=== PATIENT | female | born 1960 | race Caucasian/White ===

== ENCOUNTER 2016-08-27 22:41 | Emergency (ER) | payer MEDICAID ==
[2016-08-27] MEDS ORDERED: Ondansetron 4 MG/2 ML SDV IVPUSH ONE (22:52)
[2016-08-27] MEDS: Sodium Chloride 0.9% 10 ML Syringe FLUSH PRN ×2 (23:01→23:21)
[2016-08-27] MEDS ORDERED: Iopamidol 612 MG/ML 100 ML Bottle IVPUSH ONE (23:03)
[2016-08-27] MEDS ORDERED: Morphine 10 MG/ML Syringe IVPUSH ONE (23:14)
--- NOTE | 2016-08-28 00:38 | EDM.PDOC ---
ED HPI GENERAL MEDICAL PROBLEM - General Chief Complaint: Abdominal Pain Stated Complaint: abd pain Time Seen by Provider: 08/27/16 23:11 Source of Information: Reports: Patient History Limitations: Reports: No Limitations - History of Present Illness INITIAL COMMENTS - FREE TEXT/NARRATIVE: On/off abdominal pain that started today. Patient brought in by private vehicle. Pain is christie-umbilical. She has history of ventral hernia and has undergone 3 surgical repairs. She says she knows that she "tore" the more recent repair and feels that the pain is related to the hernia. Has had some emesis. One looser stool but took MOM earlier. No fevers. No other new pain. Has chronic hip/leg pain issues. Morbidly obese. 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 Middle Abdominal Pain Score (Numeric/FACES): 10 - Related Data Allergies Allergy/AdvReac Type Severity Reaction Status Date / Time No Known Allergies Allergy Verified 10/12/13 09:33 Home Meds: Home Meds Acetaminophen [Tylenol Extra Strength] 1,000 mg PO Q12H PRN 10/12/13 [History] Cyclobenzaprine [Flexeril] 5 mg PO TID PRN 10/12/13 [History] Diclofenac Sodium [Voltaren] 75 mg PO BID 10/12/13 [History] Warfarin Dosing [Coumadin Ask] 1 each PO DAILY 10/12/13 [History] traMADol [Ultram] 50 mg PO TID PRN 10/12/13 [History] Magnesium Hydroxide [Milk of Magnesia] 30 ml PO DAILY PRN 08/27/16 [History] Past Medical History HEENT History: Reports: Impaired Vision Cardiovascular History: Reports: Other (See Below) Other Cardiovascular History: "blood filter" unknown location to pt perhaps in her lungs as 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 Respiratory History: Reports: PE Gastrointestinal History: Reports: Other (See Below) Other Gastrointestinal History: umbilical hernia with 3 repairs Endocrine/Metabolic History: Reports: Obesity/BMI 30+ Oncologic (Cancer) History: Reports: Uterine - Past Surgical History GI Surgical History: Reports: Cholecystectomy, Hernia, Abdominal Oncologic Surgical History: Reports: Other (See Below) Other Oncologic Surgeries/Procedures: removal of reproductive organs Social & Family History - Tobacco Use Smoking Status *Q: Never Smoker - Alcohol Use Days Per Week of Alcohol Use: 0 - Recreational Drug Use Recreational Drug Use: No - Living Situation & Occupation Living situation: Reports: with Spouse ED ROS GENERAL - Review of Systems Review Of Systems: See Below Constitutional: Reports: Decreased Appetite. Denies: Fever, Weakness, Fatigue, Night Sweats HEENT: Reports: No Symptoms Respiratory: Reports: No Symptoms Cardiovascular: Reports: No Symptoms GI/Abdominal: Reports: Abdominal Pain, Decreased Appetite, Nausea, Vomiting. Denies: Black Stool, Bloody Stool, Constipation, Difficulty Swallowing, Distension, Hematemesis, Hematochezia, Melena : Reports: No Symptoms Musculoskeletal: Reports: Other (chronic leg/hip pain ) Skin: Reports: No Symptoms Neurological: Reports: No Symptoms Psychiatric: Reports: No Symptoms ED EXAM, GI/ABD - Physical Exam Exam: See Below Exam Limited By: No Limitations General Appearance: Alert, Moderate Distress, Obese, Active Emesis Eyes: Bilateral: Normal Appearance, EOMI Ears: Normal External Exam Nose: Normal Inspection Throat/Mouth: Normal Lips, Normal Voice, No Airway Compromise Head: Atraumatic, Normocephalic Neck: Supple, Non-Tender. No: Lymphadenopathy (L), Lymphadenopathy (R) Respiratory/Chest: No Respiratory Distress, Lungs Clear, Normal Breath Sounds, No Accessory Muscle Use, Chest Non-Tender Cardiovascular: Normal Peripheral Pulses, Regular Rate, Rhythm, No Murmur GI/Abdominal: Hypoactive Bowel Sounds, Tenderness (christie-umbilical area), Other ( obvious intestines/peristolic movements noted near hearnia.). No: Rebound (Female) Exam: Deferred Rectal (Female) Exam: Deferred Back Exam: Normal Inspection Extremities: Normal Capillary Refill Neurological: Alert, Oriented, Normal Cognition, No Motor/Sensory Deficits Psychiatric: Anxious Skin Exam: Warm, Dry, Intact, Normal Color Course - Vital Signs Last Recorded V/S: Last Vital Signs Temp 36.3 C 08/27/16 23:58 Pulse 80 08/28/16 00:47 Resp 17 08/28/16 00:47 BP 114/69 08/28/16 00:47 Pulse Ox 95 08/28/16 00:47 - Orders/Labs/Meds Orders: Active Orders 24 hr Category Date Time Status Cardiac Monitoring [RC] . DIRECTED Care 08/27/16 22:59 Active Abdomen Pelvis w Cont [CT] Stat Exams 08/27/16 22:55 Taken Sodium Chloride 0.9% [Saline Flush] Med 08/27/16 22:59 Active 10 ml FLUSH ASDIRECTED PRN Saline Lock Insert [OM.PC] Routine Oth 08/27/16 22:59 Ordered Medication Orders Sodium Chloride (Saline Flush) 10 ml FLUSH ASDIRECTED PRN PRN Reason: Keep Vein Open Last Admin: 08/27/16 23:21 Dose: 10 ml Admin: 08/27/16 23:01 Dose: 10 ml Labs: Laboratory Tests 08/27/16 08/27/16 08/27/16 Range/Units 22:48 22:48 22:50 WBC 10.2 (4.0-10.2) K/uL RBC 4.07 (3.77-5.09) M/uL Hgb 12.5 (11.7-15.5) g/dL Hct 38.7 (34.0-46.0) % MCV 95.1 (84.0-98.0) fL MCH 30.7 (28.2-33.3) pg MCHC 32.3 (31.7-36.0) g/dL RDW 13.8 (11.2-14.1) % Plt Count 253 (150-350) K/uL Neut % (Auto) 84.8 H (45.0-80.0) % Lymph % (Auto) 11.6 (10.0-50.0) % [place] % (Auto) 3.0 (2.0-14.0) % Eos % (Auto) 0.4 (0.0-5.0) % Baso % (Auto) 0.2 (0.0-2.0) % Neut # (Auto) 8.62 H (1.40-7.00) K/uL Lymph # (Auto) 1.18 (0.50-3.50) K/uL [place] # (Auto) 0.30 (0.00-1.00) K/uL Eos # (Auto) 0.04 (0.00-0.50) K/uL Baso # (Auto) 0.02 (0.00-0.20) K/uL PT 21.4 H D (9.8-11.7) SEC INR 1.9 Sodium 139 (136-145) mmol/L Potassium 4.0 (3.5-5.1) mmol/L Chloride 102 (98-107) mmol/L Carbon Dioxide 28.5 (21.0-32.0) mmol/L BUN 17 (7-18) mg/dL Creatinine 1.04 (0.51-1.17) mg/dL Est Cr Clr Drug Dosing 54.35 mL/min Estimated GFR (MDRD) 55 mL/min Glucose 140 H (74-106) mg/dL Calcium 10.2 H (8.5-10.1) mg/dL Total Bilirubin 1.6 H (0.2-1.0) mg/dL AST 30 (15-37) U/L ALT 26 (12-78) U/L Alkaline Phosphatase 76 (46-116) IU/L Troponin I 0.000 (0.000-0.056) ng/mL Total Protein 8.2 (6.4-8.2) g/dL Albumin 4.4 (3.4-5.0) g/dL Amylase 49 (25-115) U/L Lipase 128 (73-393) U/L Specimen Type Urine Color Urine Appearance Urine pH (5.0-9.0) Ur Specific [place] (1.005-1.030) Urine Protein (NEGATIVE) mg/dL Urine Glucose (UA) (NEGATIVE) mg/dL Urine Ketones (NEGATIVE) mg/dL Urine Occult Blood (NEGATIVE) Urine Nitrite (NEGATIVE) Urine Bilirubin (NEGATIVE) Urine Urobilinogen (0.2-1.0) E.U./dL Ur Leukocyte Esterase (NEGATIVE) Urine RBC /HPF Urine WBC /HPF Ur Epithelial Cells /LPF Urine Bacteria (NONE TO FEW) /HPF 08/27/16 Range/Units 23:45 WBC (4.0-10.2) K/uL RBC (3.77-5.09) M/uL Hgb (11.7-15.5) g/dL Hct (34.0-46.0) % MCV (84.0-98.0) fL MCH (28.2-33.3) pg MCHC (31.7-36.0) g/dL RDW (11.2-14.1) % Plt Count (150-350) K/uL Neut % (Auto) (45.0-80.0) % Lymph % (Auto) (10.0-50.0) % [place] % (Auto) (2.0-14.0) % Eos % (Auto) (0.0-5.0) % Baso % (Auto) (0.0-2.0) % Neut # (Auto) (1.40-7.00) K/uL Lymph # (Auto) (0.50-3.50) K/uL [place] # (Auto) (0.00-1.00) K/uL Eos # (Auto) (0.00-0.50) K/uL Baso # (Auto) (0.00-0.20) K/uL PT (9.8-11.7) SEC INR Sodium (136-145) mmol/L Potassium (3.5-5.1) mmol/L Chloride (98-107) mmol/L Carbon Dioxide (21.0-32.0) mmol/L BUN (7-18) mg/dL Creatinine (0.51-1.17) mg/dL Est Cr Clr Drug Dosing mL/min Estimated GFR (MDRD) mL/min Glucose (74-106) mg/dL Calcium (8.5-10.1) mg/dL Total Bilirubin (0.2-1.0) mg/dL AST (15-37) U/L ALT (12-78) U/L Alkaline Phosphatase (46-116) IU/L Troponin I (0.000-0.056) ng/mL Total Protein (6.4-8.2) g/dL Albumin (3.4-5.0) g/dL Amylase (25-115) U/L Lipase (73-393) U/L Specimen Type Urincc Urine Color Yellow Urine Appearance Cloudy Urine pH 7.5 (5.0-9.0) Ur Specific [place] 1.020 (1.005-1.030) Urine Protein Negative (NEGATIVE) mg/dL Urine Glucose (UA) Negative (NEGATIVE) mg/dL Urine Ketones Negative (NEGATIVE) mg/dL Urine Occult Blood Trace-intact H (NEGATIVE) Urine Nitrite Negative (NEGATIVE) Urine Bilirubin Negative (NEGATIVE) Urine Urobilinogen 1.0 (0.2-1.0) E.U./dL Ur Leukocyte Esterase Negative (NEGATIVE) Urine RBC 0-5 /HPF Urine WBC 0-5 /HPF Ur Epithelial Cells Rare /LPF Urine Bacteria Rare (NONE TO FEW) /HPF Meds: Medications Generic Name Dose Route Start Last Admin Trade Name Freq PRN Reason Stop Dose Admin Sodium Chloride 10 ml 08/27/16 22:59 08/27/16 23:21 Saline Flush FLUSH 10 ml ASDIRECTED PRN Administration Keep Vein Open Discontinued Medications Generic Name Dose Route Start Last Admin Trade Name Freq PRN Reason Stop Dose Admin Diazepam 5 mg 08/27/16 23:19 Valium IVPUSH 08/27/16 23:20 ONETIME ONE Iopamidol 100 ml 08/27/16 23:03 08/27/16 23:53 Isovue-300 (61%) IVPUSH 08/27/16 23:04 100 ml ONETIME ONE Administration Morphine Sulfate 5 mg 08/27/16 23:14 08/27/16 23:17 Morphine IVPUSH 08/27/16 23:15 5 mg ONETIME ONE Administration Ondansetron HCl 4 mg 08/27/16 22:52 08/27/16 22:58 Zofran IVPUSH 08/27/16 22:53 4 mg ONETIME ONE Administration - Radiology Interpretation Free Text/Narrative:: CT read by radiology. Large ventral hernia, small bowel obstruction within hernia. - Re-Assessments/Exams Free Text/Narrative Re-Assessment/Exam: 08/28/16 00:40 Attempts to reduce hernia unsuccessful. Pain improved with MS. Saleem helped with nausea. Discussed patient with from [facility]. Plans made for patient to be transferred to [facility] for further evaluation and reduction attempts. Surgical consult available. Extremely complicated home situation made it necessary that patient traveled by private vehicle to [facility]. 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 In the event she is admitted, he will require admission to the respite care unit at [facility]. Departure - Departure Time of Disposition: 00:52 Disposition: DC/Tfer to Acute Hospital 02 Clinical Impression: Small bowel obstruction Ventral hernia Qualifiers: Obstruction and gangrene presence: with obstruction but without gangrene Qualified Code(s): K43.6 - Other and unspecified ventral hernia with obstruction , without gangrene - Discharge Information Referrals: Pinky Montoya PA-C [Primary Care Provider] - Forms: ED Department Discharge Additional Instructions: Drive directly to [facility]. DO NOT EAT or DRINK! This is in case you need to have surgery or sedation to reduce the hernia. Go directly to ER - My Orders Last 24 Hours: My Active Orders 08/27/16 22:55 Abdomen Pelvis w Cont [CT] Stat 08/27/16 22:59 Cardiac Monitoring [RC] . DIRECTED Sodium Chloride 0.9% [Saline Flush] 10 ml FLUSH ASDIRECTED PRN Saline Lock Insert [OM.PC] Routine - Assessment/Plan Last 24 Hours: My Active Orders 08/27/16 22:55 Abdomen Pelvis w Cont [CT] Stat 08/27/16 22:59 Cardiac Monitoring [RC] . DIRECTED Sodium Chloride 0.9% [Saline Flush] 10 ml FLUSH ASDIRECTED PRN Saline Lock Insert [OM.PC] Routine
[2016-08-28] MEDS ORDERED: Morphine 2 MG/ML Syringe IVPUSH ONE (00:53)
[2016-08-28] MEDS: Sodium Chloride 0.9% 10 ML Syringe FLUSH PRN (01:04)
[2016-08-28 01:13] VITALS: BP 121/67
== END 2016-08-28 01:32 ==
LOC: LL.ED 22:41
DX: K56.69 Other intestinal obstruction (principal); K43.6 Other and unspecified ventral hernia with obstruction, without gangrene; Z86.711 Personal history of pulmonary embolism; E66.9 Obesity, unspecified; Z68.42 Body mass index [BMI] 45.0-49.9, adult; Z85.42 Personal history of malignant neoplasm of other parts of uterus; Z90.49 Acquired absence of other specified parts of digestive tract; Z98.890 Other specified postprocedural states; Z79.01 Long term (current) use of anticoagulants; Z79.899 Other long term (current) drug therapy
CPT/HCPCS: 36415; 74177; 80053; 81001; 82150; 83690; 84484; 85025; 85610; 96374; 96375; 96376; 99285; J2270; J2405; J7050; Q9967; 99284

== ENCOUNTER 2016-10-28 07:47 | Emergency (ER) | payer MEDICAID ==
--- NOTE | 2016-10-28 07:52 | EDM.PDOC ---
ED HPI GENERAL MEDICAL PROBLEM - General Chief Complaint: General Stated Complaint: hip pain Time Seen by Provider: 10/28/16 07:47 Source of Information: Reports: Patient, Old Records ([facility] EMR. 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 Note evidence of progressive ventral abdominal hernia and borderline ileus at that time by CT scan as below. Patient states that she has been here on 4 separate occasions for similar type symptoms, however our records show only 1 previous evaluation of similar symptoms on . She has 12/10 right lower quadrant intermittent abdominal cramping and pain with intermittent nausea but no emesis with possible fever and chills yesterday evening, however she did not measure her temperature. She did take her "pain pill "and "muscle relaxant" at time of onset of her symptoms at about 2 AM at home. She apparently did have a normal bowel movement at about 3 AM this morning. The patient denies any chest pain/pressure, heart flutter, dizziness, orthostasis, orthopnea, diaphoresis, paresthesias, recent decreased exercise tolerance, or any other anginal-type symptoms. No recent history of other abdominal pain, heartburn, diarrhea, melena, gross hematochezia, or any food intolerance, including fatty foods, etc.. The patient also denies any recent fever, cough, wheezing, dyspnea, etc.. Note possible additional radiation of the above discomfort into the right hip, however no recent history of fall, injury, etc.? Onset: Today, Sudden Onset Date: 10/28/16 Onset Time: 02:00 Duration: Getting Worse, Intermittent Location: Reports: Abdomen, Lower Extremity, Right (Right hip as above), Radiates to (As above). Denies: Head, Face, Neck, Chest, Back, Pelvis, Upper Extremity, Left, Upper Extremity, Right, Lower Extremity, Left Quality: Reports: Same as Previous Episode, Sharp Severity: Severe Improves with: Reports: Rest Worsens with: Reports: Movement (And deep inspiration?) Context: Reports: Other (As above) Associated Symptoms: Reports: Fever/Chills, Nausea/Vomiting (Without). Denies: Confusion, Chest Pain, Cough, cough w sputum, Diaphoresis, Headaches, Loss of Appetite, Malaise, Shortness of Breath, Weakness Treatments ORTHOPAEDIC NURSE: Reports: Other Medication(s) (As above) Right Lower Abdomen Pain Score (Numeric/FACES): 12 - Related Data Allergies Allergy/AdvReac Type Severity Reaction Status Date / Time No Known Allergies Allergy Verified 10/28/16 08:42 Home Meds: Home Meds Acetaminophen [Tylenol Extra Strength] 1,000 mg PO Q12H PRN 10/12/13 [History] Cyclobenzaprine [Flexeril] 5 mg PO TID PRN 10/12/13 [History] Diclofenac Sodium [Voltaren] 75 mg PO BID 10/12/13 [History] Warfarin Dosing [Coumadin Ask] 1 each PO DAILY 10/12/13 [History] traMADol [Ultram] 50 mg PO TID PRN 10/12/13 [History] Magnesium Hydroxide [Milk of Magnesia] 30 ml PO DAILY PRN 08/27/16 [History] Past Medical History HEENT History: Reports: Impaired Vision Cardiovascular History: Reports: Blood Clots/VTE/DVT, Other (See Below) Other Cardiovascular History: 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, severe varicose veins Respiratory History: Reports: PE Gastrointestinal History: Reports: Bowel Obstruction, Cholelithiasis, Other ( See Below) Other Gastrointestinal History: Large ventral abdominal hernias with apparent previous umbilical hernia with 3 repairs, small bowel obstruction on 08/27/16 Musculoskeletal History: Reports: Back Pain, Chronic, Osteoarthritis, Other ( See Below) Other Musculoskeletal History: Chronic right hip pain Endocrine/Metabolic History: Reports: Obesity/BMI 30+ Oncologic (Cancer) History: Reports: Uterine, Other (See Below) Other Oncologic History: History of uterine cancer in 2010 with chemotherapy and radiation therapy and complete hysterectomy as below - Past Surgical History Cardiovascular Surgical History: Reports: Other (See Below) Other Cardiovascular Surgeries/Procedures: IVC filter placement secondary to DVT /PE GI Surgical History: Reports: Cholecystectomy, Hernia, Abdominal, Other (See Below) Other GI Surgeries/Procedures: Umbilical hernia repair 3 Female Surgical History: Reports: Hysterectomy, Salpingo-Oophorectomy, Other (See Below) Other Female Surgeries/Procedures: Complete hysterectomy and bilateral salpingo-oophorectomy secondary to uterine cancer in 2010 Oncologic Surgical History: Reports: Other (See Below) Other Oncologic Surgeries/Procedures: removal of reproductive organs - Past Imaging History Past Imaging History: Reports: CAT Scan (CT of the abdomen and pelvis on 08/27/16) Social & Family History - Tobacco Use Smoking Status *Q: Never Smoker - Alcohol Use Days Per Week of Alcohol Use: 0 - Recreational Drug Use Recreational Drug Use: No - Living Situation & Occupation Living situation: Reports: with Spouse ED ROS GENERAL - Review of Systems Review Of Systems: ROS reveals no pertinent complaints other than HPI. ED EXAM, GENERAL - Physical Exam Exam: See Below Exam Limited By: No Limitations General Appearance: Alert, WD/WN, Anxious (Moderate), Mild Distress (Mild secondary to discomfort) Eye Exam: Bilateral Eye: EOMI, Normal Inspection (No nystagmus), PERRL Ears: Normal External Exam, Normal Canal, Hearing Grossly Normal, Normal TMs Nose: Normal Inspection, Normal Mucosa, No Blood Throat/Mouth: Normal Inspection, Normal Lips, Normal Gums, Normal Oropharynx, Normal Voice, No Airway Compromise. No: Normal Teeth (Multiple missing teeth including multiple caries and broken teeth into the gumline with no acute abscess or drainage), Dysphagia, Perioral Cyanosis Head: Atraumatic, Normocephalic. No: Facial Swelling, Facial Tenderness, Sinus Tenderness Neck: Normal Inspection, Supple, Non-Tender, Full Range of Motion. No: Lymphadenopathy (L), Lymphadenopathy (R), Thyromegaly Respiratory/Chest: No Respiratory Distress, Lungs Clear, Normal Breath Sounds, No Accessory Muscle Use, Chest Non-Tender. No: Pleural Rub, Retractions Cardiovascular: Normal Peripheral Pulses, Regular Rate, Rhythm, No Edema, No Gallop, No JVD, No Murmur, No Rub. No: Gallop/S3, Gallop/S4, Friction Rub Peripheral Pulses: 2+: Radial (L), Radial (R), Dorsalis Pedis (L), Dorsalis Pedis (R) GI/Abdominal: No Distention, No Abnormal Bruit, No Mass, Pelvis Stable, Tender ( Mild right lower quadrant palpation pain), Hernia (Ventral wall abdominal hernia is difficult to assess secondary to morbid obesity but no direct evidence of incarceration). No: Guarding, Rigid, Rebound (Female) Exam: Deferred Rectal (Female) Exam: Deferred Extremities: Normal Range of Motion, Non-Tender, Normal Capillary Refill, Pedal Edema (Trace bilateral pedal/pretibial edema), Other (Severe bilateral varicose veins). No: Henny's Sign Neurological: Alert, Oriented, CN II-XII Intact, Normal Cognition, Normal Gait, Normal Reflexes (Negative Babinski's), No Motor/Sensory Deficits Psychiatric: Anxious (Moderate), Depressed Mood (Moderate with adequate eye contact) Skin Exam: Warm, Dry, Intact, Normal Color, No Rash. No: Diaphoretic, Ecchymosis, Wound/Incision Lymphatic: No Adenopathy Course - Vital Signs Last Recorded V/S: Last Vital Signs Temp 36.6 C 10/28/16 08:35 Pulse 89 10/28/16 08:35 Resp 20 10/28/16 08:35 BP 138/79 10/28/16 08:35 Pulse Ox 100 10/28/16 08:35 - Orders/Labs/Meds Orders: Active Orders 24 hr Category Date Time Status Peripheral IV Care [RC] . DIRECTED Care 10/28/16 07:55 Active Nothing Per Oral Diet [DIET] Diet 10/28/16 Breakfast Active Abdomen Series w Chest 1V [CR] Stat Exams 10/28/16 07:55 Ordered Hip Min 2V or 3V Rt [CR] Stat Exams 10/28/16 08:09 Ordered Hip wo Cont Rt [CT] Stat Exams 10/28/16 08:47 Ordered CK W CKMB [CHEM] Stat Lab 10/28/16 08:52 Ordered CULTURE BLOOD [BC] Stat Lab 10/28/16 07:55 Ordered CULTURE BLOOD [BC] Stat Lab 10/28/16 08:10 Received CULTURE URINE [RM] Stat Lab 10/28/16 07:55 Uncollected D-DIMER QUANTITATIVE [COAG] Stat Lab 10/28/16 08:53 Ordered H PYLORI STOOL ANTIGEN [MREF] Urgent Lab 10/28/16 07:55 Uncollected INR,PT,PROTHROMBIN TIME [COAG] Stat Lab 10/28/16 08:10 Received OCCULT BLOOD DIAGNOSTIC [OP] Stat Lab 10/28/16 07:55 Uncollected PRO B-TYPE NATRIUR PEPT,BNPPRO [CHEM] Stat Lab 10/28/16 08:53 Ordered PTT,PARTIAL THROMBOPLSTIN TIME [COAG] Stat Lab 10/28/16 08:10 Received TROPONIN I [CHEM] Routine Lab 10/28/16 08:53 Ordered UA W/MICROSCOPIC [URIN] Urgent Lab 10/28/16 07:55 Uncollected Sodium Chloride 0.9% [Saline Flush] Med 10/28/16 07:55 Active 10 ml FLUSH ASDIRECTED PRN Blood Culture x2 Reflex Set [OM.PC] Urgent Oth 10/28/16 07:55 Ordered Obtain Past Medical Record [OM.PC] Urgent Oth 10/28/16 07:55 Active Peripheral IV Insertion Adult [OM.PC] Stat Oth 10/28/16 07:55 Ordered Resuscitation Status Stat Resus Stat 10/28/16 07:55 Ordered Medication Orders Sodium Chloride (Saline Flush) 10 ml FLUSH ASDIRECTED PRN PRN Reason: Keep Vein Open Last Admin: 10/28/16 08:43 Dose: 10 ml Labs: Laboratory Tests 10/28/16 10/28/16 10/28/16 Range/Units 08:10 08:10 08:10 WBC 6.2 (4.0-10.2) K/uL RBC 3.50 L (3.77-5.09) M/uL Hgb 10.9 L D (11.7-15.5) g/dL Hct 33.7 L (34.0-46.0) % MCV 96.3 (84.0-98.0) fL MCH 31.1 (28.2-33.3) pg MCHC 32.3 (31.7-36.0) g/dL RDW 14.6 H (11.2-14.1) % Plt Count 196 (150-350) K/uL Neut % (Auto) 79.8 (45.0-80.0) % Lymph % (Auto) 15.9 (10.0-50.0) % [place] % (Auto) 3.3 (2.0-14.0) % Eos % (Auto) 0.8 (0.0-5.0) % Baso % (Auto) 0.2 (0.0-2.0) % Neut # (Auto) 4.91 (1.40-7.00) K/uL Lymph # (Auto) 0.98 (0.50-3.50) K/uL [place] # (Auto) 0.20 (0.00-1.00) K/uL Eos # (Auto) 0.05 (0.00-0.50) K/uL Baso # (Auto) 0.01 (0.00-0.20) K/uL Sodium 139 (136-145) mmol/L Potassium 4.1 (3.5-5.1) mmol/L Chloride 104 (98-107) mmol/L Carbon Dioxide 27.6 (21.0-32.0) mmol/L BUN 21 H (7-18) mg/dL Creatinine 1.06 (0.51-1.17) mg/dL Est Cr Clr Drug Dosing TNP Estimated GFR (MDRD) 54 mL/min Glucose 155 H (74-106) mg/dL Lactic Acid (0.4-2.0) mmol/L Uric Acid 6.4 (2.6-7.2) mg/dL Calcium 9.5 (8.5-10.1) mg/dL Magnesium 1.6 L (1.8-2.4) mg/dL Total Bilirubin 1.6 H (0.2-1.0) mg/dL AST 33 (15-37) U/L ALT 31 (12-78) U/L Alkaline Phosphatase 76 (46-116) IU/L Total Protein 7.2 (6.4-8.2) g/dL Albumin 3.7 (3.4-5.0) g/dL Amylase 41 (25-115) U/L Lipase 105 (73-393) U/L 10/28/16 Range/Units 08:10 WBC (4.0-10.2) K/uL RBC (3.77-5.09) M/uL Hgb (11.7-15.5) g/dL Hct (34.0-46.0) % MCV (84.0-98.0) fL MCH (28.2-33.3) pg MCHC (31.7-36.0) g/dL RDW (11.2-14.1) % Plt Count (150-350) K/uL Neut % (Auto) (45.0-80.0) % Lymph % (Auto) (10.0-50.0) % [place] % (Auto) (2.0-14.0) % Eos % (Auto) (0.0-5.0) % Baso % (Auto) (0.0-2.0) % Neut # (Auto) (1.40-7.00) K/uL Lymph # (Auto) (0.50-3.50) K/uL [place] # (Auto) (0.00-1.00) K/uL Eos # (Auto) (0.00-0.50) K/uL Baso # (Auto) (0.00-0.20) K/uL Sodium (136-145) mmol/L Potassium (3.5-5.1) mmol/L Chloride (98-107) mmol/L Carbon Dioxide (21.0-32.0) mmol/L BUN (7-18) mg/dL Creatinine (0.51-1.17) mg/dL Est Cr Clr Drug Dosing Estimated GFR (MDRD) mL/min Glucose (74-106) mg/dL Lactic Acid 0.6 (0.4-2.0) mmol/L Uric Acid (2.6-7.2) mg/dL Calcium (8.5-10.1) mg/dL Magnesium (1.8-2.4) mg/dL Total Bilirubin (0.2-1.0) mg/dL AST (15-37) U/L ALT (12-78) U/L Alkaline Phosphatase (46-116) IU/L Total Protein (6.4-8.2) g/dL Albumin (3.4-5.0) g/dL Amylase (25-115) U/L Lipase (73-393) U/L Meds: Medications Generic Name Dose Route Start Last Admin Trade Name Freq PRN Reason Stop Dose Admin Sodium Chloride 10 ml 10/28/16 07:55 10/28/16 08:43 Saline Flush FLUSH 10 ml ASDIRECTED PRN Administration Keep Vein Open Discontinued Medications Generic Name Dose Route Start Last Admin Trade Name Freq PRN Reason Stop Dose Admin Famotidine 40 mg 10/28/16 07:55 10/28/16 08:43 Pepcid IVPUSH 10/28/16 07:56 40 mg ONETIME ONE Administration Ceftriaxone Sodium 1 gm/ 100 mls @ 200 mls/hr 10/28/16 08:00 Sodium Chloride IV Q12H ALEJANDRO Metronidazole 500 mg/ Premix 100 mls @ 100 mls/hr 10/28/16 08:00 IV Q8H ALEJANDRO Pantoprazole Sodium 40 mg 10/28/16 07:55 10/28/16 08:43 Protonix Iv IVPUSH 10/28/16 07:56 40 mg ONETIME ONE Administration - Radiology Interpretation Free Text/Narrative:: X-rays of the hip, 2 views, shows somewhat inadequate films, however no direct indication of fracture Acute abdominal x-rays did show evidence of moderate COPD changes with moderate right middle lobe pulmonary infiltrates and borderline cardiomegaly with probable pulmonary hypertension and/or concomitant moderate CHF. No pneumothorax noted. No evidence of free air, fluid levels, ileus, obstruction, etc. Note status post IVC placement and surgical clips in right upper quadrant consistent with previous cholecystectomy Departure - Departure Time of Disposition: 08:50 Disposition: Still A Patient 29 Condition: Fair Clinical Impression: Abdominal pain, Hip pain, Ventral hernia, DVT (deep venous thrombosis), Caries , Obesity (BMI 35.0-39.9 without comorbidity), Mixed anxiety depressive disorder , Pneumonia, COPD (chronic obstructive pulmonary disease) - Discharge Information Referrals: PCP,None [Primary Care Provider] - Forms: ED Department Discharge - Problem List & Annotations (1) Abdominal pain SNOMED Code(s): 91659138 Code(s): R10.9 - UNSPECIFIED ABDOMINAL PAIN Status: Acute Priority: High Onset Date: 10/28/16 Annotation/Comment:: History of small bowel ileus on as above with hospital transfer in successful therapy with NG tube therapy by patient's history. Note that patient does have multiple ventral abdominal hernia with history of recurrent umbilical hernias as above. Consider repeat CT scan of the abdomen and pelvis depending on clinical course. [facility] physician, Dr. Lewis, will assume patient's care secondary to shift change with incomplete workup, previous medical history, etc. to this point Qualifiers: Abdominal location: right lower quadrant Qualified Code(s): R10.31 - Right lower quadrant pain (2) Hip pain SNOMED Code(s): 51058886 Code(s): M25.559 - PAIN IN UNSPECIFIED HIP Status: Acute Priority: Medium Annotation/Comment:: Nonspecific right hip pain with distant history of nonspecific cystic changes in this area. Note previous history of uterine cancer as above. CT scan without contrast of the hip has been ordered with results pending. Consider bone scan, etc. depending on her clinical course (3) Caries SNOMED Code(s): 93511757 Code(s): K02.9 - DENTAL CARIES, UNSPECIFIED Status: Chronic Priority: Medium Annotation/Comment:: Follow-up with dentist MARIANO strongly advised (4) DVT (deep venous thrombosis) SNOMED Code(s): 099865702 Code(s): I82.409 - ACUTE EMBOLISM AND THOMBOS UNSP DEEP VN UNSP LOWER EXTREMITY Status: Chronic Priority: Medium Annotation/Comment:: Currently on Coumadin with IVC filter in place by recent CT scan as above. INR pending however apparently therapeutic yesterday Qualifiers: DVT location: lower extremity Affected thrombotic vein of extremity: unspecified vein of extremity Chronicity: unspecified Laterality: unspecified laterality Qualified Code(s): I82.409 - Acute embolism and thrombosis of unspecified deep veins of unspecified lower extremity (5) Mixed anxiety depressive disorder SNOMED Code(s): 599632546 Code(s): F41.8 - OTHER SPECIFIED ANXIETY DISORDERS Status: Chronic Priority: Medium Annotation/Comment:: Poor control by current clinical exam. Close follow-up recommended by patient's regular providers (6) Obesity (BMI 35.0-39.9 without comorbidity) SNOMED Code(s): 138521672, 653957087 Code(s): E66.9 - OBESITY, UNSPECIFIED Status: Chronic Priority: Medium Annotation/Comment:: Weight loss in moderation is advisable (7) Ventral hernia SNOMED Code(s): 761513828 Code(s): K43.9 - VENTRAL HERNIA WITHOUT OBSTRUCTION OR GANGRENE Status: Chronic Priority: High Annotation/Comment:: As above Qualifiers: Obstruction and gangrene presence: with obstruction but without gangrene Qualified Code(s): K43.6 - Other and unspecified ventral hernia with obstruction , without gangrene (8) COPD (chronic obstructive pulmonary disease) SNOMED Code(s): 70379972 Code(s): J44.9 - CHRONIC OBSTRUCTIVE PULMONARY DISEASE, UNSPECIFIED Status : Chronic Priority: Medium Annotation/Comment:: COPD by chest x-ray with right middle lobe pneumonia noted by x-rays as above. Blood cultures 2 have been collected. Possible CHF component with cardiac enzymes ordered but results pending. No chest pain or anginal type symptoms, although pleuritic component to abdominal pain? Qualifiers: COPD type: COPD with acute lower respiratory infection Qualified Code(s): J44.0 - Chronic obstructive pulmonary disease with acute lower respiratory infection (9) Pneumonia SNOMED Code(s): 763264120 Code(s): J18.9 - PNEUMONIA, UNSPECIFIED ORGANISM Status: Acute Priority: High Onset Date: 10/28/16 Annotation/Comment:: As above Qualifiers: Pneumonia type: due to unspecified organism Laterality: right Lung location: middle lobe of lung Qualified Code(s): J18.1 - Lobar pneumonia, unspecified organism - Problem List Review Problem List Initiated/Reviewed/Updated: Yes - My Orders Last 24 Hours: My Active Orders 10/28/16 07:55 Peripheral IV Care [RC] . DIRECTED Abdomen Series w Chest 1V [CR] Stat CULTURE BLOOD [BC] Stat CULTURE URINE [RM] Stat H PYLORI STOOL ANTIGEN [MREF] Urgent OCCULT BLOOD DIAGNOSTIC [OP] Stat UA W/MICROSCOPIC [URIN] Urgent Sodium Chloride 0.9% [Saline Flush] 10 ml FLUSH ASDIRECTED PRN Blood Culture x2 Reflex Set [OM.PC] Urgent Obtain Past Medical Record [OM.PC] Urgent Peripheral IV Insertion Adult [OM.PC] Stat Resuscitation Status Stat 10/28/16 08:09 Hip Min 2V or 3V Rt [CR] Stat 10/28/16 08:10 CULTURE BLOOD [BC] Stat INR,PT,PROTHROMBIN TIME [COAG] Stat PTT,PARTIAL THROMBOPLSTIN TIME [COAG] Stat 10/28/16 08:47 Hip wo Cont Rt [CT] Stat 10/28/16 08:52 CK W CKMB [CHEM] Stat 10/28/16 08:53 D-DIMER QUANTITATIVE [COAG] Stat PRO B-TYPE NATRIUR PEPT,BNPPRO [CHEM] Stat TROPONIN I [CHEM] Routine 10/28/16 Breakfast Nothing Per Oral Diet [DIET] - Assessment/Plan Last 24 Hours: My Active Orders 10/28/16 07:55 Peripheral IV Care [RC] . DIRECTED Abdomen Series w Chest 1V [CR] Stat CULTURE BLOOD [BC] Stat CULTURE URINE [RM] Stat H PYLORI STOOL ANTIGEN [MREF] Urgent OCCULT BLOOD DIAGNOSTIC [OP] Stat UA W/MICROSCOPIC [URIN] Urgent Sodium Chloride 0.9% [Saline Flush] 10 ml FLUSH ASDIRECTED PRN Blood Culture x2 Reflex Set [OM.PC] Urgent Obtain Past Medical Record [OM.PC] Urgent Peripheral IV Insertion Adult [OM.PC] Stat Resuscitation Status Stat 10/28/16 08:09 Hip Min 2V or 3V Rt [CR] Stat 10/28/16 08:10 CULTURE BLOOD [BC] Stat INR,PT,PROTHROMBIN TIME [COAG] Stat PTT,PARTIAL THROMBOPLSTIN TIME [COAG] Stat 10/28/16 08:47 Hip wo Cont Rt [CT] Stat 10/28/16 08:52 CK W CKMB [CHEM] Stat 10/28/16 08:53 D-DIMER QUANTITATIVE [COAG] Stat PRO B-TYPE NATRIUR PEPT,BNPPRO [CHEM] Stat TROPONIN I [CHEM] Routine 10/28/16 Breakfast Nothing Per Oral Diet [DIET] Assessment:: As above Plan: Dr. Lewis was updated concerning current workup and care and assumed patient 's care at 08:50 AM
[2016-10-28] MEDS ORDERED: Pantoprazole 40 MG Vial IVPUSH ONE (07:55)
[2016-10-28] MEDS ORDERED: Famotidine 20 MG/2 ML SDV IVPUSH ONE (07:55)
[2016-10-28] MEDS ORDERED: metroNIDAZOLE/Normal Saline 500 MG in Premix Bag 1 BAG IV SCH (08:00)
[2016-10-28] MEDS ORDERED: cefTRIAXone 1 GM in Sodium Chloride 0.9% 100 ML IV SCH (08:00)
[2016-10-28 08:35] LABS: CHLORIDE,CL 104 mmol/L (98-107); SODIUM,NA 139 mmol/L (136-145)
[2016-10-28] MEDS: Sodium Chloride 0.9% 10 ML Syringe FLUSH PRN ×2 (08:43→09:42)
[2016-10-28] MEDS ORDERED: Ketorolac 30 MG/ML SDV IVPUSH ONE (09:22)
[2016-10-28 09:24] VITALS: BP 121/67
--- NOTE | 2016-10-28 11:02 | EDM.PDOC ---
ED HPI GENERAL MEDICAL PROBLEM - General Chief Complaint: General Stated Complaint: hip pain Time Seen by Provider: 10/28/16 07:47 Source of Information: Reports: Patient, Old Records ([facility] EMR. 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 Note evidence of progressive ventral abdominal hernia and borderline ileus at that time by CT scan as below. Patient states that she has been here on 4 separate occasions for similar type symptoms, however our records show only 1 previous evaluation of similar symptoms on . She has 12/10 right lower quadrant intermittent abdominal cramping and pain with intermittent nausea but no emesis with possible fever and chills yesterday evening, however she did not measure her temperature. She did take her "pain pill "and "muscle relaxant" at time of onset of her symptoms at about 2 AM at home. She apparently did have a normal bowel movement at about 3 AM this morning. The patient denies any chest pain/pressure, heart flutter, dizziness, orthostasis, orthopnea, diaphoresis, paresthesias, recent decreased exercise tolerance, or any other anginal-type symptoms. No recent history of other abdominal pain, heartburn, diarrhea, melena, gross hematochezia, or any food intolerance, including fatty foods, etc.. The patient also denies any recent fever, cough, wheezing, dyspnea, etc.. Note possible additional radiation of the above discomfort into the right hip, however no recent history of fall, injury, etc.? Onset: Today, Sudden Onset Date: 10/28/16 Onset Time: 02:00 Duration: Getting Worse, Intermittent Location: Reports: Abdomen, Lower Extremity, Right (Right hip as above), Radiates to (As above). Denies: Head, Face, Neck, Chest, Back, Pelvis, Upper Extremity, Left, Upper Extremity, Right, Lower Extremity, Left Quality: Reports: Same as Previous Episode, Sharp Severity: Severe Improves with: Reports: Rest Worsens with: Reports: Movement (And deep inspiration?) Context: Reports: Other (As above) Associated Symptoms: Reports: Fever/Chills, Nausea/Vomiting (Without). 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) (As above) Right Lower Abdomen Pain Score (Numeric/FACES): 12 - Related Data Allergies Allergy/AdvReac Type Severity Reaction Status Date / Time No Known Allergies Allergy Verified 10/28/16 08:42 Home Meds: Home Meds Acetaminophen [Tylenol Extra Strength] 1,000 mg PO Q12H PRN 10/12/13 [History] Cyclobenzaprine [Flexeril] 5 mg PO TID PRN 10/12/13 [History] Diclofenac Sodium [Voltaren] 75 mg PO BID 10/12/13 [History] Warfarin Dosing [Coumadin Ask] 1 each PO DAILY 10/12/13 [History] traMADol [Ultram] 50 mg PO TID PRN 10/12/13 [History] Magnesium Hydroxide [Milk of Magnesia] 30 ml PO DAILY PRN 08/27/16 [History] Past Medical History HEENT History: Reports: Impaired Vision Cardiovascular History: Reports: Blood Clots/VTE/DVT, Other (See Below) Other Cardiovascular History: 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, severe varicose veins Respiratory History: Reports: PE Gastrointestinal History: Reports: Bowel Obstruction, Cholelithiasis, Other ( See Below) Other Gastrointestinal History: Large ventral abdominal hernias with apparent previous umbilical hernia with 3 repairs, small bowel obstruction on 08/27/16 Musculoskeletal History: Reports: Back Pain, Chronic, Osteoarthritis, Other ( See Below) Other Musculoskeletal History: Chronic right hip pain Endocrine/Metabolic History: Reports: Obesity/BMI 30+ Oncologic (Cancer) History: Reports: Uterine, Other (See Below) Other Oncologic History: History of uterine cancer in 2010 with chemotherapy and radiation therapy and complete hysterectomy as below - Past Surgical History Cardiovascular Surgical History: Reports: Other (See Below) Other Cardiovascular Surgeries/Procedures: IVC filter placement secondary to DVT /PE GI Surgical History: Reports: Cholecystectomy, Hernia, Abdominal, Other (See Below) Other GI Surgeries/Procedures: Umbilical hernia repair 3 Female Surgical History: Reports: Hysterectomy, Salpingo-Oophorectomy, Other (See Below) Other Female Surgeries/Procedures: Complete hysterectomy and bilateral salpingo-oophorectomy secondary to uterine cancer in 2010 Oncologic Surgical History: Reports: Other (See Below) Other Oncologic Surgeries/Procedures: removal of reproductive organs - Past Imaging History Past Imaging History: Reports: CAT Scan (CT of the abdomen and pelvis on 08/27/16) Social & Family History - Tobacco Use Smoking Status *Q: Never Smoker - Alcohol Use Days Per Week of Alcohol Use: 0 - Recreational Drug Use Recreational Drug Use: No - Living Situation & Occupation Living situation: Reports: with Spouse ED ROS GENERAL - Review of Systems Review Of Systems: See Below Constitutional: Denies: Fever, Chills, Weakness, Fatigue, Night Sweats, Diaphoresis, Decreased Appetite, Weight Loss, Weight Gain HEENT: Reports: No Symptoms Respiratory: Reports: No Symptoms Cardiovascular: Reports: No Symptoms GI/Abdominal: Reports: Abdominal Pain (Points to area in RLQ that is next to inguinal line. Worsens with movement/trying to life right leg), Nausea. Denies : Anorexia, Black Stool, Bloody Stool, Constipation, Diarrhea, Decreased Appetite, Difficulty Swallowing, Distension, Hematemesis, Hematochezia, Mucous in Stool, Vomiting : Reports: No Symptoms Musculoskeletal: Reports: Other (right hip pain.) Skin: Reports: No Symptoms (no acute changes. ) Neurological: Reports: No Symptoms Psychiatric: Reports: No Symptoms Hematologic/Lymphatic: Reports: No Symptoms ED EXAM, GENERAL - Physical Exam Exam: See Below Free Text/Narrative:: Patient was brought to the emergency room via private automobile by her employee for evaluation of return of her chronic intermittent nonspecific right lower quadrant abdominal pain with previous evaluation in this facility on for similar type symptoms. Note evidence of progressive ventral abdominal hernia and borderline ileus at that time by CT scan as below. Patient states that she has been here on 4 separate occasions for similar type symptoms, however our records show only 1 previous evaluation of similar symptoms on . She has 12/10 right lower quadrant intermittent abdominal cramping and pain with intermittent nausea but no emesis with possible fever and chills yesterday evening, however she did not measure her temperature. She did take her "pain pill "and "muscle relaxant" at time of onset of her symptoms at about 2 AM at home. She apparently did have a normal bowel movement at about 3 AM this morning. The patient denies any chest pain/pressure, heart flutter, dizziness, orthostasis, orthopnea, diaphoresis, paresthesias, recent decreased exercise tolerance, or any other anginal-type symptoms. No recent history of other abdominal pain, heartburn, diarrhea, melena, gross hematochezia, or any food intolerance, including fatty foods, etc.. The patient also denies any recent fever, cough, wheezing, dyspnea, etc.. Note possible additional radiation of the above discomfort into the right hip, however no recent history of fall, injury, etc.? Exam Limited By: No Limitations General Appearance: Alert, WD/WN, Anxious (Moderate), Mild Distress (Mild secondary to discomfort) Ears: Normal External Exam, Normal Canal, Hearing Grossly Normal, Normal TMs Nose: Normal Inspection, Normal Mucosa, No Blood Throat/Mouth: Normal Inspection, Normal Lips, Normal Gums, Normal Oropharynx, Normal Voice, No Airway Compromise. No: Normal Teeth (Multiple missing teeth including multiple caries and broken teeth into the gumline with no acute abscess or drainage), Dysphagia, Perioral Cyanosis Head: Atraumatic, Normocephalic. No: Facial Swelling, Facial Tenderness, Sinus Tenderness Neck: Normal Inspection, Supple, Non-Tender, Full Range of Motion. No: Lymphadenopathy (L), Lymphadenopathy (R), Thyromegaly Respiratory/Chest: No Respiratory Distress, Lungs Clear, Normal Breath Sounds, No Accessory Muscle Use, Chest Non-Tender. No: Pleural Rub, Retractions Cardiovascular: Normal Peripheral Pulses, Regular Rate, Rhythm, No Edema, No Gallop, No JVD, No Murmur, No Rub. No: Gallop/S3, Gallop/S4, Friction Rub Peripheral Pulses: 2+: Radial (L), Radial (R), Dorsalis Pedis (L), Dorsalis Pedis (R) GI/Abdominal: No Distention, No Abnormal Bruit, No Mass, Pelvis Stable, Tender ( Mild right lower quadrant palpation pain), Hernia (Ventral wall abdominal hernia is difficult to assess secondary to morbid obesity but no direct evidence of incarceration), Other (tender along border of abdomen where it met right inguinal ligament.). No: Guarding, Rigid, Rebound Extremities: Normal Range of Motion, Non-Tender, Normal Capillary Refill, Pedal Edema (Trace bilateral pedal/pretibial edema), Other (Severe bilateral varicose veins). No: Henny's Sign Neurological: Alert, Oriented, CN II-XII Intact, Normal Cognition, Normal Gait, Normal Reflexes (Negative Babinski's), No Motor/Sensory Deficits Psychiatric: Anxious (Moderate), Depressed Mood (Moderate with adequate eye contact) Skin Exam: Warm, Dry, Intact, Normal Color, No Rash. No: Diaphoretic, Ecchymosis, Wound/Incision Lymphatic: No Adenopathy Course - Vital Signs Last Recorded V/S: Last Vital Signs Temp 36.6 C 10/28/16 08:35 Pulse 90 10/28/16 09:23 Resp 22 H 10/28/16 09:23 BP 121/67 10/28/16 09:23 Pulse Ox 97 10/28/16 09:23 - Orders/Labs/Meds Orders: Active Orders 24 hr Category Date Time Status Peripheral IV Care [RC] . DIRECTED Care 10/28/16 07:55 Active Nothing Per Oral Diet [DIET] Diet 10/28/16 Breakfast Active Abdomen Series w Chest 1V [CR] Stat Exams 10/28/16 07:55 Taken Hip Min 2V or 3V Rt [CR] Stat Exams 10/28/16 08:09 Taken Hip wo Cont Rt [CT] Stat Exams 10/28/16 08:47 Taken CULTURE BLOOD [BC] Stat Lab 10/28/16 08:10 Received CULTURE BLOOD [BC] Stat Lab 10/28/16 08:25 Received CULTURE URINE [RM] Stat Lab 10/28/16 09:19 Received H PYLORI STOOL ANTIGEN [MREF] Urgent Lab 10/28/16 07:55 Uncollected OCCULT BLOOD DIAGNOSTIC [OP] Stat Lab 10/28/16 07:55 Uncollected Sodium Chloride 0.9% [Saline Flush] Med 10/28/16 07:55 Active 10 ml FLUSH ASDIRECTED PRN Blood Culture x2 Reflex Set [OM.PC] Urgent Oth 10/28/16 07:55 Ordered Obtain Past Medical Record [OM.PC] Urgent Oth 10/28/16 07:55 Active Peripheral IV Insertion Adult [OM.PC] Stat Oth 10/28/16 07:55 Ordered Resuscitation Status Stat Resus Stat 10/28/16 07:55 Ordered Medication Orders Sodium Chloride (Saline Flush) 10 ml FLUSH ASDIRECTED PRN PRN Reason: Keep Vein Open Last Admin: 10/28/16 09:42 Dose: 10 ml Admin: 10/28/16 08:43 Dose: 10 ml Labs: Laboratory Tests 10/28/16 10/28/16 10/28/16 Range/Units 08:10 08:10 08:10 WBC 6.2 (4.0-10.2) K/uL RBC 3.50 L (3.77-5.09) M/uL Hgb 10.9 L D (11.7-15.5) g/dL Hct 33.7 L (34.0-46.0) % MCV 96.3 (84.0-98.0) fL MCH 31.1 (28.2-33.3) pg MCHC 32.3 (31.7-36.0) g/dL RDW 14.6 H (11.2-14.1) % Plt Count 196 (150-350) K/uL Neut % (Auto) 79.8 (45.0-80.0) % Lymph % (Auto) 15.9 (10.0-50.0) % Gilliam % (Auto) 3.3 (2.0-14.0) % Eos % (Auto) 0.8 (0.0-5.0) % Baso % (Auto) 0.2 (0.0-2.0) % Neut # (Auto) 4.91 (1.40-7.00) K/uL Lymph # (Auto) 0.98 (0.50-3.50) K/uL Gilliam # (Auto) 0.20 (0.00-1.00) K/uL Eos # (Auto) 0.05 (0.00-0.50) K/uL Baso # (Auto) 0.01 (0.00-0.20) K/uL PT 35.0 H D (9.8-11.7) SEC INR 3.1 APTT 46.7 H (23.5-30.0) SEC D-Dimer, Quantitative (0-400) ng/mL Sodium (136-145) mmol/L Potassium (3.5-5.1) mmol/L Chloride (98-107) mmol/L Carbon Dioxide (21.0-32.0) mmol/L BUN (7-18) mg/dL Creatinine (0.51-1.17) mg/dL Est Cr Clr Drug Dosing Estimated GFR (MDRD) mL/min Glucose (74-106) mg/dL Lactic Acid (0.4-2.0) mmol/L Uric Acid (2.6-7.2) mg/dL Calcium (8.5-10.1) mg/dL Magnesium (1.8-2.4) mg/dL Total Bilirubin (0.2-1.0) mg/dL AST (15-37) U/L ALT (12-78) U/L Alkaline Phosphatase (46-116) IU/L Creatine Kinase (26-308) U/L Creatine Kinase Index (0.0-2.5) % CK-MB (CK-2) (0.00-3.60) ng/mL Troponin I (0.000-0.056) ng/mL NT-Pro-B Natriuret Pep (0-125) pg/mL Total Protein (6.4-8.2) g/dL Albumin (3.4-5.0) g/dL Amylase 41 (25-115) U/L Lipase (73-393) U/L Specimen Type Urine Color Urine Appearance Urine pH (5.0-9.0) Ur Specific [place] (1.005-1.030) Urine Protein (NEGATIVE) mg/dL Urine Glucose (UA) (NEGATIVE) mg/dL Urine Ketones (NEGATIVE) mg/dL Urine Occult Blood (NEGATIVE) Urine Nitrite (NEGATIVE) Urine Bilirubin (NEGATIVE) Urine Urobilinogen (0.2-1.0) E.U./dL Ur Leukocyte Esterase (NEGATIVE) Urine RBC /HPF Urine WBC /HPF Ur Epithelial Cells /LPF Amorphous Sediment (0/HPF) /HPF Urine Bacteria (NONE TO FEW) /HPF 10/28/16 10/28/16 10/28/16 Range/Units 08:10 08:10 08:10 WBC (4.0-10.2) K/uL RBC (3.77-5.09) M/uL Hgb (11.7-15.5) g/dL Hct (34.0-46.0) % MCV (84.0-98.0) fL MCH (28.2-33.3) pg MCHC (31.7-36.0) g/dL RDW (11.2-14.1) % Plt Count (150-350) K/uL Neut % (Auto) (45.0-80.0) % Lymph % (Auto) (10.0-50.0) % Gilliam % (Auto) (2.0-14.0) % Eos % (Auto) (0.0-5.0) % Baso % (Auto) (0.0-2.0) % Neut # (Auto) (1.40-7.00) K/uL Lymph # (Auto) (0.50-3.50) K/uL Gilliam # (Auto) (0.00-1.00) K/uL Eos # (Auto) (0.00-0.50) K/uL Baso # (Auto) (0.00-0.20) K/uL PT (9.8-11.7) SEC INR APTT (23.5-30.0) SEC D-Dimer, Quantitative (0-400) ng/mL Sodium 139 (136-145) mmol/L Potassium 4.1 (3.5-5.1) mmol/L Chloride 104 (98-107) mmol/L Carbon Dioxide 27.6 (21.0-32.0) mmol/L BUN 21 H (7-18) mg/dL Creatinine 1.06 (0.51-1.17) mg/dL Est Cr Clr Drug Dosing TNP Estimated GFR (MDRD) 54 mL/min Glucose 155 H (74-106) mg/dL Lactic Acid 0.6 (0.4-2.0) mmol/L Uric Acid 6.4 (2.6-7.2) mg/dL Calcium 9.5 (8.5-10.1) mg/dL Magnesium 1.6 L (1.8-2.4) mg/dL Total Bilirubin 1.6 H (0.2-1.0) mg/dL AST 33 (15-37) U/L ALT 31 (12-78) U/L Alkaline Phosphatase 76 (46-116) IU/L Creatine Kinase 153 (26-308) U/L Creatine Kinase Index 1.0 (0.0-2.5) % CK-MB (CK-2) 1.50 (0.00-3.60) ng/mL Troponin I 0.000 (0.000-0.056) ng/mL NT-Pro-B Natriuret Pep 2125 H (0-125) pg/mL Total Protein 7.2 (6.4-8.2) g/dL Albumin 3.7 (3.4-5.0) g/dL Amylase (25-115) U/L Lipase 105 (73-393) U/L Specimen Type Urine Color Urine Appearance Urine pH (5.0-9.0) Ur Specific [place] (1.005-1.030) Urine Protein (NEGATIVE) mg/dL Urine Glucose (UA) (NEGATIVE) mg/dL Urine Ketones (NEGATIVE) mg/dL Urine Occult Blood (NEGATIVE) Urine Nitrite (NEGATIVE) Urine Bilirubin (NEGATIVE) Urine Urobilinogen (0.2-1.0) E.U./dL Ur Leukocyte Esterase (NEGATIVE) Urine RBC /HPF Urine WBC /HPF Ur Epithelial Cells /LPF Amorphous Sediment (0/HPF) /HPF Urine Bacteria (NONE TO FEW) /HPF 10/28/16 10/28/16 Range/Units 08:10 09:19 WBC (4.0-10.2) K/uL RBC (3.77-5.09) M/uL Hgb (11.7-15.5) g/dL Hct (34.0-46.0) % MCV (84.0-98.0) fL MCH (28.2-33.3) pg MCHC (31.7-36.0) g/dL RDW (11.2-14.1) % Plt Count (150-350) K/uL Neut % (Auto) (45.0-80.0) % Lymph % (Auto) (10.0-50.0) % Gilliam % (Auto) (2.0-14.0) % Eos % (Auto) (0.0-5.0) % Baso % (Auto) (0.0-2.0) % Neut # (Auto) (1.40-7.00) K/uL Lymph # (Auto) (0.50-3.50) K/uL Gilliam # (Auto) (0.00-1.00) K/uL Eos # (Auto) (0.00-0.50) K/uL Baso # (Auto) (0.00-0.20) K/uL PT (9.8-11.7) SEC INR APTT (23.5-30.0) SEC D-Dimer, Quantitative < 100 (0-400) ng/mL Sodium (136-145) mmol/L Potassium (3.5-5.1) mmol/L Chloride (98-107) mmol/L Carbon Dioxide (21.0-32.0) mmol/L BUN (7-18) mg/dL Creatinine (0.51-1.17) mg/dL Est Cr Clr Drug Dosing Estimated GFR (MDRD) mL/min Glucose (74-106) mg/dL Lactic Acid (0.4-2.0) mmol/L Uric Acid (2.6-7.2) mg/dL Calcium (8.5-10.1) mg/dL Magnesium (1.8-2.4) mg/dL Total Bilirubin (0.2-1.0) mg/dL AST (15-37) U/L ALT (12-78) U/L Alkaline Phosphatase (46-116) IU/L Creatine Kinase (26-308) U/L Creatine Kinase Index (0.0-2.5) % CK-MB (CK-2) (0.00-3.60) ng/mL Troponin I (0.000-0.056) ng/mL NT-Pro-B Natriuret Pep (0-125) pg/mL Total Protein (6.4-8.2) g/dL Albumin (3.4-5.0) g/dL Amylase (25-115) U/L Lipase (73-393) U/L Specimen Type Urincc Urine Color Yellow Urine Appearance Clear Urine pH 6.5 (5.0-9.0) Ur Specific [place] 1.020 (1.005-1.030) Urine Protein Negative (NEGATIVE) mg/dL Urine Glucose (UA) Negative (NEGATIVE) mg/dL Urine Ketones 15 H (NEGATIVE) mg/dL Urine Occult Blood Trace-intact H (NEGATIVE) Urine Nitrite Negative (NEGATIVE) Urine Bilirubin Negative (NEGATIVE) Urine Urobilinogen 0.2 (0.2-1.0) E.U./dL Ur Leukocyte Esterase Trace H (NEGATIVE) Urine RBC 5-10 H /HPF Urine WBC 5-10 H /HPF Ur Epithelial Cells Few /LPF Amorphous Sediment Moderate H (0/HPF) /HPF Urine Bacteria Few (NONE TO FEW) /HPF Meds: Medications Generic Name Dose Route Start Last Admin Trade Name Freq PRN Reason Stop Dose Admin Sodium Chloride 10 ml 10/28/16 07:55 10/28/16 09:42 Saline Flush FLUSH 10 ml ASDIRECTED PRN Administration Keep Vein Open Discontinued Medications Generic Name Dose Route Start Last Admin Trade Name Freq PRN Reason Stop Dose Admin Famotidine 40 mg 10/28/16 07:55 10/28/16 08:43 Pepcid IVPUSH 10/28/16 07:56 40 mg ONETIME ONE Administration Ceftriaxone Sodium 1 gm/ 100 mls @ 200 mls/hr 10/28/16 08:00 10/28/16 09:10 Sodium Chloride IV Not Given Q12H ALEJANDRO Metronidazole 500 mg/ Premix 100 mls @ 100 mls/hr 10/28/16 08:00 10/28/16 09: 10 IV Not Given Q8H ALEJANDRO Ketorolac Tromethamine 30 mg 10/28/16 09:22 10/28/16 09:41 Toradol IVPUSH 10/28/16 09:23 30 mg ONETIME ONE Administration Pantoprazole Sodium 40 mg 10/28/16 07:55 10/28/16 08:43 Protonix Iv IVPUSH 10/28/16 07:56 40 mg ONETIME ONE Administration - Radiology Interpretation Free Text/Narrative:: CT of right hip overall unremarkable per radiology. Mild degenerative change. Chest/abdominal films were limited by patient's obesity. No focal findings noted that would explain patient's localized pain. Questionable infiltrate right lung. Plain films pending formal radiology evaluation. - Re-Assessments/Exams Free Text/Narrative Re-Assessment/Exam: 10/28/16 11:28 Vital signs stable. Patient received Toradol. Pain resolved. Patient sleeping. Noted to have mild elevated INR at 3.1 Hgb 10.9 (was 12.5 August 27) Patient has mild cough, no chest pain or sputum production. No fevers. No SOB. Pending radiology review of chest film. No antibiotics at this time. Uncertain what is causing patient's long-standing intermittent right hip/RLQ discomfort. May be muscle/skeletal. Patient does have history of abdominal surgeries/ventral hernia/radiation. Cannot rule out GI cause. UA had 5-10 RBC and WBC, suspect dirty collection. Will request UC. Follow up appointment made for patient to go to clinic this afternoon. Discussed findings with patient. Recommended that she discuss possible referral to [facility] with her primary. Also recommend 3 days of daily guiac testing of stool. She is also to review her current Warfarin schedule today as INR 3.1 Departure - Departure Time of Disposition: 10:57 Disposition: Home, Self-Care 01 Condition: Fair Clinical Impression: Hip pain, Caries, Obesity (BMI 35.0-39.9 without comorbidity), Mixed anxiety depressive disorder, Elevated INR Abdominal pain Qualifiers: Abdominal location: right lower quadrant Qualified Code(s): R10.31 - Right lower quadrant pain Ventral hernia Qualifiers: Obstruction and gangrene presence: with obstruction but without gangrene Qualified Code(s): K43.6 - Other and unspecified ventral hernia with obstruction , without gangrene DVT (deep venous thrombosis) Qualifiers: DVT location: lower extremity Affected thrombotic vein of extremity: unspecified vein of extremity Chronicity: unspecified Laterality: unspecified laterality Qualified Code(s): I82.409 - Acute embolism and thrombosis of unspecified deep veins of unspecified lower extremity Pneumonia Qualifiers: Pneumonia type: due to unspecified organism Laterality: right Lung location: middle lobe of lung Qualified Code(s): J18.1 - Lobar pneumonia, unspecified organism COPD (chronic obstructive pulmonary disease) Qualifiers: COPD type: COPD with acute lower respiratory infection Qualified Code(s): J44.0 - Chronic obstructive pulmonary disease with acute lower respiratory infection - Discharge Information Instructions: Ketorolac injection, Pantoprazole injection, Famotidine injection Referrals: PCP,None [Primary Care Provider] - Forms: ED Department Discharge Additional Instructions: Recommend follow up with your primary provider. You may need referral to GI or other specialists for further workup to see what is causing the intermittent pain. As discussed, the pain could be related to your issues with the hernia or previous radiation treatment for cancer. You have an appointment scheduled 1pm today at [facility] in [place]. Your INR is just over 3 today. You may need adjustment of your Warfarin. Discuss with Maggie today.
== END 2016-10-28 11:26 | disposition home or self-care (01) ==
LOC: LL.ED 07:47
DX: M25.551 Pain in right hip (principal); K43.6 Other and unspecified ventral hernia with obstruction, without gangrene; F41.8 Other specified anxiety disorders; J18.1 Lobar pneumonia, unspecified organism; M19.90 Unspecified osteoarthritis, unspecified site; J44.0 Chronic obstructive pulmonary disease with (acute) lower respiratory infection; R79.89 Other specified abnormal findings of blood chemistry; E66.9 Obesity, unspecified; Z68.42 Body mass index [BMI] 45.0-49.9, adult; Z86.711 Personal history of pulmonary embolism; Z88.8 Allergy status to other drugs, medicaments and biological substances; Z90.710 Acquired absence of both cervix and uterus; Z90.49 Acquired absence of other specified parts of digestive tract
CPT/HCPCS: 36415; 73502; 73700; 74022; 80053; 81001; 82150; 82550; 82553; 83605; 83690; 83735; 83880; 84484; 84550; 85025; 85379; 85610; 85730; 87040; 87086; 96374; 96375; 99284; C9113; J1885; J7050; S0028

== ENCOUNTER 2016-11-02 15:23 | Emergency (ER) | payer MEDICAID ==
[2016-11-02] MEDS ORDERED: Ondansetron 4 MG/2 ML SDV IVPUSH ONE (15:28)
[2016-11-02] MEDS ORDERED: Famotidine 20 MG/2 ML SDV IVPUSH ONE (15:28)
--- NOTE | 2016-11-02 15:28 | EDM.PDOC ---
ED HPI GENERAL MEDICAL PROBLEM - General Chief Complaint: Abdominal Pain Stated Complaint: Abdominal Pain Time Seen by Provider: 11/02/16 15:23 Source of Information: Reports: Patient, Old Records ([facility] chart/EMR) History Limitations: Reports: Altered Mental Status - History of Present Illness INITIAL COMMENTS - FREE TEXT/NARRATIVE: Patient was brought to the emergency room via private automobile by her employee for evaluation of progressive 9/10 abdominal cramping and pain with symptoms starting at about 8 AM this morning with no improvement despite taking 1000 mg of Tylenol at that time. Her symptoms worsened significantly about one hour prior to arrival with patient stating that she now possibly has a repeat right lower quadrant hernia incarceration with patient having a long history of this as below. She was initially evaluated in this facility on 08/28/16 in this emergency room and transferred to [facility] in [place] with extended hospitalization with NG tube therapy by her history. She was also evaluated in this emergency room on 10/28/16 for similar type symptoms. Note that the patient apparently failed to follow-up with recommended follow-up appointment despite discharge instructions from on-call physician at that time. She did have a normal bowel movement about one hour prior to arrival. No recent history of other abdominal pain, heartburn, diarrhea, melena, gross hematochezia, or any food intolerance, including fatty foods, etc., although she did have some nausea shortly prior to arrival with no history of emesis. The patient did not take any other medications for her symptoms today, including Ultram, etc. The patient also denies any recent fever, cough, wheezing, dyspnea, etc.. The patient also denies any recent fever, cough, wheezing, dyspnea, etc.. She is an extremely poor historian secondary to her current anxiety and symptoms Onset: Gradual Onset Date: 11/02/16 Onset Time: 08:00 Duration: Intermittent Location: Reports: Abdomen, Lower Extremity, Right (Abdominal radiation to the right proximal leg similar to previous episodes including on 10/28/16), Radiates to (As above). Denies: Head, Face, Neck, Chest, Back, Upper Extremity, Left, Lower Extremity, Left Quality: Reports: Pressure, Same as Previous Episode, Sharp, Stabbing Severity: Severe Improves with: Reports: None Worsens with: Reports: None Context: Reports: Other (As above) Associated Symptoms: Reports: Nausea/Vomiting (Without emesis). 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: Reports: Acetaminophen Abdomen Pain Score (Numeric/FACES): 9 - Related Data Allergies Allergy/AdvReac Type Severity Reaction Status Date / Time No Known Allergies Allergy Verified 10/28/16 08:42 Home Meds: Home Meds Acetaminophen [Tylenol Extra Strength] 1,000 mg PO Q12H PRN 10/12/13 [History] Cyclobenzaprine [Flexeril] 5 mg PO TID PRN 10/12/13 [History] Diclofenac Sodium [Voltaren] 75 mg PO BID 10/12/13 [History] traMADol [Ultram] 50 mg PO TID PRN 10/12/13 [History] Magnesium Hydroxide [Milk of Magnesia] 30 ml PO DAILY PRN 08/27/16 [History] Ascorbic Acid [Vitamin C] 1,000 mg PO DAILY 11/02/16 [History] Multivitamin [Multivitamins] 1 cap PO DAILY 11/02/16 [History] Warfarin Sodium [Jantoven] 5 mg PO SUTUWETHFRSA 11/02/16 [History] Warfarin Sodium [Jantoven] 5.5 mg PO MO 11/02/16 [History] Past Medical History HEENT History: Reports: Allergic Rhinitis, Impaired Vision, Other (See Below) Other HEENT History: Patient wears glasses Cardiovascular History: Reports: Blood Clots/VTE/DVT, Heart Failure, Other (See Below) Other Cardiovascular History: IVC filter with history of DVTs of the legs bilaterally and possible pulmonary embolism with current chronic Coumadin therapy, severe varicose veins with thrombophlebitis of the right leg on Respiratory History: Reports: COPD, PE, Other (See Below) Other Respiratory History: COPD by chest x-ray Gastrointestinal History: Reports: Bowel Obstruction, Cholelithiasis, Other ( See Below) Other Gastrointestinal History: Large ventral abdominal hernias and umbilical hernia with history of recurrent incarcerations and secondary small bowel obstructions with previous surgeries as below, last known small bowel obstruction on 08/27/16 Genitourinary History: Reports: Renal Calculus Musculoskeletal History: Reports: Arthritis, Back Pain, Chronic, Gout, Osteoarthritis, Other (See Below) Other Musculoskeletal History: Chronic pain syndrome, Chronic right hip pain, hyperuricemia Psychiatric History: Reports: Anxiety, Depression Endocrine/Metabolic History: Reports: Diabetes, Type II, Obesity/BMI 30+, Other (See Below). Denies: Diabetes, Type I, Hypothyroidism, IDDM Other Endocrine/Metabolic History: Hypomagnesemia Oncologic (Cancer) History: Reports: Ovarian, Uterine, Other (See Below) Other Oncologic History: History of endometrial uterine cancer and ovarian cancer in 2010 with chemotherapy and radiation therapy and complete hysterectomy as below - Past Surgical History Cardiovascular Surgical History: Reports: Other (See Below) Other Cardiovascular Surgeries/Procedures: IVC filter placement secondary to DVT /PE GI Surgical History: Reports: Cholecystectomy, Hernia, Abdominal, Other (See Below) Other GI Surgeries/Procedures: Umbilical hernia repair 3 Female Surgical History: Reports: Hysterectomy, Salpingo-Oophorectomy, Other (See Below) Other Female Surgeries/Procedures: Complete hysterectomy and bilateral salpingo-oophorectomy secondary to uterine and ovarian cancer in 2010 Oncologic Surgical History: Reports: Other (See Below) Other Oncologic Surgeries/Procedures: Complete hysterectomy as above - Past Imaging History Past Imaging History: Reports: CAT Scan (CT of the abdomen and pelvis on 08/27/16 with previous evaluation on 03/19/12, CT of the right hip on 10/28/16), Ultrasound (Pelvic ultrasound on 02/06/06), Venous Doppler (Venous Doppler studies of the right leg on 02/08/10) Social & Family History - Tobacco Use Smoking Status *Q: Never Smoker - Alcohol Use Days Per Week of Alcohol Use: 0 - Recreational Drug Use Recreational Drug Use: No - Living Situation & Occupation Living situation: Reports: with Spouse ED ROS GENERAL - Review of Systems Review Of Systems: ROS reveals no pertinent complaints other than HPI. ED EXAM, GENERAL - Physical Exam Exam: See Below Exam Limited By: Other (Anxiety) General Appearance: Alert, WD/WN, No Apparent Distress, Anxious (Moderate to severe), Mild Distress (Secondary to abdominal pain) Eye Exam: Bilateral Eye: EOMI, Normal Inspection (No nystagmus, patient has glasses), PERRL Ears: Normal External Exam, Normal Canal, Hearing Grossly Normal, Normal TMs Nose: Normal Inspection, Normal Mucosa, No Blood Throat/Mouth: Normal Inspection, Normal Lips, Normal Gums, Normal Oropharynx, Normal Voice, No Airway Compromise. No: Normal Teeth (Multiple missing teeth with broken tooth into the gumline in the left lower premolar region with no discharge or evidence of an abscess), Dysphagia, Inflammation, Perioral Cyanosis Head: Atraumatic, Normocephalic. No: Facial Swelling, Facial Tenderness, Sinus Tenderness Neck: Normal Inspection, Supple, Non-Tender, Full Range of Motion. No: Carotid Bruit, Lymphadenopathy (L), Lymphadenopathy (R), Thyromegaly Respiratory/Chest: No Respiratory Distress, Lungs Clear, Normal Breath Sounds, No Accessory Muscle Use, Chest Non-Tender. No: Pleural Rub, Retractions Cardiovascular: Normal Peripheral Pulses, Regular Rate, Rhythm, No Gallop, No JVD, No Murmur, No Rub. No: No Edema (Dependent edema as below), Gallop/S3, Gallop/S4, Friction Rub Peripheral Pulses: 2+: Radial (L), Radial (R), Dorsalis Pedis (L), Dorsalis Pedis (R) GI/Abdominal: Normal Bowel Sounds, No Distention, No Abnormal Bruit, No Mass, Pelvis Stable, Tender (As below), Hernia (8 cm irregular right lower quadrant ventral abdominal hernia with possible partial mild incarceration and moderate palpation pain in this area, 4 cm in diameter nonincarcerated umbilical hernia) , Other (Obese). No: Guarding, Rebound (Female) Exam: Deferred Rectal (Female) Exam: Deferred Back Exam: Normal Inspection, Full Range of Motion, Other (Mild scoliosis). No : CVA Tenderness (L), CVA Tenderness (R), Muscle Spasm Extremities: Normal Range of Motion, Non-Tender, Normal Capillary Refill, Pedal Edema (Bilateral trace to +1 pedal/pretibial edema), Other (Moderate varicose veins of lower extremities bilaterally). No: Henny's Sign Neurological: Alert, Oriented, CN II-XII Intact, Normal Cognition, Normal Gait, Normal Reflexes (Negative Babinski's), No Motor/Sensory Deficits Psychiatric: Anxious (Moderate to severe), Depressed Mood (Moderate) Skin Exam: Warm, Dry, Intact, Normal Color, No Rash. No: Diaphoretic, Wound/ Incision Lymphatic: No Adenopathy Course - Vital Signs Last Recorded V/S: Last Vital Signs Temp 36.2 C 11/02/16 15:30 Pulse 79 11/02/16 17:39 Resp 16 11/02/16 17:39 BP 110/64 11/02/16 17:39 Pulse Ox 99 11/02/16 17:39 Vital Signs - 24 hr 11/02/16 11/02/16 11/02/16 15:30 16:00 16:30 Temperature [ 36.2 C Temporal] Pulse, 82 78 Peripheral [ Pulse Oximetry] Respiratory 16 16 16 Rate Blood Pressure 128/76 113/67 116/74 [Right Upper Arm] O2 Sat by Pulse 92 L 98 99 Oximetry 11/02/16 11/02/16 11/02/16 16:45 17:05 17:39 Temperature [ Temporal] Pulse, 78 79 79 Peripheral [ Pulse Oximetry] Respiratory 17 18 16 Rate Blood Pressure 118/65 115/65 110/64 [Right Upper Arm] O2 Sat by Pulse 99 99 99 Oximetry - Orders/Labs/Meds Orders: Active Orders 24 hr Category Date Time Status Cardiac Monitoring [RC] . DIRECTED Care 11/02/16 16:37 Active Oxygen Therapy, ED [RC] CONTINUOUS Care 11/02/16 16:25 Active Peripheral IV Care [RC] . DIRECTED Care 11/02/16 15:28 Active Nothing Per Oral Diet [DIET] Diet 11/02/16 Breakfast Active Abdomen Series w Chest 1V [CR] Stat Exams 11/02/16 15:28 Taken H PYLORI STOOL ANTIGEN [MREF] Routine Lab 11/02/16 17:18 Ordered Sodium Chloride 0.9% [Saline Flush] Med 11/02/16 15:28 Active 10 ml FLUSH ASDIRECTED PRN Obtain Past Medical Record [OM.PC] Urgent Oth 11/02/16 15:28 Active Peripheral IV Insertion Adult [OM.PC] Stat Oth 11/02/16 15:28 Ordered Resuscitation Status Stat Resus Stat 11/02/16 15:28 Ordered Medication Orders Sodium Chloride (Saline Flush) 10 ml FLUSH ASDIRECTED PRN PRN Reason: Keep Vein Open Last Admin: 11/02/16 17:27 Dose: 10 ml Admin: 11/02/16 16:35 Dose: 10 ml Admin: 11/02/16 15:44 Dose: 10 ml Admin: 11/02/16 15:40 Dose: 10 ml Labs: Laboratory Tests 11/02/16 11/02/16 11/02/16 Range/Units 15:30 15:30 15:30 WBC 12.7 H (4.0-10.2) K/uL RBC 4.27 (3.77-5.09) M/uL Hgb 13.2 D (11.7-15.5) g/dL Hct 39.7 (34.0-46.0) % MCV 93.0 D (84.0-98.0) fL MCH 30.9 (28.2-33.3) pg MCHC 33.2 (31.7-36.0) g/dL RDW 14.8 H (11.2-14.1) % Plt Count 289 D (150-350) K/uL Neut % (Auto) 84.1 H (45.0-80.0) % Lymph % (Auto) 11.2 (10.0-50.0) % [place] % (Auto) 3.8 (2.0-14.0) % Eos % (Auto) 0.6 (0.0-5.0) % Baso % (Auto) 0.3 (0.0-2.0) % Neut # (Auto) 10.71 H (1.40-7.00) K/uL Lymph # (Auto) 1.43 (0.50-3.50) K/uL [place] # (Auto) 0.48 (0.00-1.00) K/uL Eos # (Auto) 0.08 (0.00-0.50) K/uL Baso # (Auto) 0.04 (0.00-0.20) K/uL PT 26.0 H (9.8-11.7) SEC INR 2.3 APTT 34.3 H (23.5-30.0) SEC Sodium (136-145) mmol/L Potassium (3.5-5.1) mmol/L Chloride (98-107) mmol/L Carbon Dioxide (21.0-32.0) mmol/L BUN (7-18) mg/dL Creatinine (0.51-1.17) mg/dL Est Cr Clr Drug Dosing Estimated GFR (MDRD) mL/min Glucose (74-106) mg/dL Lactic Acid (0.4-2.0) mmol/L Uric Acid (2.6-7.2) mg/dL Calcium (8.5-10.1) mg/dL Magnesium (1.8-2.4) mg/dL Total Bilirubin (0.2-1.0) mg/dL Direct Bilirubin (0.0-0.2) mg/dL Indirect Bilirubin mg/dL AST (15-37) U/L ALT (12-78) U/L Alkaline Phosphatase (46-116) IU/L Total Protein (6.4-8.2) g/dL Albumin (3.4-5.0) g/dL Amylase 38 (25-115) U/L Lipase (73-393) U/L 11/02/16 11/02/16 11/02/16 Range/Units 15:30 15:30 16:30 WBC (4.0-10.2) K/uL RBC (3.77-5.09) M/uL Hgb (11.7-15.5) g/dL Hct (34.0-46.0) % MCV (84.0-98.0) fL MCH (28.2-33.3) pg MCHC (31.7-36.0) g/dL RDW (11.2-14.1) % Plt Count (150-350) K/uL Neut % (Auto) (45.0-80.0) % Lymph % (Auto) (10.0-50.0) % [place] % (Auto) (2.0-14.0) % Eos % (Auto) (0.0-5.0) % Baso % (Auto) (0.0-2.0) % Neut # (Auto) (1.40-7.00) K/uL Lymph # (Auto) (0.50-3.50) K/uL [place] # (Auto) (0.00-1.00) K/uL Eos # (Auto) (0.00-0.50) K/uL Baso # (Auto) (0.00-0.20) K/uL PT (9.8-11.7) SEC INR APTT (23.5-30.0) SEC Sodium 135 L (136-145) mmol/L Potassium 3.8 (3.5-5.1) mmol/L Chloride 98 (98-107) mmol/L Carbon Dioxide 24.4 (21.0-32.0) mmol/L BUN 16 (7-18) mg/dL Creatinine 1.15 (0.51-1.17) mg/dL Est Cr Clr Drug Dosing TNP Estimated GFR (MDRD) 49 mL/min Glucose 134 H (74-106) mg/dL Lactic Acid 1.6 (0.4-2.0) mmol/L Uric Acid 7.8 H (2.6-7.2) mg/dL Calcium 11.0 H D (8.5-10.1) mg/dL Magnesium 1.8 (1.8-2.4) mg/dL Total Bilirubin 2.0 H 2.0 H (0.2-1.0) mg/dL Direct Bilirubin 0.4 H (0.0-0.2) mg/dL Indirect Bilirubin 1.6 mg/dL AST 26 (15-37) U/L ALT 28 (12-78) U/L Alkaline Phosphatase 77 (46-116) IU/L Total Protein 8.3 H (6.4-8.2) g/dL Albumin 4.5 (3.4-5.0) g/dL Amylase (25-115) U/L Lipase 100 (73-393) U/L Microbiology 11/02/16 17:30 Stool Occult Blood (CAITLIN) - Final Stool / Feces NEGATIVE OCCULT BLOOD Stool specimen also collected for H. pylori antigen. Meds: Medications Generic Name Dose Route Start Last Admin Trade Name Avelinoq PRN Reason Stop Dose Admin Sodium Chloride 10 ml 11/02/16 15:28 11/02/16 17:27 Saline Flush FLUSH 10 ml ASDIRECTED PRN Administration Keep Vein Open Discontinued Medications Generic Name Dose Route Start Last Admin Trade Name Freandrew PRN Reason Stop Dose Admin Diazepam 2.5 mg 11/02/16 15:29 11/02/16 15:36 Valium IVPUSH 11/02/16 15:30 2.5 mg ONETIME ONE Administration Famotidine 40 mg 11/02/16 15:28 11/02/16 15:41 Pepcid IVPUSH 11/02/16 15:29 40 mg ONETIME ONE Administration Ceftriaxone Sodium 1 gm/ 100 mls @ 200 mls/hr 11/02/16 16:26 11/02/16 16:33 Sodium Chloride IV 11/02/16 16:55 200 mls/hr ONETIME ONE Administration Metronidazole 500 mg/ Premix 100 mls @ 100 mls/hr 11/02/16 16:59 11/02/16 17: 25 IV 11/02/16 17:58 100 mls/hr ONETIME ONE Administration Ondansetron HCl 4 mg 11/02/16 15:28 11/02/16 15:38 Zofran IVPUSH 11/02/16 15:29 4 mg ONETIME ONE Administration - Radiology Interpretation Free Text/Narrative:: front desk monitor shows normal sinus rhythm with heart rate in the 70s with no ectopy or arrhythmia Acute abdominal x-rays are somewhat suboptimal secondary to her obesity, however no direct evidence significant gaseous distention, fluid levels, free air, ileus, or obstruction. Note moderate to severe cardiomegaly with additional moderate COPD with probable mild centralized CHF and/or pulmonary hypertension. No significant pulmonary infiltrates, pneumothorax, etc. Note surgical clips in the pelvis from previous hysterectomy and in the right upper quadrant from her cholecystectomy. IVC filter also noted Departure - Departure Time of Disposition: 17:50 Disposition: DC/Tfer to Acute Hospital 02 Condition: Fair Clinical Impression: Caries, Mixed anxiety depressive disorder, Hypercalcemia, Gilbert's syndrome Abdominal pain Qualifiers: Abdominal location: right lower quadrant Qualified Code(s): R10.31 - Right lower quadrant pain COPD (chronic obstructive pulmonary disease) Qualifiers: COPD type: COPD with acute lower respiratory infection Qualified Code(s): J44.0 - Chronic obstructive pulmonary disease with acute lower respiratory infection CHF (congestive heart failure) Qualifiers: Congestive heart failure type: unspecified congestive heart failure type Congestive heart failure chronicity: chronic Qualified Code(s): I50.9 - Heart failure, unspecified Abdominal hernia Qualifiers: Hernia type: ventral Obstruction and gangrene presence: without obstruction or gangrene Qualified Code(s): K43.9 - Ventral hernia without obstruction or gangrene Osteoarthritis Qualifiers: Osteoarthritis location: multiple joints Osteoarthritis type: primary Qualified Code(s): M15.0 - Primary generalized (osteo)arthritis - Discharge Information Referrals: Pinky Montoya PA-C [Primary Care Provider] - Forms: ED Department Discharge, Interfacility Transfer EMTALA - Problem List & Annotations (1) Abdominal pain SNOMED Code(s): 52371049 Code(s): R10.9 - UNSPECIFIED ABDOMINAL PAIN Status: Acute Priority: High Current Visit: Yes Onset Date: 10/28/16 Annotation/Comment:: Persistent nonspecific abdominal cramping despite successful reduction of right lower quadrant ventral abdominal hernia as above. History of small bowel ileus on with hospitalization at [facility] requiring several days of inpatient care and successful NG tube therapy by patient's history. No apparent surgical consultation at that time by her history. By her history she has had several episodes of borderline ileus and hernia incarcerations during the last couple of years. Secondary to episodes of recurrent ileus from her hernias surgical consultation is advisable, although she is a somewhat high-risk candidate secondary to obesity, CHF, etc.. No evidence of ileus or obstruction by today's x-rays with NG tube therapy not initiated prior to transfer. Secondary to leukocytosis IV Rocephin therapy was initiated with caution with low-normal therapeutic INR at this time. Additional IV Flagyl therapy in route by paramedics. Telephone consultation at 16:[address] Turner, hospitalist at [facility], who does accept the patient for further treatment and evaluation. No further treatment recommendations given. Consider repeat CT scan of the abdomen and pelvis depending on clinical course. Note incomplete history today secondary to patient's IV diazepam therapy and her overall anxiety level on presentation to the emergency room area. The patient did have a large normal bowel movement mainly prior to transfer to [place] Qualifiers: Abdominal location: right lower quadrant Qualified Code(s): R10.31 - Right lower quadrant pain (2) Ventral hernia SNOMED Code(s): 954332215 Code(s): K43.9 - VENTRAL HERNIA WITHOUT OBSTRUCTION OR GANGRENE Status: Chronic Priority: High Current Visit: No Annotation/Comment:: As above. Large right lower quadrant ventral abdominal hernia with additional umbilical hernia with recommended surgical consultation as above Qualifiers: Obstruction and gangrene presence: with obstruction but without gangrene Qualified Code(s): K43.6 - Other and unspecified ventral hernia with obstruction , without gangrene (3) CHF (congestive heart failure) SNOMED Code(s): 46272008 Code(s): I50.9 - HEART FAILURE, UNSPECIFIED Status: Chronic Priority: Medium Current Visit: Yes Annotation/Comment:: History of chronic BNP elevation with no recent chest pain or anginal complaints. Today's x-ray actually shows improved mostly mild centralized CHF as above. Consideration of cardiology consultation prior to any planned surgery with moderate to severe cardiomegaly by today's x-rays as above Qualifiers: Congestive heart failure type: unspecified congestive heart failure type Congestive heart failure chronicity: chronic Qualified Code(s): I50.9 - Heart failure, unspecified (4) COPD (chronic obstructive pulmonary disease) SNOMED Code(s): 30173575 Code(s): J44.9 - CHRONIC OBSTRUCTIVE PULMONARY DISEASE, UNSPECIFIED Status : Chronic Priority: Medium Current Visit: Yes Annotation/Comment:: COPD by chest x-ray with CHF component but no significant pulmonary infiltrates Qualifiers: COPD type: COPD with acute lower respiratory infection Qualified Code(s): J44.0 - Chronic obstructive pulmonary disease with acute lower respiratory infection (5) Caries SNOMED Code(s): 25725200 Code(s): K02.9 - DENTAL CARIES, UNSPECIFIED Status: Chronic Priority: Medium Current Visit: Yes Annotation/Comment:: Follow-up with dentist MARIANO strongly advised (6) Mixed anxiety depressive disorder SNOMED Code(s): 765006492 Code(s): F41.8 - OTHER SPECIFIED ANXIETY DISORDERS Status: Chronic Priority: Medium Current Visit: Yes Annotation/Comment:: Extremely poor control by current clinical exam. Close follow-up recommended by patient's regular providers. Note that she does have increased stressors secondary to taking care of her at home, who is on a respirator. Note chronic Ultram use/addiction (7) DVT (deep venous thrombosis) SNOMED Code(s): 310716469 Code(s): I82.409 - ACUTE EMBOLISM AND THOMBOS UNSP DEEP VN UNSP LOWER EXTREMITY Status: Chronic Priority: Medium Current Visit: No Annotation/ Comment:: Currently on Coumadin with IVC filter in place by recent CT scan as above. INR is low normal and therapeutic today with no clinical evidence of DVT or PE. Note that patient had no problems with desaturation prior to IV diazepam with desaturation to the mid 80th percentile on room air after this medical therapy. O2 therapy applied as a prophylactic measure Qualifiers: DVT location: lower extremity Affected thrombotic vein of extremity: unspecified vein of extremity Chronicity: unspecified Laterality: unspecified laterality Qualified Code(s): I82.409 - Acute embolism and thrombosis of unspecified deep veins of unspecified lower extremity (8) Obesity (BMI 35.0-39.9 without comorbidity) SNOMED Code(s): 808248046, 952357232 Code(s): E66.9 - OBESITY, UNSPECIFIED Status: Chronic Priority: Medium Current Visit: No Annotation/Comment:: Weight loss in moderation is advisable (9) Osteoarthritis SNOMED Code(s): 630656020 Code(s): M19.90 - UNSPECIFIED OSTEOARTHRITIS, UNSPECIFIED SITE Status: Chronic Priority: Medium Current Visit: Yes Annotation/Comment:: Stable by history with hyperuricemia today but no known gout attacks. Note chronic Ultram use secondary to chronic pain syndrome Qualifiers: Osteoarthritis location: multiple joints Osteoarthritis type: primary Qualified Code(s): M15.0 - Primary generalized (osteo)arthritis (10) Hypercalcemia SNOMED Code(s): 94962761 Code(s): E83.52 - HYPERCALCEMIA Status: Acute Priority: Medium Current Visit: Yes Onset Date: 11/02/16 Annotation/Comment:: Consider PTH evaluation , bone scan, etc. depending on her clinical course with previous history of uterine and ovarian cancer as above (11) Gilbert's syndrome SNOMED Code(s): 35860640 Code(s): E80.4 - GILBERT SYNDROME Status: Acute Priority: Medium Current Visit: Yes Onset Date: 11/02/16 Annotation/Comment:: Mild hyperbilirubinemia with probable Gilbert's syndrome based on direct/indirect bili evaluation. No other LFTs elevation with normal lipase and amylase - Problem List Review Problem List Initiated/Reviewed/Updated: Yes - My Orders Last 24 Hours: My Active Orders 11/02/16 15:28 Peripheral IV Care [RC] . DIRECTED Abdomen Series w Chest 1V [CR] Stat Sodium Chloride 0.9% [Saline Flush] 10 ml FLUSH ASDIRECTED PRN Obtain Past Medical Record [OM.PC] Urgent Peripheral IV Insertion Adult [OM.PC] Stat Resuscitation Status Stat 11/02/16 16:25 Oxygen Therapy, ED [RC] CONTINUOUS 11/02/16 16:37 Cardiac Monitoring [RC] . DIRECTED 11/02/16 17:18 H PYLORI STOOL ANTIGEN [MREF] Routine 11/02/16 Breakfast Nothing Per Oral Diet [DIET] - Assessment/Plan Last 24 Hours: My Active Orders 11/02/16 15:28 Peripheral IV Care [RC] . DIRECTED Abdomen Series w Chest 1V [CR] Stat Sodium Chloride 0.9% [Saline Flush] 10 ml FLUSH ASDIRECTED PRN Obtain Past Medical Record [OM.PC] Urgent Peripheral IV Insertion Adult [OM.PC] Stat Resuscitation Status Stat 11/02/16 16:25 Oxygen Therapy, ED [RC] CONTINUOUS 11/02/16 16:37 Cardiac Monitoring [RC] . DIRECTED 11/02/16 17:18 H PYLORI STOOL ANTIGEN [MREF] Routine 11/02/16 Breakfast Nothing Per Oral Diet [DIET] Assessment:: As above Plan: As above. Extensive precautions were given to the patient, who is in agreement with the treatment plan. Ambulance transfer with diabetologist accompaniment ED ABDOMINAL/GI PROCEDURES - Additional/Other Procedure(s) Procedure(s) (Free Text): Manual reduction of partially incarcerated large right lower quadrant ventral abdominal hernia with good results and no complications with only 1 attempt needed. Subsequent IV diazepam was given secondary to persistent abdominal cramping as a muscle relaxant
[2016-11-02] MEDS: Sodium Chloride 0.9% 10 ML Syringe FLUSH PRN ×4 (15:40→17:27)
[2016-11-02 16:16] LABS: CHLORIDE,CL 98 mmol/L (98-107); SODIUM,NA 135 mmol/L (136-145)
[2016-11-02] MEDS ORDERED: cefTRIAXone 1 GM in Sodium Chloride 0.9% 100 ML IV ONE (16:26)
[2016-11-02] MEDS ORDERED: metroNIDAZOLE/Normal Saline 500 MG in Premix Bag 1 BAG IV ONE (16:59)
[2016-11-02 17:39] VITALS: BP 110/64
== END 2016-11-02 17:50 ==
LOC: LL.ED 15:23
DX: R10.31 Right lower quadrant pain (principal); K02.9 Dental caries, unspecified; E83.52 Hypercalcemia; E80.4 Gilbert syndrome; I50.9 Heart failure, unspecified; J44.9 Chronic obstructive pulmonary disease, unspecified; F41.8 Other specified anxiety disorders; M19.90 Unspecified osteoarthritis, unspecified site; F32.9 Major depressive disorder, single episode, unspecified; E11.9 Type 2 diabetes mellitus without complications; E66.9 Obesity, unspecified; Z68.42 Body mass index [BMI] 45.0-49.9, adult; Z79.01 Long term (current) use of anticoagulants; Z79.899 Other long term (current) drug therapy; Z86.718 Personal history of other venous thrombosis and embolism; Z86.711 Personal history of pulmonary embolism; Z85.43 Personal history of malignant neoplasm of ovary; Z85.42 Personal history of malignant neoplasm of other parts of uterus; Z90.710 Acquired absence of both cervix and uterus; Z90.721 Acquired absence of ovaries, unilateral; Z90.49 Acquired absence of other specified parts of digestive tract; Z98.890 Other specified postprocedural states
CPT/HCPCS: 36415; 74022; 80053; 82150; 82247; 82248; 82272; 83605; 83690; 83735; 84550; 85025; 85610; 85730; 96365; 96367; 96375; 99285; J0696; J2405; J3360; J7050; 99284; S0028

== ENCOUNTER 2017-07-13 16:09 | Emergency (ER) | payer MEDICAID ==
[2017-07-13] MEDS ORDERED: Sodium Chloride 0.9% 10 ML Syringe FLUSH PRN (16:21)
[2017-07-13] MEDS ORDERED: diphenhydrAMINE 50 MG/ML SDV IVPUSH ONE (16:22)
[2017-07-13] MEDS ORDERED: Metoclopramide 10 MG/2 ML SDV IVPUSH ONE (16:24)
--- NOTE | 2017-07-13 16:31 | EDM.PDOC ---
ED HPI GENERAL MEDICAL PROBLEM - General Chief Complaint: General Stated Complaint: dizzy headache Time Seen by Provider: 07/13/17 16:10 Source of Information: Reports: Patient, Old Records ([facility] chart/EMR) History Limitations: Reports: No Limitations - History of Present Illness INITIAL COMMENTS - FREE TEXT/NARRATIVE: Patient drove herself to the emergency room via private automobile for evaluation of a 12/10 throbbing bilateral temporal headache extending to the frontal regions bilaterally. Her headaches are similar to her previous episodes. The patient did stop taking her Ultram and oxycodone about 2-3 days ago, although she has been compliant with her Voltaren. She has not tried any other medications for her symptoms to this point. The patient also denies any recent fever, cough, wheezing, dyspnea, etc.. No recent history of abdominal pain, heartburn, nausea, diarrhea, melena, gross hematochezia, or any food intolerance, including fatty foods, etc.. The patient denies any chest pain/ pressure, heart flutter, dizziness, orthostasis, orthopnea, diaphoresis, paresthesias, recent decreased exercise tolerance, or any other anginal-type symptoms. Onset: Gradual, Unknown/Unsure Onset Date: 07/08/17 Duration: Constant, Getting Worse Location: Reports: Head. Denies: Face, Neck, Chest, Abdomen, Back, Upper Extremity, Left, Upper Extremity, Right, Generalized, Radiates to Quality: Reports: Same as Previous Episode, Sharp, Throbbing Severity: Severe Improves with: Reports: None Worsens with: Reports: None Context: Reports: Other (As above) Associated Symptoms: Reports: Headaches. Denies: Confusion, Chest Pain, Cough, Diaphoresis, Fever/Chills, Loss of Appetite, Malaise, Nausea/Vomiting, Seizure, Shortness of Breath, Syncope, Weakness Treatments APRN: Reports: Other Medication(s) (As above) Headache Pain Score (Numeric/FACES): 10 - Related Data Allergies Allergy/AdvReac Type Severity Reaction Status Date / Time No Known Allergies Allergy Verified 10/28/16 08:42 Home Meds: Home Meds Cyclobenzaprine [Flexeril] 5 mg PO TID PRN 10/12/13 [History] Diclofenac Sodium [Voltaren] 75 mg PO BID 10/12/13 [History] Magnesium Hydroxide [Milk of Magnesia] 30 ml PO DAILY PRN 08/27/16 [History] Multivitamin [Multivitamins] 1 cap PO DAILY 11/02/16 [History] Warfarin Sodium [Jantoven] 5 mg PO DAILY 11/02/16 [History] Acetaminophen [Acetaminophen 8 Hour] 650 mg PO Q8HR 07/13/17 [History] Calcium Carbonate/Vitamin D3 [Calcium 600-Vit D3 500 Softgel] 1,200 mg PO DAILY 07/13/17 [History] Magnesium Oxide 400 mg PO DAILY #30 tab 07/13/17 [Rx] Past Medical History HEENT History: Reports: Allergic Rhinitis, Impaired Vision, Other (See Below). Denies: Cataract, Glaucoma, Hard of Hearing, Macular Degeneration, Retinal Detachment Other HEENT History: Patient wears glasses. 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 Denies: Afib, Aneurysm, Arrhythmia, CAD, Heart Murmur, High Cholesterol, Hypertension, DE, Pacemaker, PTCA, PVD, SOB on Exertion, Stents Other Cardiovascular History: IVC filter with history of DVTs of the legs bilaterally and possible pulmonary embolism with current chronic Coumadin therapy, severe varicose veins with thrombophlebitis of the right leg on . Chronic CHF with chronic BNP elevation. Syncopal episode at time of PE in 2010. Patient does not know her cholesterol status. Respiratory History: Reports: COPD, Intubation, Previous, PE, Other (See Below) . Denies: Asthma, Intubation, Difficult, Pneumothorax, Pulmonary Fibrosis, Sleep Apnea, TB Other Respiratory History: COPD by chest x-ray with no current therapy. PE in 2010 Gastrointestinal History: Reports: Bowel Obstruction, Cholelithiasis, Chronic Constipation, Other (See Below). Denies: Colon Polyp, Diverticulosis, Fecal Incontinence, Gastritis, GERD, GI Bleed, Hepatitis, Hiatal Hernia, Irritable Bowel Syndrome, Jaundice, Pancreatitis, PUD Other Gastrointestinal History: Large ventral abdominal hernias and umbilical hernia with history of recurrent incarcerations and secondary small bowel obstructions with previous surgeries as below, last known small bowel obstruction on 08/27/16 and 11/02/16 Genitourinary History: Reports: Renal Calculus. 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 Denies: Endometriosis, : 0 LMP (Approximate): Other (See Below) Other OB/BYN History: Surgical menopause as below Musculoskeletal History: Reports: Arthritis, Back Pain, Chronic, Gout, Neck Pain , Chronic, Osteoarthritis, Other (See Below). Denies: Amputation, Fracture, RA , SLE Other Musculoskeletal History: Chronic pain syndrome with chronic narcotic use, Chronic right hip pain, hyperuricemia. Bilateral carpal tunnel syndrome. Neurological History: Reports: Headaches, Chronic, Seizure, Other (See Below). Denies: Cerebral Aneurysms, Concussion, CVA, Head Trauma, Migraines, MS, Neuropathy, Peripheral, Parkinson's, TIA Other Neuro History: Nonspecific seizure at age 6 with only one seizure at that time and no reoccurrence despite the patient stopping her medications on her own at about age 39. Left facial Carmen's palsy in the . Psychiatric History: Reports: Addiction, Anxiety, Depression, Other (See Below) . Denies: Abuse, Victim of, ADD, ADHD, Psych Hospitalization(s), PTSD, Suicide Attempt, Suicidal Ideation Other Psychiatric History: Chronic pain syndrome with chronic narcotic use including oxycodone and Ultram Endocrine/Metabolic History: Reports: Diabetes, Type II, Obesity/BMI 30+, Other (See Below). Denies: Hypothyroidism, IDDM Other Endocrine/Metabolic History: Hypomagnesemia Hematologic History: Reports: Anemia, Blood Transfusion(s), Other (See Below) Other Hematologic History: Blood transfusion with hysterectomy Immunologic History: Reports: None. Denies: AIDS, HIV, SLE Oncologic (Cancer) History: Reports: Ovarian, Uterine, Other (See Below) Other Oncologic History: History of endometrial uterine cancer and ovarian cancer in 2011 with chemotherapy and radiation therapy and complete hysterectomy as below Dermatologic History: Reports: Venous Stasis Dermatitis. Denies: Eczema, Psoriasis - Infectious Disease History Infectious Disease History: Denies: C-Difficile, Chicken Pox, Measles, Meningitis, Mononucleosis, MRSA, Mumps, Pertussis (Whooping Cough), Rheumatic Fever, Rubella, Scarlet Fever, Shingles, VRE - Past Surgical History Head Surgeries/Procedures: Reports: None HEENT Surgical History: Reports: Oral Surgery, Other (See Below). Denies: Adenoidectomy, Cataract Surgery, Eye Surgery, Laser Surgery, LASIK, Myringotomy w Tube(s), Naso-Sinus Surgery, Tonsillectomy Other HEENT Surgeries/Procedures: Teeth extractions. Left lower partial mandibular resection secondary to benign tumor at age 11. Cardiovascular Surgical History: Reports: Other (See Below). Denies: Varicose, Vascular Surgery Other Cardiovascular Surgeries/Procedures: IVC filter placement secondary to DVT /PE Respiratory Surgical History: Reports: None. Denies: Thoracentesis GI Surgical History: Reports: Cholecystectomy, Colonoscopy, Hernia, Abdominal, Other (See Below). Denies: Appendectomy, EGD, Hernia, Inguinal Other GI Surgeries/Procedures: Umbilical hernia repair 3 with colonoscopy at time of initial hernia repairdate unknown. Apparent ventral abdominal hernia repair with mesh placement in December 2016. Female Surgical History: Reports: Hysterectomy, Salpingo-Oophorectomy, Other (See Below). Denies: Tubal Ligation Other Female Surgeries/Procedures: Complete hysterectomy and bilateral salpingo-oophorectomy secondary to uterine and ovarian cancer in 2010 Endocrine Surgical History: Reports: None. Denies: Thyroid Biopsy Neurological Surgical History: Denies: C-Spine, Discectomy, Laminectomy, Lumbar Spine, Sacral Spine, Spinal Fusion, Thoracic Spine, Vertebroplasty Musculoskeletal Surgical History: Denies: Amputation, Arthroscopic Procedure, Carpal Tunnel, Ganglion Cyst, Hip Replacement, ORIF, Shoulder Surgery Oncologic Surgical History: Reports: Other (See Below) Other Oncologic Surgeries/Procedures: Complete hysterectomy as above Dermatological Surgical History: Reports: None - Past Imaging History Past Imaging History: Reports: CAT Scan (Last CT of the abdomen and pelvis without contrast on 03/16/17 with previous evaluations in December 2016, 08/27/16 and 03/19/12, CT of the right hip on 10/28/16), Ultrasound (Pelvic ultrasound on ), Venous Doppler (Venous Doppler studies of the right leg on 02/08/10) Social & Family History - Tobacco Use Smoking Status *Q: Never Smoker Tobacco Use Within Last Twelve Months: No Used Tobacco, but Quit: No Smoking Cessation Information Provided To Patient: No Second Hand Smoke Exposure: No Second Hand Smoke Education Provided: No - Caffeine Use Caffeine Use: Reports: Coffee (One cup per day), Tea (One cup per day). Denies : Energy Drinks, Soda - Alcohol Use Alcohol Use History: No Days Per Week of Alcohol Use: 0 - Recreational Drug Use Recreational Drug Use: No Drug Use in Last 12 Months: No Recreational Drug Type: Reports: Other (see below). Denies: Amphetamines (Speed ), Cocaine, Codiene, Heroin, Inhalants (Glues, Solvents, Aerosols), LSD (Acid), Marijuana/Hashish, Morphine, Oxycodone Other Recreational Drug Type: Note chronic narcotic, etc. 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 - Physical Exam Exam: See Below Exam Limited By: No Limitations General Appearance: Alert, No Apparent Distress, Anxious (Moderate to severe) Eye Exam: Bilateral Eye: EOMI, Normal Fundi, Normal Inspection (Patient wearing glasses. No nystagmus), PERRL Ears: Normal External Exam, Normal Canal, Hearing Grossly Normal, Normal TMs Nose: Normal Inspection, Normal Mucosa, No Blood. No: Clear Rhinorrhea Throat/Mouth: Normal Lips. No: Normal Teeth (Multiple missing teeth and caries uppers and lowers including broken teeth into the gumline with no abscess or drainage) Head Exam: Atraumatic, Normocephalic. No: Facial Swelling, Facial Tenderness, Sinus Tenderness Neck: Normal Inspection, Supple, Non-Tender, Full Range of Motion. No: Carotid Bruit, Lymphadenopathy (L), Lymphadenopathy (R), Thyromegaly Respiratory/Chest: No Respiratory Distress, Lungs Clear, Normal Breath Sounds, No Accessory Muscle Use, Chest Non-Tender. No: Pleural Rub, Retractions Cardiovascular: Normal Peripheral Pulses, Regular Rate, Rhythm, No Gallop, No JVD, No Murmur, No Rub. No: No Edema (Dependent edema as below), Gallop/S3, Gallop/S4, Friction Rub GI/Abdominal: Normal Bowel Sounds, Soft, Non-Tender, No Organomegaly, No Distention, No Abnormal Bruit, No Mass, Other (obese). No: Guarding (Female) Exam: Deferred Rectal (Female) Exam: Deferred Neuro Exam (Abbreviated): Alert, Oriented, CN II-XII Intact, Normal Cognition, Normal Gait, No Motor/Sensory Deficits Back Exam: Normal Inspection, Full Range of Motion. No: CVA Tenderness (L), CVA Tenderness (R), Muscle Spasm Extremities: Normal Range of Motion, Non-Tender, Normal Capillary Refill, Pedal Edema (+1 bilateral pedal/pretibial edema), Other (Moderate bilateral varicose veins). No: Henny's Sign Psychiatric: Anxious (Moderate to severe), Depressed Mood (Moderate with adequate eye contact) Skin Exam: Warm, Dry, Intact, Other (Moderate venous stasis dermatitis of the lower extremities bilaterally). No: Diaphoretic, Ecchymosis, Lymphangitis, Petechiae, Wound/Incision Course - Vital Signs Last Recorded V/S: Last Vital Signs Temp 36.6 C 07/13/17 16:11 Pulse 104 H 07/13/17 17:45 Resp 20 07/13/17 17:45 BP 113/83 07/13/17 17:45 Pulse Ox 99 07/13/17 17:45 Vital Signs - 24 hr 07/13/17 07/13/17 07/13/17 16:11 17:06 17:45 Temperature [ 36.6 C Tympanic] Pulse, 84 84 104 H Peripheral [ Pulse Oximetry] Respiratory 18 20 20 Rate Blood Pressure 124/73 124/64 [Left Upper Arm ] Blood Pressure 113/83 [Right Upper Arm] O2 Sat by Pulse 100 98 99 Oximetry - Orders/Labs/Meds Orders: Active Orders 24 hr Category Date Time Status Peripheral IV Care [RC] . DIRECTED Care 07/13/17 16:22 Active Sodium Chloride 0.9% [Saline Flush] Med 07/13/17 16:21 Active 10 ml FLUSH ASDIRECTED PRN Obtain Past Medical Record [OM.PC] Routine Oth 07/13/17 16:21 Active Peripheral IV Insertion Adult [OM.PC] Routine Oth 07/13/17 16:22 Ordered Medication Orders Sodium Chloride (Saline Flush) 10 ml FLUSH ASDIRECTED PRN PRN Reason: Keep Vein Open Last Admin: 07/13/17 17:29 Dose: 10 ml Labs: Laboratory Tests 07/13/17 07/13/17 07/13/17 Range/Units 16:34 16:34 16:34 WBC 6.0 (4.0-10.2) K/uL RBC 3.47 L (3.77-5.09) M/uL Hgb 10.7 L (11.7-15.5) g/dL Hct 33.1 L (34.0-46.0) % MCV 95.4 (84.0-98.0) fL MCH 30.8 (28.2-33.3) pg MCHC 32.3 (31.7-36.0) g/dL RDW 15.8 H (11.2-14.1) % Plt Count 175 (150-350) K/uL Neut % (Auto) 65.3 (45.0-80.0) % Lymph % (Auto) 26.2 (10.0-50.0) % [place] % (Auto) 6.5 (2.0-14.0) % Eos % (Auto) 1.5 (0.0-5.0) % Baso % (Auto) 0.5 (0.0-2.0) % Neut # (Auto) 3.93 (1.40-7.00) K/uL Lymph # (Auto) 1.58 (0.50-3.50) K/uL [place] # (Auto) 0.39 (0.00-1.00) K/uL Eos # (Auto) 0.09 (0.00-0.50) K/uL Baso # (Auto) 0.03 (0.00-0.20) K/uL ESR (0-30) mm/hr PT 37.7 H (9.8-11.7) SEC INR 3.4 Magnesium 1.5 L (1.8-2.4) mg/dL /17/18 Range/Units 16:34 WBC (4.0-10.2) K/uL RBC (3.77-5.09) M/uL Hgb (11.7-15.5) g/dL Hct (34.0-46.0) % MCV (84.0-98.0) fL MCH (28.2-33.3) pg MCHC (31.7-36.0) g/dL RDW (11.2-14.1) % Plt Count (150-350) K/uL Neut % (Auto) (45.0-80.0) % Lymph % (Auto) (10.0-50.0) % [place] % (Auto) (2.0-14.0) % Eos % (Auto) (0.0-5.0) % Baso % (Auto) (0.0-2.0) % Neut # (Auto) (1.40-7.00) K/uL Lymph # (Auto) (0.50-3.50) K/uL [place] # (Auto) (0.00-1.00) K/uL Eos # (Auto) (0.00-0.50) K/uL Baso # (Auto) (0.00-0.20) K/uL ESR 20 (0-30) mm/hr PT (9.8-11.7) SEC INR Magnesium (1.8-2.4) mg/dL Meds: Medications Generic Name Dose Route Start Last Admin Trade Name Freq PRN Reason Stop Dose Admin Sodium Chloride 10 ml 07/13/17 16:21 07/13/17 17:29 Saline Flush FLUSH 10 ml ASDIRECTED PRN Administration Keep Vein Open Discontinued Medications Generic Name Dose Route Start Last Admin Trade Name Freq PRN Reason Stop Dose Admin Diphenhydramine HCl 50 mg 07/13/17 16:22 07/13/17 17:26 Benadryl IVPUSH 07/13/17 16:23 50 mg ONETIME ONE Administration Lorazepam 1 mg 07/13/17 17:57 07/13/17 18:10 Ativan PO 07/13/17 17:58 1 mg ONETIME ONE Administration Magnesium Oxide 400 mg 07/13/17 17:58 07/13/17 18:10 Magnesium Oxide PO 07/13/17 17:59 400 mg ONETIME ONE Administration Metoclopramide HCl 20 mg 07/13/17 16:24 07/13/17 17:27 Reglan IVPUSH 07/13/17 16:25 20 mg ONETIME ONE Administration - Radiology Interpretation Free Text/Narrative:: None Departure - Departure Time of Disposition: 19:35 Disposition: Home, Self-Care 01 Clinical Impression: Caries, Mixed anxiety depressive disorder, Hypomagnesemia Headache Qualifiers: Headache type: unspecified Headache chronicity pattern: acute headache Intractability: not intractable Qualified Code(s): R51 - Headache COPD (chronic obstructive pulmonary disease) Qualifiers: COPD type: COPD with acute lower respiratory infection Qualified Code(s): J44.0 - Chronic obstructive pulmonary disease with acute lower respiratory infection DVT (deep venous thrombosis) Qualifiers: DVT location: lower extremity Affected thrombotic vein of extremity: unspecified vein of extremity Chronicity: unspecified Laterality: unspecified laterality Qualified Code(s): I82.409 - Acute embolism and thrombosis of unspecified deep veins of unspecified lower extremity Osteoarthritis Qualifiers: Osteoarthritis location: multiple joints Osteoarthritis type: primary Qualified Code(s): M15.0 - Primary generalized (osteo)arthritis CHF (congestive heart failure) Qualifiers: Heart failure type: unspecified Heart failure chronicity: chronic Qualified Code(s): I50.9 - Heart failure, unspecified Anemia Qualifiers: Anemia type: unspecified type Qualified Code(s): D64.9 - Anemia, unspecified - Discharge Information Prescriptions: Magnesium Oxide 400 mg PO DAILY #30 tab Referrals: Pinky Montoya PA-C [Primary Care Provider] - Forms: ED Department Discharge Additional Instructions: 1. Follow up with your regular provider in 7 days for reevaluation and recommended repeat CBC, INR, and magnesium level with further workup for your anemia depending on your clinical course 2. Ice packs to head and neck, dark and quiet room, etc. as directed until headache resolves. 3. Discuss newly precribed magnesium oxide with your regular provider at the above follow-up visit. 4. Immediately after this visit verify that your cellular telephone's voicemail has been activated and is empty. Also verify that your home telephone 's answering machine is operating properly and has space to receive messages. Note that is sometimes necessary for us to be able to contact you at a later date to discuss your medical care. 5. Sedation precautions with no driving, etc. for 18 hours because of emergency room medications. 6. Follow-up with your dentist MARIANO as discussed. - Problem List & Annotations (1) Headache SNOMED Code(s): 45307965 Code(s): R51 - HEADACHE Status: Acute Priority: High Current Visit: Yes Onset Date: ~07/08/17 Annotation/Comment:: Aggressive treatment in the emergency room as above. Strong anxiety component. Magnesium oxide therapy initiated in the emergency room, which would be beneficial both for her chronic constipation and headache. Otherwise symptomatic relief as per discharge instructions. Close follow-up by her regular provider Qualifiers: Headache type: unspecified Headache chronicity pattern: acute headache Intractability: not intractable Qualified Code(s): R51 - Headache (2) Anemia SNOMED Code(s): 201927795 Code(s): D64.9 - ANEMIA, UNSPECIFIED Status: Acute Priority: Medium Current Visit: Yes Annotation/Comment:: Anemia today. Note current Voltaren therapy. Continue to observe closely by her regular provider with further workup depending on her clinical course. Note current Coumadin therapy with no significant abdominal complaints or evidence of GI bleed today. Qualifiers: Anemia type: unspecified type Qualified Code(s): D64.9 - Anemia, unspecified (3) Hypomagnesemia SNOMED Code(s): 969622808 Code(s): E83.42 - HYPOMAGNESEMIA Status: Chronic Priority: Medium Current Visit: Yes Annotation/Comment:: Known previous history of hypomagnesemia with additional history of medication noncompliance. Magnesium oxide initiated today as above (4) CHF (congestive heart failure) SNOMED Code(s): 54690506 Code(s): I50.9 - HEART FAILURE, UNSPECIFIED Status: Chronic Priority: Medium Current Visit: Yes Annotation/Comment:: History of chronic BNP elevation with no recent chest pain or anginal complaints. Note previous moderate to severe cardiomegaly by previous x-rays in this facility. Qualifiers: Heart failure type: unspecified Heart failure chronicity: chronic Qualified Code(s): I50.9 - Heart failure, unspecified (5) COPD (chronic obstructive pulmonary disease) SNOMED Code(s): 47094371 Code(s): J44.9 - CHRONIC OBSTRUCTIVE PULMONARY DISEASE, UNSPECIFIED Status : Chronic Priority: Medium Current Visit: Yes Annotation/Comment:: COPD by chest x-ray with no current therapy. No recent history of fever or bronchitic type symptoms. Qualifiers: COPD type: COPD with acute lower respiratory infection Qualified Code(s): J44.0 - Chronic obstructive pulmonary disease with acute lower respiratory infection (6) DVT (deep venous thrombosis) SNOMED Code(s): 358564250 Code(s): I82.409 - ACUTE EMBOLISM AND THOMBOS UNSP DEEP VN UNSP LOWER EXTREMITY Status: Chronic Priority: Medium Current Visit: Yes Annotation /Comment:: Currently on Coumadin with high normal therapeutic INR today. Note IVC filter with no clinical evidence of DVT or PE. Qualifiers: DVT location: lower extremity Affected thrombotic vein of extremity: unspecified vein of extremity Chronicity: unspecified Laterality: unspecified laterality Qualified Code(s): I82.409 - Acute embolism and thrombosis of unspecified deep veins of unspecified lower extremity (7) Osteoarthritis SNOMED Code(s): 840239634 Code(s): M19.90 - UNSPECIFIED OSTEOARTHRITIS, UNSPECIFIED SITE Status: Chronic Priority: Medium Current Visit: Yes Annotation/Comment:: Stable by history with hyperuricemia today but no known gout attacks. Note chronic Ultram and oxycodone use secondary to chronic pain syndrome, although she denies using these medications for the last couple of days Qualifiers: Osteoarthritis location: multiple joints Osteoarthritis type: primary Qualified Code(s): M15.0 - Primary generalized (osteo)arthritis (8) Caries SNOMED Code(s): 67541265 Code(s): K02.9 - DENTAL CARIES, UNSPECIFIED Status: Chronic Priority: Medium Current Visit: Yes Annotation/Comment:: Follow-up with dentist MARIANO once again strongly advised (9) Mixed anxiety depressive disorder SNOMED Code(s): 982018072 Code(s): F41.8 - OTHER SPECIFIED ANXIETY DISORDERS Status: Chronic Priority: Medium Current Visit: Yes Annotation/Comment:: Extremely poor control by current clinical exam. Close follow-up recommended by patient's regular providers. Note that she does have increased stressors secondary to taking care of her at home, who is on a respirator. Note chronic narcotic and Ultram use/addiction as above (10) Obesity (BMI 35.0-39.9 without comorbidity) SNOMED Code(s): 715290063, 591853849 Code(s): E66.9 - OBESITY, UNSPECIFIED Status: Chronic Priority: Medium Current Visit: Yes Annotation/Comment:: Weight loss in moderation is advisable. Secondary to her history of CHF lipid panel advisable. - Problem List Review Problem List Initiated/Reviewed/Updated: Yes - My Orders Last 24 Hours: My Active Orders 07/13/17 16:21 Sodium Chloride 0.9% [Saline Flush] 10 ml FLUSH ASDIRECTED PRN Obtain Past Medical Record [OM.PC] Routine 07/13/17 16:22 Peripheral IV Care [RC] . DIRECTED Peripheral IV Insertion Adult [OM.PC] Routine - Assessment/Plan Last 24 Hours: My Active Orders 07/13/17 16:21 Sodium Chloride 0.9% [Saline Flush] 10 ml FLUSH ASDIRECTED PRN Obtain Past Medical Record [OM.PC] Routine 07/13/17 16:22 Peripheral IV Care [RC] . DIRECTED Peripheral IV Insertion Adult [OM.PC] Routine Assessment:: As above Plan: As above. Extensive precautions were given to the patient, who is in agreement with the treatment plan. See Patient Instructions for further treatment and plan. Patient was picked up by a friend.
[2017-07-13 17:46] VITALS: BP 113/83
[2017-07-13] MEDS ORDERED: LORazepam 1 MG Tab PO ONE (17:57)
[2017-07-13] MEDS ORDERED: Magnesium Oxide 400 MG Tab PO ONE (17:58)
== END 2017-07-13 19:35 | disposition home or self-care (01) ==
LOC: LL.ED 16:09
DX: J44.0 Chronic obstructive pulmonary disease with (acute) lower respiratory infection (principal); I50.9 Heart failure, unspecified; I82.409 Acute embolism and thrombosis of unspecified deep veins of unspecified lower extremity; E66.9 Obesity, unspecified; F41.8 Other specified anxiety disorders; E83.42 Hypomagnesemia; D64.9 Anemia, unspecified; K02.9 Dental caries, unspecified; R51 Headache; E11.9 Type 2 diabetes mellitus without complications; M15.0 Primary generalized (osteo)arthritis; Z79.899 Other long term (current) drug therapy
CPT/HCPCS: 36415; 83735; 85025; 85610; 85652; 96372; 99284; A9270-GY; J1200; J2765; J7050

== ENCOUNTER 2018-07-12 16:47 | Emergency (ER) | payer MEDICAID ==
[2018-07-12] MEDS ORDERED: Sodium Chloride 0.9% 10 ML Syringe FLUSH PRN (17:06)
[2018-07-12] MEDS ORDERED: Metoprolol Tartrate 5 MG/5 ML SDV IVPUSH ONE (17:06)
--- NOTE | 2018-07-12 17:06 | EDM.PDOC ---
ED HPI GENERAL MEDICAL PROBLEM - General Chief Complaint: General Stated Complaint: LEFT LEG SWELLING Time Seen by Provider: 07/12/18 16:55 Source of Information: Reports: Patient, Old Records ([facility] chart/EMR) History Limitations: Reports: No Limitations - History of Present Illness INITIAL COMMENTS - FREE TEXT/NARRATIVE: Patient drove herself to the emergency room via private automobile for evaluation of 02/05 left-sided lower leg pain with symptoms starting about 2 days ago. She normally has chronic dependent edema and right calf pain with previous negative workup as below. She does admit to not taking any of her medications this morning secondary to being angry with her . Her arthritis has been under somewhat poor control recently, including chronic left hip pain with negative recent x-rays in this emergency room. She is also having some difficulty lifting her left leg secondary to this discomfort. She is closely being [facility] and her regular provider. The patient denies any chest pain/pressure, heart flutter, dizziness, orthostasis, orthopnea , diaphoresis, paresthesias, recent decreased exercise tolerance, or any other anginal-type symptoms. No recent history of abdominal pain, heartburn, nausea, diarrhea, melena, gross hematochezia, or any food intolerance, including fatty foods, etc.. She denies any gross hematuria or UTI symptoms. The patient also denies any recent fever, cough, wheezing, dyspnea, etc.. Onset: Today, Sudden Onset Date: 07/10/18 Onset Time: 16:00 Duration: Constant, Getting Worse Location: Reports: Lower Extremity, Left, Generalized (Generalized arthralgias as above). Denies: Head, Face, Neck, Chest, Abdomen, Back, Upper Extremity, Left, Upper Extremity, Right, Lower Extremity, Right, Radiates to Quality: Reports: Ache, Same as Previous Episode, Stabbing Severity: Severe Improves with: Reports: Rest Worsens with: Reports: Movement Context: Reports: Other (As above). 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: Reports: Other (see below) (As above) Left Hip Pain Score (Numeric/FACES): 4 (02/05 to provider) - Related Data Allergies Allergy/AdvReac Type Severity Reaction Status Date / Time NSAIDS (Non-Steroidal Allergy Renal Verified 07/12/18 18:30 Anti-Inflamma Failure Home Meds: Home Meds Warfarin Sodium [Jantoven] 5 mg PO DAILY 11/02/16 [History] Magnesium Oxide 400 mg PO DAILY #30 tab 07/13/17 [Rx] Acetaminophen 1,000 mg PO TID 02/09/18 [History] Cholecalciferol (Vitamin D3) [Vitamin D3] 2 tab PO DAILY 02/09/18 [History] Cyclobenzaprine [Flexeril] 1 tab PO TID PRN 02/09/18 [History] DULoxetine [Cymbalta] 30 mg PO DAILY 02/09/18 [History] Furosemide 40 mg PO BID 02/09/18 [History] Gabapentin [Neurontin] 100 mg PO TID 02/09/18 [History] Iron 45 mg PO DAILY 02/09/18 [History] Metoprolol Succinate [Toprol XL] 25 mg PO DAILY 02/09/18 [History] Multivits-Min/Iron/FA/Lutein [Centrum Silver Women Tablet] 1 tab PO DAILY [History] atorvaSTATin [Lipitor] 20 mg PO DAILY 02/09/18 [History] Past Medical History HEENT History: Reports: Allergic Rhinitis, Impaired Vision, Other (See Below). Denies: Cataract, Glaucoma, Hard of Hearing, Macular Degeneration, Otitis Media , Retinal Detachment Other HEENT History: Patient wears glasses. 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 Poor dentition. Cardiovascular History: Reports: Blood Clots/VTE/DVT, Heart Failure, Syncope, Other (See Below). Denies: Afib, Aneurysm, Arrhythmia, CAD, Cardiomyopathy, Heart Murmur, Hypertension, [place], Pacemaker, PTCA, PVD, Stents Other Cardiovascular History: IVC filter with history of DVTs of the legs bilaterally and possible pulmonary embolism with current chronic Coumadin therapy, severe varicose veins with thrombophlebitis of the right leg on . Chronic CHF with chronic BNP elevation. Syncopal episode at time of PE in 2010. Patient does not know her cholesterol status. Respiratory History: Reports: Bronchitis, Recurrent, COPD, Intubation, Previous , PE, Other (See Below). Denies: Asthma, Intubation, Difficult, Pneumonia, Recurrent, Pneumothorax, Sleep Apnea, TB Other Respiratory History: COPD by chest x-ray with no current therapy. PE in 2010 Gastrointestinal History: Reports: Bowel Obstruction, Cholelithiasis, Chronic Constipation, Other (See Below). Denies: Celiac Disease, Chronic Diarrhea, Colon Polyp, Diverticulosis, Fecal Incontinence, Gastritis, GERD, GI Bleed, Hepatitis, Hiatal Hernia, Inflammatory Bowel Disease, Irritable Bowel Syndrome, Jaundice, Pancreatitis, PUD Other Gastrointestinal History: Large ventral abdominal hernias and umbilical hernia with history of recurrent incarcerations and secondary small bowel obstructions with previous surgeries as below, last known small bowel obstruction on 08/27/16 and 11/02/16 Genitourinary History: Reports: Renal Calculus, Other (See Below). Denies: Acute Renal Failure, Chronic Renal Insuffiency, STD, Urinary Incontinence, UTI, Recurrent Other Genitourinary History: She is not aware of previous urolithiasis. SERVICE MECHANIC History: Reports: Dysfunctional Uterine Bleeding, Fibroids. Denies: , Spontaneous : 0 LMP (Approximate): Other (See Below) Other SERVICE MECHANIC History: Surgical menopause as below Musculoskeletal History: Reports: Arthritis, Back Pain, Chronic, Gout, Neck Pain , Chronic, Osteoarthritis, Other (See Below). Denies: Fracture, RA, SLE Other Musculoskeletal History: Chronic pain syndrome with chronic narcotic use, Chronic right hip pain, hyperuricemia. Bilateral carpal tunnel syndrome. Neurological History: Reports: CVA, Headaches, Chronic, Seizure, Other (See Below). Denies: Alzheimers Disease, Cerebral Aneurysms, Concussion, Head Trauma , MS, Neuropathy, Diabetic, Neuropathy, Peripheral, Parkinson's, TIA, Vertigo Other Neuro History: Right-sided cerebellar subacute infarct on 07/17/[address] scan as below with additional evidence of distant Left stent anterioinferior frontal infarction. Nonspecific seizure at age 6 with only one seizure at that time and no reoccurrence despite the patient stopping her medications on her own at about age 39. Left facial Carmen's palsy in the . Psychiatric History: Reports: Addiction, Anxiety, Depression, Other (See Below) . Denies: Abuse, Victim of, ADD, ADHD, Psych Hospitalization(s), PTSD, Suicide Attempt, Suicidal Ideation Other Psychiatric History: Chronic pain syndrome with chronic narcotic use and current treatment in the pain clinic. Endocrine/Metabolic History: Reports: Diabetes, Type II, Obesity/BMI 30+, Other (See Below). Denies: Diabetes Mellitus, Type 3c, Hypothyroidism, IDDM Other Endocrine/Metabolic History: Hypomagnesemia Hematologic History: Reports: Anemia, Blood Transfusion(s), Other (See Below). Denies: Iron Deficiency Other Hematologic History: Blood transfusion with hysterectomy Immunologic History: Reports: None. Denies: AIDS, HIV, SLE Oncologic (Cancer) History: Reports: Ovarian, Uterine, Other (See Below). Denies: Basal Cell Carcinoma, Cervix, Colon, Hodgkin's Lymphoma, Leukemia, Lymphoma, Malignant Melanoma, Non-Hodgkin's Lymphoma, Squamous Cell Carcinoma Other Oncologic History: History of endometrial uterine cancer and ovarian cancer in 2010 with chemotherapy and radiation therapy and complete hysterectomy as below Dermatologic History: Reports: Venous Stasis Dermatitis. Denies: Eczema, Psoriasis - Infectious Disease History Infectious Disease History: Reports: None. Denies: C-Difficile, Chicken Pox, Measles, Meningitis, Mononucleosis, MRSA, Mumps, Pertussis (Whooping Cough), Rheumatic Fever, Rubella, Scarlet Fever, Shingles, TB, VRE - Past Surgical History Head Surgeries/Procedures: Reports: None HEENT Surgical History: Reports: Oral Surgery, Other (See Below). Denies: Adenoidectomy, Cataract Surgery, Eye Surgery, Laser Surgery, LASIK, Myringotomy w Tube(s), Naso-Sinus Surgery, Tonsillectomy Other HEENT Surgeries/Procedures: Teeth extractions. Left lower partial mandibular resection secondary to benign tumor at age 11. Cardiovascular Surgical History: Reports: Other (See Below). Denies: Varicose Other Cardiovascular Surgeries/Procedures: IVC filter placement secondary to DVT /PE Respiratory Surgical History: Reports: None. Denies: Thoracentesis GI Surgical History: Reports: Cholecystectomy, Colonoscopy, Hernia, Abdominal, Other (See Below). Denies: Appendectomy, EGD, Hernia, Inguinal, Polypectomy Other GI Surgeries/Procedures: Umbilical hernia repair 3 with colonoscopy at time of initial hernia repairdate unknown. Apparent ventral abdominal hernia repair with mesh placement in December 2016. Female Surgical History: Reports: Hysterectomy, Salpingo-Oophorectomy, Other (See Below). Denies: Cystoscopy, Tubal Ligation Other Female Surgeries/Procedures: Complete hysterectomy and bilateral salpingo-oophorectomy secondary to uterine and ovarian cancer in 2010 Endocrine Surgical History: Reports: None Neurological Surgical History: Reports: None. Denies: C-Spine, Discectomy, Laminectomy, Lumbar Spine, Sacral Spine, Spinal Fusion, Thoracic Spine, Vertebroplasty Musculoskeletal Surgical History: Reports: Other (See Below). Denies: Arthroscopic Procedure, Carpal Tunnel, Ganglion Cyst, Joint Replacement, ORIF, Shoulder Surgery Other Musculoskeletal Surgeries/Procedures:: Left foot surgery including bone graft at age 19 for possible pes planus Oncologic Surgical History: Reports: Other (See Below) Other Oncologic Surgeries/Procedures: Complete hysterectomy as above Dermatological Surgical History: Reports: None - Past Imaging History Past Imaging History: Reports: CAT Scan (CT of the lumbar spine on 06/22/18. CT of the head on 07/17/17 with findings as above. Last CT of the abdomen and pelvis on 07/17/17 with previous evaluations on 03/16/17, in December 2016, on 08/27 and 03/19/12, CT of the right hip on 10/28/16), Ultrasound (Pelvic ultrasound on 02/06/06), Venous Doppler (Venous Doppler studies of the right leg on and 02/08/10.) Social & Family History - Tobacco Use Smoking Status *Q: Never Smoker Tobacco Use Within Last Twelve Months: No Used Tobacco, but Quit: No Smoking Cessation Information Provided To Patient: No Second Hand Smoke Exposure: No Second Hand Smoke Education Provided: No - Caffeine Use Caffeine Use: Reports: Soda (1 soda per week). Denies: Coffee, Energy Drinks, Tea - Alcohol Use Alcohol Use History: No Days Per Week of Alcohol Use: 0 Number of Drinks Per Day: 0 Number of Drinks Per Day Comment: No previous DWIs, problems with alcohol abuse , etc. 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 ED EXAM, GENERAL - Physical Exam Exam: See Below Exam Limited By: No Limitations General Appearance: Alert, WD/WN, No Apparent Distress, Anxious (Moderate) Head: Atraumatic, Normocephalic Neck: Normal Inspection, Supple, Non-Tender, Full Range of Motion. No: Lymphadenopathy (L), Lymphadenopathy (R), Thyromegaly Respiratory/Chest: No Respiratory Distress, No Accessory Muscle Use, Chest Non- Tender, Rales (Minimal bilateral basilar). No: Rhonchi, Wheezing, Pleural Rub, Retractions Cardiovascular: Normal Peripheral Pulses, Regular Rate, Rhythm, No Gallop, No JVD, No Murmur, No Rub. No: No Edema (Dependent edema as below), Gallop/S3, Gallop/S4, Friction Rub Peripheral Pulses: 2+: Radial (L), Radial (R), Dorsalis Pedis (L), Dorsalis Pedis (R) GI/Abdominal: Normal Bowel Sounds, Soft, Non-Tender, No Organomegaly, No Distention, No Abnormal Bruit, No Mass, Pelvis Stable, Other (Obese). No: Guarding (Female) Exam: Deferred Rectal (Female) Exam: Deferred Back Exam: Normal Inspection, Full Range of Motion. No: CVA Tenderness (L), CVA Tenderness (R), Muscle Spasm Extremities: Normal Capillary Refill, Pedal Edema (Trace +1 bilateral pedal/ pretibial edema), Leg Pain (Mild to moderate left leg pain including hip with secondary decreased range of motion), Limited Range of Motion (As above), Other (Moderate venous stasis dermatitis of the lower extremities bilaterally with multiple calluses on her toes but no acute infection. Moderate varicose veins of the lower extremities bilaterally.). No: Joint Swelling, Henny's Sign Neurological: Alert, Oriented, CN II-XII Intact, Normal Cognition, Normal Gait, Normal Reflexes (Negative Babinski's), No Motor/Sensory Deficits Psychiatric: Anxious (Moderate), Depressed Mood (Moderate) Skin Exam: Warm, Dry, Normal Color, No Rash, Other (As above). No: Diaphoretic , Wound/Incision Lymphatic: No Adenopathy Course - Vital Signs Last Recorded V/S: Last Vital Signs Temp 36.7 C 07/12/18 16:49 Pulse 78 07/12/18 18:00 Resp 16 07/12/18 18:00 BP 108/61 07/12/18 18:00 Pulse Ox 100 07/12/18 18:00 Vital Signs - 24 hr 07/12/18 07/12/18 16:49 18:00 Temperature [ 36.7 C Oral] Pulse, 80 78 Peripheral [ Pulse Oximetry] Respiratory 18 16 Rate Blood Pressure 101/64 108/61 [Right Arm] O2 Sat by Pulse 100 100 Oximetry - Orders/Labs/Meds Orders: Active Orders 24 hr Category Date Time Status Cardiac Monitoring [RC] . DIRECTED Care 07/12/18 17:06 Active Oxygen Therapy, ED [RC] PRN Care 07/12/18 17:06 Active Peripheral IV Care [RC] . DIRECTED Care 07/12/18 17:06 Active Pulse Oximetry [RC] CONTINUOUS Care 07/12/18 17:06 Active Up With Assistance [RC] PFP Care 07/12/18 17:06 Active Vital Signs [RC] PFP Care 07/12/18 17:06 Active Nothing per Oral Now Diet [DIET] Diet 07/12/18 Breakfast Active Chest 1V Frontal [CR] Stat Exams 07/12/18 17:06 Taken Sodium Chloride 0.9% [Saline Flush] Med 07/12/18 17:06 Active 10 ml FLUSH ASDIRECTED PRN Obtain Past Medical Record [OM.PC] Urgent Oth 07/12/18 17:06 Active Peripheral IV Insertion Adult [OM.PC] Stat Oth 07/12/18 17:06 Ordered Resuscitation Status Stat Resus Stat 07/12/18 17:06 Ordered Medication Orders Sodium Chloride (Saline Flush) 10 ml FLUSH ASDIRECTED PRN PRN Reason: Keep Vein Open Last Admin: 07/12/18 18:13 Dose: 10 ml Labs: Laboratory Tests 07/12/18 07/12/18 07/12/18 Range/Units 17:15 17:20 17:20 WBC 6.5 (4.0-10.2) K/uL RBC 3.42 L (3.77-5.09) M/uL Hgb 11.1 L (11.7-15.5) g/dL Hct 34.7 (34.0-46.0) % MCV 101.5 H D (84.0-98.0) fL MCH 32.5 (28.2-33.3) pg MCHC 32.0 (31.7-36.0) g/dL RDW 14.5 H (11.2-14.1) % Plt Count 225 (150-350) K/uL Neut % (Auto) 58.5 (45.0-80.0) % Lymph % (Auto) 31.9 (10.0-50.0) % Broome % (Auto) 6.3 (2.0-14.0) % Eos % (Auto) 2.8 (0.0-5.0) % Baso % (Auto) 0.5 (0.0-2.0) % Neut # (Auto) 3.79 (1.40-7.00) K/uL Lymph # (Auto) 2.07 (0.50-3.50) K/uL Bro[place] # (Auto) 0.41 (0.00-1.00) K/uL Eos # (Auto) 0.18 (0.00-0.50) K/uL Baso # (Auto) 0.03 (0.00-0.20) K/uL PT 24.7 H (9.5-12.0) SEC INR 2.3 APTT 38.8 H (21.0-31.3) SEC D-Dimer, Quantitative < 100 (0-400) ng/mL Sodium (136-145) mmol/L Potassium (3.5-5.1) mmol/L Chloride (98-107) mmol/L Carbon Dioxide (21.0-32.0) mmol/L BUN (7-18) mg/dL Creatinine (0.51-1.17) mg/dL Est Cr Clr Drug Dosing Estimated GFR (MDRD) mL/min Glucose (74-106) mg/dL Lactic Acid (0.4-2.0) mmol/L Uric Acid (2.6-7.2) mg/dL Calcium (8.5-10.1) mg/dL Magnesium (1.8-2.4) mg/dL Total Bilirubin (0.2-1.0) mg/dL AST (15-37) U/L ALT (12-78) U/L Alkaline Phosphatase (46-116) IU/L Creatine Kinase (26-308) U/L Creatine Kinase Index (0.0-2.5) % CK-MB (CK-2) (0.00-3.60) ng/mL Troponin I (0.000-0.056) ng/mL NT-Pro-B Natriuret Pep (0-125) pg/mL Total Protein (6.4-8.2) g/dL Albumin (3.4-5.0) g/dL TSH, Ultra Sensitive (0.358-3.740) mIU/mL 07/12/18 07/12/18 Range/Units 17:20 17:20 WBC (4.0-10.2) K/uL RBC (3.77-5.09) M/uL Hgb (11.7-15.5) g/dL Hct (34.0-46.0) % MCV (84.0-98.0) fL MCH (28.2-33.3) pg MCHC (31.7-36.0) g/dL RDW (11.2-14.1) % Plt Count (150-350) K/uL Neut % (Auto) (45.0-80.0) % Lymph % (Auto) (10.0-50.0) % [place] % (Auto) (2.0-14.0) % Eos % (Auto) (0.0-5.0) % Baso % (Auto) (0.0-2.0) % Neut # (Auto) (1.40-7.00) K/uL Lymph # (Auto) (0.50-3.50) K/uL [place] # (Auto) (0.00-1.00) K/uL Eos # (Auto) (0.00-0.50) K/uL Baso # (Auto) (0.00-0.20) K/uL PT (9.5-12.0) SEC INR APTT (21.0-31.3) SEC D-Dimer, Quantitative (0-400) ng/mL Sodium 140 (136-145) mmol/L Potassium 3.9 (3.5-5.1) mmol/L Chloride 103 (98-107) mmol/L Carbon Dioxide 30.1 (21.0-32.0) mmol/L BUN 18 (7-18) mg/dL Creatinine 0.95 (0.51-1.17) mg/dL Est Cr Clr Drug Dosing TNP Estimated GFR (MDRD) > 60 mL/min Glucose 91 (74-106) mg/dL Lactic Acid 0.7 (0.4-2.0) mmol/L Uric Acid 6.8 (2.6-7.2) mg/dL Calcium 9.3 (8.5-10.1) mg/dL Magnesium 1.8 (1.8-2.4) mg/dL Total Bilirubin 1.3 H (0.2-1.0) mg/dL AST 28 (15-37) U/L ALT 26 (12-78) U/L Alkaline Phosphatase 93 (46-116) IU/L Creatine Kinase 96 (26-308) U/L Creatine Kinase Index 1.6 (0.0-2.5) % CK-MB (CK-2) 1.50 (0.00-3.60) ng/mL Troponin I 0.003 (0.000-0.056) ng/mL NT-Pro-B Natriuret Pep 897 H (0-125) pg/mL Total Protein 7.0 (6.4-8.2) g/dL Albumin 3.4 (3.4-5.0) g/dL TSH, Ultra Sensitive 0.984 (0.358-3.740) mIU/mL Meds: Medications Generic Name Dose Route Start Last Admin Trade Name Freq PRN Reason Stop Dose Admin Sodium Chloride 10 ml 07/12/18 17:06 07/12/18 18:13 Saline Flush FLUSH 10 ml ASDIRECTED PRN Administration Keep Vein Open Discontinued Medications Generic Name Dose Route Start Last Admin Trade Name Freq PRN Reason Stop Dose Admin Furosemide 60 mg 07/12/18 18:06 07/12/18 18:13 Lasix IVPUSH 07/12/18 18:07 60 mg NOW ONE Administration Potassium Chloride 40 meq 07/12/18 18:07 07/12/18 18:12 Klor-Con M20 PO 07/12/18 18:08 40 meq ONETIME ONE Administration - Radiology Interpretation Free Text/Narrative:: conveyor monitor shows normal sinus rhythm in the 70-80s with no ectopy or arrhythmia. Chest x-ray, portable, shows mildly elevated right hemidiaphragm with a somewhat poor inspiratory film. Moderate COPD changes with likely secondary pulmonary hypertension and/or mild centralized CHF with additional mild cardiomegaly. No pulmonary infiltrates, pneumothorax, etc. Departure - Departure Time of Disposition: 18:50 Disposition: Home, Self-Care 01 Condition: Good Clinical Impression: Obesity (BMI 35.0-39.9 without comorbidity), Mixed anxiety depressive disorder , Gilbert's syndrome DVT (deep venous thrombosis) Qualifiers: DVT location: lower extremity Affected thrombotic vein of extremity: unspecified vein of extremity Chronicity: unspecified Laterality: unspecified laterality Qualified Code(s): I82.409 - Acute embolism and thrombosis of unspecified deep veins of unspecified lower extremity COPD (chronic obstructive pulmonary disease) Qualifiers: COPD type: COPD with acute lower respiratory infection Qualified Code(s): J44.0 - Chronic obstructive pulmonary disease with acute lower respiratory infection CHF (congestive heart failure) Qualifiers: Heart failure type: unspecified Heart failure chronicity: chronic Qualified Code(s): I50.9 - Heart failure, unspecified Osteoarthritis Qualifiers: Osteoarthritis location: multiple joints Osteoarthritis type: primary Qualified Code(s): M15.0 - Primary generalized (osteo)arthritis Anemia Qualifiers: Anemia type: unspecified type Qualified Code(s): D64.9 - Anemia, unspecified - Discharge Information *PRESCRIPTION DRUG MONITORING PROGRAM REVIEWED*: Not Applicable *COPY OF PRESCRIPTION DRUG MONITORING REPORT IN PATIENT BHAVNA: Not Applicable Instructions: Heart Failure, [id number] Referrals: Pinky Montoya PA-C [Primary Care Provider] - Forms: ED Department Discharge Additional Instructions: 1. Follow up with your regular provider in 10-14 days as needed, if symptoms persist. Bring these discharge instructions with you to that visit.. 2. Never skip any medications as discussed 3. BenGay or equivalent, heating pad, and/or ice packs as directed. 4. Immediately after this visit verify that your cellular telephone's voicemail has been activated and is empty. Also verify that your home telephone 's answering machine is operating properly and has space to receive messages. Note that it is sometimes necessary for us to be able to contact you at a later date to discuss your medical care. 5. Please remember that we are ALWAYS here for you and want to answer any questions you may have. Feel free to call the hospital any time and we call you back MARIANO. - Problem List & Annotations (1) CHF (congestive heart failure) SNOMED Code(s): 70694183 Code(s): I50.9 - HEART FAILURE, UNSPECIFIED Status: Chronic Priority: Medium Annotation/Comment:: Mild CHF by today's chest x-ray with elevated BNP and known history of chronic BNP elevation with no recent chest pain or anginal complaints. She has been noncompliant with her Lasix therapy as above. Note previous moderate to severe cardiomegaly by previous x-rays in this facility. Qualifiers: Heart failure type: unspecified Heart failure chronicity: chronic Qualified Code(s): I50.9 - Heart failure, unspecified (2) DVT (deep venous thrombosis) SNOMED Code(s): 778627732 Code(s): I82.409 - ACUTE EMBOLISM AND THOMBOS UNSP DEEP VN UNSP LOWER EXTREMITY Status: Chronic Priority: Medium Annotation/Comment:: Normal d- dimer today with negative Homans sign and no true clinical evidence of DVT or PE. INR is therapeutic today. Note IVC filter. Qualifiers: DVT location: lower extremity Affected thrombotic vein of extremity: unspecified vein of extremity Chronicity: unspecified Laterality: unspecified laterality Qualified Code(s): I82.409 - Acute embolism and thrombosis of unspecified deep veins of unspecified lower extremity (3) Osteoarthritis SNOMED Code(s): 173545271 Code(s): M19.90 - UNSPECIFIED OSTEOARTHRITIS, UNSPECIFIED SITE Status: Chronic Priority: Medium Annotation/Comment:: Stable by history with known hyperuricemia but no known gout attacks. Note chronic narcotic use and current pain clinic management. She does use a cane. No history of fall, injury, etc. with recent refractory left hip and leg pain. Qualifiers: Osteoarthritis location: multiple joints Osteoarthritis type: primary Qualified Code(s): M15.0 - Primary generalized (osteo)arthritis (4) Gilbert's syndrome SNOMED Code(s): 61673986 Code(s): E80.4 - GILBERT SYNDROME Status: Acute Priority: Medium Onset Date: 11/02/16 Annotation/Comment:: Mild hyperbilirubinemia with known history of probable Gilbert's syndrome based on previous direct/indirect bili evaluation. (5) COPD (chronic obstructive pulmonary disease) SNOMED Code(s): 92569652 Code(s): J44.9 - CHRONIC OBSTRUCTIVE PULMONARY DISEASE, UNSPECIFIED Status : Chronic Priority: Medium Annotation/Comment:: COPD by chest x-ray with no current therapy. No recent history of fever or bronchitic type symptoms. Qualifiers: COPD type: COPD with acute lower respiratory infection Qualified Code(s): J44.0 - Chronic obstructive pulmonary disease with acute lower respiratory infection (6) Caries SNOMED Code(s): 42416798 Code(s): K02.9 - DENTAL CARIES, UNSPECIFIED Status: Chronic Priority: Medium Annotation/Comment:: Patient plans to leave the country in the near future for complete teeth extraction. She apparently recently completed a one- week course of antibiotic therapy with therapeutic INR today as above. (7) Mixed anxiety depressive disorder SNOMED Code(s): 054440908 Code(s): F41.8 - OTHER SPECIFIED ANXIETY DISORDERS Status: Chronic Priority: Medium Annotation/Comment:: Poor control by current clinical exam. Close follow-up recommended by patient's regular providers. Note that she does have increased stressors secondary to taking care of her at home, who is on a respirator. Note chronic narcotic and Ultram use/addiction as above (8) Obesity (BMI 35.0-39.9 without comorbidity) SNOMED Code(s): 128184635, 099614365 Code(s): E66.9 - OBESITY, UNSPECIFIED Status: Chronic Priority: Medium Annotation/Comment:: Weight loss in moderation is advisable. Secondary to her history of CHF lipid panel, etc. are advisable. - Problem List Review Problem List Initiated/Reviewed/Updated: Yes - My Orders Last 24 Hours: My Active Orders 07/12/18 17:06 Cardiac Monitoring [RC] . DIRECTED Oxygen Therapy, ED [RC] PRN Peripheral IV Care [RC] . DIRECTED Pulse Oximetry [RC] CONTINUOUS Up With Assistance [RC] PFP Vital Signs [RC] PFP Chest 1V Frontal [CR] Stat Sodium Chloride 0.9% [Saline Flush] 10 ml FLUSH ASDIRECTED PRN Obtain Past Medical Record [OM.PC] Urgent Peripheral IV Insertion Adult [OM.PC] Stat Resuscitation Status Stat 07/12/18 Breakfast Nothing per Oral Now Diet [DIET] - Assessment/Plan Last 24 Hours: My Active Orders 07/12/18 17:06 Cardiac Monitoring [RC] . DIRECTED Oxygen Therapy, ED [RC] PRN Peripheral IV Care [RC] . DIRECTED Pulse Oximetry [RC] CONTINUOUS Up With Assistance [RC] PFP Vital Signs [RC] PFP Chest 1V Frontal [CR] Stat Sodium Chloride 0.9% [Saline Flush] 10 ml FLUSH ASDIRECTED PRN Obtain Past Medical Record [OM.PC] Urgent Peripheral IV Insertion Adult [OM.PC] Stat Resuscitation Status Stat 07/12/18 Breakfast Nothing per Oral Now Diet [DIET] Assessment:: As above Plan: As above. Extensive precautions were given to the patient, who is in agreement with the treatment plan. See Patient Instructions for further treatment and plan.
[2018-07-12 17:47] LABS: CHLORIDE,CL 103 mmol/L (98-107); SODIUM,NA 140 mmol/L (136-145)
[2018-07-12] MEDS ORDERED: Furosemide 40 MG/4 ML VIAL IVPUSH ONE (18:06)
[2018-07-12] MEDS ORDERED: Potassium Chloride 20 MEQ Tab.ER PO ONE (18:07)
[2018-07-12 18:29] VITALS: BP 108/61
== END 2018-07-12 18:50 | disposition home or self-care (01) ==
LOC: LL.ED 16:47
DX: I82.402 Acute embolism and thrombosis of unspecified deep veins of left lower extremity (principal); D50.9 Iron deficiency anemia, unspecified; I11.0 Hypertensive heart disease with heart failure; I50.9 Heart failure, unspecified; F41.8 Other specified anxiety disorders; J44.0 Chronic obstructive pulmonary disease with (acute) lower respiratory infection; E80.4 Gilbert syndrome; E66.9 Obesity, unspecified; Z68.35 Body mass index [BMI] 35.0-35.9, adult; E11.9 Type 2 diabetes mellitus without complications; M15.0 Primary generalized (osteo)arthritis; F41.9 Anxiety disorder, unspecified; F32.9 Major depressive disorder, single episode, unspecified; Z79.899 Other long term (current) drug therapy; Z88.8 Allergy status to other drugs, medicaments and biological substances
CPT/HCPCS: 36415; 71045; 80053; 82550; 82553; 83605; 83735; 83880; 84443; 84484; 84550; 85025; 85379; 85610; 85730; 96374; 99283-25; A9270-GY; J1940

== ENCOUNTER 2019-03-10 19:06 | Emergency (ER) | payer MEDICAID ==
[2019-03-10 19:08] VITALS: BP 147/66; PULSE 86
--- NOTE | 2019-03-10 19:55 | EDM.PDOC ---
ED HPI GENERAL MEDICAL PROBLEM - General Chief Complaint: Lower Extremity Injury/Pain Stated Complaint: Left foot Time Seen by Provider: 03/10/19 19:15 Source of Information: Reports: Patient, EMS History Limitations: Reports: No Limitations - History of Present Illness INITIAL COMMENTS - FREE TEXT/NARRATIVE: Pt injured left foot complaining of pain to distal and mid-foot malina near great toe Increased pain with movement or palpation. Onset: Sudden Duration: Hour(s):, Intermittent Location: Reports: Lower Extremity, Left, Other (Left foot) Quality: Reports: Throbbing Severity: Moderate Improves with: Reports: Immobilization Worsens with: Reports: Movement Context: Reports: Trauma Left Foot Pain Score (Numeric/FACES): 5 - Related Data Allergies Allergy/AdvReac Type Severity Reaction Status Date / Time NSAIDS (Non-Steroidal Allergy Renal Verified 03/10/19 19:09 Anti-Inflamma Failure Home Meds: Home Meds Warfarin Sodium [Jantoven] 5 mg PO DAILY 11/02/16 [History] Magnesium Oxide 400 mg PO DAILY #30 tab 07/13/17 [Rx] Acetaminophen 1,000 mg PO TID 02/09/18 [History] Cholecalciferol (Vitamin D3) [Vitamin D3] 2 tab PO DAILY 02/09/18 [History] Cyclobenzaprine [Flexeril] 1 tab PO TID PRN 02/09/18 [History] DULoxetine [Cymbalta] 30 mg PO DAILY 02/09/18 [History] Furosemide 40 mg PO BID 02/09/18 [History] Gabapentin [Neurontin] 100 mg PO TID 02/09/18 [History] Iron 45 mg PO DAILY 02/09/18 [History] Metoprolol Succinate [Toprol XL] 25 mg PO DAILY 02/09/18 [History] Multivit-Min/Iron/Folic/Lutein [Centrum Silver Women Tablet] 1 tab PO DAILY [History] atorvaSTATin [Lipitor] 20 mg PO DAILY 02/09/18 [History] Past Medical History HEENT History: Reports: Allergic Rhinitis, Impaired Vision, Other (See Below) Other HEENT History: Patient wears glasses. 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 Poor dentition. 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 Chronic CHF with chronic BNP elevation. Syncopal episode at time of PE in 2010. Patient does not know her cholesterol status. Respiratory History: Reports: Bronchitis, Recurrent, COPD, Intubation, Previous , PE, Other (See Below) Other Respiratory History: COPD by chest x-ray with no current therapy. PE in 2010 Gastrointestinal History: Reports: Bowel Obstruction, Cholelithiasis, Chronic Constipation, Other (See Below) Other Gastrointestinal History: Large ventral abdominal hernias and umbilical hernia with history of recurrent incarcerations and secondary small bowel obstructions with previous surgeries as below, last known small bowel obstruction on 08/27/16 and 11/02/16 Genitourinary History: Reports: Renal Calculus, Other (See Below) Other Genitourinary History: She is not aware of previous urolithiasis. [employer] BUILDINGS SUPERVISOR History: Reports: Dysfunctional Uterine Bleeding, Fibroids Other [employer] BUILDINGS SUPERVISOR History: Surgical menopause as below Musculoskeletal History: Reports: Arthritis, Back Pain, Chronic, Gout, Neck Pain , Chronic, Osteoarthritis, Other (See Below) Other Musculoskeletal History: Chronic pain syndrome with chronic narcotic use, Chronic right hip pain, hyperuricemia. Bilateral carpal tunnel syndrome. Neurological History: Reports: CVA, Headaches, Chronic, Seizure, Other (See Below) Other Neuro History: Right-sided cerebellar subacute infarct on 07/17/[address] scan as below with additional evidence of distant Left stent anterioinferior frontal infarction. Nonspecific seizure at age 6 with only one seizure at that time and no reoccurrence despite the patient stopping her medications on her own at about age 39. Left facial Carmen's palsy in the . Psychiatric History: Reports: Addiction, Anxiety, Depression, Other (See Below) Other Psychiatric History: Chronic pain syndrome with chronic narcotic use and current treatment in the pain clinic. Endocrine/Metabolic History: Reports: Diabetes, Type II, Obesity/BMI 30+, Other (See Below) Other Endocrine/Metabolic History: Hypomagnesemia Hematologic History: Reports: Anemia, Blood Transfusion(s), Other (See Below) Other Hematologic History: Blood transfusion with hysterectomy Immunologic History: Reports: None Oncologic (Cancer) History: Reports: Ovarian, Uterine, Other (See Below) Other Oncologic History: History of endometrial uterine cancer and ovarian cancer in 2010 with chemotherapy and radiation therapy and complete hysterectomy as below Dermatologic History: Reports: Venous Stasis Dermatitis - Infectious Disease History Infectious Disease History: Reports: None - Past Surgical History Head Surgeries/Procedures: Reports: None HEENT Surgical History: Reports: Oral Surgery, Other (See Below) Other HEENT Surgeries/Procedures: Teeth extractions. Left lower partial mandibular resection secondary to benign tumor at age 11. Cardiovascular Surgical History: Reports: Other (See Below) Other Cardiovascular Surgeries/Procedures: IVC filter placement secondary to DVT /PE Respiratory Surgical History: Reports: None GI Surgical History: Reports: Cholecystectomy, Colonoscopy, Hernia, Abdominal, Other (See Below) Other GI Surgeries/Procedures: Umbilical hernia repair 3 with colonoscopy at time of initial hernia repairdate unknown. Apparent ventral abdominal hernia repair with mesh placement in December 2016. Female Surgical History: Reports: Hysterectomy, Salpingo-Oophorectomy, Other (See Below) Other Female Surgeries/Procedures: Complete hysterectomy and bilateral salpingo-oophorectomy secondary to uterine and ovarian cancer in 2010 Endocrine Surgical History: Reports: None Neurological Surgical History: Reports: None Musculoskeletal Surgical History: Reports: Other (See Below) Other Musculoskeletal Surgeries/Procedures:: Left foot surgery including bone graft at age 19 for possible pes planus Oncologic Surgical History: Reports: Other (See Below) Other Oncologic Surgeries/Procedures: Complete hysterectomy as above Dermatological Surgical History: Reports: None - Past Imaging History Past Imaging History: Reports: CAT Scan (CT of the lumbar spine on 06/22/18. CT of the head on 07/17/17 with findings as above. Last CT of the abdomen and pelvis on 07/17/17 with previous evaluations on 03/16/17, in December 2016, on 08/27 and 03/19/12, CT of the right hip on 10/28/16), Ultrasound (Pelvic ultrasound on 02/06/06), Venous Doppler (Venous Doppler studies of the right leg on and 02/08/10.) Social & Family History - Tobacco Use Smoking Status *Q: Never Smoker Second Hand Smoke Exposure: No - Caffeine Use Caffeine Use: Reports: Coffee, Soda - Recreational Drug Use Recreational Drug Use: No - Living Situation & Occupation Living situation: Reports: with Spouse (Who is disabled with extensive care required by the patient including secondary significant stressors.), with Family ( in the motel) 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[place]) Review of Systems - Review of Systems Review Of Systems: See Below Musculoskeletal: Reports: Other (Pain and swelling in left foot) ED EXAM, GENERAL - Physical Exam Exam: See Below Extremities: Other (Left comb tender over distal mid-foot Minimal swelling No ecchymosis) Course - Vital Signs Last Recorded V/S: Last Vital Signs Temp 36.2 C 03/10/19 19:07 Pulse 86 03/10/19 19:07 Resp 14 03/10/19 19:07 BP 147/66 H 03/10/19 19:07 Pulse Ox 100 03/10/19 19:07 - Orders/Labs/Meds Orders: Active Orders 24 hr Category Date Time Status Foot Comp Min 3V Lt [CR] Stat Exams 03/10/19 19:13 Taken - Re-Assessments/Exams Free Text/Narrative Re-Assessment/Exam: 03/10/19 19:53 See xray Pt placed in splint for comfort Departure - Departure Time of Disposition: 20:00 Disposition: Home, Self-Care 01 Clinical Impression: Foot pain, left - Discharge Information Instructions: Foot Pain Referrals: Pinky Montoya PA-C [Primary Care Provider] - Additional Instructions: Ice as needed Splint as needed Follow up in clinic Sepsis Event Note - Evaluation Sepsis Screening Result: No Definite Risk - Focused Exam Vital Signs: Vital Signs Temp Pulse Resp BP Pulse Ox 03/10/19 19:07 36.2 C 86 14 147/66 H 100 Date Exam was Performed: 03/10/19 Time Exam was Performed: 19:50 - My Orders Last 24 Hours: My Active Orders 03/10/19 19:13 Foot Comp Min 3V Lt [CR] Stat - Assessment/Plan Last 24 Hours: My Active Orders 03/10/19 19:13 Foot Comp Min 3V Lt [CR] Stat
== END 2019-03-10 20:45 | disposition home or self-care (01) ==
LOC: LL.ED 19:06
DX: M79.672 Pain in left foot (principal); E11.9 Type 2 diabetes mellitus without complications; Z88.6 Allergy status to analgesic agent; Z79.01 Long term (current) use of anticoagulants; Z79.899 Other long term (current) drug therapy
CPT/HCPCS: 73562-LT; 73630-LT; 99283-25

== ENCOUNTER 2020-05-24 12:31 | Inpatient (IN) | payer MEDICAID ==
[2020-05-24 13:01] LABS: CHLORIDE,CL 95 mmol/L (98-107); SODIUM,NA 134 mmol/L (136-145)
--- NOTE | 2020-05-24 13:05 | EDM.PDOC ---
ED HPI GENERAL MEDICAL PROBLEM - General Chief Complaint: Respiratory Problem Stated Complaint: fever, shortness of breath Time Seen by Provider: 05/24/20 12:35 Source of Information: Reports: Patient History Limitations: Reports: No Limitations - History of Present Illness INITIAL COMMENTS - FREE TEXT/NARRATIVE: She is brought to the ED by ambulance for evaluation of weakness. She reports she has basically been sleeping for the past 3 days. Increased tiredness for 1- 2 weeks. Has noted fevers for 2-3 days. Reports highest number was 107.0 Diarrhea for 2-3 days Loose brown watery stools approximately every 2 hours. No nausea or vomiting. Positive nonproductive cough which occurs mainly when she first puts on her C-pap. No dysuria or urgency, but she has been having trouble with incontinence for 2-3 months. No known exposure. History of CHF, COPD. 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 - Related Data Allergies Allergy/AdvReac Type Severity Reaction Status Date / Time NSAIDS (Non-Steroidal Allergy Renal Verified 05/24/20 13:10 Anti-Inflamma Failure Home Meds: Home Meds Warfarin Sodium [Jantoven] 5 mg PO DAILY 11/02/16 [History] Magnesium Oxide 400 mg PO DAILY #30 tab 07/13/17 [Rx] Acetaminophen 1,000 mg PO TID 02/09/18 [History] Cholecalciferol (Vitamin D3) [Vitamin D3] 2 tab PO DAILY 02/09/18 [History] Cyclobenzaprine [Flexeril] 1 tab PO TID PRN 02/09/18 [History] DULoxetine [Cymbalta] 30 mg PO DAILY 02/09/18 [History] Furosemide 40 mg PO BID 02/09/18 [History] Iron 45 mg PO DAILY 02/09/18 [History] Metoprolol Succinate [Toprol XL] 25 mg PO DAILY 02/09/18 [History] Multivit-Min/Iron/Folic/Lutein [Centrum Silver Women Tablet] 1 tab PO DAILY 02/09/18 [History] atorvaSTATin [Lipitor] 20 mg PO DAILY 02/09/18 [History] Biotin 10,000 mcg PO DAILY 05/24/20 [History] Montelukast [Singulair] 10 mg PO BEDTIME 05/24/20 [History] Potassium Chloride 20 meq PO DAILY 05/24/20 [History] Warfarin [Coumadin] 2.5 mg PO [id number]/24/20 [History] metFORMIN HCl [Metformin HCl ER] 500 mg PO DAILY 05/24/20 [History] Past Medical History HEENT History: Reports: Allergic Rhinitis, Impaired Vision, Other (See Below) Other HEENT History: Patient wears glasses. 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 Poor dentition. Cardiovascular History: Reports: Blood Clots/VTE/DVT, Heart Failure, Syncope, Other (See Below) Other Cardiovascular History: IVC filter with history of DVTs of the legs bilaterally and possible pulmonary embolism with current chronic Coumadin therapy, severe varicose veins with thrombophlebitis of the right leg on 02/08/10. Chronic CHF with chronic BNP elevation. Syncopal episode at time of PE in 2010. Patient does not know her cholesterol status. Respiratory History: Reports: Bronchitis, Recurrent, COPD, Intubation, Previous, PE, Other (See Below) Other Respiratory History: COPD by chest x-ray with no current therapy. PE in 2010 Gastrointestinal History: Reports: Bowel Obstruction, Cholelithiasis, Chronic Constipation, Other (See Below) Other Gastrointestinal History: Large ventral abdominal hernias and umbilical hernia with history of recurrent incarcerations and secondary small bowel obstructions with previous surgeries as below, last known small bowel obstruction on 08/27/16 and 11/02/16 Genitourinary History: Reports: Renal Calculus, Other (See Below) Other Genitourinary History: She is not aware of previous urolithiasis. SALES PLANNER History: Reports: Dysfunctional Uterine Bleeding, Fibroids Other SALES PLANNER History: Surgical menopause as below Musculoskeletal History: Reports: Arthritis, Back Pain, Chronic, Gout, Neck Pain, Chronic, Osteoarthritis, Other (See Below) Other Musculoskeletal History: Chronic pain syndrome with chronic narcotic use, Chronic right hip pain, hyperuricemia. Bilateral carpal tunnel syndrome. Neurological History: Reports: CVA, Headaches, Chronic, Seizure, Other (See Below) Other Neuro History: Right-sided cerebellar subacute infarct on 07/17/[address] scan as below with additional evidence of distant Left stent anterioinferior frontal infarction. Nonspecific seizure at age 6 with only one seizure at that time and no reoccurrence despite the patient stopping her medications on her own at about age 39. Left facial Carmen's palsy in the . Psychiatric History: Reports: Addiction, Anxiety, Depression, Other (See Below) Other Psychiatric History: Chronic pain syndrome with chronic narcotic use and current treatment in the pain clinic. Endocrine/Metabolic History: Reports: Diabetes, Type II, Obesity/BMI 30+, Other (See Below) Other Endocrine/Metabolic History: Hypomagnesemia Hematologic History: Reports: Anemia, Blood Transfusion(s), Other (See Below) Other Hematologic History: Blood transfusion with hysterectomy Immunologic History: Reports: None Oncologic (Cancer) History: Reports: Ovarian, Uterine, Other (See Below) Other Oncologic History: History of endometrial uterine cancer and ovarian cancer in 2010 with chemotherapy and radiation therapy and complete hysterectomy as below Dermatologic History: Reports: Venous Stasis Dermatitis - Infectious Disease History Infectious Disease History: Reports: None - Past Surgical History Head Surgeries/Procedures: Reports: None HEENT Surgical History: Reports: Oral Surgery, Other (See Below) Other HEENT Surgeries/Procedures: Teeth extractions. Left lower partial mandibular resection secondary to benign tumor at age 11. Cardiovascular Surgical History: Reports: Other (See Below) Other Cardiovascular Surgeries/Procedures: IVC filter placement secondary to DVT/PE Respiratory Surgical History: Reports: None GI Surgical History: Reports: Cholecystectomy, Colonoscopy, Hernia, Abdominal, Other (See Below) Other GI Surgeries/Procedures: Umbilical hernia repair 3 with colonoscopy at time of initial hernia repairdate unknown. Apparent ventral abdominal hernia repair with mesh placement in December 2016. Female Surgical History: Reports: Hysterectomy, Salpingo-Oophorectomy, Other (See Below) Other Female Surgeries/Procedures: Complete hysterectomy and bilateral salpingo-oophorectomy secondary to uterine and ovarian cancer in 2010 Endocrine Surgical History: Reports: None Neurological Surgical History: Reports: None Musculoskeletal Surgical History: Reports: Other (See Below) Other Musculoskeletal Surgeries/Procedures:: Left foot surgery including bone gr aft at age 19 for possible pes planus Oncologic Surgical History: Reports: Other (See Below) Other Oncologic Surgeries/Procedures: Complete hysterectomy as above Dermatological Surgical History: Reports: None - Past Imaging History Past Imaging History: Reports: CAT Scan (CT of the lumbar spine on 06/22/18. CT of the head on 07/17/17 with findings as above. 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 Denies: Sputum Cardiovascular: Reports: Edema. Denies: Chest Pain, Palpitations GI/Abdominal: Reports: Diarrhea. Denies: Abdominal Pain, Nausea, Vomiting : Denies: Discharge, Dysuria, Flank Pain, Frequency, Hematuria, Urgency Skin: Denies: Rash Neurological: Denies: Confusion, Dizziness, Headache Psychiatric: Reports: Depression. Denies: Anxiety ED EXAM, GENERAL - Physical Exam Exam: See Below General Appearance: Alert, WD/WN, Mild Distress Ears: Normal External Exam, Normal Canal, Hearing Grossly Normal, Normal TMs Nose: Normal Inspection, Normal Mucosa, No Blood Throat/Mouth: Normal Inspection, Normal Oropharynx, No Airway Compromise Head: Atraumatic, Normocephalic Neck: Supple, Non-Tender Respiratory/Chest: No Respiratory Distress, Lungs Clear, Normal Breath Sounds Cardiovascular: Regular Rate, Rhythm, No Murmur GI/Abdominal: Normal Bowel Sounds, Soft, Non-Tender, No Organomegaly, No Distention, No Mass Extremities: Pedal Edema (Mild bilaterally) Neurological: Alert, Oriented, CN II-XII Intact Psychiatric: Normal Affect, Normal Mood Course - Vital Signs Text/Narrative:: Patient was stable in the ED. Elevated white count, fever and positive urine. Complicated UTI vs. urosepsis. Will admit for IV antibiotics and monitoring. Last Recorded V/S: Last Vital Signs Temp 38.3 C H 05/24/20 12:35 Pulse 101 H 05/24/20 12:35 Resp 20 05/24/20 12:35 BP 142/67 H 05/24/20 12:35 Pulse Ox 100 05/24/20 12:35 - Orders/Labs/Meds Orders: Active Orders 24 hr Category Date Time Status Chest 1V Frontal [CR] Stat Exams 05/24/20 12:34 Ordered CULTURE BLOOD [BC] Routine Lab 05/24/20 12:41 Received CULTURE BLOOD [BC] Routine Lab 05/24/20 12:46 Received CULTURE URINE [RM] Stat Lab 05/24/20 12:59 Received INR,PT,PROTHROMBIN TIME [COAG] Stat Lab 05/24/20 13:12 Received LACTIC ACID [CHEM] Stat Lab 05/24/20 13:05 Ordered Sodium Chloride 0.9% [Saline Flush] Med 05/24/20 12:35 Active 10 ml FLUSH ASDIRECTED PRN cefTRIAXone [Rocephin] 1 gm Med 05/24/20 13:06 Active Sodium Chloride 0.9% [Normal Saline] 100 ml IV ONETIME Isolation [COMM] Routine Oth 05/24/20 12:35 Active Medication Orders Ceftriaxone Sodium 1 gm/ (Sodium Chloride) 100 mls @ 200 mls/hr IV ONETIME ONE Stop: 05/24/20 13:35 Sodium Chloride (Sodium Chloride 0.9% 10 Ml Syringe) 10 ml FLUSH ASDIRECTED PRN PRN Reason: Keep Vein Open Labs: Laboratory Tests 05/24/20 05/24/20 05/24/20 Range/Units 12:35 12:41 12:41 WBC 15.4 H (4.0-10.2) K/uL RBC 3.89 (3.77-5.09) M/uL Hgb 12.0 (11.7-15.5) g/dL Hct 37.2 (34.0-46.0) % MCV 95.6 D (84.0-98.0) fL MCH 30.8 (28.2-33.3) pg MCHC 32.3 (31.7-36.0) g/dL RDW 14.9 H (11.2-14.1) % Plt Count 178 (150-350) K/uL Neut % (Auto) 82.0 H (45.0-80.0) % Lymph % (Auto) 10.0 (10.0-50.0) % [place] % (Auto) 7.8 (2.0-14.0) % Eos % (Auto) 0.0 (0.0-5.0) % Baso % (Auto) 0.2 (0.0-2.0) % Neut # (Auto) 12.65 H (1.40-7.00) K/uL Lymph # (Auto) 1.54 (0.50-3.50) K/uL [place] # (Auto) 1.21 H (0.00-1.00) K/uL Eos # (Auto) 0.00 (0.00-0.50) K/uL Baso # (Auto) 0.03 (0.00-0.20) K/uL Sodium 134 L (136-145) mmol/L Potassium 3.6 (3.5-5.1) mmol/L Chloride 95 L (98-107) mmol/L Carbon Dioxide 24.3 (21.0-32.0) mmol/L BUN 18 (7-18) mg/dL Creatinine 1.40 H (0.51-1.17) mg/dL Est Cr Clr Drug Dosing TNP Estimated GFR (MDRD) 38 mL/min Glucose 160 H (70-99) mg/dL Calcium 9.5 (8.5-10.1) mg/dL Total Bilirubin 3.2 H (0.2-1.0) mg/dL AST 37 (15-37) U/L ALT 29 (12-78) U/L Alkaline Phosphatase 72 (46-116) IU/L Total Protein 7.4 (6.4-8.2) g/dL Albumin 3.2 L (3.4-5.0) g/dL Specimen Type Urine Color Urine Appearance Urine pH (5.0-9.0) Ur Specific [place] (1.005-1.030) Urine Protein (NEGATIVE) mg/dL Urine Glucose (UA) (NEGATIVE) mg/dL Urine Ketones (NEGATIVE) mg/dL Urine Occult Blood (NEGATIVE) Urine Nitrite (NEGATIVE) Urine Bilirubin (NEGATIVE) Urine Urobilinogen (0.2-1.0) E.U./dL Ur Leukocyte Esterase (NEGATIVE) Urine RBC /HPF Urine WBC /HPF Ur Epithelial Cells /LPF Urine Bacteria (NONE TO FEW) /HPF Urine Mucus (NEGATIVE) /LPF Urinalysis Comment SARS-CoV-2 RNA (DOMENICA) Negative (NEGATIVE) 05/24/20 Range/Units 12:59 WBC (4.0-10.2) K/uL RBC (3.77-5.09) M/uL Hgb (11.7-15.5) g/dL Hct (34.0-46.0) % MCV (84.0-98.0) fL MCH (28.2-33.3) pg MCHC (31.7-36.0) g/dL RDW (11.2-14.1) % Plt Count (150-350) K/uL Neut % (Auto) (45.0-80.0) % Lymph % (Auto) (10.0-50.0) % [place] % (Auto) (2.0-14.0) % Eos % (Auto) (0.0-5.0) % Baso % (Auto) (0.0-2.0) % Neut # (Auto) (1.40-7.00) K/uL Lymph # (Auto) (0.50-3.50) K/uL [place] # (Auto) (0.00-1.00) K/uL Eos # (Auto) (0.00-0.50) K/uL Baso # (Auto) (0.00-0.20) K/uL Sodium (136-145) mmol/L Potassium (3.5-5.1) mmol/L Chloride (98-107) mmol/L Carbon Dioxide (21.0-32.0) mmol/L BUN (7-18) mg/dL Creatinine (0.51-1.17) mg/dL Est Cr Clr Drug Dosing Estimated GFR (MDRD) mL/min Glucose (70-99) mg/dL Calcium (8.5-10.1) mg/dL Total Bilirubin (0.2-1.0) mg/dL AST (15-37) U/L ALT (12-78) U/L Alkaline Phosphatase (46-116) IU/L Total Protein (6.4-8.2) g/dL Albumin (3.4-5.0) g/dL Specimen Type Urinvoid Urine Color [place] Urine Appearance Cloudy Urine pH 5.5 (5.0-9.0) Ur Specific [place] >= 1.030 (1.005-1.030) Urine Protein >=300 H (NEGATIVE) mg/dL Urine Glucose (UA) Negative (NEGATIVE) mg/dL Urine Ketones Negative (NEGATIVE) mg/dL Urine Occult Blood Moderate H (NEGATIVE) Urine Nitrite Positive H (NEGATIVE) Urine Bilirubin Small H (NEGATIVE) Urine Urobilinogen 0.2 (0.2-1.0) E.U./dL Ur Leukocyte Esterase Small H (NEGATIVE) Urine RBC 10-20 H /HPF Urine WBC >100 H /HPF Ur Epithelial Cells Moderate H /LPF Urine Bacteria Many H (NONE TO FEW) /HPF Urine Mucus Few H (NEGATIVE) /LPF Urinalysis Comment SARS-CoV-2 RNA (DOMENICA) (NEGATIVE) Meds: Medications Generic Name Dose Route Start Last Admin Trade Name Freq PRN Reason Stop Dose Admin Ceftriaxone Sodium 1 gm/ 100 mls @ 200 mls/hr 05/24/20 13:06 Sodium Chloride IV 05/24/20 13:35 ONETIME ONE Sodium Chloride 10 ml 05/24/20 12:35 Sodium Chloride 0.9% 10 Ml Syringe FLUSH ASDIRECTED PRN Keep Vein Open - Radiology Interpretation Free Text/Narrative:: CXR shows normal cardiac silhouette, no free air, no infiltrate. Departure - Departure Time of Disposition: 13:30 Disposition: Admitted As Inpatient 65 Condition: Fair Clinical Impression: Weakness, Hyponatremia, Complicated UTI (urinary tract infection) - Discharge Information *PRESCRIPTION DRUG MONITORING PROGRAM REVIEWED*: Not Applicable *COPY OF PRESCRIPTION DRUG MONITORING REPORT IN PATIENT BHAVNA: Not Applicable Referrals: Pinky Montoya PA-C [Primary Care Provider] - Forms: ED Department Discharge Additional Instructions: Admit for antibiotics and monitoring. Sepsis Event Note (ED) - Focused Exam Vital Signs: Vital Signs Temp Pulse Resp BP Pulse Ox 05/24/20 12:35 38.3 C H 101 H 20 142/67 H 100 - My Orders Last 24 Hours: My Active Orders 05/24/20 12:34 Chest 1V Frontal [CR] Stat 05/24/20 12:35 Sodium Chloride 0.9% [Saline Flush] 10 ml FLUSH ASDIRECTED PRN Isolation [COMM] Routine 05/24/20 12:41 CULTURE BLOOD [BC] Routine 05/24/20 12:46 CULTURE BLOOD [BC] Routine 05/24/20 12:59 CULTURE URINE [RM] Stat 05/24/20 13:05 LACTIC ACID [CHEM] Stat 05/24/20 13:06 cefTRIAXone [Rocephin] 1 gm Sodium Chloride 0.9% [Normal Saline] 100 ml IV ONETIME 05/24/20 13:12 INR,PT,PROTHROMBIN TIME [COAG] Stat - Assessment/Plan Last 24 Hours: My Active Orders 05/24/20 12:34 Chest 1V Frontal [CR] Stat 05/24/20 12:35 Sodium Chloride 0.9% [Saline Flush] 10 ml FLUSH ASDIRECTED PRN Isolation [COMM] Routine 05/24/20 12:41 CULTURE BLOOD [BC] Routine 05/24/20 12:46 CULTURE BLOOD [BC] Routine 05/24/20 12:59 CULTURE URINE [RM] Stat 05/24/20 13:05 LACTIC ACID [CHEM] Stat 05/24/20 13:06 cefTRIAXone [Rocephin] 1 gm Sodium Chloride 0.9% [Normal Saline] 100 ml IV ONETIME 05/24/20 13:12 INR,PT,PROTHROMBIN TIME [COAG] Stat
[2020-05-24] MEDS ORDERED: cefTRIAXone 1 GM in Sodium Chloride 0.9% 100 ML IV ONE (13:06)
[2020-05-24] MEDS ORDERED: Cyclobenzaprine 10 MG Tab PO PRN (13:41)
[2020-05-24] MEDS: Sodium Chloride 0.9% 1,000 ML IV SCH (15:48)
[2020-05-24] MEDS: Ondansetron 4 MG Tab.DIS PO PRN (15:53)
[2020-05-24] MEDS: Acetaminophen 325 MG Tab PO PRN ×2 (16:24→22:43)
[2020-05-24] MEDS: Ciprofloxacin in D5W 400 MG in Premix Bag 1 BAG IV SCH ×2 (17:56)
[2020-05-24] MEDS: Montelukast 10 MG Tab PO SCH (19:18)
[2020-05-24] MEDS: atorvaSTATin 10 MG Tab PO SCH (19:18)
[2020-05-24] MEDS: DULoxetine 30 MG Cap PO SCH (19:18)
[2020-05-24] MEDS: Warfarin 2.5 MG Tab PO SCH (19:19)
[2020-05-24] MEDS ORDERED: Ciprofloxacin in D5W 400 MG in Premix Bag 1 BAG IV SCH ×2 (20:00)
[2020-05-25] MEDS: Sodium Chloride 0.9% 1,000 ML IV SCH ×2 (02:56→15:23)
[2020-05-25] MEDS: Acetaminophen 325 MG Tab PO PRN ×2 (03:57→10:05)
[2020-05-25] MEDS: Ciprofloxacin in D5W 400 MG in Premix Bag 1 BAG IV SCH ×2 (05:23)
[2020-05-25] MEDS ORDERED: BIOTIN 10000 MCG PO SCH (08:00)
[2020-05-25] MEDS ORDERED: cefTRIAXone 1 GM in Sodium Chloride 0.9% 100 ML IV SCH (08:00)
[2020-05-25] MEDS ORDERED: Lactated Ringers 1,000 ML IV ONE (08:39)
[2020-05-25] MEDS ORDERED: cefTRIAXone 2 GM in Sodium Chloride 0.9% 100 ML IV ONE (08:44)
[2020-05-25] MEDS ORDERED: Enoxaparin 100 MG/1 ML Syringe SUBCUT ONE (08:48)
--- NOTE | 2020-05-25 09:01 | PCM.PN ---
- General Info Date of Service: 05/25/20 Admission Dx/Problem (Free Text): 1. Complicated UTI 2. Generalized weakness Functional Status: Reports: Pain Controlled, Tolerating Diet (Although need to change to pured, heart healthy, diabetic diet with patient not having any teeth and not tolerating dentures), Urinating (Incontinent), New Symptoms (Nonspecific neck pain), Incentive Spirometry. Denies: Ambulating (Assist x2) Pain Score: 2 (Neck pain) - Review of Systems General: Reports: Fever (Maximum temperature of 39.1 with temperature of 37.8 C this morning), Weakness (Severe), Fatigue, Chills. Denies: Malaise, Night Swe ats, Appetite (Adequate) HEENT: Reports: Glasses. Denies: Dysphasia, Ear Pain, Eye Pain, Headaches, Post Nasal Drip, Sinus Congestion, Sore Throat, Rhinitis, Visual Changes Pulmonary: Reports: No Symptoms. Denies: Shortness of Breath, Pleuritic Chest Pain, Cough, Sputum, Hemoptysis, Wheezing Cardiovascular: Reports: No Symptoms. Denies: Chest Pain, Palpitations, Dyspnea on Exertion, Orthopnea, PND, Edema, Lightheadedness Gastrointestinal: Reports: Other (1 loose bowel movement shortly after admission yesterday). Denies: Abdominal Pain, Constipation, Decreased Appetite, Diarrhea (Resolved since admission), Difficulty Swallowing, Hematochezia, Melena, Nausea, Vomiting Genitourinary: Reports: Incontinence. Denies: Dysuria, Frequency, Burning, Pain, Urgency, Hematuria, Retention, Flank Pain Musculoskeletal: Reports: Neck Pain (With negative meningeal signs). Denies: Shoulder Pain, Arm Pain, Hand Pain, Back Pain, Leg Pain, Foot Pain, Joint Pain, Joint Swelling Skin: Reports: No Symptoms. Denies: Diaphoresis, Bruising, Rash Neurological: Reports: Difficulty Walking (Secondary to weakness and morbid obesity), Weakness (Severe generalized). Denies: Headache, Numbness, Paresthesia, Tingling Psychiatric: Reports: No Symptoms. Denies: Confusion, Depression, Anxiety, Agitation, Cravings, Hallucinations - Patient Data Vitals - Most Recent: Last Vital Signs Temp 37.8 C 05/25/20 04:00 Pulse 98 05/25/20 04:00 Resp 20 05/25/20 04:00 BP 100/47 L 05/25/20 04:00 Pulse Ox 94 L 05/25/20 04:00 Vital Signs - 24 hr 05/24/20 05/24/20 05/24/20 12:35 12:45 13:00 Temperature [ 38.3 C H Oral] Temperature [ 37.7 C Temporal] Pulse, 101 H 97 98 Peripheral [ Right Pulse Oximetry] Respiratory 20 20 20 Rate Blood Pressure 142/67 H 127/90 118/70 [Right Lower Arm] O2 Sat by Pulse 100 97 100 Oximetry 05/24/20 05/24/20 05/24/20 13:15 13:45 16:00 Temperature [ 38.8 C H Oral] Temperature [ 37.8 C Temporal] Pulse, 96 93 104 H Peripheral [ Right Pulse Oximetry] Respiratory 21 H 20 18 Rate Blood Pressure 109/58 L 120/75 147/73 H [Right Lower Arm] O2 Sat by Pulse 99 99 97 Oximetry 05/24/20 05/24/20 05/24/20 17:25 18:22 19:35 Temperature [ 39.5 C H 39.1 C H Oral] Temperature [ 36.8 C Temporal] Pulse, 89 Peripheral [ Right Pulse Oximetry] Respiratory 16 Rate Blood Pressure 121/52 L [Right Lower Arm] O2 Sat by Pulse 94 L Oximetry 05/24/20 05/25/20 05/25/20 22:10 00:00 04:00 Temperature [ 36.8 C 37.8 C 37.8 C Oral] Temperature [ Temporal] Pulse, 100 98 Peripheral [ Right Pulse Oximetry] Respiratory 18 20 Rate Blood Pressure 120/67 100/47 L [Right Lower Arm] O2 Sat by Pulse 89 L 94 L Oximetry Weight - Most Recent: 151.8 kg I&O - Last 24 Hours: Intake & Output 05/24/20 05/25/20 05/25/20 22:59 06:59 14:59 Intake Total 400 1225 Balance 400 1225 Imaging Impressions - Last 24 Hours: hall monitor shows occasional mild sinus tachycardia with average heart rate in the 90s to 100s with no ectopy or arrhythmia Lab Results Last 24 Hours: Laboratory Results - last 24 hr 05/24/20 05/24/20 05/24/20 Range/Units 12:35 12:41 12:41 WBC 15.4 H (4.0-10.2) K/uL RBC 3.89 (3.77-5.09) M/uL Hgb 12.0 (11.7-15.5) g/dL Hct 37.2 (34.0-46.0) % MCV 95.6 D (84.0-98.0) fL MCH 30.8 (28.2-33.3) pg MCHC 32.3 (31.7-36.0) g/dL RDW 14.9 H (11.2-14.1) % Plt Count 178 (150-350) K/uL Neut % (Auto) 82.0 H (45.0-80.0) % Lymph % (Auto) 10.0 (10.0-50.0) % Dawson % (Auto) 7.8 (2.0-14.0) % Eos % (Auto) 0.0 (0.0-5.0) % Baso % (Auto) 0.2 (0.0-2.0) % Neut # (Auto) 12.65 H (1.40-7.00) K/uL Lymph # (Auto) 1.54 (0.50-3.50) K/uL Dawson # (Auto) 1.21 H (0.00-1.00) K/uL Eos # (Auto) 0.00 (0.00-0.50) K/uL Baso # (Auto) 0.03 (0.00-0.20) K/uL PT (9.5-12.0) SEC INR Sodium 134 L (136-145) mmol/L Potassium 3.6 (3.5-5.1) mmol/L Chloride 95 L (98-107) mmol/L Carbon Dioxide 24.3 (21.0-32.0) mmol/L BUN 18 (7-18) mg/dL Creatinine 1.40 H (0.51-1.17) mg/dL Est Cr Clr Drug Dosing TNP Estimated GFR (MDRD) 38 mL/min Glucose 160 H (70-99) mg/dL Lactic Acid (0.4-2.0) mmol/L Calcium 9.5 (8.5-10.1) mg/dL Total Bilirubin 3.2 H (0.2-1.0) mg/dL AST 37 (15-37) U/L ALT 29 (12-78) U/L Alkaline Phosphatase 72 (46-116) IU/L Total Protein 7.4 (6.4-8.2) g/dL Albumin 3.2 L (3.4-5.0) g/dL Specimen Type Urine Color Urine Appearance Urine pH (5.0-9.0) Ur Specific Crescent (1.005-1.030) Urine Protein (NEGATIVE) mg/dL Urine Glucose (UA) (NEGATIVE) mg/dL Urine Ketones (NEGATIVE) mg/dL Urine Occult Blood (NEGATIVE) Urine Nitrite (NEGATIVE) Urine Bilirubin (NEGATIVE) Urine Urobilinogen (0.2-1.0) E.U./dL Ur Leukocyte Esterase (NEGATIVE) Urine RBC /HPF Urine WBC /HPF Ur Epithelial Cells /LPF Urine Bacteria (NONE TO FEW) /HPF Urine Mucus (NEGATIVE) /LPF Urinalysis Comment SARS-CoV-2 RNA (DOMENICA) Negative (NEGATIVE) 05/24/20 05/24/20 05/24/20 Range/Units 12:59 13:12 13:12 WBC (4.0-10.2) K/uL RBC (3.77-5.09) M/uL Hgb (11.7-15.5) g/dL Hct (34.0-46.0) % MCV (84.0-98.0) fL MCH (28.2-33.3) pg MCHC (31.7-36.0) g/dL RDW (11.2-14.1) % Plt Count (150-350) K/uL Neut % (Auto) (45.0-80.0) % Lymph % (Auto) (10.0-50.0) % Dawson % (Auto) (2.0-14.0) % Eos % (Auto) (0.0-5.0) % Baso % (Auto) (0.0-2.0) % Neut # (Auto) (1.40-7.00) K/uL Lymph # (Auto) (0.50-3.50) K/uL Dawson # (Auto) (0.00-1.00) K/uL Eos # (Auto) (0.00-0.50) K/uL Baso # (Auto) (0.00-0.20) K/uL PT 13.2 H D (9.5-12.0) SEC INR 1.3 Sodium (136-145) mmol/L Potassium (3.5-5.1) mmol/L Chloride (98-107) mmol/L Carbon Dioxide (21.0-32.0) mmol/L BUN (7-18) mg/dL Creatinine (0.51-1.17) mg/dL Est Cr Clr Drug Dosing Estimated GFR (MDRD) mL/min Glucose (70-99) mg/dL Lactic Acid 1.5 (0.4-2.0) mmol/L Calcium (8.5-10.1) mg/dL Total Bilirubin (0.2-1.0) mg/dL AST (15-37) U/L ALT (12-78) U/L Alkaline Phosphatase (46-116) IU/L Total Protein (6.4-8.2) g/dL Albumin (3.4-5.0) g/dL Specimen Type Urinvoid Urine Color Shelli Urine Appearance Cloudy Urine pH 5.5 (5.0-9.0) Ur Specific Crescent >= 1.030 (1.005-1.030) Urine Protein >=300 H (NEGATIVE) mg/dL Urine Glucose (UA) Negative (NEGATIVE) mg/dL Urine Ketones Negative (NEGATIVE) mg/dL Urine Occult Blood Moderate H (NEGATIVE) Urine Nitrite Positive H (NEGATIVE) Urine Bilirubin Small H (NEGATIVE) Urine Urobilinogen 0.2 (0.2-1.0) E.U./dL Ur Leukocyte Esterase Small H (NEGATIVE) Urine RBC 10-20 H /HPF Urine WBC >100 H /HPF Ur Epithelial Cells Moderate H /LPF Urine Bacteria Many H (NONE TO FEW) /HPF Urine Mucus Few H (NEGATIVE) /LPF Urinalysis Comment SARS-CoV-2 RNA (DOMENICA) (NEGATIVE) 05/24/20 05/25/20 05/25/20 Range/Units 17:51 07:32 07:32 WBC 11.5 H (4.0-10.2) K/uL RBC 3.41 L (3.77-5.09) M/uL Hgb 10.5 L D (11.7-15.5) g/dL Hct 33.2 L (34.0-46.0) % MCV 97.4 (84.0-98.0) fL MCH 30.8 (28.2-33.3) pg MCHC 31.6 L (31.7-36.0) g/dL RDW 14.9 H (11.2-14.1) % Plt Count 154 (150-350) K/uL Neut % (Auto) 78.7 (45.0-80.0) % Lymph % (Auto) 12.8 (10.0-50.0) % Dawson % (Auto) 8.2 (2.0-14.0) % Eos % (Auto) 0.1 (0.0-5.0) % Baso % (Auto) 0.2 (0.0-2.0) % Neut # (Auto) 9.04 H (1.40-7.00) K/uL Lymph # (Auto) 1.47 (0.50-3.50) K/uL Dawson # (Auto) 0.94 (0.00-1.00) K/uL Eos # (Auto) 0.01 (0.00-0.50) K/uL Baso # (Auto) 0.02 (0.00-0.20) K/uL PT (9.5-12.0) SEC INR Sodium 136 (136-145) mmol/L Potassium 3.6 (3.5-5.1) mmol/L Chloride 100 (98-107) mmol/L Carbon Dioxide 26.9 (21.0-32.0) mmol/L BUN 16 (7-18) mg/dL Creatinine 1.33 H (0.51-1.17) mg/dL Est Cr Clr Drug Dosing 40.48 Estimated GFR (MDRD) 41 mL/min Glucose 137 H (70-99) mg/dL Lactic Acid 0.7 (0.4-2.0) mmol/L Calcium 9.3 (8.5-10.1) mg/dL Total Bilirubin 2.3 H (0.2-1.0) mg/dL AST 30 (15-37) U/L ALT 27 (12-78) U/L Alkaline Phosphatase 63 (46-116) IU/L Total Protein 6.5 (6.4-8.2) g/dL Albumin 2.5 L (3.4-5.0) g/dL Specimen Type Urine Color Urine Appearance Urine pH (5.0-9.0) Ur Specific Crescent (1.005-1.030) Urine Protein (NEGATIVE) mg/dL Urine Glucose (UA) (NEGATIVE) mg/dL Urine Ketones (NEGATIVE) mg/dL Urine Occult Blood (NEGATIVE) Urine Nitrite (NEGATIVE) Urine Bilirubin (NEGATIVE) Urine Urobilinogen (0.2-1.0) E.U./dL Ur Leukocyte Esterase (NEGATIVE) Urine RBC /HPF Urine WBC /HPF Ur Epithelial Cells /LPF Urine Bacteria (NONE TO FEW) /HPF Urine Mucus (NEGATIVE) /LPF Urinalysis Comment SARS-CoV-2 RNA (DOMENICA) (NEGATIVE) 05/25/20 Range/Units 07:32 WBC (4.0-10.2) K/uL RBC (3.77-5.09) M/uL Hgb (11.7-15.5) g/dL Hct (34.0-46.0) % MCV (84.0-98.0) fL MCH (28.2-33.3) pg MCHC (31.7-36.0) g/dL RDW (11.2-14.1) % Plt Count (150-350) K/uL Neut % (Auto) (45.0-80.0) % Lymph % (Auto) (10.0-50.0) % Dawson % (Auto) (2.0-14.0) % Eos % (Auto) (0.0-5.0) % Baso % (Auto) (0.0-2.0) % Neut # (Auto) (1.40-7.00) K/uL Lymph # (Auto) (0.50-3.50) K/uL Dawson # (Auto) (0.00-1.00) K/uL Eos # (Auto) (0.00-0.50) K/uL Baso # (Auto) (0.00-0.20) K/uL PT 12.6 H (9.5-12.0) SEC INR 1.3 Sodium (136-145) mmol/L Potassium (3.5-5.1) mmol/L Chloride (98-107) mmol/L Carbon Dioxide (21.0-32.0) mmol/L BUN (7-18) mg/dL Creatinine (0.51-1.17) mg/dL Est Cr Clr Drug Dosing Estimated GFR (MDRD) mL/min Glucose (70-99) mg/dL Lactic Acid (0.4-2.0) mmol/L Calcium (8.5-10.1) mg/dL Total Bilirubin (0.2-1.0) mg/dL AST (15-37) U/L ALT (12-78) U/L Alkaline Phosphatase (46-116) IU/L Total Protein (6.4-8.2) g/dL Albumin (3.4-5.0) g/dL Specimen Type Urine Color Urine Appearance Urine pH (5.0-9.0) Ur Specific Crescent (1.005-1.030) Urine Protein (NEGATIVE) mg/dL Urine Glucose (UA) (NEGATIVE) mg/dL Urine Ketones (NEGATIVE) mg/dL Urine Occult Blood (NEGATIVE) Urine Nitrite (NEGATIVE) Urine Bilirubin (NEGATIVE) Urine Urobilinogen (0.2-1.0) E.U./dL Ur Leukocyte Esterase (NEGATIVE) Urine RBC /HPF Urine WBC /HPF Ur Epithelial Cells /LPF Urine Bacteria (NONE TO FEW) /HPF Urine Mucus (NEGATIVE) /LPF Urinalysis Comment SARS-CoV-2 RNA (DOMENICA) (NEGATIVE) [facility] Results Last 24 Hours: Preliminary verbal report positive blood cultures x2 Microbiology 05/24/20 12:46 Blood Aerobic Blood Culture - Preliminary Gram Positive Cocci 05/24/20 12:46 Blood Anaerobic Blood Culture - Preliminary Gram Positive Cocci 05/24/20 12:41 Blood Aerobic Blood Culture - Preliminary Gram Positive Cocci 05/24/20 12:41 Blood Anaerobic Blood Culture - Preliminary Gram Positive Cocci 05/24/20 12:59 Urine, Catheterized Urine Culture - Preliminary Gram Negative Rods Med Orders - Current: Current Medications Acetaminophen (Acetaminophen 325 Mg Tab) 650 mg PO Q4H PRN PRN Reason: Pain (Mild 1-3)/fever Last Admin: 05/25/20 03:57 Dose: 650 mg Documented by: Atorvastatin Calcium (Atorvastatin 10 Mg Tab) 20 mg PO BEDTIME ALEJANDRO Last Admin: 05/24/20 19:18 Dose: 20 mg Documented by: Cholecalciferol (Cholecalciferol (Vitamin D3) 25 Mcg Tab) 50 mcg PO DAILY [facility] Cyclobenzaprine HCl (Cyclobenzaprine 10 Mg Tab) 5 mg PO TID PRN PRN Reason: Spasms Last Admin: 05/24/20 22:42 Dose: 5 mg Documented by: Duloxetine HCl (Duloxetine 30 Mg Cap) 30 mg PO BEDTIME [facility] Last Admin: 05/24/20 19:18 Dose: 30 mg Documented by: Enoxaparin Sodium (Enoxaparin 100 Mg/1 Ml Syringe) 100 mg SUBCUT ONETIME ONE Stop: 05/25/20 08:49 Ferrous Sulfate (Ferrous Sulfate 325 Mg Tab) 325 mg PO DAILY [facility] Furosemide (Furosemide 40 Mg Tab) 40 mg PO DAILY [facility] Sodium Chloride (Normal Saline) 1,000 mls @ 100 mls/hr IV ASDIRECTED [facility] Last Admin: 05/25/20 02:56 Dose: 100 mls/hr Documented by: Lactated Ringer's (Ringers, Lactated) 1,000 mls @ 999 mls/hr IV .BOLUS ONE Stop: 05/25/20 09:39 Ceftriaxone Sodium 1 gm/ (Sodium Chloride) 100 mls @ 200 mls/hr IV Q12H ALEJANDRO Ceftriaxone Sodium 2 gm/ (Sodium Chloride) 100 mls @ 200 mls/hr IV ONETIME ONE Stop: 05/25/20 09:13 Ciprofloxacin/Dextrose 200 mg/ (Premix) 100 mls @ 100 mls/hr IV Q12HR [facility] Magnesium Oxide (Magnesium Oxide 400 Mg Tab) 400 mg PO DAILY [facility] Metformin HCl (Metformin 500 Mg Tab) 500 mg PO DAILY [facility] Metoprolol Succinate (Metoprolol Succinate 25 Mg Tab.Er) 25 mg PO DAILY [facility] Montelukast Sodium (Montelukast 10 Mg Tab) 10 mg PO BEDTIME [facility] Last Admin: 05/24/20 19:18 Dose: 10 mg Documented by: Multivitamins/Minerals (Beta-Carotene (Vitamin A) W/Vitamin C & E Plus Minerals Tab) 1 tab PO DAILY [facility] Ondansetron HCl (Ondansetron 4 Mg Tab.Dis) 4 mg PO Q4H PRN PRN Reason: Nausea/Vomiting Last Admin: 05/24/20 15:53 Dose: 4 mg Documented by: Potassium Chloride (Potassium Chloride 20 Meq Tab.Er) 20 meq PO DAILY [facility] Sodium Chloride (Sodium Chloride 0.9% 10 Ml Syringe) 10 ml FLUSH ASDIRECTED PRN PRN Reason: Keep Vein Open Warfarin Sodium (Warfarin 2.5 Mg Tab) 2.5 mg PO [id number]@1999 [facility] Last Admin: 05/24/20 19:19 Dose: 2.5 mg Documented by: Warfarin Sodium (Warfarin 5 Mg Tab) 5 mg PO MO@1999 [facility] Discontinued Medications Ceftriaxone Sodium 1 gm/ (Sodium Chloride) 100 mls @ 200 mls/hr IV ONETIME ONE Stop: 05/24/20 13:35 Last Admin: 05/24/20 13:25 Dose: 200 mls/hr Documented by: Ceftriaxone Sodium 1 gm/ (Sodium Chloride) 100 mls @ 200 mls/hr IV Q24H ALEJANDRO Ciprofloxacin/Dextrose 400 mg/ (Premix) 200 mls @ 200 mls/hr IV Q12HR ALEJANDRO Ciprofloxacin/Dextrose 400 mg/ (Premix) 200 mls @ 200 mls/hr IV BID@06,18 [facility] Last Admin: 05/25/20 05:23 Dose: 200 mls/hr Documented by: Non-Formulary Medication (Biotin [Biotin]) 10,000 mcg PO DAILY ALEJANDRO - Exam Quality Assessment: Supplemental Oxygen, Urine Catheter (To be placed later this morning), DVT Prophylaxis (Coumadin with subtherapeutic INR and 1 dose of bridging subcutaneous Lovenox and brief load of Coumadin today). No: Central Line/PICC, Skin Breakdown, Restraints General: Alert, Oriented, Cooperative, No Acute Distress HEENT: Pupils Equal, Pupils Reactive, EOMI, Mucous Membr. Moist/[place], Other (The patient is wearing glasses with no vertigo or nystagmus). No: Scleral Icterus (In spite of hyperbilirubinemia, which is improved) Neck: Supple, Trachea Midline, No JVD, No Thyromegaly, +2 Carotid Pulse wo Bruit, Other (Negative meningeal signs). No: Lymphadenopathy Lungs: Clear to Auscultation, Normal Respiratory Effort. No: Rub Cardiovascular: Regular Rhythm, No Murmurs, Tachycardia (Borderline). No: Gallops, Rubs GI/Abdominal Exam: Normal Bowel Sounds, Soft, Non-Tender, No Organomegaly, No Distention, No Abnormal Bruit, No Mass, Pelvis Stable, Other (Morbidly obese). No: Guarding (Female) Exam: Deferred Back Exam: Normal Inspection, Full Range of Motion. No: CVA Tenderness (L), CVA Tenderness (R), Muscle Spasm Extremities: Normal Inspection, Normal Range of Motion, Non-Tender, No Pedal Edema, Normal Capillary Refill. No: Henny's Sign Peripheral Pulses: 2+: Radial (L), Radial (R), Dorsalis Pedis (L), Dorsalis Pedis (R) Skin: Warm, Dry, Intact. No: Rash, Ecchymosis Neurological: No New Focal Deficit, Other (Negative Babinski's and meningeal signs. Severe generalized weakness) Psy/Mental Status: Alert, Anxious (Mild to moderate), Depressed (Mild to moderate with adequate eye contact). No: Agitated, Hallucinations, Withdrawal Symptoms - Patient Data Lab Results Last 24 hrs: Laboratory Results - last 24 hr 05/24/20 05/24/20 05/24/20 Range/Units 12:35 12:41 12:41 WBC 15.4 H (4.0-10.2) K/uL RBC 3.89 (3.77-5.09) M/uL Hgb 12.0 (11.7-15.5) g/dL Hct 37.2 (34.0-46.0) % MCV 95.6 D (84.0-98.0) fL MCH 30.8 (28.2-33.3) pg MCHC 32.3 (31.7-36.0) g/dL RDW 14.9 H (11.2-14.1) % Plt Count 178 (150-350) K/uL Neut % (Auto) 82.0 H (45.0-80.0) % Lymph % (Auto) 10.0 (10.0-50.0) % Dawson % (Auto) 7.8 (2.0-14.0) % Eos % (Auto) 0.0 (0.0-5.0) % Baso % (Auto) 0.2 (0.0-2.0) % Neut # (Auto) 12.65 H (1.40-7.00) K/uL Lymph # (Auto) 1.54 (0.50-3.50) K/uL Dawson # (Auto) 1.21 H (0.00-1.00) K/uL Eos # (Auto) 0.00 (0.00-0.50) K/uL Baso # (Auto) 0.03 (0.00-0.20) K/uL PT (9.5-12.0) SEC INR Sodium 134 L (136-145) mmol/L Potassium 3.6 (3.5-5.1) mmol/L Chloride 95 L (98-107) mmol/L Carbon Dioxide 24.3 (21.0-32.0) mmol/L BUN 18 (7-18) mg/dL Creatinine 1.40 H (0.51-1.17) mg/dL Est Cr Clr Drug Dosing TNP Estimated GFR (MDRD) 38 mL/min Glucose 160 H (70-99) mg/dL Lactic Acid (0.4-2.0) mmol/L Calcium 9.5 (8.5-10.1) mg/dL Total Bilirubin 3.2 H (0.2-1.0) mg/dL AST 37 (15-37) U/L ALT 29 (12-78) U/L Alkaline Phosphatase 72 (46-116) IU/L Total Protein 7.4 (6.4-8.2) g/dL Albumin 3.2 L (3.4-5.0) g/dL Specimen Type Urine Color Urine Appearance Urine pH (5.0-9.0) Ur Specific Crescent (1.005-1.030) Urine Protein (NEGATIVE) mg/dL Urine Glucose (UA) (NEGATIVE) mg/dL Urine Ketones (NEGATIVE) mg/dL Urine Occult Blood (NEGATIVE) Urine Nitrite (NEGATIVE) Urine Bilirubin (NEGATIVE) Urine Urobilinogen (0.2-1.0) E.U./dL Ur Leukocyte Esterase (NEGATIVE) Urine RBC /HPF Urine WBC /HPF Ur Epithelial Cells /LPF Urine Bacteria (NONE TO FEW) /HPF Urine Mucus (NEGATIVE) /LPF Urinalysis Comment SARS-CoV-2 RNA (DOMENICA) Negative (NEGATIVE) 05/24/20 05/24/20 05/24/20 Range/Units 12:59 13:12 13:12 WBC (4.0-10.2) K/uL RBC (3.77-5.09) M/uL Hgb (11.7-15.5) g/dL Hct (34.0-46.0) % MCV (84.0-98.0) fL MCH (28.2-33.3) pg MCHC (31.7-36.0) g/dL RDW (11.2-14.1) % Plt Count (150-350) K/uL Neut % (Auto) (45.0-80.0) % Lymph % (Auto) (10.0-50.0) % Dawson % (Auto) (2.0-14.0) % Eos % (Auto) (0.0-5.0) % Baso % (Auto) (0.0-2.0) % Neut # (Auto) (1.40-7.00) K/uL Lymph # (Auto) (0.50-3.50) K/uL Dawson # (Auto) (0.00-1.00) K/uL Eos # (Auto) (0.00-0.50) K/uL Baso # (Auto) (0.00-0.20) K/uL PT 13.2 H D (9.5-12.0) SEC INR 1.3 Sodium (136-145) mmol/L Potassium (3.5-5.1) mmol/L Chloride (98-107) mmol/L Carbon Dioxide (21.0-32.0) mmol/L BUN (7-18) mg/dL Creatinine (0.51-1.17) mg/dL Est Cr Clr Drug Dosing Estimated GFR (MDRD) mL/min Glucose (70-99) mg/dL Lactic Acid 1.5 (0.4-2.0) mmol/L Calcium (8.5-10.1) mg/dL Total Bilirubin (0.2-1.0) mg/dL AST (15-37) U/L ALT (12-78) U/L Alkaline Phosphatase (46-116) IU/L Total Protein (6.4-8.2) g/dL Albumin (3.4-5.0) g/dL Specimen Type Urinvoid Urine Color Shelli Urine Appearance Cloudy Urine pH 5.5 (5.0-9.0) Ur Specific Crescent >= 1.030 (1.005-1.030) Urine Protein >=300 H (NEGATIVE) mg/dL Urine Glucose (UA) Negative (NEGATIVE) mg/dL Urine Ketones Negative (NEGATIVE) mg/dL Urine Occult Blood Moderate H (NEGATIVE) Urine Nitrite Positive H (NEGATIVE) Urine Bilirubin Small H (NEGATIVE) Urine Urobilinogen 0.2 (0.2-1.0) E.U./dL Ur Leukocyte Esterase Small H (NEGATIVE) Urine RBC 10-20 H /HPF Urine WBC >100 H /HPF Ur Epithelial Cells Moderate H /LPF Urine Bacteria Many H (NONE TO FEW) /HPF Urine Mucus Few H (NEGATIVE) /LPF Urinalysis Comment SARS-CoV-2 RNA (DOMENICA) (NEGATIVE) 05/24/20 05/25/20 05/25/20 Range/Units 17:51 07:32 07:32 WBC 11.5 H (4.0-10.2) K/uL RBC 3.41 L (3.77-5.09) M/uL Hgb 10.5 L D (11.7-15.5) g/dL Hct 33.2 L (34.0-46.0) % MCV 97.4 (84.0-98.0) fL MCH 30.8 (28.2-33.3) pg MCHC 31.6 L (31.7-36.0) g/dL RDW 14.9 H (11.2-14.1) % Plt Count 154 (150-350) K/uL Neut % (Auto) 78.7 (45.0-80.0) % Lymph % (Auto) 12.8 (10.0-50.0) % Dawson % (Auto) 8.2 (2.0-14.0) % Eos % (Auto) 0.1 (0.0-5.0) % Baso % (Auto) 0.2 (0.0-2.0) % Neut # (Auto) 9.04 H (1.40-7.00) K/uL Lymph # (Auto) 1.47 (0.50-3.50) K/uL Dawson # (Auto) 0.94 (0.00-1.00) K/uL Eos # (Auto) 0.01 (0.00-0.50) K/uL Baso # (Auto) 0.02 (0.00-0.20) K/uL PT (9.5-12.0) SEC INR Sodium 136 (136-145) mmol/L Potassium 3.6 (3.5-5.1) mmol/L Chloride 100 (98-107) mmol/L Carbon Dioxide 26.9 (21.0-32.0) mmol/L BUN 16 (7-18) mg/dL Creatinine 1.33 H (0.51-1.17) mg/dL Est Cr Clr Drug Dosing 40.48 Estimated GFR (MDRD) 41 mL/min Glucose 137 H (70-99) mg/dL Lactic Acid 0.7 (0.4-2.0) mmol/L Calcium 9.3 (8.5-10.1) mg/dL Total Bilirubin 2.3 H (0.2-1.0) mg/dL AST 30 (15-37) U/L ALT 27 (12-78) U/L Alkaline Phosphatase 63 (46-116) IU/L Total Protein 6.5 (6.4-8.2) g/dL Albumin 2.5 L (3.4-5.0) g/dL Specimen Type Urine Color Urine Appearance Urine pH (5.0-9.0) Ur Specific Crescent (1.005-1.030) Urine Protein (NEGATIVE) mg/dL Urine Glucose (UA) (NEGATIVE) mg/dL Urine Ketones (NEGATIVE) mg/dL Urine Occult Blood (NEGATIVE) Urine Nitrite (NEGATIVE) Urine Bilirubin (NEGATIVE) Urine Urobilinogen (0.2-1.0) E.U./dL Ur Leukocyte Esterase (NEGATIVE) Urine RBC /HPF Urine WBC /HPF Ur Epithelial Cells /LPF Urine Bacteria (NONE TO FEW) /HPF Urine Mucus (NEGATIVE) /LPF Urinalysis Comment SARS-CoV-2 RNA (DOMENICA) (NEGATIVE) 05/25/20 Range/Units 07:32 WBC (4.0-10.2) K/uL RBC (3.77-5.09) M/uL Hgb (11.7-15.5) g/dL Hct (34.0-46.0) % MCV (84.0-98.0) fL MCH (28.2-33.3) pg MCHC (31.7-36.0) g/dL RDW (11.2-14.1) % Plt Count (150-350) K/uL Neut % (Auto) (45.0-80.0) % Lymph % (Auto) (10.0-50.0) % Dawson % (Auto) (2.0-14.0) % Eos % (Auto) (0.0-5.0) % Baso % (Auto) (0.0-2.0) % Neut # (Auto) (1.40-7.00) K/uL Lymph # (Auto) (0.50-3.50) K/uL Dawson # (Auto) (0.00-1.00) K/uL Eos # (Auto) (0.00-0.50) K/uL Baso # (Auto) (0.00-0.20) K/uL PT 12.6 H (9.5-12.0) SEC INR 1.3 Sodium (136-145) mmol/L Potassium (3.5-5.1) mmol/L Chloride (98-107) mmol/L Carbon Dioxide (21.0-32.0) mmol/L BUN (7-18) mg/dL Creatinine (0.51-1.17) mg/dL Est Cr Clr Drug Dosing Estimated GFR (MDRD) mL/min Glucose (70-99) mg/dL Lactic Acid (0.4-2.0) mmol/L Calcium (8.5-10.1) mg/dL Total Bilirubin (0.2-1.0) mg/dL AST (15-37) U/L ALT (12-78) U/L Alkaline Phosphatase (46-116) IU/L Total Protein (6.4-8.2) g/dL Albumin (3.4-5.0) g/dL Specimen Type Urine Color Urine Appearance Urine pH (5.0-9.0) Ur Specific Crescent (1.005-1.030) Urine Protein (NEGATIVE) mg/dL Urine Glucose (UA) (NEGATIVE) mg/dL Urine Ketones (NEGATIVE) mg/dL Urine Occult Blood (NEGATIVE) Urine Nitrite (NEGATIVE) Urine Bilirubin (NEGATIVE) Urine Urobilinogen (0.2-1.0) E.U./dL Ur Leukocyte Esterase (NEGATIVE) Urine RBC /HPF Urine WBC /HPF Ur Epithelial Cells /LPF Urine Bacteria (NONE TO FEW) /HPF Urine Mucus (NEGATIVE) /LPF Urinalysis Comment SARS-CoV-2 RNA (DOMENICA) (NEGATIVE) Result Diagrams: 05/25/20 07:32 05/25/20 07:32 Sepsis Event Note - Evaluation Sepsis Screening Result: Severe Sepsis Risk - Focused Exam Vital Signs: Vital Signs Temp Pulse Resp BP Pulse Ox 05/25/20 04:00 37.8 C 98 20 100/47 L 94 L 05/25/20 00:00 37.8 C 100 18 120/67 89 L 05/24/20 22:10 36.8 C - Problem List & Annotations (1) UTI (urinary tract infection) SNOMED Code(s): 01334781 Code(s): N39.0 - URINARY TRACT INFECTION, SITE NOT SPECIFIED Status: Acute Priority: High Current Visit: Yes Onset Date: ~05/24/20 Qualifiers: Urinary tract infection type: acute cystitis Hematuria presence: without h ematuria Qualified Code(s): N30.00 - Acute cystitis without hematuria Annotation/Comment:: Positive blood cultures x2 with urosepsis initially riley spected, however note gram-positive cocci rather than gram-negative rods were noted in the blood cultures. Chest x-ray, portable, on 05/24/2020 shows somewhat poor inspiratory film, although possible mild bilateral basilar pneumonia. Patient's Cipro initially at 400 mg IV every 12 hours, although this will be changed to 200 mg IV every 12 hours later this afternoon secondary to her renal insufficiency. The patient will be given a 2 g IV dose of Rocephin early this morning with subsequent increase of her Rocephin to 1 g IV every 12 hours starting this evening. Vancomycin IV will also be initiated later this morning with pharmacy consultation for proper dosing and routine blood work. Thomas catheter will be placed for accurate I's and O's secondary to her sepsis, previous CHF, and urinary incontinence. Low threshold for hospital transfer. Lactic acid levels x2 are normal to this point with lactic acid level to be repeated in the a.m. (2) Sepsis SNOMED Code(s): 62599969 Code(s): A41.9 - SEPSIS, UNSPECIFIED ORGANISM Status: Acute Priority: High Current Visit: Yes Onset Date: ~05/24/20 Qualifiers: Sepsis type: sepsis due to unspecified organism Sepsis acute organ dysfunction status: without acute organ dysfunction Qualified Code(s): A41.9 - Sepsis, unspecified organism Annotation/Comment:: As above (3) Anemia SNOMED Code(s): 775732438 Code(s): D64.9 - ANEMIA, UNSPECIFIED Status: Acute Priority: Medium Current Visit: Yes Qualifiers: Anemia type: iron deficiency Annotation/Comment:: Returned anemia today likely secondary to rehydration effect with initial hemoglobin of 12.0 on admission and 10.5 on 05/25. Known history of iron deficiency with iron studies to be conducted in the a.m. No evidence of acute GI bleed. IV Pepcid and IV Protonix will be given as GI prophylaxis secondary to her current sepsis and Coumadin/Lovenox therapy as below. (4) Gilbert's syndrome SNOMED Code(s): 95761195 Code(s): E80.4 - GILBERT SYNDROME Status: Chronic Priority: Medium Current Visit: Yes Onset Date: 11/02/16 Annotation/Comment:: Hyperbilirubinemia improved since admission with known history of probable Gilbert's syndrome with direct/indirect bili evaluation to be repeated in the a.m.. No direct indication of hemolysis despite anemia as above. (5) Hyponatremia SNOMED Code(s): 53452921 Code(s): E87.1 - HYPO-OSMOLALITY AND HYPONATREMIA Status: Acute Priority: Medium Current Visit: Yes Annotation/Comment:: IV fluids have been given with patient to be given a 1 L IV bolus of lactated Ringer's secondary to her sepsis and mildly decreased blood pressures this morning. Otherwise continue IV normal saline at 100 mls per hour. (6) Weakness SNOMED Code(s): 04818600 Code(s): R53.1 - WEAKNESS Status: Acute Priority: High Current Visit: Yes Annotation/Comment:: Severe generalized weakness secondary to her current infection with additional morbid obesity. PT and OT have been ordered. (7) CHF (congestive heart failure) SNOMED Code(s): 27645232 Code(s): I50.9 - HEART FAILURE, UNSPECIFIED Status: Chronic Priority: Medium Current Visit: Yes Qualifiers: Heart failure type: unspecified Heart failure chronicity: chronic Qualified Code(s): I50.9 - Heart failure, unspecified Annotation/Comment:: No chest pain or anginal type symptoms. History of pre vious mild CHF with no clinical evidence of significant CHF at this time. Continue IV fluids with caution as above. Chest x-ray and cardiac enzymes are to be conducted in the a.m. Note previous moderate to severe cardiomegaly by previous x-rays in this facility. Consider echocardiogram on an outpatient basis. (8) COPD (chronic obstructive pulmonary disease) SNOMED Code(s): 58708213 Code(s): J44.9 - CHRONIC OBSTRUCTIVE PULMONARY DISEASE, UNSPECIFIED Status: Chronic Priority: Medium Current Visit: Yes Qualifiers: COPD type: emphysema Annotation/Comment:: COPD by chest x-ray with no current therapy. No recent history of bronchitic type symptoms. Initiate incentive spirometry. (9) DVT (deep venous thrombosis) SNOMED Code(s): 391009477 Code(s): I82.409 - ACUTE EMBOLISM AND THOMBOS UNSP DEEP VN UNSP LOWER EX TREMITY Status: Chronic Priority: Medium Current Visit: Yes Qualifiers: DVT location: lower extremity Affected thrombotic vein of extremity: unspecified vein of extremity Chronicity: unspecified Laterality: unspecified laterality Qualified Code(s): I82.409 - Acute embolism and t hrombosis of unspecified deep veins of unspecified lower extremity Annotation/Comment:: Patient has been noncompliant with her Coumadin for the last 3-4 days secondary to current illness with previous history of medication noncompliance in the past. No clinical evidence of DVT or PE. High-dose Lovenox will be used as a bridge today with additional loading dose of her Coumadin with repeat INR and PTT on 05/26. (10) Hypomagnesemia SNOMED Code(s): 396580631 Code(s): E83.42 - HYPOMAGNESEMIA Status: Chronic Priority: Medium Current Visit: Yes Annotation/Comment:: Note history of medication n oncompliance as above. Magnesium level to be conducted on 05/26. (11) Osteoarthritis SNOMED Code(s): 058038307 Code(s): M19.90 - UNSPECIFIED OSTEOARTHRITIS, UNSPECIFIED SITE Status: Chronic Priority: Medium Current Visit: Yes Qualifiers: Osteoarthritis location: multiple joints Osteoarthritis type: primary Qualified Code(s): M89.49 - Other hypertrophic osteoarthropathy, multiple sites Annotation/Comment:: Stable by history with nonspecific neck pain without meningeal signs on 05/25. Known hyperuricemia but no known gout attacks in the past. Note previous history of chronic narcotic use and pain clinic management. She does use a cane at home, however is immobile at this time secondary to her obesity and current illness. PT and OT have been ordered. (12) Mixed anxiety depressive disorder SNOMED Code(s): 903073953 Code(s): F41.8 - OTHER SPECIFIED ANXIETY DISORDERS Status: Chronic Priority: Medium Current Visit: Yes Annotation/Comment:: Mild to moderately poor control by current clinical exam. Per history from the paramedics extremely poor living conditions, including feces on the beavers, etc. Note that she does have increased stressors secondary to taking care of her at home, who is on a respirator. Note previous chronic narcotic and Ultram use/addiction as above. Care management consultation has been ordered. dietary services director consultation based on their evaluation. (13) Hypoalbuminemia SNOMED Code(s): 220430183 Code(s): E88.09 - OTH DISORDERS OF PLASMA-PROTEIN METABOLISM, NEC Status: Acute Priority: Medium Current Visit: Yes Onset Date: 05/24/20 Annotation/Comment:: Observe for now. Note current obesity. (14) Renal insufficiency SNOMED Code(s): 458945284, 652547864 Code(s): N28.9 - DISORDER OF KIDNEY AND URETER, UNSPECIFIED Status: Chronic Priority: Medium Current Visit: Yes Annotation/Comment:: Known diabetic nephropathy. Renal function is improving slowly during hospitalization. IV fluids as above with caution. (15) Diabetes mellitus SNOMED Code(s): 11194720 Code(s): E11.9 - TYPE 2 DIABETES MELLITUS WITHOUT COMPLICATIONS Status: Acute Current Visit: Yes Qualifiers: Diabetes mellitus type: type 2 Diabetes mellitus complication status: with kidney complications Diabetes mellitus complication detail: with chronic k idney disease Chronic kidney disease stage: stage 3 (moderate) Chronic kidney disease stage 3 subtype: stage 3a (GFR 45-59) Annotation/Comment:: Glycosylated hemoglobin on 05/26. Humalog subcu sliding scale secondary to current sepsis. - Problem List Review Problem List Initiated/Reviewed/Updated: Yes - My Orders Last 24 Hours: My Active Orders 05/25/20 Breakfast Pureed Diet [DIET] 05/25/20 08:39 Lactated Ringers [Ringers, Lactated] 1,000 ml IV .BOLUS 05/25/20 08:44 cefTRIAXone [Rocephin] 2 gm Sodium Chloride 0.9% [Normal Saline] 100 ml IV ONETIME 05/25/20 08:48 Enoxaparin [Lovenox] 100 mg SUBCUT ONETIME ONE 05/25/20 08:51 Urinary Catheter Assessment [RC] ASDIRECTED 05/25/20 08:54 OCCULT BLOOD DIAGNOSTIC [OP] Routine 05/25/20 09:00 Thomas Catheter Insertion [Insert Urinary Catheter] [OM.PC] Q24H 05/25/20 18:00 Ciprofloxacin in D5W [Cipro in D5W 200 MG/100 ML] 200 mg Premix Bag 1 bag IV Q12HR 05/25/20 21:00 cefTRIAXone [Rocephin] 1 gm Sodium Chloride 0.9% [Normal Saline] 100 ml IV Q12H 05/26/20 05:11 Chest 1V Frontal [CR] Routine BILIRUBIN DIRECT/INDIRECT [CHEM] Routine CBC WITH AUTO DIFF [HEME] Routine COMPREHENSIVE METABOLIC PN,CMP [CHEM] Routine FERRITIN [CHEM] Routine INR,PT,PROTHROMBIN TIME [COAG] Routine IRON/TIBC [CHEM] Routine LACTATE SEPSIS W/ REFLEX [CHEM] Routine MAGNESIUM [CHEM] Routine PRO B-TYPE NATRIUR PEPT,BNPPRO [CHEM] Routine PTT,PARTIAL THROMBOPLSTIN TIME [COAG] Routine TROPONIN I [CHEM] Routine VITAMIN B12 [CHEM] Routine - Assessment Assessment:: As above - Plan Plan:: As above. Extensive precautions were given to the patient, who is in agreement with the treatment plan. The patient will require about 3-4 days of inpatient/acute care secondary to multiple health problems as above. Extended hospitalization will likely be required secondary to her newly diagnosed probable urosepsis.
[2020-05-25] MEDS ORDERED: 50% Dextrose in Water 50 ML Syringe IV PRN (09:21)
[2020-05-25] MEDS ORDERED: Glucagon,Human Recombinant 1 MG Vial IM PRN (09:21)
[2020-05-25] MEDS ORDERED: Warfarin 2.5 MG Tab PO ONE (09:22)
[2020-05-25] MEDS: Sodium Chloride 0.9% 10 ML Syringe FLUSH PRN ×4 (09:57→20:03)
[2020-05-25] MEDS: Pantoprazole 40 MG Vial IVPUSH SCH ×2 (09:57→21:55)
[2020-05-25] MEDS: Furosemide 40 MG Tab PO SCH (10:03)
[2020-05-25] MEDS: metFORMIN 500 MG Tab PO SCH (10:03)
[2020-05-25] MEDS: Magnesium Oxide 400 MG Tab PO SCH (10:04)
[2020-05-25] MEDS: Cholecalciferol (Vitamin D3) 25 MCG Tab PO SCH (10:04)
[2020-05-25] MEDS: Potassium Chloride 20 MEQ Tab.ER PO SCH (10:04)
[2020-05-25] MEDS: Metoprolol Succinate 25 MG Tab.ER PO SCH (10:04)
[2020-05-25] MEDS: Beta-Carotene (Vitamin A) w/Vitamin C & E plus Minerals Tab PO SCH (10:04)
[2020-05-25] MEDS: Ferrous Sulfate 325 MG Tab PO SCH (10:05)
[2020-05-25] MEDS: Famotidine 20 MG/2 ML SDV IVPUSH SCH ×2 (10:52→21:55)
[2020-05-25] MEDS: Ondansetron 4 MG Tab.DIS PO PRN (11:01)
[2020-05-25] MEDS ORDERED: Vancomycin 2 GM in Sodium Chloride 0.9% 500 ML IV ONE (12:00)
[2020-05-25] MEDS: Insulin Lispro 100 Units/ML 3 ML Vial SUBCUT SCH ×3 (12:27→20:03)
[2020-05-25] MEDS ORDERED: Ketorolac 30 MG/ML SDV IVPUSH ONE (13:00)
[2020-05-25] MEDS: Ciprofloxacin in D5W 200 MG in Premix Bag 1 BAG IV SCH ×2 (17:59)
[2020-05-25] MEDS ORDERED: Warfarin 5 MG Tab PO SCH (20:00)
[2020-05-25] MEDS: DULoxetine 30 MG Cap PO SCH (20:01)
[2020-05-25] MEDS: atorvaSTATin 10 MG Tab PO SCH (20:01)
[2020-05-25] MEDS: Montelukast 10 MG Tab PO SCH (20:01)
[2020-05-25] MEDS: cefTRIAXone 1 GM in Sodium Chloride 0.9% 100 ML IV SCH (21:56)
[2020-05-26] MEDS ORDERED: Temazepam 15 MG Cap PO PRN (00:13)
[2020-05-26] MEDS: Sodium Chloride 0.9% 1,000 ML IV SCH (03:13)
[2020-05-26] MEDS: Ciprofloxacin in D5W 200 MG in Premix Bag 1 BAG IV SCH ×4 (05:47→18:12)
[2020-05-26] MEDS: Acetaminophen 325 MG Tab PO PRN ×2 (07:17→19:57)
[2020-05-26] MEDS: metFORMIN 500 MG Tab PO SCH (08:19)
[2020-05-26] MEDS: Insulin Lispro 100 Units/ML 3 ML Vial SUBCUT SCH ×4 (08:19→20:06)
[2020-05-26] MEDS: Magnesium Oxide 400 MG Tab PO SCH ×2 (08:20→18:12)
[2020-05-26] MEDS: Cholecalciferol (Vitamin D3) 25 MCG Tab PO SCH (08:20)
[2020-05-26] MEDS: Potassium Chloride 20 MEQ Tab.ER PO SCH ×3 (08:20→18:12)
[2020-05-26] MEDS: Beta-Carotene (Vitamin A) w/Vitamin C & E plus Minerals Tab PO SCH (08:20)
[2020-05-26] MEDS: Ferrous Sulfate 325 MG Tab PO SCH ×2 (08:21→18:12)
[2020-05-26] MEDS: Metoprolol Succinate 25 MG Tab.ER PO SCH (08:21)
[2020-05-26] MEDS: Furosemide 40 MG Tab PO SCH (08:21)
[2020-05-26] MEDS: cefTRIAXone 1 GM in Sodium Chloride 0.9% 100 ML IV SCH ×2 (09:49→21:31)
[2020-05-26] MEDS: Pantoprazole 40 MG Vial IVPUSH SCH ×2 (09:50→21:31)
[2020-05-26] MEDS: Famotidine 20 MG/2 ML SDV IVPUSH SCH ×2 (09:50→21:31)
[2020-05-26 10:20] LABS: HEMOGLOBIN A1C 6.2 % (4.3-5.7)
[2020-05-26 10:42] LABS: PTT,PARTIAL THROMBOPLSTIN TIME 36.7 SEC (24.5-32.8)
[2020-05-26] MEDS ORDERED: Magnesium Sulfate/Water 4 GM/100 ML BAG IV ONE (10:50)
--- NOTE | 2020-05-26 11:13 | PCM.PN ---
- General Info Date of Service: 05/26/20 Admission Dx/Problem (Free Text): 1. Complicated UTI 2. Generalized weakness Functional Status: Reports: Pain Controlled, Tolerating Diet, Ambulating (With assist improving slowly), Urinating, New Symptoms (Generalized arthralgias from her fever), Incentive Spirometry Pain Score: 3 - Review of Systems General: Reports: Fever (38.6 this morning), Weakness (Moderate to severe, which is improving slowly), Chills, Night Sweats. Denies: Fatigue, Malaise, Appetite (Good) HEENT: Reports: No Symptoms Pulmonary: Reports: No Symptoms. Denies: Shortness of Breath, Pleuritic Chest Pain, Cough, Sputum, Hemoptysis, Wheezing Cardiovascular: Reports: No Symptoms. Denies: Chest Pain, Palpitations, Dyspnea on Exertion, Orthopnea, Edema, Lightheadedness Gastrointestinal: Reports: No Symptoms, Other (Normal bowel movement yesterday evening by patient history). Denies: Abdominal Pain, Constipation, Decreased Appetite, Diarrhea, Difficulty Swallowing, Flatus, Hematochezia, Melena, Nausea, Vomiting Genitourinary: Reports: Incontinence, Other (Thomas catheter). Denies: Dysuria, Frequency, Burning, Pain, Urgency, Hematuria, Retention, Flank Pain Musculoskeletal: Reports: Joint Pain (As above). Denies: Neck Pain, Shoulder Pain, Back Pain, Leg Pain Skin: Reports: Rash (Stable venous stasis dermatitis). Denies: Diaphoresis, Bruising Neurological: Reports: Difficulty Walking (Secondary to generalized weakness), Weakness (As above). Denies: Headache, Syncope Psychiatric: Reports: No Symptoms. Denies: Confusion, Depression, Anxiety, Agitation, Hallucinations - Patient Data Vitals - Most Recent: Last Vital Signs Temp 38.6 C H 05/26/20 08:00 Pulse 87 05/26/20 08:21 Resp 17 05/26/20 08:00 BP 118/62 05/26/20 08:21 Pulse Ox 93 L 05/26/20 08:00 Vital Signs - 24 hr 05/25/20 05/25/20 05/25/20 12:00 16:00 20:00 Temperature [ Axillary] Temperature [ 38.4 C H 37.3 C Oral] Temperature [ 36.9 C Temporal] Pulse, Peripheral Pulse, 102 H 82 93 Peripheral [ Right Pulse Oximetry] Respiratory 24 H 20 18 Rate Blood Pressure Blood Pressure 133/75 96/50 L 103/67 [Right Lower Arm] O2 Sat by Pulse 97 96 99 Oximetry 05/26/20 05/26/20 05/26/20 00:00 04:00 07:00 Temperature [ 37.4 C 36.7 C Axillary] Temperature [ 38.6 C H Oral] Temperature [ Temporal] Pulse, Peripheral Pulse, 88 101 H Peripheral [ Right Pulse Oximetry] Respiratory 16 18 Rate Blood Pressure Blood Pressure 90/45 L 106/61 [Right Lower Arm] O2 Sat by Pulse 95 94 L Oximetry 05/26/20 05/26/20 08:00 08:21 Temperature [ Axillary] Temperature [ 38.6 C H Oral] Temperature [ Temporal] Pulse, 87 Peripheral Pulse, 87 Peripheral [ Right Pulse Oximetry] Respiratory 17 Rate Blood Pressure 118/62 Blood Pressure 118/62 [Right Lower Arm] O2 Sat by Pulse 93 L Oximetry Weight - Most Recent: 151.8 kg I&O - Last 24 Hours: Intake & Output 05/25/20 05/26/20 05/26/20 22:59 06:59 14:59 Intake Total 1210 2016 640 Output Total 200 600 Balance 1010 1416 640 Imaging Impressions - Last 24 Hours: assembler billiard table initially showed normal sinus rhythm with heart rate in the 80s to 90s with new onset breakthrough atrial fibrillation in the 80s earlier this morning. Chest x-ray, portable, shows overall poor inspiratory film. Moderate COPD with questionable left lower lobe atelectasis versus beginning pleural effusion. Moderate to severe cardiomegaly with moderate CHF including prominence of the right perihilar region. No pneumothorax. Lab Results Last 24 Hours: Laboratory Results - last 24 hr 05/25/20 05/25/20 05/26/20 Range/Units 17:10 20:01 07:03 WBC (4.0-10.2) K/uL RBC (3.77-5.09) M/uL Hgb (11.7-15.5) g/dL Hct (34.0-46.0) % MCV (84.0-98.0) fL MCH (28.2-33.3) pg MCHC (31.7-36.0) g/dL RDW (11.2-14.1) % Plt Count (150-350) K/uL Neut % (Auto) (45.0-80.0) % Lymph % (Auto) (10.0-50.0) % Henry % (Auto) (2.0-14.0) % Eos % (Auto) (0.0-5.0) % Baso % (Auto) (0.0-2.0) % Neut # (Auto) (1.40-7.00) K/uL Lymph # (Auto) (0.50-3.50) K/uL Henry # (Auto) (0.00-1.00) K/uL Eos # (Auto) (0.00-0.50) K/uL Baso # (Auto) (0.00-0.20) K/uL PT (9.5-12.0) SEC INR APTT (24.5-32.8) SEC Sodium (136-145) mmol/L Potassium (3.5-5.1) mmol/L Chloride (98-107) mmol/L Carbon Dioxide (21.0-32.0) mmol/L BUN (7-18) mg/dL Creatinine (0.51-1.17) mg/dL Est Cr Clr Drug Dosing mL/min Estimated GFR (MDRD) mL/min Glucose (70-99) mg/dL POC Glucose 157 H 130 H 109 (65-110) mg/dl Hemoglobin A1c (4.3-5.7) % Lactic Acid (0.4-2.0) mmol/L Uric Acid (2.6-7.2) mg/dL Calcium (8.5-10.1) mg/dL Magnesium (1.8-2.4) mg/dL Iron (50-175) ug/dL TIBC (250-450) ug/dL % Saturation Ferritin (8-388) ng/mL Total Bilirubin (0.2-1.0) mg/dL Direct Bilirubin (0.0-0.2) mg/dL Indirect Bilirubin AST (15-37) U/L ALT (12-78) U/L Alkaline Phosphatase (46-116) IU/L Troponin I (0.000-0.056) ng/mL NT-Pro-B Natriuret Pep (0-125) pg/mL Total Protein (6.4-8.2) g/dL Albumin (3.4-5.0) g/dL Vitamin B12 (193-986) pg/mL Vancomycin Trough (10-20) ug/mL 05/26/20 05/26/20 05/26/20 Range/Units 09:45 09:45 09:45 WBC 7.9 (4.0-10.2) K/uL RBC 3.25 L (3.77-5.09) M/uL Hgb 10.0 L (11.7-15.5) g/dL Hct 31.2 L (34.0-46.0) % MCV 96.0 (84.0-98.0) fL MCH 30.8 (28.2-33.3) pg MCHC 32.1 (31.7-36.0) g/dL RDW 14.9 H (11.2-14.1) % Plt Count 147 L (150-350) K/uL Neut % (Auto) 64.9 (45.0-80.0) % Lymph % (Auto) 21.2 (10.0-50.0) % Henry % (Auto) 12.4 (2.0-14.0) % Eos % (Auto) 0.9 (0.0-5.0) % Baso % (Auto) 0.6 (0.0-2.0) % Neut # (Auto) 5.13 (1.40-7.00) K/uL Lymph # (Auto) 1.68 (0.50-3.50) K/uL Henry # (Auto) 0.98 (0.00-1.00) K/uL Eos # (Auto) 0.07 (0.00-0.50) K/uL Baso # (Auto) 0.05 (0.00-0.20) K/uL PT 14.5 H (9.5-12.0) SEC INR 1.5 APTT 36.7 H (24.5-32.8) SEC Sodium 133 L (136-145) mmol/L Potassium 3.6 (3.5-5.1) mmol/L Chloride 99 (98-107) mmol/L Carbon Dioxide 22.5 (21.0-32.0) mmol/L BUN 20 H (7-18) mg/dL Creatinine 1.46 H (0.51-1.17) mg/dL Est Cr Clr Drug Dosing 36.87 mL/min Estimated GFR (MDRD) 37 mL/min Glucose 148 H (70-99) mg/dL POC Glucose (65-110) mg/dl Hemoglobin A1c (4.3-5.7) % Lactic Acid (0.4-2.0) mmol/L Uric Acid 7.0 (2.6-7.2) mg/dL Calcium 9.2 (8.5-10.1) mg/dL Magnesium 1.5 L (1.8-2.4) mg/dL Iron (50-175) ug/dL TIBC (250-450) ug/dL % Saturation Ferritin (8-388) ng/mL Total Bilirubin 1.1 H (0.2-1.0) mg/dL Direct Bilirubin 0.4 H (0.0-0.2) mg/dL Indirect Bilirubin 0.7 AST 61 H (15-37) U/L ALT 43 (12-78) U/L Alkaline Phosphatase 75 (46-116) IU/L Troponin I 0.033 (0.000-0.056) ng/mL NT-Pro-B Natriuret Pep 5471 H (0-125) pg/mL Total Protein 6.3 L (6.4-8.2) g/dL Albumin 2.3 L (3.4-5.0) g/dL Vitamin B12 1754 H (193-986) pg/mL Vancomycin Trough 10.9 (10-20) ug/mL 05/26/20 05/26/20 05/26/20 Range/Units 09:45 09:45 09:45 WBC (4.0-10.2) K/uL RBC (3.77-5.09) M/uL Hgb (11.7-15.5) g/dL Hct (34.0-46.0) % MCV (84.0-98.0) fL MCH (28.2-33.3) pg MCHC (31.7-36.0) g/dL RDW (11.2-14.1) % Plt Count (150-350) K/uL Neut % (Auto) (45.0-80.0) % Lymph % (Auto) (10.0-50.0) % Henry % (Auto) (2.0-14.0) % Eos % (Auto) (0.0-5.0) % Baso % (Auto) (0.0-2.0) % Neut # (Auto) (1.40-7.00) K/uL Lymph # (Auto) (0.50-3.50) K/uL Henry # (Auto) (0.00-1.00) K/uL Eos # (Auto) (0.00-0.50) K/uL Baso # (Auto) (0.00-0.20) K/uL PT (9.5-12.0) SEC INR APTT (24.5-32.8) SEC Sodium (136-145) mmol/L Potassium (3.5-5.1) mmol/L Chloride (98-107) mmol/L Carbon Dioxide (21.0-32.0) mmol/L BUN (7-18) mg/dL Creatinine (0.51-1.17) mg/dL Est Cr Clr Drug Dosing mL/min Estimated GFR (MDRD) mL/min Glucose (70-99) mg/dL POC Glucose (65-110) mg/dl Hemoglobin A1c 6.2 H (4.3-5.7) % Lactic Acid 1.1 (0.4-2.0) mmol/L Uric Acid (2.6-7.2) mg/dL Calcium (8.5-10.1) mg/dL Magnesium (1.8-2.4) mg/dL Iron 12 L (50-175) ug/dL TIBC 185 L (250-450) ug/dL % Saturation [id number] Ferritin 279 (8-388) ng/mL Total Bilirubin (0.2-1.0) mg/dL Direct Bilirubin (0.0-0.2) mg/dL Indirect Bilirubin AST (15-37) U/L ALT (12-78) U/L Alkaline Phosphatase (46-116) IU/L Troponin I (0.000-0.056) ng/mL NT-Pro-B Natriuret Pep (0-125) pg/mL Total Protein (6.4-8.2) g/dL Albumin (3.4-5.0) g/dL Vitamin B12 (193-986) pg/mL Vancomycin Trough (10-20) ug/mL [facility] Results Last 24 Hours: Microbiology 05/24/20 12:59 Urine Culture - Final Urine, Catheterized Escherichia Coli 05/26/20 04:00 Stool Occult Blood (INOCENTE) - Final Stool / Feces NEGATIVE OCCULT BLOOD REFERENCE RANGE: NEGATIVE 05/24/20 17:51 Aerobic Blood Culture - Preliminary Blood - Venous NO GROWTH AFTER 1 DAY Anaerobic Blood Culture - Preliminary NO GROWTH AFTER 1 DAY 05/24/20 12:46 Aerobic Blood Culture - Preliminary Blood Gram Positive Cocci Anaerobic Blood Culture - Preliminary Gram Positive Cocci 05/24/20 12:41 Aerobic Blood Culture - Preliminary Blood Gram Positive Cocci Anaerobic Blood Culture - Preliminary Gram Positive Cocci Verbal report from the laboratory now indicates probable gram-negative cocci rather than gram-positive cocci as above. Culture and sensitivity should be completed tomorrow. Med Orders - Current: Current Medications Acetaminophen (Acetaminophen 325 Mg Tab) 650 mg PO Q4H PRN PRN Reason: Pain (Mild 1-3)/fever Last Admin: 05/26/20 07:17 Dose: 650 mg Documented by: Atorvastatin Calcium (Atorvastatin 10 Mg Tab) 20 mg PO BEDTIME [facility] Last Admin: 05/25/20 20:01 Dose: 20 mg Documented by: Cholecalciferol (Cholecalciferol (Vitamin D3) 25 Mcg Tab) 50 mcg PO DAILY [facility] Last Admin: 05/26/20 08:20 Dose: 50 mcg Documented by: Cyclobenzaprine HCl (Cyclobenzaprine 10 Mg Tab) 5 mg PO TID PRN PRN Reason: Spasms Last Admin: 05/24/20 22:42 Dose: 5 mg Documented by: Dextrose/Water (50% Dextrose In Water 50 Ml Syringe) 50 ml IV ASDIRECTED PRN PRN Reason: Hypoglycemia Duloxetine HCl (Duloxetine 30 Mg Cap) 30 mg PO BEDTIME [facility] Last Admin: 05/25/20 20:01 Dose: 30 mg Documented by: Enoxaparin Sodium (Enoxaparin 100 Mg/1 Ml Syringe) 100 mg SUBCUT ONETIME ONE Stop: 05/26/20 11:10 Famotidine (Famotidine 20 Mg/2 Ml Sdv) 20 mg IVPUSH Q12H [facility] Last Admin: 05/26/20 09:50 Dose: 20 mg Documented by: Ferrous Sulfate (Ferrous Sulfate 325 Mg Tab) 325 mg PO BIDMEALS [facility] Furosemide (Furosemide 40 Mg Tab) 40 mg PO DAILY [facility] Last Admin: 05/26/20 08:21 Dose: 40 mg Documented by: Furosemide (Furosemide 40 Mg/4 Ml Vial) 40 mg IVPUSH Q8H [facility] Glucagon (Glucagon,Human Recombinant 1 Mg Vial) 1 mg IM ASDIRECTED PRN PRN Reason: Hypoglycemia Ceftriaxone Sodium 1 gm/ (Sodium Chloride) 100 mls @ 200 mls/hr IV Q12H [facility] Last Admin: 05/26/20 09:49 Dose: 200 mls/hr Documented by: Ciprofloxacin/Dextrose 200 mg/ (Premix) 100 mls @ 100 mls/hr IV Q12H [facility] Last Admin: 05/26/20 05:47 Dose: 100 mls/hr Documented by: Magnesium Sulfate (Magnesium Sulfate In Water 4 Gm/100 Ml) 4 gm in 100 mls @ 25 mls/hr IV ONETIME ONE Stop: 05/26/20 14:49 Vancomycin HCl 2 gm/ Sodium (Chloride) 500 mls @ 200 mls/hr IV Q24H [facility] Insulin Human Lispro (Insulin Lispro 100 Units/Ml 3 Ml Vial) 0 unit SUBCUT QIDACANDBED [facility]; Protocol Last Admin: 05/26/20 08:19 Dose: Not Given Documented by: Magnesium Oxide (Magnesium Oxide 400 Mg Tab) 400 mg PO BID [facility] Metformin HCl (Metformin 500 Mg Tab) 500 mg PO DAILY [facility] Last Admin: 05/26/20 08:19 Dose: 500 mg Documented by: Metoprolol Succinate (Metoprolol Succinate 25 Mg Tab.Er) 25 mg PO DAILY [facility] Last Admin: 05/26/20 08:21 Dose: 25 mg Documented by: Montelukast Sodium (Montelukast 10 Mg Tab) 10 mg PO BEDTIME [facility] Last Admin: 05/25/20 20:01 Dose: 10 mg Documented by: Multivitamins/Minerals (Beta-Carotene (Vitamin A) W/Vitamin C & E Plus Minerals Tab) 1 tab PO DAILY [facility] Last Admin: 05/26/20 08:20 Dose: 1 tab Documented by: Ondansetron HCl (Ondansetron 4 Mg Tab.Dis) 4 mg PO Q4H PRN PRN Reason: Nausea/Vomiting Last Admin: 05/25/20 11:01 Dose: 4 mg Documented by: Pantoprazole Sodium (Pantoprazole 40 Mg Vial) 40 mg IVPUSH Q12H [facility] Last Admin: 05/26/20 09:50 Dose: 40 mg Documented by: Potassium Chloride (Potassium Chloride 20 Meq Tab.Er) 20 meq PO DAILY [facility] Last Admin: 05/26/20 08:20 Dose: 20 meq Documented by: Potassium Chloride (Potassium Chloride 20 Meq Tab.Er) 20 meq PO TID [facility] Sodium Chloride (Sodium Chloride 0.9% 10 Ml Syringe) 10 ml FLUSH ASDIRECTED PRN PRN Reason: Keep Vein Open Last Admin: 05/25/20 20:03 Dose: 10 ml Documented by: Temazepam (Temazepam 15 Mg Cap) 15 mg PO BEDTIME PRN PRN Reason: Insomnia Last Admin: 05/26/20 00:20 Dose: 15 mg Documented by: Warfarin Sodium (Warfarin 2.5 Mg Tab) 2.5 mg PO SUTUWETHFRSA@1999 [facility] Last Admin: 05/24/20 19:19 Dose: 2.5 mg Documented by: Warfarin Sodium (Warfarin 5 Mg Tab) 5 mg PO MO@1999 [facility] Last Admin: 05/25/20 20:02 Dose: 5 mg Documented by: Warfarin Sodium (Warfarin 2.5 Mg Tab) 2.5 mg PO ONETIME ONE Stop: 05/26/20 11:10 Discontinued Medications Enoxaparin Sodium (Enoxaparin 100 Mg/1 Ml Syringe) 100 mg SUBCUT ONETIME ONE Stop: 05/25/20 08:49 Last Admin: 05/25/20 10:01 Dose: 100 mg Documented by: Ferrous Sulfate (Ferrous Sulfate 325 Mg Tab) 325 mg PO DAILY [facility] Last Admin: 05/26/20 08:21 Dose: 325 mg Documented by: Ceftriaxone Sodium 1 gm/ (Sodium Chloride) 100 mls @ 200 mls/hr IV ONETIME ONE Stop: 05/24/20 13:35 Last Admin: 05/24/20 13:25 Dose: 200 mls/hr Documented by: Sodium Chloride (Normal Saline) 1,000 mls @ 100 mls/hr IV ASDIRECTED [facility] Last Admin: 05/26/20 03:13 Dose: 100 mls/hr Documented by: Ceftriaxone Sodium 1 gm/ (Sodium Chloride) 100 mls @ 200 mls/hr IV Q24H [facility] Last Admin: 05/25/20 10:01 Dose: Not Given Documented by: Ciprofloxacin/Dextrose 400 mg/ (Premix) 200 mls @ 200 mls/hr IV Q12HR [facility] Ciprofloxacin/Dextrose 400 mg/ (Premix) 200 mls @ 200 mls/hr IV BID@06,18 [facility] Last Admin: 05/25/20 05:23 Dose: 200 mls/hr Documented by: Lactated Ringer's (Ringers, Lactated) 1,000 mls @ 999 mls/hr IV .BOLUS ONE Stop: 05/25/20 09:39 Last Admin: 05/25/20 09:54 Dose: 999 mls/hr Documented by: Ceftriaxone Sodium 2 gm/ (Sodium Chloride) 100 mls @ 200 mls/hr IV ONETIME ONE Stop: 05/25/20 09:13 Last Admin: 05/25/20 09:55 Dose: 200 mls/hr Documented by: Vancomycin HCl 2 gm/ Sodium (Chloride) 500 mls @ 200 mls/hr IV ONETIME ONE Stop: 05/25/20 14:29 Last Admin: 05/25/20 12:31 Dose: 200 mls/hr Documented by: Vancomycin HCl 2 gm/ Dextrose/ (Water) 500 mls @ 200 mls/hr IV Q24H [facility] Ketorolac Tromethamine (Ketorolac 30 Mg/Ml Sdv) 30 mg IVPUSH ONETIME ONE Stop: 05/25/20 13:01 Last Admin: 05/25/20 14:16 Dose: 30 mg Documented by: Magnesium Oxide (Magnesium Oxide 400 Mg Tab) 400 mg PO DAILY [facility] Last Admin: 05/26/20 08:20 Dose: 400 mg Documented by: Non-Formulary Medication (Biotin [Biotin]) 10,000 mcg PO DAILY [facility] Warfarin Sodium (Warfarin 2.5 Mg Tab) 2.5 mg PO ONETIME ONE Stop: 05/25/20 09:23 Last Admin: 05/25/20 10:03 Dose: 2.5 mg Documented by: - Exam Quality Assessment: Urine Catheter, DVT Prophylaxis (Lovenox and Coumadin). No: Supplemental Oxygen, Skin Breakdown, Restraints General: Alert, Oriented, Cooperative, No Acute Distress HEENT: Pupils Equal, Pupils Reactive, EOMI, Mucous Membr. Moist/[place]. No: Scleral Icterus Neck: Supple, Trachea Midline, No JVD, No Thyromegaly, +2 Carotid Pulse wo Bruit. No: Carotid Bruit Lungs: Normal Respiratory Effort, Rales (Mild bilateral basilar). No: Crackles, Rhonchi, Rub, Stridor, Wheezing Cardiovascular: Regular Rate, No Murmurs, Irregular Rhythm, Rubs. No: Murmurs, Gallops GI/Abdominal Exam: Normal Bowel Sounds, Soft, Non-Tender, No Organomegaly, No Distention, No Abnormal Bruit, No Mass, Other (Morbidly obese). No: Guarding (Female) Exam: Deferred Back Exam: Full Range of Motion, Other (Mild kyphoscoliosis). No: CVA Tenderness (L), CVA Tenderness (R), Decreased Range of Motion, Muscle Spasm, Paraspinal Tenderness, Vertebral Tenderness Extremities: Normal Inspection, Normal Range of Motion, Non-Tender, No Pedal Edema, Normal Capillary Refill, Other (Moderate venous stasis dermatitis of the lower extremities right greater than left). No: Henny's Sign Peripheral Pulses: 2+: Radial (L), Radial (R), Dorsalis Pedis (L), Dorsalis Pedis (R) Skin: Warm, Dry, Intact, Rash (Venous stasis dermatitis as above). No: Ecchymosis Neurological: No New Focal Deficit, Other (Moderate to severe generalized weakness although improved from yesterday) Psy/Mental Status: Alert, Anxious (Mildimproved), Depressed (Borderline). No: Agitated, Hallucinations, Withdrawal Symptoms - Patient Data Lab Results Last 24 hrs: Laboratory Results - last 24 hr 05/25/20 05/25/20 05/26/20 Range/Units 17:10 20:01 07:03 WBC (4.0-10.2) K/uL RBC (3.77-5.09) M/uL Hgb (11.7-15.5) g/dL Hct (34.0-46.0) % MCV (84.0-98.0) fL MCH (28.2-33.3) pg MCHC (31.7-36.0) g/dL RDW (11.2-14.1) % Plt Count (150-350) K/uL Neut % (Auto) (45.0-80.0) % Lymph % (Auto) (10.0-50.0) % Henry % (Auto) (2.0-14.0) % Eos % (Auto) (0.0-5.0) % Baso % (Auto) (0.0-2.0) % Neut # (Auto) (1.40-7.00) K/uL Lymph # (Auto) (0.50-3.50) K/uL Henry # (Auto) (0.00-1.00) K/uL Eos # (Auto) (0.00-0.50) K/uL Baso # (Auto) (0.00-0.20) K/uL PT (9.5-12.0) SEC INR APTT (24.5-32.8) SEC Sodium (136-145) mmol/L Potassium (3.5-5.1) mmol/L Chloride (98-107) mmol/L Carbon Dioxide (21.0-32.0) mmol/L BUN (7-18) mg/dL Creatinine (0.51-1.17) mg/dL Est Cr Clr Drug Dosing mL/min Estimated GFR (MDRD) mL/min Glucose (70-99) mg/dL POC Glucose 157 H 130 H 109 (65-110) mg/dl Hemoglobin A1c (4.3-5.7) % Lactic Acid (0.4-2.0) mmol/L Uric Acid (2.6-7.2) mg/dL Calcium (8.5-10.1) mg/dL Magnesium (1.8-2.4) mg/dL Iron (50-175) ug/dL TIBC (250-450) ug/dL % Saturation Ferritin (8-388) ng/mL Total Bilirubin (0.2-1.0) mg/dL Direct Bilirubin (0.0-0.2) mg/dL Indirect Bilirubin AST (15-37) U/L ALT (12-78) U/L Alkaline Phosphatase (46-116) IU/L Troponin I (0.000-0.056) ng/mL NT-Pro-B Natriuret Pep (0-125) pg/mL Total Protein (6.4-8.2) g/dL Albumin (3.4-5.0) g/dL Vitamin B12 (193-986) pg/mL Vancomycin Trough (10-20) ug/mL 05/26/20 05/26/20 05/26/20 Range/Units 09:45 09:45 09:45 WBC 7.9 (4.0-10.2) K/uL RBC 3.25 L (3.77-5.09) M/uL Hgb 10.0 L (11.7-15.5) g/dL Hct 31.2 L (34.0-46.0) % MCV 96.0 (84.0-98.0) fL MCH 30.8 (28.2-33.3) pg MCHC 32.1 (31.7-36.0) g/dL RDW 14.9 H (11.2-14.1) % Plt Count 147 L (150-350) K/uL Neut % (Auto) 64.9 (45.0-80.0) % Lymph % (Auto) 21.2 (10.0-50.0) % Henry % (Auto) 12.4 (2.0-14.0) % Eos % (Auto) 0.9 (0.0-5.0) % Baso % (Auto) 0.6 (0.0-2.0) % Neut # (Auto) 5.13 (1.40-7.00) K/uL Lymph # (Auto) 1.68 (0.50-3.50) K/uL Henry # (Auto) 0.98 (0.00-1.00) K/uL Eos # (Auto) 0.07 (0.00-0.50) K/uL Baso # (Auto) 0.05 (0.00-0.20) K/uL PT 14.5 H (9.5-12.0) SEC INR 1.5 APTT 36.7 H (24.5-32.8) SEC Sodium 133 L (136-145) mmol/L Potassium 3.6 (3.5-5.1) mmol/L Chloride 99 (98-107) mmol/L Carbon Dioxide 22.5 (21.0-32.0) mmol/L BUN 20 H (7-18) mg/dL Creatinine 1.46 H (0.51-1.17) mg/dL Est Cr Clr Drug Dosing 36.87 mL/min Estimated GFR (MDRD) 37 mL/min Glucose 148 H (70-99) mg/dL POC Glucose (65-110) mg/dl Hemoglobin A1c (4.3-5.7) % Lactic Acid (0.4-2.0) mmol/L Uric Acid 7.0 (2.6-7.2) mg/dL Calcium 9.2 (8.5-10.1) mg/dL Magnesium 1.5 L (1.8-2.4) mg/dL Iron (50-175) ug/dL TIBC (250-450) ug/dL % Saturation Ferritin (8-388) ng/mL Total Bilirubin 1.1 H (0.2-1.0) mg/dL Direct Bilirubin 0.4 H (0.0-0.2) mg/dL Indirect Bilirubin 0.7 AST 61 H (15-37) U/L ALT 43 (12-78) U/L Alkaline Phosphatase 75 (46-116) IU/L Troponin I 0.033 (0.000-0.056) ng/mL NT-Pro-B Natriuret Pep 5471 H (0-125) pg/mL Total Protein 6.3 L (6.4-8.2) g/dL Albumin 2.3 L (3.4-5.0) g/dL Vitamin B12 1754 H (193-986) pg/mL Vancomycin Trough 10.9 (10-20) ug/mL 05/26/20 05/26/20 05/26/20 Range/Units 09:45 09:45 09:45 WBC (4.0-10.2) K/uL RBC (3.77-5.09) M/uL Hgb (11.7-15.5) g/dL Hct (34.0-46.0) % MCV (84.0-98.0) fL MCH (28.2-33.3) pg MCHC (31.7-36.0) g/dL RDW (11.2-14.1) % Plt Count (150-350) K/uL Neut % (Auto) (45.0-80.0) % Lymph % (Auto) (10.0-50.0) % Henry % (Auto) (2.0-14.0) % Eos % (Auto) (0.0-5.0) % Baso % (Auto) (0.0-2.0) % Neut # (Auto) (1.40-7.00) K/uL Lymph # (Auto) (0.50-3.50) K/uL Henry # (Auto) (0.00-1.00) K/uL Eos # (Auto) (0.00-0.50) K/uL Baso # (Auto) (0.00-0.20) K/uL PT (9.5-12.0) SEC INR APTT (24.5-32.8) SEC Sodium (136-145) mmol/L Potassium (3.5-5.1) mmol/L Chloride (98-107) mmol/L Carbon Dioxide (21.0-32.0) mmol/L BUN (7-18) mg/dL Creatinine (0.51-1.17) mg/dL Est Cr Clr Drug Dosing mL/min Estimated GFR (MDRD) mL/min Glucose (70-99) mg/dL POC Glucose (65-110) mg/dl Hemoglobin A1c 6.2 H (4.3-5.7) % Lactic Acid 1.1 (0.4-2.0) mmol/L Uric Acid (2.6-7.2) mg/dL Calcium (8.5-10.1) mg/dL Magnesium (1.8-2.4) mg/dL Iron 12 L (50-175) ug/dL TIBC 185 L (250-450) ug/dL % Saturation [id number] Ferritin 279 (8-388) ng/mL Total Bilirubin (0.2-1.0) mg/dL Direct Bilirubin (0.0-0.2) mg/dL Indirect Bilirubin AST (15-37) U/L ALT (12-78) U/L Alkaline Phosphatase (46-116) IU/L Troponin I (0.000-0.056) ng/mL NT-Pro-B Natriuret Pep (0-125) pg/mL Total Protein (6.4-8.2) g/dL Albumin (3.4-5.0) g/dL Vitamin B12 (193-986) pg/mL Vancomycin Trough (10-20) ug/mL Result Diagrams: 05/26/20 09:45 05/26/20 09:45 [facility] Results Last 24 hrs: Microbiology 05/24/20 12:59 Urine Culture - Final Urine, Catheterized Escherichia Coli 05/26/20 04:00 Stool Occult Blood (INOCENTE) - Final Stool / Feces NEGATIVE OCCULT BLOOD REFERENCE RANGE: NEGATIVE 05/24/20 17:51 Aerobic Blood Culture - Preliminary Blood - Venous NO GROWTH AFTER 1 DAY Anaerobic Blood Culture - Preliminary NO GROWTH AFTER 1 DAY 05/24/20 12:46 Aerobic Blood Culture - Preliminary Blood Gram Positive Cocci Anaerobic Blood Culture - Preliminary Gram Positive Cocci 05/24/20 12:41 Aerobic Blood Culture - Preliminary Blood Gram Positive Cocci Anaerobic Blood Culture - Preliminary Gram Positive Cocci Sepsis Event Note - Evaluation Sepsis Screening Result: Sepsis Risk - Focused Exam Vital Signs: Vital Signs Temp Temp Pulse Pulse Resp BP BP 05/26/20 08:21 87 118/62 05/26/20 08:00 38.6 C H 87 17 118/62 05/26/20 07:00 38.6 C H 05/26/20 04:00 36.7 C 101 H 18 106/61 05/26/20 00:00 37.4 C 88 16 90/45 L Pulse Ox 05/26/20 08:21 05/26/20 08:00 93 L 05/26/20 07:00 05/26/20 04:00 94 L 05/26/20 00:00 95 - Problem List & Annotations (1) UTI (urinary tract infection) SNOMED Code(s): 66349985 Code(s): N39.0 - URINARY TRACT INFECTION, SITE NOT SPECIFIED Status: Acute Priority: High Current Visit: Yes Onset Date: ~05/24/20 Qualifiers: Urinary tract infection type: acute cystitis Hematuria presence: without hematuria Qualified Code(s): N30.00 - Acute cystitis without hematuria Annotation/Comment:: Positive blood cultures x2 with urosepsis initially suspected, however note gram-positive cocci rather than gram-negative rods were noted in the blood cultures yesterday. Verbal report from our laboratory today indicates that her blood cultures probably actually contain gram-negative rods with today's urine culture and sensitivity showing adequate control with both Rocephin and Cipro. Chest x-ray today shows questionable left lower lobe atelectasis versus infiltrates. Chest x-ray, portable, on 05/24/2020 shows somewhat poor inspiratory film, although possible mild bilateral basilar pneumonia. Persistent fever, however normal WBCs on 05/26. Patient's Cipro in itially at 400 mg IV every 12 hours, although this was changed to 200 mg IV every 12 hours on 05/25 secondary to her renal insufficiency. The patient was given a 2 g IV dose of Rocephin early in the morning on 05/25 with subsequent increase of her Rocephin to 1 g IV every 12 hours. Starting this evening. Vancomycin IV was also initiated on 05/25 with pharmacy consultation for proper dosing and routine blood work. Trough vancomycin level on 05/26 showed adequate therapy with repeat level ordered for 05/28. Secondary to persistent refractory fever continue triple antibiotic therapy as above with blood culture and sensitivity results available tomorrow. Thomas catheter was placed on 05/25 for accurate I's and O's secondary to her sepsis, previous CHF, and urinary incontinence. Low threshold for hospital transfer. Lactic acid levels x 3 are normal to this point. (2) Sepsis SNOMED Code(s): 99737092 Code(s): A41.9 - SEPSIS, UNSPECIFIED ORGANISM Status: Acute Priority: High Current Visit: Yes Onset Date: ~05/24/20 Qualifiers: Sepsis type: sepsis due to unspecified organism Sepsis acute organ dysfunction status: without acute organ dysfunction Qualified Code(s): A41.9 - Sepsis, unspecified organism Annotation/Comment:: As above and once again suspect urosepsis. (3) Anemia SNOMED Code(s): 982361465 Code(s): D64.9 - ANEMIA, UNSPECIFIED Status: Acute Priority: Medium Current Visit: Yes Qualifiers: Anemia type: iron deficiency Annotation/Comment:: Progressive anemia with hemoglobin of 10.0 on 05/26 in comparison to 10.5 on 05/27 with returned anemia on 05/26 likely secondary to rehydration effect with initial hemoglobin of 12.0 on admission. Iron studies on 05/26 indicate persistent iron deficiency with her iron sulfate to be increased to twice daily basis. Note concomitant magnesium oxide therapy. No evidence of acute GI bleed. IV Pepcid and IV Protonix was initiated on 05/25 as GI prophylaxis secondary to her current sepsis and Coumadin/Lovenox therapy. Vitamin B12 level adequate on 05/26/1930. (4) Gilbert's syndrome SNOMED Code(s): 68208318 Code(s): E80.4 - GILBERT SYNDROME Status: Chronic Priority: Medium Current Visit: Yes Onset Date: 11/02/16 Annotation/Comment:: Hyperbilirubinemia significantly improved since admission with known history of probable Gilbert's syndrome with direct/indirect bili evaluation repeated on 05/26/2020. No direct indication of hemolysis despite anemia as above. (5) Hyponatremia SNOMED Code(s): 26147180 Code(s): E87.1 - HYPO-OSMOLALITY AND HYPONATREMIA Status: Acute Priority: Medium Current Visit: Yes Annotation/Comment:: Somewhat progressive hyponatremia likely secondary to CHF and some fluid overload during this hospitalization. IV Lasix initiated on 05/26. IV fluids have been given with patient given a 1 L IV bolus of lactated Ringer's secondary to her sepsis and mildly decreased blood pressures on 05/25. Otherwise continued IV normal saline at 100 mls per hour with this discontinued on 05/26. (6) Weakness SNOMED Code(s): 04771443 Code(s): R53.1 - WEAKNESS Status: Acute Priority: High Current Visit: Yes Annotation/Comment:: Severe generalized weakness secondary to her current infection with additional morbid obesity. PT and OT have been ordered. (7) CHF (congestive heart failure) SNOMED Code(s): 83658607 Code(s): I50.9 - HEART FAILURE, UNSPECIFIED Status: Chronic Priority: Medium Current Visit: Yes Qualifiers: Heart failure type: unspecified Heart failure chronicity: chronic Qualified Code(s): I50.9 - Heart failure, unspecified Annotation/Comment:: No chest pain or anginal type symptoms. Increasing CHF secondary to fluid overload as above. History of previous mild CHF with only mild change in her troponin I, which is still normal. EKG to be conducted in the a.m. Note previous moderate to severe cardiomegaly by previous x-rays in this facility. Consider echocardiogram on an outpatient basis. (8) COPD (chronic obstructive pulmonary disease) SNOMED Code(s): 30797735 Code(s): J44.9 - CHRONIC OBSTRUCTIVE PULMONARY DISEASE, UNSPECIFIED Status: Chronic Priority: Medium Current Visit: Yes Qualifiers: COPD type: emphysema Emphysema type: panlobular Qualified Code(s): J43.1 - Panlobular emphysema Annotation/Comment:: COPD by chest x-ray with no current therapy. No recent history of bronchitic type symptoms. Initiated incentive spirometry on 05/25. No direct indication of pneumonia with chest x-ray results as above, however note triple antibiotic therapy at this time. (9) DVT (deep venous thrombosis) SNOMED Code(s): 650348009 Code(s): I82.409 - ACUTE EMBOLISM AND THOMBOS UNSP DEEP VN UNSP LOWER EXTREMITY Status: Chronic Priority: Medium Current Visit: Yes Qualifiers: DVT location: lower extremity Affected thrombotic vein of extremity: unspecified vein of extremity Chronicity: unspecified Laterality: unspecified laterality Qualified Code(s): I82.409 - Acute embolism and thrombosis of unspecified deep veins of unspecified lower extremity Annotation/Comment:: INR still subtherapeutic on 05/26. Additional dose of subcutaneous Lovenox with additional dose of oral Coumadin as a load on 05/26. Patient has been noncompliant with her Coumadin for the last 3-4 days secondary to current illness with previous history of medication noncompliance in the past. No clinical evidence of DVT or PE. High-dose Lovenox was initiated as a bridge starting on 05/25 with additional loading dose of her Coumadin on that day. (10) Hypomagnesemia SNOMED Code(s): 460305404 Code(s): E83.42 - HYPOMAGNESEMIA Status: Chronic Priority: Medium Current Visit: Yes Annotation/Comment:: Note history of medication noncomplia nce as above. Magnesium level significantly decreased on 05/26, which may be a partial etiology for her new atrial fibrillation. IV magnesium sulfate given on 05/26 with additional increase of her magnesium sulfate to 400 mg p.o. twice daily on that day. (11) Osteoarthritis SNOMED Code(s): 686621975 Code(s): M19.90 - UNSPECIFIED OSTEOARTHRITIS, UNSPECIFIED SITE Status: Chronic Priority: Medium Current Visit: Yes Qualifiers: Osteoarthritis location: multiple joints Osteoarthritis type: primary Qualified Code(s): M89.49 - Other hypertrophic osteoarthropathy, multiple sites Annotation/Comment:: Mild persistent nonspecific generalized arthralgias secondary to her fever. Her arthritis is otherwise stable by history with nonspecific neck pain without meningeal signs on 05/25. Known hyperuricemia but no known gout attacks in the past. Note previous history of chronic narcotic use and pain clinic management. She does use a cane at home, however is immobile at this time secondary to her obesity and current illness. PT and OT have been ordered. (12) Mixed anxiety depressive disorder SNOMED Code(s): 417557225 Code(s): F41.8 - OTHER SPECIFIED ANXIETY DISORDERS Status: Chronic Priority: Medium Current Visit: Yes Annotation/Comment:: Mild to moderately poor control based on clinical exam during this hospitalization. Per history from the paramedics extremely poor living conditions, including feces on the beavers, etc. Note that she does have increased stressors secondary to taking care of her at home, who is on a respirator. Note previous chronic narcotic and Ultram use/addiction as above. Care management consultation has been ordered. environmental services technician consultation based on their evaluation. (13) Hypoalbuminemia SNOMED Code(s): 202316339 Code(s): E88.09 - OTH DISORDERS OF PLASMA-PROTEIN METABOLISM, NEC Status: Acute Priority: Medium Current Visit: Yes Onset Date: 05/24/20 Annotation/Comment:: Observe for now. Note current obesity. (14) Renal insufficiency SNOMED Code(s): 019491157, 122450415 Code(s): N28.9 - DISORDER OF KIDNEY AND URETER, UNSPECIFIED Status: Chronic Priority: Medium Current Visit: Yes Annotation/Comment:: Known diabetic nephropathy. Renal function relatively stable during hospitalization. IV Lasix initiated on 05/26 with caution. (15) Diabetes mellitus SNOMED Code(s): 04662978 Code(s): E11.9 - TYPE 2 DIABETES MELLITUS WITHOUT COMPLICATIONS Status: Acute Current Visit: Yes Qualifiers: Diabetes mellitus type: type 2 Diabetes mellitus supervisor intermediates insulin use: without supervisor intermediates use Diabetes mellitus complication status: with kidney complications Diabetes mellitus complication detail: with chronic kidney disease Chronic kidney disease stage: stage 3 (moderate) Chronic kidney disease stage 3 subtype: stage 3a (GFR 45-59) Qualified Code(s): E11.22 - Type 2 diabetes mellitus with diabetic chronic kidney disease; N18.31 - Chronic kidney disease, stage 3a Annotation/Comment:: Glycosylated hemoglobin on 05/26. Humalog subcu sliding scale secondary to current sepsis. (16) Atrial fibrillation SNOMED Code(s): 55492681 Code(s): I48.91 - UNSPECIFIED ATRIAL FIBRILLATION Status: Acute Priority: High Current Visit: Yes Qualifiers: Atrial fibrillation type: paroxysmal Qualified Code(s): I48.0 - Paroxysmal atrial fibrillation Annotation/Comment:: As above. Note current Lovenox and Coumadin therapy. - Problem List Review Problem List Initiated/Reviewed/Updated: Yes - My Orders Last 24 Hours: My Active Orders 05/25/20 11:30 Blood Glucose Check, Bedside [RC] QIDACANDBED Insulin Lispro [HumaLOG] See Protocol SUBCUT QIDACANDBED 05/25/20 18:00 Ciprofloxacin in D5W [Cipro in D5W 200 MG/100 ML] 200 mg Premix Bag 1 bag IV Q12H 05/25/20 22:00 cefTRIAXone [Rocephin] 1 gm Sodium Chloride 0.9% [Normal Saline] 100 ml IV Q12H 05/26/20 05:11 Chest 1V Frontal [CR] Routine 05/26/20 10:46 Admission Status [Patient Status] [ADT] Routine 05/26/20 10:50 Magnesium Sulfate/Water [Magnesium Sulfate in Water 4 GM/100 ML] 100 ml IV ONETIME 05/26/20 11:00 Furosemide [Lasix] 40 mg IVPUSH Q8H 05/26/20 11:09 Enoxaparin [Lovenox] 100 mg SUBCUT ONETIME ONE Warfarin [Coumadin] 2.5 mg PO ONETIME ONE 05/26/20 12:00 Potassium Chloride [Klor-Con M20] 20 meq PO TID Vancomycin 2 gm Sodium Chloride 0.9% [Normal Saline] 500 ml IV Q24H 05/26/20 17:30 Ferrous Sulfate 325 mg PO BIDMEALS 05/26/20 18:00 Magnesium Oxide 400 mg PO BID 05/27/20 05:11 EKG Documentation Completion [RC] ASDIRECTED BASIC METABOLIC PANEL,BMP [CHEM] Routine CBC WITH AUTO DIFF [HEME] Routine INR,PT,PROTHROMBIN TIME [COAG] Routine MAGNESIUM [CHEM] Routine PRO B-TYPE NATRIUR PEPT,BNPPRO [CHEM] Routine TROPONIN I [CHEM] Routine EKG 12 Lead [EK] Routine 05/28/20 10:30 VANCOMYCIN TROUGH [CHEM] Routine - Assessment Assessment:: As above - Plan Plan:: As above. Extensive precautions were given to the patient, who is in agreement with the treatment plan. The patient will require about 3-4 days of inpatient/acute care secondary to multiple health problems as above. Extended hospitalization will likely be required secondary to her newly diagnosed probable urosepsis.
[2020-05-26] MEDS: Furosemide 40 MG/4 ML VIAL IVPUSH SCH ×2 (11:50→20:00)
[2020-05-26] MEDS: Sodium Chloride 0.9% 10 ML Syringe FLUSH PRN ×5 (11:52→21:32)
[2020-05-26] MEDS ORDERED: Enoxaparin 100 MG/1 ML Syringe SUBCUT ONE (12:00)
[2020-05-26] MEDS ORDERED: Vancomycin 2 GM in Sodium Chloride 0.9% 500 ML IV SCH (12:00)
[2020-05-26] MEDS ORDERED: DEXTROSE 5% IV SCH ×2 (12:00)
[2020-05-26] MEDS ORDERED: Warfarin 2.5 MG Tab PO ONE (12:00)
[2020-05-26] MEDS ORDERED: WATER IV SCH ×2 (12:00)
[2020-05-26] MEDS ORDERED: VANCOMYCIN IV SCH ×2 (12:00)
[2020-05-26] MEDS: Montelukast 10 MG Tab PO SCH (19:59)
[2020-05-26] MEDS: DULoxetine 30 MG Cap PO SCH (19:59)
[2020-05-26] MEDS: atorvaSTATin 10 MG Tab PO SCH (19:59)
[2020-05-26] MEDS: Warfarin 2.5 MG Tab PO SCH (20:04)
[2020-05-27] MEDS: Acetaminophen 325 MG Tab PO PRN (03:15)
[2020-05-27] MEDS: Furosemide 40 MG/4 ML VIAL IVPUSH SCH ×3 (03:17→19:38)
[2020-05-27] MEDS: Sodium Chloride 0.9% 10 ML Syringe FLUSH PRN ×4 (03:17→14:53)
[2020-05-27] MEDS: Ciprofloxacin in D5W 200 MG in Premix Bag 1 BAG IV SCH ×2 (05:25)
[2020-05-27] MEDS: Beta-Carotene (Vitamin A) w/Vitamin C & E plus Minerals Tab PO SCH (07:46)
[2020-05-27] MEDS: Magnesium Oxide 400 MG Tab PO SCH ×2 (07:46→17:31)
[2020-05-27] MEDS: Cholecalciferol (Vitamin D3) 25 MCG Tab PO SCH (07:47)
[2020-05-27] MEDS: metFORMIN 500 MG Tab PO SCH (07:47)
[2020-05-27] MEDS: Ferrous Sulfate 325 MG Tab PO SCH ×2 (07:48→17:31)
[2020-05-27] MEDS: Potassium Chloride 20 MEQ Tab.ER PO SCH ×3 (07:48→17:31)
[2020-05-27] MEDS: Metoprolol Succinate 25 MG Tab.ER PO SCH (07:48)
[2020-05-27] MEDS: Insulin Lispro 100 Units/ML 3 ML Vial SUBCUT SCH ×4 (07:55→21:17)
--- NOTE | 2020-05-27 09:18 | PCM.PN ---
- General Info Date of Service: 05/27/20 Admission Dx/Problem (Free Text): 1. Complicated UTI 2. Generalized weakness Functional Status: Reports: Pain Controlled, Tolerating Diet, Ambulating (Re quires assist x2 secondary to obesity and generalized weakness), Urinating, Incentive Spirometry. Denies: New Symptoms Pain Score: 0 - Review of Systems General: Reports: Fever (Maximum temperature of 39.6 degrees at 3:15 AM this morning with follow-up temperature of 37.2 early this morning), Weakness (Moderate to severe generalized). Denies: Fatigue, Malaise, Chills, Night Sweats, Appetite (Good) HEENT: Reports: Glasses. Denies: Dysphasia, Ear Pain, Eye Pain, Headaches, Post Nasal Drip, Sinus Congestion, Sore Throat, Rhinitis, Visual Changes Pulmonary: Reports: Cough. Denies: Shortness of Breath, Pleuritic Chest Pain, Sputum, Hemoptysis, Wheezing, Other Cardiovascular: Reports: No Symptoms. Denies: Chest Pain, Palpitations, Dyspnea on Exertion, Orthopnea, Edema, Lightheadedness Gastrointestinal: Denies: Abdominal Pain, Constipation, Decreased Appetite, Diarrhea (Normal bowel movement yesterday evening with no diarrhea despite aggressive IV antibiotic therapy), Difficulty Swallowing, Flatus, Hematochezia, Melena, Nausea, Vomiting Genitourinary: Reports: Incontinence, Other (Thomas catheter). Denies: Dysuria, Frequency, Burning, Pain, Hematuria, Retention, Flank Pain Musculoskeletal: Reports: No Symptoms. Denies: Neck Pain, Shoulder Pain, Arm Pain, Back Pain, Leg Pain Skin: Denies: Diaphoresis, Pruritis, Rash Neurological: Reports: Difficulty Walking (Secondary to weakness), Weakness (As above). Denies: Confusion Psychiatric: Reports: No Symptoms. Denies: Confusion, Depression, Anxiety, Agitation, Cravings, Hallucinations - Patient Data Vitals - Most Recent: Last Vital Signs Temp 37.2 C 05/27/20 08:00 Pulse 81 05/27/20 08:00 Resp 18 05/27/20 08:00 BP 103/58 L 05/27/20 08:00 Pulse Ox 79 L 05/27/20 08:00 Vital Signs - 24 hr 05/26/20 05/26/20 05/26/20 12:00 16:00 20:00 Temperature [ 37.1 C 36.4 C 37.1 C Oral] Temperature [ Temporal] Pulse, Peripheral Pulse, 78 84 88 Peripheral [ Right Pulse Oximetry] Respiratory 18 17 Rate Blood Pressure Blood Pressure 106/54 L 108/68 123/63 [Right Lower Arm] O2 Sat by Pulse 93 L 88 L Oximetry 05/26/20 05/27/20 05/27/20 23:55 03:15 03:28 Temperature [ 39.6 C H Oral] Temperature [ 36.9 C Temporal] Pulse, Peripheral Pulse, 94 98 Peripheral [ Right Pulse Oximetry] Respiratory 18 22 H Rate Blood Pressure Blood Pressure 144/71 H 141/74 H [Right Lower Arm] O2 Sat by Pulse 95 96 Oximetry 05/27/20 05/27/20 05/27/20 04:57 07:48 08:00 Temperature [ 38.3 C H 37.2 C Oral] Temperature [ Temporal] Pulse, 81 Peripheral Pulse, 107 H 81 Peripheral [ Right Pulse Oximetry] Respiratory 18 Rate Blood Pressure 103/58 L Blood Pressure 103/58 L [Right Lower Arm] O2 Sat by Pulse 79 L Oximetry Note that O2 sat at 8 AM of 79% on room air, which was taken by the MEDIATION COMMISSIONER, was incorrect with follow-up O2 sat of 95% by the nurse Weight - Most Recent: 151.8 kg I&O - Last 24 Hours: Intake & Output 05/26/20 05/27/20 05/27/20 22:59 06:59 14:59 Intake Total 1880 600 Output Total 2400 3500 Balance -520 -2900 Imaging Impressions - Last 24 Hours: lunchroom monitor shows normal sinus rhythm in the 80s with no ectopy or arrhythmia. Chest x-ray, portable, shows somewhat poor inspiration with moderate to severe cardiomegaly with somewhat increased CHF in comparison to 05/26/2020. No pneumothorax. Mild left lower lobe atelectasis versus pleural effusion with pulmonary infiltrates difficult to assess secondary to her CHF. Lab Results Last 24 Hours: Laboratory Results - last 24 hr 05/26/20 05/26/20 05/26/20 Range/Units 09:45 09:45 09:45 WBC 7.9 (4.0-10.2) K/uL RBC 3.25 L (3.77-5.09) M/uL Hgb 10.0 L (11.7-15.5) g/dL Hct 31.2 L (34.0-46.0) % MCV 96.0 (84.0-98.0) fL MCH 30.8 (28.2-33.3) pg MCHC 32.1 (31.7-36.0) g/dL RDW 14.9 H (11.2-14.1) % Plt Count 147 L (150-350) K/uL Neut % (Auto) 64.9 (45.0-80.0) % Lymph % (Auto) 21.2 (10.0-50.0) % [place] % (Auto) 12.4 (2.0-14.0) % Eos % (Auto) 0.9 (0.0-5.0) % Baso % (Auto) 0.6 (0.0-2.0) % Neut # (Auto) 5.13 (1.40-7.00) K/uL Lymph # (Auto) 1.68 (0.50-3.50) K/uL [place] # (Auto) 0.98 (0.00-1.00) K/uL Eos # (Auto) 0.07 (0.00-0.50) K/uL Baso # (Auto) 0.05 (0.00-0.20) K/uL PT 14.5 H (9.5-12.0) SEC INR 1.5 APTT 36.7 H (24.5-32.8) SEC Sodium 133 L (136-145) mmol/L Potassium 3.6 (3.5-5.1) mmol/L Chloride 99 (98-107) mmol/L Carbon Dioxide 22.5 (21.0-32.0) mmol/L BUN 20 H (7-18) mg/dL Creatinine 1.46 H (0.51-1.17) mg/dL Est Cr Clr Drug Dosing 36.87 mL/min Estimated GFR (MDRD) 37 mL/min Glucose 148 H (70-99) mg/dL POC Glucose (65-110) mg/dl Hemoglobin A1c (4.3-5.7) % Lactic Acid (0.4-2.0) mmol/L Uric Acid 7.0 (2.6-7.2) mg/dL Calcium 9.2 (8.5-10.1) mg/dL Magnesium 1.5 L (1.8-2.4) mg/dL Iron (50-175) ug/dL TIBC (250-450) ug/dL % Saturation Ferritin (8-388) ng/mL Total Bilirubin 1.1 H (0.2-1.0) mg/dL Direct Bilirubin 0.4 H (0.0-0.2) mg/dL Indirect Bilirubin 0.7 AST 61 H (15-37) U/L ALT 43 (12-78) U/L Alkaline Phosphatase 75 (46-116) IU/L Troponin I 0.033 (0.000-0.056) ng/mL NT-Pro-B Natriuret Pep 5471 H (0-125) pg/mL Total Protein 6.3 L (6.4-8.2) g/dL Albumin 2.3 L (3.4-5.0) g/dL Vitamin B12 1754 H (193-986) pg/mL Vancomycin Trough 10.9 (10-20) ug/mL 05/26/20 05/26/20 05/26/20 Range/Units 09:45 09:45 09:45 WBC (4.0-10.2) K/uL RBC (3.77-5.09) M/uL Hgb (11.7-15.5) g/dL Hct (34.0-46.0) % MCV (84.0-98.0) fL MCH (28.2-33.3) pg MCHC (31.7-36.0) g/dL RDW (11.2-14.1) % Plt Count (150-350) K/uL Neut % (Auto) (45.0-80.0) % Lymph % (Auto) (10.0-50.0) % [place] % (Auto) (2.0-14.0) % Eos % (Auto) (0.0-5.0) % Baso % (Auto) (0.0-2.0) % Neut # (Auto) (1.40-7.00) K/uL Lymph # (Auto) (0.50-3.50) K/uL [place] # (Auto) (0.00-1.00) K/uL Eos # (Auto) (0.00-0.50) K/uL Baso # (Auto) (0.00-0.20) K/uL PT (9.5-12.0) SEC INR APTT (24.5-32.8) SEC Sodium (136-145) mmol/L Potassium (3.5-5.1) mmol/L Chloride (98-107) mmol/L Carbon Dioxide (21.0-32.0) mmol/L BUN (7-18) mg/dL Creatinine (0.51-1.17) mg/dL Est Cr Clr Drug Dosing mL/min Estimated GFR (MDRD) mL/min Glucose (70-99) mg/dL POC Glucose (65-110) mg/dl Hemoglobin A1c 6.2 H (4.3-5.7) % Lactic Acid 1.1 (0.4-2.0) mmol/L Uric Acid (2.6-7.2) mg/dL Calcium (8.5-10.1) mg/dL Magnesium (1.8-2.4) mg/dL Iron 12 L (50-175) ug/dL TIBC 185 L (250-450) ug/dL % Saturation [id number] Ferritin 279 (8-388) ng/mL Total Bilirubin (0.2-1.0) mg/dL Direct Bilirubin (0.0-0.2) mg/dL Indirect Bilirubin AST (15-37) U/L ALT (12-78) U/L Alkaline Phosphatase (46-116) IU/L Troponin I (0.000-0.056) ng/mL NT-Pro-B Natriuret Pep (0-125) pg/mL Total Protein (6.4-8.2) g/dL Albumin (3.4-5.0) g/dL Vitamin B12 (193-986) pg/mL Vancomycin Trough (10-20) ug/mL 05/26/20 05/26/20 05/26/20 Range/Units 11:40 16:53 19:56 WBC (4.0-10.2) K/uL RBC (3.77-5.09) M/uL Hgb (11.7-15.5) g/dL Hct (34.0-46.0) % MCV (84.0-98.0) fL MCH (28.2-33.3) pg MCHC (31.7-36.0) g/dL RDW (11.2-14.1) % Plt Count (150-350) K/uL Neut % (Auto) (45.0-80.0) % Lymph % (Auto) (10.0-50.0) % [place] % (Auto) (2.0-14.0) % Eos % (Auto) (0.0-5.0) % Baso % (Auto) (0.0-2.0) % Neut # (Auto) (1.40-7.00) K/uL Lymph # (Auto) (0.50-3.50) K/uL [place] # (Auto) (0.00-1.00) K/uL Eos # (Auto) (0.00-0.50) K/uL Baso # (Auto) (0.00-0.20) K/uL PT (9.5-12.0) SEC INR APTT (24.5-32.8) SEC Sodium (136-145) mmol/L Potassium (3.5-5.1) mmol/L Chloride (98-107) mmol/L Carbon Dioxide (21.0-32.0) mmol/L BUN (7-18) mg/dL Creatinine (0.51-1.17) mg/dL Est Cr Clr Drug Dosing mL/min Estimated GFR (MDRD) mL/min Glucose (70-99) mg/dL POC Glucose 129 H 87 113 H (65-110) mg/dl Hemoglobin A1c (4.3-5.7) % Lactic Acid (0.4-2.0) mmol/L Uric Acid (2.6-7.2) mg/dL Calcium (8.5-10.1) mg/dL Magnesium (1.8-2.4) mg/dL Iron (50-175) ug/dL TIBC (250-450) ug/dL % Saturation Ferritin (8-388) ng/mL Total Bilirubin (0.2-1.0) mg/dL Direct Bilirubin (0.0-0.2) mg/dL Indirect Bilirubin AST (15-37) U/L ALT (12-78) U/L Alkaline Phosphatase (46-116) IU/L Troponin I (0.000-0.056) ng/mL NT-Pro-B Natriuret Pep (0-125) pg/mL Total Protein (6.4-8.2) g/dL Albumin (3.4-5.0) g/dL Vitamin B12 (193-986) pg/mL Vancomycin Trough (10-20) ug/mL 05/27/20 05/27/20 05/27/20 Range/Units 07:14 07:14 07:14 WBC 9.7 (4.0-10.2) K/uL RBC 3.22 L (3.77-5.09) M/uL Hgb 9.9 L (11.7-15.5) g/dL Hct 30.5 L (34.0-46.0) % MCV 94.7 (84.0-98.0) fL MCH 30.7 (28.2-33.3) pg MCHC 32.5 (31.7-36.0) g/dL RDW 14.7 H (11.2-14.1) % Plt Count 179 (150-350) K/uL Neut % (Auto) 73.2 (45.0-80.0) % Lymph % (Auto) 15.8 (10.0-50.0) % [place] % (Auto) 10.3 (2.0-14.0) % Eos % (Auto) 0.5 (0.0-5.0) % Baso % (Auto) 0.2 (0.0-2.0) % Neut # (Auto) 7.11 H (1.40-7.00) K/uL Lymph # (Auto) 1.53 (0.50-3.50) K/uL [place] # (Auto) 1.00 (0.00-1.00) K/uL Eos # (Auto) 0.05 (0.00-0.50) K/uL Baso # (Auto) 0.02 (0.00-0.20) K/uL PT 20.0 H D (9.5-12.0) SEC INR 2.0 APTT (24.5-32.8) SEC Sodium 135 L (136-145) mmol/L Potassium 3.6 (3.5-5.1) mmol/L Chloride 97 L (98-107) mmol/L Carbon Dioxide 30.6 (21.0-32.0) mmol/L BUN 18 (7-18) mg/dL Creatinine 1.49 H (0.51-1.17) mg/dL Est Cr Clr Drug Dosing 36.13 mL/min Estimated GFR (MDRD) 36 mL/min Glucose 151 H (70-99) mg/dL POC Glucose (65-110) mg/dl Hemoglobin A1c (4.3-5.7) % Lactic Acid (0.4-2.0) mmol/L Uric Acid (2.6-7.2) mg/dL Calcium 9.1 (8.5-10.1) mg/dL Magnesium 1.9 (1.8-2.4) mg/dL Iron (50-175) ug/dL TIBC (250-450) ug/dL % Saturation Ferritin (8-388) ng/mL Total Bilirubin (0.2-1.0) mg/dL Direct Bilirubin (0.0-0.2) mg/dL Indirect Bilirubin AST (15-37) U/L ALT (12-78) U/L Alkaline Phosphatase (46-116) IU/L Troponin I 0.014 (0.000-0.056) ng/mL NT-Pro-B Natriuret Pep 9187 H (0-125) pg/mL Total Protein (6.4-8.2) g/dL Albumin (3.4-5.0) g/dL Vitamin B12 (193-986) pg/mL Vancomycin Trough (10-20) ug/mL 05/27/20 Range/Units 07:17 WBC (4.0-10.2) K/uL RBC (3.77-5.09) M/uL Hgb (11.7-15.5) g/dL Hct (34.0-46.0) % MCV (84.0-98.0) fL MCH (28.2-33.3) pg MCHC (31.7-36.0) g/dL RDW (11.2-14.1) % Plt Count (150-350) K/uL Neut % (Auto) (45.0-80.0) % Lymph % (Auto) (10.0-50.0) % [place] % (Auto) (2.0-14.0) % Eos % (Auto) (0.0-5.0) % Baso % (Auto) (0.0-2.0) % Neut # (Auto) (1.40-7.00) K/uL Lymph # (Auto) (0.50-3.50) K/uL [place] # (Auto) (0.00-1.00) K/uL Eos # (Auto) (0.00-0.50) K/uL Baso # (Auto) (0.00-0.20) K/uL PT (9.5-12.0) SEC INR APTT (24.5-32.8) SEC Sodium (136-145) mmol/L Potassium (3.5-5.1) mmol/L Chloride (98-107) mmol/L Carbon Dioxide (21.0-32.0) mmol/L BUN (7-18) mg/dL Creatinine (0.51-1.17) mg/dL Est Cr Clr Drug Dosing mL/min Estimated GFR (MDRD) mL/min Glucose (70-99) mg/dL POC Glucose 138 H (65-110) mg/dl Hemoglobin A1c (4.3-5.7) % Lactic Acid (0.4-2.0) mmol/L Uric Acid (2.6-7.2) mg/dL Calcium (8.5-10.1) mg/dL Magnesium (1.8-2.4) mg/dL Iron (50-175) ug/dL TIBC (250-450) ug/dL % Saturation Ferritin (8-388) ng/mL Total Bilirubin (0.2-1.0) mg/dL Direct Bilirubin (0.0-0.2) mg/dL Indirect Bilirubin AST (15-37) U/L ALT (12-78) U/L Alkaline Phosphatase (46-116) IU/L Troponin I (0.000-0.056) ng/mL NT-Pro-B Natriuret Pep (0-125) pg/mL Total Protein (6.4-8.2) g/dL Albumin (3.4-5.0) g/dL Vitamin B12 (193-986) pg/mL Vancomycin Trough (10-20) ug/mL [facility] Results Last 24 Hours: Microbiology 05/24/20 17:51 Aerobic Blood Culture - Preliminary Blood - Venous NO GROWTH AFTER 2 DAYS Anaerobic Blood Culture - Preliminary NO GROWTH AFTER 2 DAYS 05/24/20 12:59 Urine Culture - Final Urine, Catheterized Escherichia Coli 05/26/20 04:00 Stool Occult Blood (INOCENTE) - Final Stool / Feces NEGATIVE OCCULT BLOOD REFERENCE RANGE: NEGATIVE Verbal report of blood cultures x2 now confirm E. coli sensitive to both Rocephin and Cipro Med Orders - Current: Current Medications Acetaminophen (Acetaminophen 325 Mg Tab) 650 mg PO Q4H PRN PRN Reason: Pain (Mild 1-3)/fever Last Admin: 05/27/20 03:15 Dose: 650 mg Documented by: Atorvastatin Calcium (Atorvastatin 10 Mg Tab) 20 mg PO BEDTIME [facility] Last Admin: 05/26/20 19:59 Dose: 20 mg Documented by: Cholecalciferol (Cholecalciferol (Vitamin D3) 25 Mcg Tab) 50 mcg PO DAILY [facility] Last Admin: 05/27/20 07:47 Dose: 50 mcg Documented by: Cyclobenzaprine HCl (Cyclobenzaprine 10 Mg Tab) 5 mg PO TID PRN PRN Reason: Spasms Last Admin: 05/24/20 22:42 Dose: 5 mg Documented by: Dextrose/Water (50% Dextrose In Water 50 Ml Syringe) 50 ml IV ASDIRECTED PRN PRN Reason: Hypoglycemia Duloxetine HCl (Duloxetine 30 Mg Cap) 30 mg PO BEDTIME [facility] Last Admin: 05/26/20 19:59 Dose: 30 mg Documented by: Famotidine (Famotidine 20 Mg/2 Ml Sdv) 20 mg IVPUSH Q12H [facility] Last Admin: 05/26/20 21:31 Dose: 20 mg Documented by: Ferrous Sulfate (Ferrous Sulfate 325 Mg Tab) 325 mg PO BIDMEALS [facility] Last Admin: 05/27/20 07:48 Dose: 325 mg Documented by: Furosemide (Furosemide 40 Mg/4 Ml Vial) 40 mg IVPUSH Q8H [facility] Last Admin: 05/27/20 03:17 Dose: 40 mg Documented by: Glucagon (Glucagon,Human Recombinant 1 Mg Vial) 1 mg IM ASDIRECTED PRN PRN Reason: Hypoglycemia Ceftriaxone Sodium 1 gm/ (Sodium Chloride) 100 mls @ 200 mls/hr IV Q12H [facility] Last Admin: 05/26/20 21:31 Dose: 200 mls/hr Documented by: Ciprofloxacin/Dextrose 200 mg/ (Premix) 100 mls @ 100 mls/hr IV Q12H [facility] Last Admin: 05/27/20 05:25 Dose: 100 mls/hr Documented by: Vancomycin HCl 2 gm/ Sodium (Chloride) 500 mls @ 200 mls/hr IV Q24H [facility] Last Admin: 05/26/20 11:48 Dose: 200 mls/hr Documented by: Insulin Human Lispro (Insulin Lispro 100 Units/Ml 3 Ml Vial) 0 unit SUBCUT QIDACANDBED [facility]; Protocol Last Admin: 05/27/20 07:55 Dose: Not Given Documented by: Magnesium Oxide (Magnesium Oxide 400 Mg Tab) 400 mg PO BID [facility] Last Admin: 05/27/20 07:46 Dose: 400 mg Documented by: Metformin HCl (Metformin 500 Mg Tab) 500 mg PO DAILY [facility] Last Admin: 05/27/20 07:47 Dose: 500 mg Documented by: Metoprolol Succinate (Metoprolol Succinate 25 Mg Tab.Er) 25 mg PO DAILY [facility] Last Admin: 05/27/20 07:48 Dose: 25 mg Documented by: Montelukast Sodium (Montelukast 10 Mg Tab) 10 mg PO BEDTIME [facility] Last Admin: 05/26/20 19:59 Dose: 10 mg Documented by: Multivitamins/Minerals (Beta-Carotene (Vitamin A) W/Vitamin C & E Plus Minerals Tab) 1 tab PO DAILY [facility] Last Admin: 05/27/20 07:46 Dose: 1 tab Documented by: Ondansetron HCl (Ondansetron 4 Mg Tab.Dis) 4 mg PO Q4H PRN PRN Reason: Nausea/Vomiting Last Admin: 05/25/20 11:01 Dose: 4 mg Documented by: Pantoprazole Sodium (Pantoprazole 40 Mg Vial) 40 mg IVPUSH Q12H [facility] Last Admin: 05/26/20 21:31 Dose: 40 mg Documented by: Potassium Chloride (Potassium Chloride 20 Meq Tab.Er) 20 meq PO TID [facility] Last Admin: 05/27/20 07:48 Dose: 20 meq Documented by: Sodium Chloride (Sodium Chloride 0.9% 10 Ml Syringe) 10 ml FLUSH ASDIRECTED PRN PRN Reason: Keep Vein Open Last Admin: 05/27/20 03:17 Dose: 10 ml Documented by: Temazepam (Temazepam 15 Mg Cap) 15 mg PO BEDTIME PRN PRN Reason: Insomnia Last Admin: 05/26/20 00:20 Dose: 15 mg Documented by: Warfarin Sodium (Warfarin 2.5 Mg Tab) 2.5 mg PO SUTUWETHFRSA@1999 [facility] Last Admin: 05/26/20 20:04 Dose: 2.5 mg Documented by: Warfarin Sodium (Warfarin 5 Mg Tab) 5 mg PO MO@1999 [facility] Last Admin: 05/25/20 20:02 Dose: 5 mg Documented by: Discontinued Medications Enoxaparin Sodium (Enoxaparin 100 Mg/1 Ml Syringe) 100 mg SUBCUT ONETIME ONE Stop: 05/25/20 08:49 Last Admin: 05/25/20 10:01 Dose: 100 mg Documented by: Enoxaparin Sodium (Enoxaparin 100 Mg/1 Ml Syringe) 100 mg SUBCUT ONETIME ONE Stop: 05/26/20 12:01 Last Admin: 05/26/20 11:48 Dose: 100 mg Documented by: Ferrous Sulfate (Ferrous Sulfate 325 Mg Tab) 325 mg PO DAILY [facility] Last Admin: 05/26/20 08:21 Dose: 325 mg Documented by: Furosemide (Furosemide 40 Mg Tab) 40 mg PO DAILY [facility] Last Admin: 05/26/20 08:21 Dose: 40 mg Documented by: Ceftriaxone Sodium 1 gm/ (Sodium Chloride) 100 mls @ 200 mls/hr IV ONETIME ONE Stop: 05/24/20 13:35 Last Admin: 05/24/20 13:25 Dose: 200 mls/hr Documented by: Sodium Chloride (Normal Saline) 1,000 mls @ 100 mls/hr IV ASDIRECTED [facility] Last Admin: 05/26/20 03:13 Dose: 100 mls/hr Documented by: Ceftriaxone Sodium 1 gm/ (Sodium Chloride) 100 mls @ 200 mls/hr IV Q24H [facility] Last Admin: 05/25/20 10:01 Dose: Not Given Documented by: Ciprofloxacin/Dextrose 400 mg/ (Premix) 200 mls @ 200 mls/hr IV Q12HR [facility] Ciprofloxacin/Dextrose 400 mg/ (Premix) 200 mls @ 200 mls/hr IV BID@06,18 [facility] Last Admin: 05/25/20 05:23 Dose: 200 mls/hr Documented by: Lactated Ringer's (Ringers, Lactated) 1,000 mls @ 999 mls/hr IV .BOLUS ONE Stop: 05/25/20 09:39 Last Admin: 05/25/20 09:54 Dose: 999 mls/hr Documented by: Ceftriaxone Sodium 2 gm/ (Sodium Chloride) 100 mls @ 200 mls/hr IV ONETIME ONE Stop: 05/25/20 09:13 Last Admin: 05/25/20 09:55 Dose: 200 mls/hr Documented by: Vancomycin HCl 2 gm/ Sodium (Chloride) 500 mls @ 200 mls/hr IV ONETIME ONE Stop: 05/25/20 14:29 Last Admin: 05/25/20 12:31 Dose: 200 mls/hr Documented by: Magnesium Sulfate (Magnesium Sulfate In Water 4 Gm/100 Ml) 4 gm in 100 mls @ 25 mls/hr IV ONETIME ONE Stop: 05/26/20 14:49 Last Admin: 05/26/20 11:45 Dose: 25 mls/hr Documented by: Vancomycin HCl 2 gm/ Dextrose/ (Water) 500 mls @ 200 mls/hr IV Q24H [facility] Ketorolac Tromethamine (Ketorolac 30 Mg/Ml Sdv) 30 mg IVPUSH ONETIME ONE Stop: 05/25/20 13:01 Last Admin: 05/25/20 14:16 Dose: 30 mg Documented by: Magnesium Oxide (Magnesium Oxide 400 Mg Tab) 400 mg PO DAILY [facility] Last Admin: 05/26/20 08:20 Dose: 400 mg Documented by: Non-Formulary Medication (Biotin [Biotin]) 10,000 mcg PO DAILY [facility] Potassium Chloride (Potassium Chloride 20 Meq Tab.Er) 20 meq PO DAILY [facility] Last Admin: 05/26/20 08:20 Dose: 20 meq Documented by: Warfarin Sodium (Warfarin 2.5 Mg Tab) 2.5 mg PO ONETIME ONE Stop: 05/25/20 09:23 Last Admin: 05/25/20 10:03 Dose: 2.5 mg Documented by: Warfarin Sodium (Warfarin 2.5 Mg Tab) 2.5 mg PO ONETIME ONE Stop: 05/26/20 12:01 Last Admin: 05/26/20 11:49 Dose: 2.5 mg Documented by: - Exam Quality Assessment: Supplemental Oxygen (CPAP at bedtime and naps), Urine Catheter, DVT Prophylaxis (Lovenox Coumadin). No: Central Line/PICC, Skin Breakdown, Restraints General: Alert, Oriented, Cooperative, No Acute Distress HEENT: Pupils Equal, Pupils Reactive, EOMI, Mucous Membr. Moist/Cisco, Other (Patient is wearing glasses. Complete absent dentition with no dentures). No: Scleral Icterus Neck: Supple, Trachea Midline, No JVD, No Thyromegaly. No: Lymphadenopathy Lungs: Normal Respiratory Effort, Rales (Mild bilateral basilar). No: Rhonchi, Rub, Stridor, Wheezing Cardiovascular: Regular Rate, Regular Rhythm, No Murmurs, Other (No extrasystoles during exam). No: Gallops, Rubs GI/Abdominal Exam: Normal Bowel Sounds, Soft, Non-Tender, No Organomegaly, No Distention, No Abnormal Bruit, No Mass, Other (Morbid obesity). No: Guarding (Female) Exam: Deferred Back Exam: Full Range of Motion, Other (Mild kyphoscoliosis). No: CVA Tenderness (L), CVA Tenderness (R), Decreased Range of Motion, Muscle Spasm, Paraspinal Tenderness, Vertebral Tenderness Extremities: Normal Inspection, Normal Range of Motion, Non-Tender, No Pedal Edema, Normal Capillary Refill, Other (Mild to moderate venous stasis dermatitis lower extremities right greater than left). No: Henny's Sign Peripheral Pulses: 2+: Radial (L), Radial (R), Dorsalis Pedis (L), Dorsalis Pedis (R) Skin: Warm, Dry, Intact Neurological: No New Focal Deficit, Other (Slowly improving moderately severe generalized weakness) Psy/Mental Status: Alert, Normal Affect, Normal Mood. No: Agitated, Hallucinations, Withdrawal Symptoms #1 Interpretation EKG Date: 05/27/20 Time: 07:33 Rhythm: Other (Normal sinus rhythm with PVC noted) Rate (Beats/Min): 80 [place]: Normal (Extended left) P-Wave: Enlarged (Moderate diffuse biphasic) QRS: RBBB (0.10 seconds representing an incomplete right bundle branch block) ST-T: Other (T wave inversion in leads V1 and III) QT: Normal [place]/PQ Interval: 0.21 seconds representing a first-degree AV block with extreme poor R wave progression in the anterior leads Comparison: NA - No Prior EKG (No recent EKG for comparison) EKG Interpretation Comments: 1. No acute ischemic changes 2. PVC 3. First-degree AV block 4. Incomplete right bundle branch block 5. Left atrial enlargement - Patient Data Lab Results Last 24 hrs: Laboratory Results - last 24 hr 05/26/20 05/26/20 05/26/20 Range/Units 09:45 09:45 09:45 WBC 7.9 (4.0-10.2) K/uL RBC 3.25 L (3.77-5.09) M/uL Hgb 10.0 L (11.7-15.5) g/dL Hct 31.2 L (34.0-46.0) % MCV 96.0 (84.0-98.0) fL MCH 30.8 (28.2-33.3) pg MCHC 32.1 (31.7-36.0) g/dL RDW 14.9 H (11.2-14.1) % Plt Count 147 L (150-350) K/uL Neut % (Auto) 64.9 (45.0-80.0) % Lymph % (Auto) 21.2 (10.0-50.0) % [place] % (Auto) 12.4 (2.0-14.0) % Eos % (Auto) 0.9 (0.0-5.0) % Baso % (Auto) 0.6 (0.0-2.0) % Neut # (Auto) 5.13 (1.40-7.00) K/uL Lymph # (Auto) 1.68 (0.50-3.50) K/uL [place] # (Auto) 0.98 (0.00-1.00) K/uL Eos # (Auto) 0.07 (0.00-0.50) K/uL Baso # (Auto) 0.05 (0.00-0.20) K/uL PT 14.5 H (9.5-12.0) SEC INR 1.5 APTT 36.7 H (24.5-32.8) SEC Sodium 133 L (136-145) mmol/L Potassium 3.6 (3.5-5.1) mmol/L Chloride 99 (98-107) mmol/L Carbon Dioxide 22.5 (21.0-32.0) mmol/L BUN 20 H (7-18) mg/dL Creatinine 1.46 H (0.51-1.17) mg/dL Est Cr Clr Drug Dosing 36.87 mL/min Estimated GFR (MDRD) 37 mL/min Glucose 148 H (70-99) mg/dL POC Glucose (65-110) mg/dl Hemoglobin A1c (4.3-5.7) % Lactic Acid (0.4-2.0) mmol/L Uric Acid 7.0 (2.6-7.2) mg/dL Calcium 9.2 (8.5-10.1) mg/dL Magnesium 1.5 L (1.8-2.4) mg/dL Iron (50-175) ug/dL TIBC (250-450) ug/dL % Saturation Ferritin (8-388) ng/mL Total Bilirubin 1.1 H (0.2-1.0) mg/dL Direct Bilirubin 0.4 H (0.0-0.2) mg/dL Indirect Bilirubin 0.7 AST 61 H (15-37) U/L ALT 43 (12-78) U/L Alkaline Phosphatase 75 (46-116) IU/L Troponin I 0.033 (0.000-0.056) ng/mL NT-Pro-B Natriuret Pep 5471 H (0-125) pg/mL Total Protein 6.3 L (6.4-8.2) g/dL Albumin 2.3 L (3.4-5.0) g/dL Vitamin B12 1754 H (193-986) pg/mL Vancomycin Trough 10.9 (10-20) ug/mL 05/26/20 05/26/20 05/26/20 Range/Units 09:45 09:45 09:45 WBC (4.0-10.2) K/uL RBC (3.77-5.09) M/uL Hgb (11.7-15.5) g/dL Hct (34.0-46.0) % MCV (84.0-98.0) fL MCH (28.2-33.3) pg MCHC (31.7-36.0) g/dL RDW (11.2-14.1) % Plt Count (150-350) K/uL Neut % (Auto) (45.0-80.0) % Lymph % (Auto) (10.0-50.0) % [place] % (Auto) (2.0-14.0) % Eos % (Auto) (0.0-5.0) % Baso % (Auto) (0.0-2.0) % Neut # (Auto) (1.40-7.00) K/uL Lymph # (Auto) (0.50-3.50) K/uL [place] # (Auto) (0.00-1.00) K/uL Eos # (Auto) (0.00-0.50) K/uL Baso # (Auto) (0.00-0.20) K/uL PT (9.5-12.0) SEC INR APTT (24.5-32.8) SEC Sodium (136-145) mmol/L Potassium (3.5-5.1) mmol/L Chloride (98-107) mmol/L Carbon Dioxide (21.0-32.0) mmol/L BUN (7-18) mg/dL Creatinine (0.51-1.17) mg/dL Est Cr Clr Drug Dosing mL/min Estimated GFR (MDRD) mL/min Glucose (70-99) mg/dL POC Glucose (65-110) mg/dl Hemoglobin A1c 6.2 H (4.3-5.7) % Lactic Acid 1.1 (0.4-2.0) mmol/L Uric Acid (2.6-7.2) mg/dL Calcium (8.5-10.1) mg/dL Magnesium (1.8-2.4) mg/dL Iron 12 L (50-175) ug/dL TIBC 185 L (250-450) ug/dL % Saturation [id number] Ferritin 279 (8-388) ng/mL Total Bilirubin (0.2-1.0) mg/dL Direct Bilirubin (0.0-0.2) mg/dL Indirect Bilirubin AST (15-37) U/L ALT (12-78) U/L Alkaline Phosphatase (46-116) IU/L Troponin I (0.000-0.056) ng/mL NT-Pro-B Natriuret Pep (0-125) pg/mL Total Protein (6.4-8.2) g/dL Albumin (3.4-5.0) g/dL Vitamin B12 (193-986) pg/mL Vancomycin Trough (10-20) ug/mL 03/30/21 03/30/21 03/30/21 Range/Units 11:40 16:53 19:56 WBC (4.0-10.2) K/uL RBC (3.77-5.09) M/uL Hgb (11.7-15.5) g/dL Hct (34.0-46.0) % MCV (84.0-98.0) fL MCH (28.2-33.3) pg MCHC (31.7-36.0) g/dL RDW (11.2-14.1) % Plt Count (150-350) K/uL Neut % (Auto) (45.0-80.0) % Lymph % (Auto) (10.0-50.0) % [place] % (Auto) (2.0-14.0) % Eos % (Auto) (0.0-5.0) % Baso % (Auto) (0.0-2.0) % Neut # (Auto) (1.40-7.00) K/uL Lymph # (Auto) (0.50-3.50) K/uL [place] # (Auto) (0.00-1.00) K/uL Eos # (Auto) (0.00-0.50) K/uL Baso # (Auto) (0.00-0.20) K/uL PT (9.5-12.0) SEC INR APTT (24.5-32.8) SEC Sodium (136-145) mmol/L Potassium (3.5-5.1) mmol/L Chloride (98-107) mmol/L Carbon Dioxide (21.0-32.0) mmol/L BUN (7-18) mg/dL Creatinine (0.51-1.17) mg/dL Est Cr Clr Drug Dosing mL/min Estimated GFR (MDRD) mL/min Glucose (70-99) mg/dL POC Glucose 129 H 87 113 H (65-110) mg/dl Hemoglobin A1c (4.3-5.7) % Lactic Acid (0.4-2.0) mmol/L Uric Acid (2.6-7.2) mg/dL Calcium (8.5-10.1) mg/dL Magnesium (1.8-2.4) mg/dL Iron (50-175) ug/dL TIBC (250-450) ug/dL % Saturation Ferritin (8-388) ng/mL Total Bilirubin (0.2-1.0) mg/dL Direct Bilirubin (0.0-0.2) mg/dL Indirect Bilirubin AST (15-37) U/L ALT (12-78) U/L Alkaline Phosphatase (46-116) IU/L Troponin I (0.000-0.056) ng/mL NT-Pro-B Natriuret Pep (0-125) pg/mL Total Protein (6.4-8.2) g/dL Albumin (3.4-5.0) g/dL Vitamin B12 (193-986) pg/mL Vancomycin Trough (10-20) ug/mL 05/27/20 05/27/20 05/27/20 Range/Units 07:14 07:14 07:14 WBC 9.7 (4.0-10.2) K/uL RBC 3.22 L (3.77-5.09) M/uL Hgb 9.9 L (11.7-15.5) g/dL Hct 30.5 L (34.0-46.0) % MCV 94.7 (84.0-98.0) fL MCH 30.7 (28.2-33.3) pg MCHC 32.5 (31.7-36.0) g/dL RDW 14.7 H (11.2-14.1) % Plt Count 179 (150-350) K/uL Neut % (Auto) 73.2 (45.0-80.0) % Lymph % (Auto) 15.8 (10.0-50.0) % [place] % (Auto) 10.3 (2.0-14.0) % Eos % (Auto) 0.5 (0.0-5.0) % Baso % (Auto) 0.2 (0.0-2.0) % Neut # (Auto) 7.11 H (1.40-7.00) K/uL Lymph # (Auto) 1.53 (0.50-3.50) K/uL [place] # (Auto) 1.00 (0.00-1.00) K/uL Eos # (Auto) 0.05 (0.00-0.50) K/uL Baso # (Auto) 0.02 (0.00-0.20) K/uL PT 20.0 H D (9.5-12.0) SEC INR 2.0 APTT (24.5-32.8) SEC Sodium 135 L (136-145) mmol/L Potassium 3.6 (3.5-5.1) mmol/L Chloride 97 L (98-107) mmol/L Carbon Dioxide 30.6 (21.0-32.0) mmol/L BUN 18 (7-18) mg/dL Creatinine 1.49 H (0.51-1.17) mg/dL Est Cr Clr Drug Dosing 36.13 mL/min Estimated GFR (MDRD) 36 mL/min Glucose 151 H (70-99) mg/dL POC Glucose (65-110) mg/dl Hemoglobin A1c (4.3-5.7) % Lactic Acid (0.4-2.0) mmol/L Uric Acid (2.6-7.2) mg/dL Calcium 9.1 (8.5-10.1) mg/dL Magnesium 1.9 (1.8-2.4) mg/dL Iron (50-175) ug/dL TIBC (250-450) ug/dL % Saturation Ferritin (8-388) ng/mL Total Bilirubin (0.2-1.0) mg/dL Direct Bilirubin (0.0-0.2) mg/dL Indirect Bilirubin AST (15-37) U/L ALT (12-78) U/L Alkaline Phosphatase (46-116) IU/L Troponin I 0.014 (0.000-0.056) ng/mL NT-Pro-B Natriuret Pep 9187 H (0-125) pg/mL Total Protein (6.4-8.2) g/dL Albumin (3.4-5.0) g/dL Vitamin B12 (193-986) pg/mL Vancomycin Trough (10-20) ug/mL 05/27/20 Range/Units 07:17 WBC (4.0-10.2) K/uL RBC (3.77-5.09) M/uL Hgb (11.7-15.5) g/dL Hct (34.0-46.0) % MCV (84.0-98.0) fL MCH (28.2-33.3) pg MCHC (31.7-36.0) g/dL RDW (11.2-14.1) % Plt Count (150-350) K/uL Neut % (Auto) (45.0-80.0) % Lymph % (Auto) (10.0-50.0) % [place] % (Auto) (2.0-14.0) % Eos % (Auto) (0.0-5.0) % Baso % (Auto) (0.0-2.0) % Neut # (Auto) (1.40-7.00) K/uL Lymph # (Auto) (0.50-3.50) K/uL [place] # (Auto) (0.00-1.00) K/uL Eos # (Auto) (0.00-0.50) K/uL Baso # (Auto) (0.00-0.20) K/uL PT (9.5-12.0) SEC INR APTT (24.5-32.8) SEC Sodium (136-145) mmol/L Potassium (3.5-5.1) mmol/L Chloride (98-107) mmol/L Carbon Dioxide (21.0-32.0) mmol/L BUN (7-18) mg/dL Creatinine (0.51-1.17) mg/dL Est Cr Clr Drug Dosing mL/min Estimated GFR (MDRD) mL/min Glucose (70-99) mg/dL POC Glucose 138 H (65-110) mg/dl Hemoglobin A1c (4.3-5.7) % Lactic Acid (0.4-2.0) mmol/L Uric Acid (2.6-7.2) mg/dL Calcium (8.5-10.1) mg/dL Magnesium (1.8-2.4) mg/dL Iron (50-175) ug/dL TIBC (250-450) ug/dL % Saturation Ferritin (8-388) ng/mL Total Bilirubin (0.2-1.0) mg/dL Direct Bilirubin (0.0-0.2) mg/dL Indirect Bilirubin AST (15-37) U/L ALT (12-78) U/L Alkaline Phosphatase (46-116) IU/L Troponin I (0.000-0.056) ng/mL NT-Pro-B Natriuret Pep (0-125) pg/mL Total Protein (6.4-8.2) g/dL Albumin (3.4-5.0) g/dL Vitamin B12 (193-986) pg/mL Vancomycin Trough (10-20) ug/mL Result Diagrams: 05/27/20 07:14 05/27/20 07:14 Inocente Results Last 24 hrs: Microbiology 05/24/20 17:51 Aerobic Blood Culture - Preliminary Blood - Venous NO GROWTH AFTER 2 DAYS Anaerobic Blood Culture - Preliminary NO GROWTH AFTER 2 DAYS 05/24/20 12:59 Urine Culture - Final Urine, Catheterized Escherichia Coli 05/26/20 04:00 Stool Occult Blood (INOCENTE) - Final Stool / Feces NEGATIVE OCCULT BLOOD REFERENCE RANGE: NEGATIVE Sepsis Event Note - Evaluation Sepsis Screening Result: No Definite Risk - Focused Exam Vital Signs: Vital Signs Temp Temp Pulse Pulse Resp BP BP 05/27/20 08:00 37.2 C 81 18 103/58 L 05/27/20 07:48 81 103/58 L 05/27/20 04:57 38.3 C H 107 H 05/27/20 03:28 98 22 H 141/74 H 05/27/20 03:15 39.6 C H 05/26/20 23:55 36.9 C 94 18 144/71 H Pulse Ox 05/27/20 08:00 79 L 05/27/20 07:48 05/27/20 04:57 05/27/20 03:28 96 05/27/20 03:15 05/26/20 23:55 95 - Problem List & Annotations (1) UTI (urinary tract infection) SNOMED Code(s): 50651920 Code(s): N39.0 - URINARY TRACT INFECTION, SITE NOT SPECIFIED Status: Acute Priority: High Current Visit: Yes Onset Date: ~05/24/20 Qualifiers: Urinary tract infection type: acute cystitis Hematuria presence: without hematuria Qualified Code(s): N30.00 - Acute cystitis without hematuria Annotation/Comment:: Note urosepsis confirmed on 05/27/2020 from previous positive blood cultures x2 on 04/26/2020. Urosepsis initially suspected, however note gram-positive cocci rather than gram-negative rods were noted in the blood cultures on 05/25. Verbal report from our laboratory on 05/26 indicated that her blood cultures probably actually contain gram-negative rods with today's urine culture and sensitivity showing adequate control with both Rocephin and Cipro. Chest x-ray today shows progressive CHF with questionable left lower lobe atelectasis versus infiltrates. Chest x-ray, portable, on 05/24/2020 and 05/26/2020 showed somewhat poor inspiratory film, although possible mild bilateral basilar pneumonia. Persistent fever, however significantly improved and normal WBCs since 05/26. Patient's Cipro initially at 400 mg IV every 12 hours, although this was changed to 200 mg IV every 12 hours on 05/25 secondary to her renal insufficiency. The patient was given a 2 g IV dose of Rocephin early in the morning on 05/25 with subsequent increase of her Rocephin to 1 g IV every 12 hours starting that evening. Vancomycin IV was also initiated on 05/25 with pharmacy consultation for proper dosing and routine blood work. Trough vancomycin level on 05/26 showed adequate therapy with repeat level ordered for 05/28. Secondary to persistent refractory fever continued triple antibiotic therapy as above until final blood culture and sensitivity results were obtained on 05/27. IV Cipro will be discontinued in order to avoid C. difficile colitis with continuation of IV vancomycin and IV Rocephin per sepsis protocol on 05/27. Thomas catheter was placed on 05/25 for accurate I's and O's secondary to her sepsis, previous CHF, and urinary incontinence. Low threshold for hospital transfer. Lactic acid levels x 3 are normal to this point. (2) Sepsis SNOMED Code(s): 95717938 Code(s): A41.9 - SEPSIS, UNSPECIFIED ORGANISM Status: Acute Priority: High Current Visit: Yes Onset Date: ~05/24/20 Qualifiers: Sepsis type: Escherichia coli Sepsis acute organ dysfunction status: without acute organ dysfunction Qualified Code(s): A41.51 - Sepsis due to Escherichia coli [E. coli] Annotation/Comment:: As above and once again urosepsis has been confirmed. (3) Anemia SNOMED Code(s): 009393355 Code(s): D64.9 - ANEMIA, UNSPECIFIED Status: Acute Priority: Medium Current Visit: Yes Qualifiers: Anemia type: iron deficiency Iron deficiency anemia type: inadequate dietary iron intake Qualified Code(s): D50.8 - Other iron deficiency anemias Annotation/Comment:: Hemoglobin stable at this time. Progressive anemia with hemoglobin of 10.0 on 05/26 in comparison to 10.5 on 05/25 with returned anemia on 05/26 likely secondary to rehydration effect with initial hemoglobin of 12.0 on admission. Iron studies on 05/26 indicate persistent iron deficiency with her iron sulfate to be increased to twice daily basis. Note concomitant magnesium oxide therapy. No evidence of acute GI bleed. IV Pepcid and IV Protonix was initiated on 05/25 as GI prophylaxis secondary to her current sepsis and Coumadin/Lovenox therapy. Vitamin B12 level adequate on 05/26/1930. (4) Gilbert's syndrome SNOMED Code(s): 90533179 Code(s): E80.4 - GILBERT SYNDROME Status: Chronic Priority: Medium Current Visit: Yes Onset Date: 11/02/16 Annotation/Comment:: Hyperbilirubinemia significantly improved since admission with known history of probable Gilbert's syndrome with direct/indirect bili evaluation repeated on 05/26/2020. No direct indication of hemolysis despite anemia as above. (5) Hyponatremia SNOMED Code(s): 61455481 Code(s): E87.1 - HYPO-OSMOLALITY AND HYPONATREMIA Status: Acute Priority: Medium Current Visit: Yes Annotation/Comment:: Hyponatremia slowly improving with previous somewhat progressive hyponatremia likely secondary to CHF and some fluid overload during this hospitalization. IV Lasix initiated on 05/26. IV fluids have been given with patient given a 1 L IV bolus of lactated Ringer's secondary to her sepsis and mildly decreased blood pressures on 05/25. Otherwise continued IV normal saline at 100 mls per hour with this discontinued on 05/26. (6) Weakness SNOMED Code(s): 45947812 Code(s): R53.1 - WEAKNESS Status: Acute Priority: High Current Visit: Yes Annotation/Comment:: Severe generalized weakness secondary to her current infection with additional morbid obesity. PT and OT have been ordered. (7) CHF (congestive heart failure) SNOMED Code(s): 52603033 Code(s): I50.9 - HEART FAILURE, UNSPECIFIED Status: Chronic Priority: Medium Current Visit: Yes Qualifiers: Heart failure type: unspecified Heart failure chronicity: chronic Qualified Code(s): I50.9 - Heart failure, unspecified Annotation/Comment:: No chest pain or anginal type symptoms. Increasing CHF secondary to fluid overload as above. History of previous mild CHF with only mild change in her troponin I, which is still normal. EKG on 05/27/2020 showed no evidence of ischemia. Despite progressive BNP elevation and chest x-ray findings no further increase of her Lasix for now secondary to improving hypon atremia and her current renal insufficiency. Note previous moderate to severe cardiomegaly by x-rays in this facility. Consider echocardiogram on an outpatient basis. (8) COPD (chronic obstructive pulmonary disease) SNOMED Code(s): 41607507 Code(s): J44.9 - CHRONIC OBSTRUCTIVE PULMONARY DISEASE, UNSPECIFIED Status: Chronic Priority: Medium Current Visit: Yes Qualifiers: COPD type: emphysema Emphysema type: panlobular Qualified Code(s): J43.1 - Panlobular emphysema Annotation/Comment:: COPD by chest x-ray with no current therapy. No recent history of bronchitic type symptoms. Initiated incentive spirometry on 05/25. No direct indication of pneumonia with chest x-ray results as above, however note triple antibiotic therapy at this time. Patient has been compliant with her CPAP secondary to her sleep apnea. (9) DVT (deep venous thrombosis) SNOMED Code(s): 672198314 Code(s): I82.409 - ACUTE EMBOLISM AND THOMBOS UNSP DEEP VN UNSP LOWER EXTREMITY Status: Chronic Priority: Medium Current Visit: Yes Qualifiers: DVT location: lower extremity Affected thrombotic vein of extremity: unspecified vein of extremity Chronicity: unspecified Laterality: unspecified laterality Qualified Code(s): I82.409 - Acute embolism and thrombosis of unspecified deep veins of unspecified lower extremity Annotation/Comment:: INR finally therapeutic on 05/27 with subtherapeutic findings on 05/26. Additional dose of subcutaneous Lovenox with additional dose of oral Coumadin as a load on 05/26. Patient has been noncompliant with her Coumadin for the last 3-4 days secondary to current illness with previous history of medication noncompliance in the past. No clinical evidence of DVT or PE. High-dose Lovenox was initiated as a bridge starting on 05/25 with additional loading dose of her Coumadin on that day. No further Lovenox needed at this time. (10) Hypomagnesemia SNOMED Code(s): 179171401 Code(s): E83.42 - HYPOMAGNESEMIA Status: Chronic Priority: Medium Current Visit: Yes Annotation/Comment:: Note history of medication noncomplian ce as above. Magnesium level significantly decreased on 05/26, which may be a partial etiology for her new atrial fibrillation. IV magnesium sulfate given on 05/26 with additional increase of her magnesium sulfate to 400 mg p.o. twice daily on that day. Magnesium level normal on 05/27 with spontaneous resolution of previous atrial fibrillation with magnesium supplementation as above. (11) Osteoarthritis SNOMED Code(s): 474973352 Code(s): M19.90 - UNSPECIFIED OSTEOARTHRITIS, UNSPECIFIED SITE Status: Chronic Priority: Medium Current Visit: Yes Qualifiers: Osteoarthritis location: multiple joints Osteoarthritis type: primary Qualified Code(s): M89.49 - Other hypertrophic osteoarthropathy, multiple sites Annotation/Comment:: Mild persistent nonspecific generalized arthralgias secondary to her fever on 05/26 with complete resolution of symptoms on 05/27. Her arthritis is otherwise stable by history with nonspecific neck pain without meningeal signs on 05/25. Known hyperuricemia but no known gout attacks in the past. Note previous history of chronic narcotic use and pain clinic management. She does use a cane at home, however is immobile at this time secondary to her obesity and current illness. PT and OT have been ordered. (12) Mixed anxiety depressive disorder SNOMED Code(s): 618337348 Code(s): F41.8 - OTHER SPECIFIED ANXIETY DISORDERS Status: Chronic Priority: Medium Current Visit: Yes Annotation/Comment:: Improved anxiety and depression on 05/27 with previous mild to moderately poor control emotional status based on clinical exam during early portions of this hospitalization. Per history from the paramedics extremely poor living conditions, including feces on the beavers, etc. Note that she does have increased stressors secondary t o taking care of her at home, who is on a respirator. Note previous chronic narcotic and Ultram use/addiction as above. Care management consultation has been ordered. manager support services consultation based on their evaluation. (13) Hypoalbuminemia SNOMED Code(s): 397971061 Code(s): E88.09 - [facility] DISORDERS OF PLASMA-PROTEIN METABOLISM, NEC Status: Acute Priority: Medium Current Visit: Yes Onset Date: 05/24/20 Annotation/Comment:: Observe for now. Note current obesity. (14) Renal insufficiency SNOMED Code(s): 534624466, 867877525 Code(s): N28.9 - DISORDER OF KIDNEY AND URETER, UNSPECIFIED Status: Chronic Priority: Medium Current Visit: Yes Annotation/Comment:: Known diabetic nephropathy. Renal function relatively stable during hospitalization. IV Lasix initiated on 05/26 with caution. (15) Diabetes mellitus SNOMED Code(s): 47489939 Code(s): E11.9 - TYPE 2 DIABETES MELLITUS WITHOUT COMPLICATIONS Status: Acute Current Visit: Yes Qualifiers: Diabetes mellitus type: type 2 Diabetes mellitus esthetic dermatologist insulin use: without long-term use Diabetes mellitus complication status: with kidney comp lications Diabetes mellitus complication detail: with chronic kidney disease Chronic kidney disease stage: stage 3 (moderate) Chronic kidney disease stage 3 subtype: stage 3a (GFR 45-59) Qualified Code(s): E11.22 - Type 2 diabetes mellitus with diabetic chronic kidney disease; N18.31 - Chronic kidney disease, stage 3a Annotation/Comment:: Glycosylated hemoglobin on 05/26 was 6.2%. Humalog subcu sliding scale secondary to current sepsis. (16) Atrial fibrillation SNOMED Code(s): 71640928 Code(s): I48.91 - UNSPECIFIED ATRIAL FIBRILLATION Status: Acute Priority: High Current Visit: Yes Qualifiers: Atrial fibrillation type: paroxysmal Qualified Code(s): I48.0 - Paroxysmal atrial fibrillation Annotation/Comment:: As above. Note previous Lovenox and current Coumadin therapy as above. (17) Sleep apnea SNOMED Code(s): 19159279 Code(s): G47.30 - SLEEP APNEA, UNSPECIFIED Status: Chronic Priority: Me dium Current Visit: Yes Qualifiers: Sleep apnea type: obstructive Qualified Code(s): G47.33 - Obstructive sleep apnea (adult) (pediatric) Annotation/Comment:: Continue CPAP. Weight loss strongly advisable. (18) First degree AV block SNOMED Code(s): 005762567 Code(s): I44.0 - ATRIOVENTRICULAR BLOCK, FIRST DEGREE Status: Acute Priority: Medium Current Visit: Yes Onset Date: 05/27/20 Annotati on/Comment:: Observe for now. (19) Incomplete right bundle branch block SNOMED Code(s): 530083467 Code(s): I45.10 - UNSPECIFIED RIGHT BUNDLE-BRANCH BLOCK Status: Acute Priority: Medium Current Visit: Yes Onset Date: 05/27/20 Annotation/Comment:: Observe for now (20) PVCs (premature ventricular contractions) SNOMED Code(s): 41464478 Code(s): I49.3 - VENTRICULAR PREMATURE DEPOLARIZATION Status: Chronic Priority: Medium Current Visit: Yes Onset Date: 05/27/20 Annotation/Comment:: Observe for now - Problem List Review Problem List Initiated/Reviewed/Updated: Yes - My Orders Last 24 Hours: My Active Orders 05/26/20 10:46 Admission Status [Patient Status] [ADT] Routine 05/26/20 12:00 Furosemide [Lasix] 40 mg IVPUSH Q8H Potassium Chloride [Klor-Con M20] 20 meq PO TID Vancomycin 2 gm Sodium Chloride 0.9% [Normal Saline] 500 ml IV Q24H 05/26/20 17:30 Ferrous Sulfate 325 mg PO BIDMEALS 05/26/20 18:00 Magnesium Oxide 400 mg PO BID 05/27/20 05:11 EKG Documentation Completion [RC] ASDIRECTED Chest 1V Frontal [CR] Routine D-DIMER QUANTITATIVE [COAG] Routine 05/27/20 08:50 EKG 12 Lead [EK] Stat 05/28/20 05:11 Chest 1V Frontal [CR] Routine 05/28/20 10:30 CBC WITH AUTO DIFF [HEME] Routine COMPREHENSIVE METABOLIC PN,CMP [CHEM] Routine INR,PT,PROTHROMBIN TIME [COAG] Routine VANCOMYCIN TROUGH [CHEM] Routine - Assessment Assessment:: As above - Plan Plan:: As above. Extensive precautions were given to the patient, who is in agreement with the treatment plan. The patient will require about 2-3 days of inpatient/acute care secondary to multiple health problems as above. Extended hospitalization will likely be required secondary to her newly diagnosed probable urosepsis. Possible future half-way versus swing bed placement secondary to poor hygiene, generalized weakness, etc. Zuhair kelly provider assumes care tomorrow and I will resume patient's care on 05/29/2020.
[2020-05-27] MEDS: Famotidine 20 MG/2 ML SDV IVPUSH SCH ×2 (10:26→22:07)
[2020-05-27] MEDS: Pantoprazole 40 MG Vial IVPUSH SCH ×2 (10:26→22:07)
[2020-05-27] MEDS: cefTRIAXone 1 GM in Sodium Chloride 0.9% 100 ML IV SCH ×2 (10:36→22:07)
[2020-05-27] MEDS ORDERED: Iopamidol 755 Mg/ML 100 ML Bottle IVPUSH ONE (11:19)
[2020-05-27] MEDS ORDERED: VANCOmycin 2 GM/400 ML 2 GM in Premix Bag 1 BAG IV SCH (12:00)
[2020-05-27] MEDS ORDERED: LORazepam 2 MG/ML SDV IVPUSH ONE (14:34)
[2020-05-27] MEDS: Warfarin 2.5 MG Tab PO SCH (19:39)
[2020-05-27] MEDS: DULoxetine 30 MG Cap PO SCH (19:39)
[2020-05-27] MEDS: atorvaSTATin 10 MG Tab PO SCH (19:39)
[2020-05-27] MEDS: Montelukast 10 MG Tab PO SCH (19:39)
[2020-05-28] MEDS: Furosemide 40 MG/4 ML VIAL IVPUSH SCH (04:07)
[2020-05-28] MEDS: Insulin Lispro 100 Units/ML 3 ML Vial SUBCUT SCH ×4 (08:35→21:38)
[2020-05-28] MEDS: Metoprolol Succinate 25 MG Tab.ER PO SCH (08:35)
[2020-05-28] MEDS: Cholecalciferol (Vitamin D3) 25 MCG Tab PO SCH (08:36)
[2020-05-28] MEDS: Magnesium Oxide 400 MG Tab PO SCH ×2 (08:36→17:46)
[2020-05-28] MEDS: metFORMIN 500 MG Tab PO SCH (08:37)
[2020-05-28] MEDS: Ferrous Sulfate 325 MG Tab PO SCH ×2 (08:37→17:47)
[2020-05-28] MEDS: Beta-Carotene (Vitamin A) w/Vitamin C & E plus Minerals Tab PO SCH (08:37)
[2020-05-28] MEDS: Potassium Chloride 20 MEQ Tab.ER PO SCH ×2 (08:38→12:23)
--- NOTE | 2020-05-28 10:17 | PCM.PN ---
- General Info Date of Service: 05/28/20 Admission Dx/Problem (Free Text): 1. Complicated UTI 2. Generalized weakness - Review of Systems General: Reports: Weakness (generalized but improving. ), Fatigue (very tired), Appetite (good appetite). Denies: Fever, Malaise, Night Sweats HEENT: Reports: No Symptoms Pulmonary: Reports: No Symptoms Cardiovascular: Reports: No Symptoms. Denies: Palpitations Gastrointestinal: Denies: No Symptoms (Has not had a BM worried about that she is. No abd pain or distention. ) Genitourinary: Reports: No Symptoms Musculoskeletal: Reports: No Symptoms Neurological: Reports: No Symptoms Psychiatric: Reports: No Symptoms - Patient Data Vitals - Most Recent: Last Vital Signs Temp 97.7 F 05/28/20 08:00 Pulse 78 05/28/20 08:35 Resp 22 H 05/28/20 08:00 BP 114/70 05/28/20 08:35 Pulse Ox 96 05/28/20 08:00 Weight - Most Recent: 314 lb 3.2 oz I&O - Last 24 Hours: Intake & Output 05/27/20 05/28/20 05/28/20 22:59 06:59 14:59 Intake Total 440 100 150 Output Total 2400 2650 700 Balance -1960 -2550 -550 Imaging Impressions - Last 24 Hours: CTA chest negative per previous documentation. US lower extremities negative for DVT per previous documentation. Lab Results Last 24 Hours: Laboratory Results - last 24 hr 05/27/20 05/27/20 05/27/20 Range/Units 11:14 17:16 20:52 WBC (4.0-10.2) K/uL RBC (3.77-5.09) M/uL Hgb (11.7-15.5) g/dL Hct (34.0-46.0) % MCV (84.0-98.0) fL MCH (28.2-33.3) pg MCHC (31.7-36.0) g/dL RDW (11.2-14.1) % Plt Count (150-350) K/uL Neut % (Auto) (45.0-80.0) % Lymph % (Auto) (10.0-50.0) % [place] % (Auto) (2.0-14.0) % Eos % (Auto) (0.0-5.0) % Baso % (Auto) (0.0-2.0) % Neut # (Auto) (1.40-7.00) K/uL Lymph # (Auto) (0.50-3.50) K/uL [place] # (Auto) (0.00-1.00) K/uL Eos # (Auto) (0.00-0.50) K/uL Baso # (Auto) (0.00-0.20) K/uL PT (9.5-12.0) SEC INR Sodium (136-145) mmol/L Potassium (3.5-5.1) mmol/L Chloride (98-107) mmol/L Carbon Dioxide (21.0-32.0) mmol/L BUN (7-18) mg/dL Creatinine (0.51-1.17) mg/dL Est Cr Clr Drug Dosing mL/min Estimated GFR (MDRD) mL/min Glucose (70-99) mg/dL POC Glucose 143 H 120 H 114 H (65-110) mg/dl Calcium (8.5-10.1) mg/dL Total Bilirubin (0.2-1.0) mg/dL AST (15-37) U/L ALT (12-78) U/L Alkaline Phosphatase (46-116) IU/L Troponin I (0.000-0.056) ng/mL NT-Pro-B Natriuret Pep (0-125) pg/mL Total Protein (6.4-8.2) g/dL Albumin (3.4-5.0) g/dL 05/28/20 05/28/20 05/28/20 Range/Units 06:41 06:46 06:46 WBC 8.3 (4.0-10.2) K/uL RBC 3.58 L (3.77-5.09) M/uL Hgb 10.9 L (11.7-15.5) g/dL Hct 33.9 L (34.0-46.0) % MCV 94.7 (84.0-98.0) fL MCH 30.4 (28.2-33.3) pg MCHC 32.2 (31.7-36.0) g/dL RDW 15.0 H (11.2-14.1) % Plt Count 230 (150-350) K/uL Neut % (Auto) 54.1 (45.0-80.0) % Lymph % (Auto) 29.2 (10.0-50.0) % [place] % (Auto) 13.7 (2.0-14.0) % Eos % (Auto) 2.5 (0.0-5.0) % Baso % (Auto) 0.5 (0.0-2.0) % Neut # (Auto) 4.47 (1.40-7.00) K/uL Lymph # (Auto) 2.41 (0.50-3.50) K/uL [place] # (Auto) 1.13 H (0.00-1.00) K/uL Eos # (Auto) 0.21 (0.00-0.50) K/uL Baso # (Auto) 0.04 (0.00-0.20) K/uL PT 35.9 H D (9.5-12.0) SEC INR 3.7 Sodium 138 (136-145) mmol/L Potassium 3.9 (3.5-5.1) mmol/L Chloride 97 L (98-107) mmol/L Carbon Dioxide 33.6 H (21.0-32.0) mmol/L BUN 22 H (7-18) mg/dL Creatinine 1.50 H (0.51-1.17) mg/dL Est Cr Clr Drug Dosing 35.89 mL/min Estimated GFR (MDRD) 35 mL/min Glucose 118 H (70-99) mg/dL POC Glucose (65-110) mg/dl Calcium 10.2 H (8.5-10.1) mg/dL Total Bilirubin 0.8 (0.2-1.0) mg/dL AST 65 H (15-37) U/L ALT 57 (12-78) U/L Alkaline Phosphatase 103 (46-116) IU/L Troponin I 0.000 (0.000-0.056) ng/mL NT-Pro-B Natriuret Pep 5271 H (0-125) pg/mL Total Protein 7.5 (6.4-8.2) g/dL Albumin 2.5 L (3.4-5.0) g/dL 04/01/21 Range/Units 07:47 WBC (4.0-10.2) K/uL RBC (3.77-5.09) M/uL Hgb (11.7-15.5) g/dL Hct (34.0-46.0) % MCV (84.0-98.0) fL MCH (28.2-33.3) pg MCHC (31.7-36.0) g/dL RDW (11.2-14.1) % Plt Count (150-350) K/uL Neut % (Auto) (45.0-80.0) % Lymph % (Auto) (10.0-50.0) % [place] % (Auto) (2.0-14.0) % Eos % (Auto) (0.0-5.0) % Baso % (Auto) (0.0-2.0) % Neut # (Auto) (1.40-7.00) K/uL Lymph # (Auto) (0.50-3.50) K/uL [place] # (Auto) (0.00-1.00) K/uL Eos # (Auto) (0.00-0.50) K/uL Baso # (Auto) (0.00-0.20) K/uL PT (9.5-12.0) SEC INR Sodium (136-145) mmol/L Potassium (3.5-5.1) mmol/L Chloride (98-107) mmol/L Carbon Dioxide (21.0-32.0) mmol/L BUN (7-18) mg/dL Creatinine (0.51-1.17) mg/dL Est Cr Clr Drug Dosing mL/min Estimated GFR (MDRD) mL/min Glucose (70-99) mg/dL POC Glucose 120 H (65-110) mg/dl Calcium (8.5-10.1) mg/dL Total Bilirubin (0.2-1.0) mg/dL AST (15-37) U/L ALT (12-78) U/L Alkaline Phosphatase (46-116) IU/L Troponin I (0.000-0.056) ng/mL NT-Pro-B Natriuret Pep (0-125) pg/mL Total Protein (6.4-8.2) g/dL Albumin (3.4-5.0) g/dL [facility] Results Last 24 Hours: Microbiology 05/24/20 17:51 Aerobic Blood Culture - Preliminary Blood - Venous NO GROWTH AFTER 3 DAYS Anaerobic Blood Culture - Preliminary NO GROWTH AFTER 3 DAYS 05/24/20 12:46 Aerobic Blood Culture - Final Blood Escherichia Coli Anaerobic Blood Culture - Final Escherichia Coli 05/24/20 12:41 Aerobic Blood Culture - Final Blood Escherichia Coli Anaerobic Blood Culture - Final Escherichia Coli Med Orders - Current: Current Medications Acetaminophen (Acetaminophen 325 Mg Tab) 650 mg PO Q4H PRN PRN Reason: Pain (Mild 1-3)/fever Last Admin: 05/27/20 03:15 Dose: 650 mg Documented by: Atorvastatin Calcium (Atorvastatin 10 Mg Tab) 20 mg PO BEDTIME [facility] Last Admin: 05/27/20 19:39 Dose: 20 mg Documented by: Cholecalciferol (Cholecalciferol (Vitamin D3) 25 Mcg Tab) 50 mcg PO DAILY [facility] Last Admin: 05/28/20 08:36 Dose: 50 mcg Documented by: Cyclobenzaprine HCl (Cyclobenzaprine 10 Mg Tab) 5 mg PO TID PRN PRN Reason: Spasms Last Admin: 05/24/20 22:42 Dose: 5 mg Documented by: Dextrose/Water (50% Dextrose In Water 50 Ml Syringe) 50 ml IV ASDIRECTED PRN PRN Reason: Hypoglycemia Duloxetine HCl (Duloxetine 30 Mg Cap) 30 mg PO BEDTIME [facility] Last Admin: 05/27/20 19:39 Dose: 30 mg Documented by: Famotidine (Famotidine 20 Mg/2 Ml Sdv) 20 mg IVPUSH Q12H [facility] Last Admin: 05/27/20 22:07 Dose: 20 mg Documented by: Ferrous Sulfate (Ferrous Sulfate 325 Mg Tab) 325 mg PO BIDMEALS [facility] Last Admin: 05/28/20 08:37 Dose: 325 mg Documented by: Furosemide (Furosemide 40 Mg/4 Ml Vial) 40 mg IVPUSH Q8H [facility] Last Admin: 05/28/20 04:07 Dose: 40 mg Documented by: Glucagon (Glucagon,Human Recombinant 1 Mg Vial) 1 mg IM ASDIRECTED PRN PRN Reason: Hypoglycemia Ceftriaxone Sodium 1 gm/ (Sodium Chloride) 100 mls @ 200 mls/hr IV Q12H [facility] Last Admin: 05/27/20 22:07 Dose: 200 mls/hr Documented by: Vancomycin HCl 2 gm/ Premix 400 mls @ 200 mls/hr IV Q24H [facility] Last Admin: 05/27/20 12:14 Dose: 200 mls/hr Documented by: Insulin Human Lispro (Insulin Lispro 100 Units/Ml 3 Ml Vial) 0 unit SUBCUT QIDACANDBED [facility]; Protocol Last Admin: 05/28/20 08:35 Dose: Not Given Documented by: Magnesium Oxide (Magnesium Oxide 400 Mg Tab) 400 mg PO BID [facility] Last Admin: 05/28/20 08:36 Dose: 400 mg Documented by: Metformin HCl (Metformin 500 Mg Tab) 500 mg PO DAILY [facility] Last Admin: 05/28/20 08:37 Dose: 500 mg Documented by: Metoprolol Succinate (Metoprolol Succinate 25 Mg Tab.Er) 25 mg PO DAILY [facility] Last Admin: 05/28/20 08:35 Dose: 25 mg Documented by: Montelukast Sodium (Montelukast 10 Mg Tab) 10 mg PO BEDTIME [facility] Last Admin: 05/27/20 19:39 Dose: 10 mg Documented by: Multivitamins/Minerals (Beta-Carotene (Vitamin A) W/Vitamin C & E Plus Minerals Tab) 1 tab PO DAILY [facility] Last Admin: 05/28/20 08:37 Dose: 1 tab Documented by: Ondansetron HCl (Ondansetron 4 Mg Tab.Dis) 4 mg PO Q4H PRN PRN Reason: Nausea/Vomiting Last Admin: 05/25/20 11:01 Dose: 4 mg Documented by: Pantoprazole Sodium (Pantoprazole 40 Mg Vial) 40 mg IVPUSH Q12H [facility] Last Admin: 05/27/20 22:07 Dose: 40 mg Documented by: Potassium Chloride (Potassium Chloride 20 Meq Tab.Er) 20 meq PO TID [facility] Last Admin: 05/28/20 08:38 Dose: 20 meq Documented by: Sodium Chloride (Sodium Chloride 0.9% 10 Ml Syringe) 10 ml FLUSH ASDIRECTED PRN PRN Reason: Keep Vein Open Last Admin: 05/27/20 14:53 Dose: 10 ml Documented by: Temazepam (Temazepam 15 Mg Cap) 15 mg PO BEDTIME PRN PRN Reason: Insomnia Last Admin: 05/26/20 00:20 Dose: 15 mg Documented by: Warfarin Sodium (Warfarin 2.5 Mg Tab) 2.5 mg PO SUTUWETHFRSA@1999 [facility] Last Admin: 05/27/20 19:39 Dose: 2.5 mg Documented by: Warfarin Sodium (Warfarin 5 Mg Tab) 5 mg PO MO@1999 [facility] Last Admin: 05/25/20 20:02 Dose: 5 mg Documented by: Discontinued Medications Enoxaparin Sodium (Enoxaparin 100 Mg/1 Ml Syringe) 100 mg SUBCUT ONETIME ONE Stop: 05/25/20 08:49 Last Admin: 05/25/20 10:01 Dose: 100 mg Documented by: Enoxaparin Sodium (Enoxaparin 100 Mg/1 Ml Syringe) 100 mg SUBCUT ONETIME ONE Stop: 05/26/20 12:01 Last Admin: 05/26/20 11:48 Dose: 100 mg Documented by: Ferrous Sulfate (Ferrous Sulfate 325 Mg Tab) 325 mg PO DAILY [facility] Last Admin: 05/26/20 08:21 Dose: 325 mg Documented by: Furosemide (Furosemide 40 Mg Tab) 40 mg PO DAILY [facility] Last Admin: 05/26/20 08:21 Dose: 40 mg Documented by: Ceftriaxone Sodium 1 gm/ (Sodium Chloride) 100 mls @ 200 mls/hr IV ONETIME ONE Stop: 05/24/20 13:35 Last Admin: 05/24/20 13:25 Dose: 200 mls/hr Documented by: Sodium Chloride (Normal Saline) 1,000 mls @ 100 mls/hr IV ASDIRECTED [facility] Last Admin: 05/26/20 03:13 Dose: 100 mls/hr Documented by: Ceftriaxone Sodium 1 gm/ (Sodium Chloride) 100 mls @ 200 mls/hr IV Q24H [facility] Last Admin: 05/25/20 10:01 Dose: Not Given Documented by: Ciprofloxacin/Dextrose 400 mg/ (Premix) 200 mls @ 200 mls/hr IV Q12HR [facility] Ciprofloxacin/Dextrose 400 mg/ (Premix) 200 mls @ 200 mls/hr IV BID@06,18 [facility] Last Admin: 05/25/20 05:23 Dose: 200 mls/hr Documented by: Lactated Ringer's (Ringers, Lactated) 1,000 mls @ 999 mls/hr IV .BOLUS ONE Stop: 05/25/20 09:39 Last Admin: 05/25/20 09:54 Dose: 999 mls/hr Documented by: Ceftriaxone Sodium 2 gm/ (Sodium Chloride) 100 mls @ 200 mls/hr IV ONETIME ONE Stop: 05/25/20 09:13 Last Admin: 05/25/20 09:55 Dose: 200 mls/hr Documented by: Ciprofloxacin/Dextrose 200 mg/ (Premix) 100 mls @ 100 mls/hr IV Q12H [facility] Last Admin: 05/27/20 05:25 Dose: 100 mls/hr Documented by: Vancomycin HCl 2 gm/ Sodium (Chloride) 500 mls @ 200 mls/hr IV ONETIME ONE Stop: 05/25/20 14:29 Last Admin: 05/25/20 12:31 Dose: 200 mls/hr Documented by: Magnesium Sulfate (Magnesium Sulfate In Water 4 Gm/100 Ml) 4 gm in 100 mls @ 25 mls/hr IV ONETIME ONE Stop: 05/26/20 14:49 Last Admin: 05/26/20 11:45 Dose: 25 mls/hr Documented by: Vancomycin HCl 2 gm/ Dextrose/ (Water) 500 mls @ 200 mls/hr IV Q24H [facility] Vancomycin HCl 2 gm/ Sodium (Chloride) 500 mls @ 200 mls/hr IV Q24H [facility] Last Admin: 05/26/20 11:48 Dose: 200 mls/hr Documented by: Iopamidol (Iopamidol 755 Mg/Ml 100 Ml Bottle) 100 ml IVPUSH ONETIME ONE Stop: 05/27/20 11:20 Last Admin: 05/27/20 15:09 Dose: 100 ml Documented by: Ketorolac Tromethamine (Ketorolac 30 Mg/Ml Sdv) 30 mg IVPUSH ONETIME ONE Stop: 05/25/20 13:01 Last Admin: 05/25/20 14:16 Dose: 30 mg Documented by: Lorazepam (Lorazepam 2 Mg/Ml Sdv) 1 mg IVPUSH ONETIME ONE Stop: 05/27/20 14:35 Last Admin: 05/27/20 14:53 Dose: 1 mg Documented by: Magnesium Oxide (Magnesium Oxide 400 Mg Tab) 400 mg PO DAILY [facility] Last Admin: 05/26/20 08:20 Dose: 400 mg Documented by: Non-Formulary Medication (Biotin [Biotin]) 10,000 mcg PO DAILY [facility] Potassium Chloride (Potassium Chloride 20 Meq Tab.Er) 20 meq PO DAILY [facility] Last Admin: 05/26/20 08:20 Dose: 20 meq Documented by: Warfarin Sodium (Warfarin 2.5 Mg Tab) 2.5 mg PO ONETIME ONE Stop: 05/25/20 09:23 Last Admin: 05/25/20 10:03 Dose: 2.5 mg Documented by: Warfarin Sodium (Warfarin 2.5 Mg Tab) 2.5 mg PO ONETIME ONE Stop: 05/26/20 12:01 Last Admin: 05/26/20 11:49 Dose: 2.5 mg Documented by: - Exam General: Alert, Oriented HEENT: Pupils Equal, Pupils Reactive, EOMI, Mucous Membr. Moist/[place] Neck: Supple Lungs: Clear to Auscultation, Normal Respiratory Effort. No: Crackles Cardiovascular: Regular Rate, Regular Rhythm GI/Abdominal Exam: Normal Bowel Sounds, Soft, Non-Tender, No Abnormal Bruit, No Mass (Female) Exam: Deferred Back Exam: Normal Inspection, Full Range of Motion Extremities: Normal Inspection, Non-Tender, No Pedal Edema, Normal Capillary Refill Peripheral Pulses: 2+: Radial (L), Radial (R), Posterior Tibial (L), Posterior Tibial (R), Dorsalis Pedis (L), Dorsalis Pedis (R) Skin: Warm, Dry, Intact Neurological: No New Focal Deficit Psy/Mental Status: Alert, Normal Affect, Normal Mood - Patient Data Lab Results Last 24 hrs: Laboratory Results - last 24 hr 05/27/20 05/27/20 05/27/20 Range/Units 11:14 17:16 20:52 WBC (4.0-10.2) K/uL RBC (3.77-5.09) M/uL Hgb (11.7-15.5) g/dL Hct (34.0-46.0) % MCV (84.0-98.0) fL MCH (28.2-33.3) pg MCHC (31.7-36.0) g/dL RDW (11.2-14.1) % Plt Count (150-350) K/uL Neut % (Auto) (45.0-80.0) % Lymph % (Auto) (10.0-50.0) % [place] % (Auto) (2.0-14.0) % Eos % (Auto) (0.0-5.0) % Baso % (Auto) (0.0-2.0) % Neut # (Auto) (1.40-7.00) K/uL Lymph # (Auto) (0.50-3.50) K/uL [place] # (Auto) (0.00-1.00) K/uL Eos # (Auto) (0.00-0.50) K/uL Baso # (Auto) (0.00-0.20) K/uL PT (9.5-12.0) SEC INR Sodium (136-145) mmol/L Potassium (3.5-5.1) mmol/L Chloride (98-107) mmol/L Carbon Dioxide (21.0-32.0) mmol/L BUN (7-18) mg/dL Creatinine (0.51-1.17) mg/dL Est Cr Clr Drug Dosing mL/min Estimated GFR (MDRD) mL/min Glucose (70-99) mg/dL POC Glucose 143 H 120 H 114 H (65-110) mg/dl Calcium (8.5-10.1) mg/dL Total Bilirubin (0.2-1.0) mg/dL AST (15-37) U/L ALT (12-78) U/L Alkaline Phosphatase (46-116) IU/L Troponin I (0.000-0.056) ng/mL NT-Pro-B Natriuret Pep (0-125) pg/mL Total Protein (6.4-8.2) g/dL Albumin (3.4-5.0) g/dL 05/28/20 05/28/20 05/28/20 Range/Units 06:41 06:46 06:46 WBC 8.3 (4.0-10.2) K/uL RBC 3.58 L (3.77-5.09) M/uL Hgb 10.9 L (11.7-15.5) g/dL Hct 33.9 L (34.0-46.0) % MCV 94.7 (84.0-98.0) fL MCH 30.4 (28.2-33.3) pg MCHC 32.2 (31.7-36.0) g/dL RDW 15.0 H (11.2-14.1) % Plt Count 230 (150-350) K/uL Neut % (Auto) 54.1 (45.0-80.0) % Lymph % (Auto) 29.2 (10.0-50.0) % [place] % (Auto) 13.7 (2.0-14.0) % Eos % (Auto) 2.5 (0.0-5.0) % Baso % (Auto) 0.5 (0.0-2.0) % Neut # (Auto) 4.47 (1.40-7.00) K/uL Lymph # (Auto) 2.41 (0.50-3.50) K/uL [place] # (Auto) 1.13 H (0.00-1.00) K/uL Eos # (Auto) 0.21 (0.00-0.50) K/uL Baso # (Auto) 0.04 (0.00-0.20) K/uL PT 35.9 H D (9.5-12.0) SEC INR 3.7 Sodium 138 (136-145) mmol/L Potassium 3.9 (3.5-5.1) mmol/L Chloride 97 L (98-107) mmol/L Carbon Dioxide 33.6 H (21.0-32.0) mmol/L BUN 22 H (7-18) mg/dL Creatinine 1.50 H (0.51-1.17) mg/dL Est Cr Clr Drug Dosing 35.89 mL/min Estimated GFR (MDRD) 35 mL/min Glucose 118 H (70-99) mg/dL POC Glucose (65-110) mg/dl Calcium 10.2 H (8.5-10.1) mg/dL Total Bilirubin 0.8 (0.2-1.0) mg/dL AST 65 H (15-37) U/L ALT 57 (12-78) U/L Alkaline Phosphatase 103 (46-116) IU/L Troponin I 0.000 (0.000-0.056) ng/mL NT-Pro-B Natriuret Pep 5271 H (0-125) pg/mL Total Protein 7.5 (6.4-8.2) g/dL Albumin 2.5 L (3.4-5.0) g/dL 05/28/20 Range/Units 07:47 WBC (4.0-10.2) K/uL RBC (3.77-5.09) M/uL Hgb (11.7-15.5) g/dL Hct (34.0-46.0) % MCV (84.0-98.0) fL MCH (28.2-33.3) pg MCHC (31.7-36.0) g/dL RDW (11.2-14.1) % Plt Count (150-350) K/uL Neut % (Auto) (45.0-80.0) % Lymph % (Auto) (10.0-50.0) % [place] % (Auto) (2.0-14.0) % Eos % (Auto) (0.0-5.0) % Baso % (Auto) (0.0-2.0) % Neut # (Auto) (1.40-7.00) K/uL Lymph # (Auto) (0.50-3.50) K/uL [place] # (Auto) (0.00-1.00) K/uL Eos # (Auto) (0.00-0.50) K/uL Baso # (Auto) (0.00-0.20) K/uL PT (9.5-12.0) SEC INR Sodium (136-145) mmol/L Potassium (3.5-5.1) mmol/L Chloride (98-107) mmol/L Carbon Dioxide (21.0-32.0) mmol/L BUN (7-18) mg/dL Creatinine (0.51-1.17) mg/dL Est Cr Clr Drug Dosing mL/min Estimated GFR (MDRD) mL/min Glucose (70-99) mg/dL POC Glucose 120 H (65-110) mg/dl Calcium (8.5-10.1) mg/dL Total Bilirubin (0.2-1.0) mg/dL AST (15-37) U/L ALT (12-78) U/L Alkaline Phosphatase (46-116) IU/L Troponin I (0.000-0.056) ng/mL NT-Pro-B Natriuret Pep (0-125) pg/mL Total Protein (6.4-8.2) g/dL Albumin (3.4-5.0) g/dL Result Diagrams: 05/28/20 06:41 05/28/20 06:46 [facility] Results Last 24 hrs: Microbiology 05/24/20 17:51 Aerobic Blood Culture - Preliminary Blood - Venous NO GROWTH AFTER 3 DAYS Anaerobic Blood Culture - Preliminary NO GROWTH AFTER 3 DAYS 05/24/20 12:46 Aerobic Blood Culture - Final Blood Escherichia Coli Anaerobic Blood Culture - Final Escherichia Coli 05/24/20 12:41 Aerobic Blood Culture - Final Blood Escherichia Coli Anaerobic Blood Culture - Final Escherichia Coli Sepsis Event Note - Evaluation Sepsis Screening Result: No Definite Risk - Focused Exam Vital Signs: Vital Signs Temp Pulse Pulse Resp BP BP BP 05/28/20 08:35 78 114/70 05/28/20 08:00 97.7 F 78 22 H 114/70 05/28/20 04:00 96.6 F L 80 20 99/57 L 05/28/20 00:00 97.5 F 80 20 80/53 L Pulse Ox 05/28/20 08:35 05/28/20 08:00 96 05/28/20 04:00 96 05/28/20 00:00 95 - Problem List & Annotations (1) Anemia SNOMED Code(s): 524781795 Code(s): D64.9 - ANEMIA, UNSPECIFIED Status: Acute Priority: Medium Current Visit: Yes Qualifiers: Anemia type: iron deficiency Iron deficiency anemia type: inadequate dietary iron intake Qualified Code(s): D50.8 - Other iron deficiency anemias Annotation/Comment:: Hemoglobin stable at this time. Hgb improved from yesterday from 9.9 to 10.9 continue to monitor. No signs of bleeding at this time. Could also be to concentration of blood due to recent initiation of Lasix and a diuresis of 2600 yesterday negative. to Progressive anemia with hemoglobin of 10.0 on 05/26 in comparison to 10.5 on 05/25 with returned anemia on 05/26 likely secondary to rehydration effect with initial hemoglobin of 12.0 on adm ission. Iron studies on 05/26 indicate persistent iron deficiency with her iron sulfate to be increased to twice daily basis. Note concomitant magnesium oxide therapy. No evidence of acute GI bleed. IV Pepcid and IV Protonix was initiated on 05/25 as GI prophylaxis secondary to her current sepsis and Coumadin/Lovenox therapy. Vitamin B12 level adequate on 05/26/1930. (2) Atrial fibrillation SNOMED Code(s): 64410410 Code(s): I48.91 - UNSPECIFIED ATRIAL FIBRILLATION Status: Acute Priority: High Current Visit: Yes Qualifiers: Atrial fibrillation type: paroxysmal Qualified Code(s): I48.0 - Paroxysmal atrial fibrillation Annotation/Comment:: In sinus rhythm at this time. Note previous Lovenox and current Coumadin therapy as above. Continue therapies. Monitor. (3) Complicated UTI (urinary tract infection) SNOMED Code(s): 15704137 Code(s): N39.0 - URINARY TRACT INFECTION, SITE NOT SPECIFIED Status: Acute Current Visit: Yes Annotation/Comment:: On Ceftriaxone [address] [facility] to follow and dose. Appropriate for sensitivities for blood and urine culture. (4) Diabetes mellitus SNOMED Code(s): 39004388 Code(s): E11.9 - TYPE 2 DIABETES MELLITUS WITHOUT COMPLICATIONS Status: Acute Current Visit: Yes Qualifiers: Diabetes mellitus type: type 2 Diabetes mellitus mcc insulin use: without terminal gauger use Diabetes mellitus complication status: with kidney complications Diabetes mellitus complication detail: with chronic kidney disease Chronic kidney disease stage: stage 3 (moderate) Chronic kidney disease stage 3 subtype: stage 3a (GFR 45-59) Qualified Code(s): E11.22 - Type 2 diabetes mellitus with diabetic chronic kidney disease; N18.31 - Chronic kidney disease, stage 3a Annotation/Comment:: Blood sugars with good control. BS 120-140 will continue with previous therapies. Glycosylated hemoglobin on 05/26 was 6.2%. Humalog subcu sliding scale secondary to current sepsis. (5) First degree AV block SNOMED Code(s): 221874998 Code(s): I44.0 - ATRIOVENTRICULAR BLOCK, FIRST DEGREE Status: Acute Priority: Medium Current Visit: Yes Onset Date: 05/27/20 Annotation/Comment:: Observe for now. (6) Hypoalbuminemia SNOMED Code(s): 778555286 Code(s): E88.09 - OTH DISORDERS OF PLASMA-PROTEIN METABOLISM, NEC Status: Acute Priority: Medium Current Visit: Yes Onset Date: 05/24/20 Annotation/Comment:: Observe for now. Note current obesity. (7) Hyponatremia SNOMED Code(s): 10080876 Code(s): E87.1 - HYPO-OSMOLALITY AND HYPONATREMIA Status: Acute Priority: Medium Current Visit: Yes Annotation/Comment:: Sodium normal today 138. IV fluids still held. We will discontinue her lasix today as she has had some soft blood pressure throughout the morning no SOB and clear lung ware on exam. Hyponatremia slowly improving with previous somewhat progressive hyponatremia likely secondary to CHF and some fluid overload during this hospitalization. IV Lasix initiated on 05/26. IV fluids have been given with patient given a 1 L IV bolus of lactated Ringer's secondary to her sepsis and mildly decreased blood pressures on 05/25. Otherwise continued IV normal saline at 100 mls per hour with this discontinued on 05/26. (8) Incomplete right bundle branch block SNOMED Code(s): 332658485 Code(s): I45.10 - UNSPECIFIED RIGHT BUNDLE-BRANCH BLOCK Status: Acute Priority: Medium Current Visit: Yes Onset Date: 05/27/20 Annotation/Comment:: Observe for now (9) Sepsis SNOMED Code(s): 51203537 Code(s): A41.9 - SEPSIS, UNSPECIFIED ORGANISM Status: Acute Priority: High Current Visit: Yes Onset Date: ~05/24/20 Qualifiers: Sepsis type: Escherichia coli Sepsis acute organ dysfunction status: without acute organ dysfunction Qualified Code(s): A41.51 - Sepsis due to Escherichia coli [E. coli] Annotation/Comment:: Cultures appropriate for Ceftriaxone and she is clinically improving. I will discontinue his vanco today with the culture information her improvement and also protect her kidneys a little bit more. Pending lactic acid at time of evaluation. No fevers for over 24 hours. As above and once again urosepsis has been confirmed. (10) UTI (urinary tract infection) SNOMED Code(s): 68405078 Code(s): N39.0 - URINARY TRACT INFECTION, SITE NOT SPECIFIED Status: Acute Priority: High Current Visit: Yes Onset Date: ~05/24/20 Qualifiers: Urinary tract infection type: acute cystitis Hematuria presence: without hematuria Qualified Code(s): N30.00 - Acute cystitis without hematuria Annotation/Comment:: She had excellent treatment with antibiotics at this point. Blood and urine cultures return with E Coli sensitive to Ceftriaxone. Will discontinue the vanco at this time. For antibiotic stewardship with patient improvement and cultures with sensitive to Ceftriaxone I feel its appropriate to de-escalate therapy at this time. Note urosepsis confirmed on 05/27/2020 from previous positive blood cultures x2 on 04/26/2020. Urosepsis initially suspected, however note gram-positive cocci rather than gram-negative rods were noted in the blood cultures on 05/25. Verbal report from our laboratory on 05/26 indicated that her blood cultures probably actually contain gram-negative rods with today's urine culture and sensitivity showing adequate control with both Rocephin and Cipro. Chest x-ray today shows progressive CHF with questionable left lower lobe atelectasis versus infiltrates. Chest x-ray, portable, on 05/24/2020 and 05/26/2020 showed somewhat poor inspiratory film, although possible mild bilateral basilar pneumonia. Persistent fever, however significantly improved and normal WBCs since 05/26. Patient's Cipro initially at 400 mg IV every 12 hours, although this was changed to 200 mg IV every 12 hours on 05/25 secondary to her renal insufficiency. The patient was given a 2 g IV dose of Rocephin early in the morning on 05/25 with subsequent increase of her Rocephin to 1 g IV every 12 hours starting that evening. Vancomycin IV was also initiated on 05/25 with pharmacy consultation for proper dosing and routine blood work. Trough vancomycin level on 05/26 showed adequate therapy with repeat level ordered for 05/28. Secondary to persistent refractory fever continued triple antibiotic therapy as above until final blood culture and sensitivity results were obtained on 05/27. IV Cipro will be discontinued in order to avoid C. difficile colitis with continuation of IV vancomycin and IV Rocephin per sepsis protocol on 05/27. Thomas catheter was placed on 05/25 for accurate I's and O's secondary to her sepsis, previous CHF, and urinary incontinence. Low threshold for hospital transfer. Lactic acid levels x 3 are normal to this point. (11) Weakness SNOMED Code(s): 86131003 Code(s): R53.1 - WEAKNESS Status: Acute Priority: High Current Visit: Yes Annotation/Comment:: Severe generalized weakness secondary to her current infection with additional morbid obesity. PT and OT have been ordered. (12) CHF (congestive heart failure) SNOMED Code(s): 27330034 Code(s): I50.9 - HEART FAILURE, UNSPECIFIED Status: Chronic Priority: Medium Current Visit: Yes Qualifiers: Heart failure type: unspecified Heart failure chronicity: chronic Qualified Code(s): I50.9 - Heart failure, unspecified Annotation/Comment:: No chest pain or anginal type symptoms. No rales on exam today. No SOB. Soft blood pressures this morning most likely due to lasix. had - 2,600 urine yesterday. Troponin normal today and BNP improving. Will decrease her lasix to 40mg qd down from tid. Note previous moderate to severe cardiomegaly by x-rays in this facility. Consider echocardiogram on an outpatient basis. (13) COPD (chronic obstructive pulmonary disease) SNOMED Code(s): 74099064 Code(s): J44.9 - CHRONIC OBSTRUCTIVE PULMONARY DISEASE, UNSPECIFIED Status: Chronic Priority: Medium Current Visit: Yes Qualifiers: COPD type: emphysema Emphysema type: panlobular Qualified Code(s): J43.1 - Panlobular emphysema Annotation/Comment:: COPD by chest x-ray with no current therapy. No recent history of bronchitic type symptoms. Initiated incentive spirometry on 05/25. No direct indication of pneumonia with chest x-ray results as above, however note triple antibiotic therapy at this time. Patient has been compliant with her CPAP secondary to her sleep apnea. (14) Hypomagnesemia SNOMED Code(s): 756255543 Code(s): E83.42 - HYPOMAGNESEMIA Status: Chronic Priority: Medium Current Visit: Yes Annotation/Comment:: On magnesium 400mg po bid pending magnesium at this time. In sinus rhythm at this time. will follow. Note history of medication noncompliance as above. Magnesium level signifi cantly decreased on 05/26, which may be a partial etiology for her new atrial fibrillation. IV magnesium sulfate given on 05/26 with additional increase of her magnesium sulfate to 400 mg p.o. twice daily on that day. Magnesium level normal on 05/27 with spontaneous resolution of previous atrial fibrillation with magnesium supplementation as above. (15) Renal insufficiency SNOMED Code(s): 620567401, 317816271 Code(s): N28.9 - DISORDER OF KIDNEY AND URETER, UNSPECIFIED Status: Chronic Priority: Medium Current Visit: Yes Annotation/Comment:: Creat creeping up to 1.5. Diuresed well yesterday. Will decrease lasix to 40mg qd. Known diabetic nephropathy. Renal function relatively stable during hospitalization. IV Lasix initiated on 05/26 with caution. (16) Sleep apnea SNOMED Code(s): 59910554 Code(s): G47.30 - SLEEP APNEA, UNSPECIFIED Status: Chronic Priority: Medium Current Visit: Yes Qualifiers: Sleep apnea type: obstructive Qualified Code(s): G47.33 - Obstructive sleep apnea (adult) (pediatric) Annotation/Comment:: Continue CPAP. Weight loss strongly advisable. - Problem List Review Problem List Initiated/Reviewed/Updated: Yes - My Orders Last 24 Hours: My Active Orders 05/28/20 08:47 LACTIC ACID [CHEM] Stat - Assessment Assessment:: As above - Plan Plan:: As above. Extensive precautions were given to the patient, who is in agreement with the treatment plan. The patient will continue on inpatient status at this time with the hypotension that was noted this morning. Hopefully swing bed tomor row. Discontinue the Vanco and continue the ceftriaxone. Case management to assess for swing bed tomorrow if the patient remains stable with her vital signs. Labs tomorrow as well. Care return to attending tomorrow.
[2020-05-28] MEDS: cefTRIAXone 1 GM in Sodium Chloride 0.9% 100 ML IV SCH ×2 (10:30→22:37)
[2020-05-28] MEDS: Pantoprazole 40 MG Vial IVPUSH SCH ×2 (10:30→22:34)
[2020-05-28] MEDS: Famotidine 20 MG/2 ML SDV IVPUSH SCH ×2 (10:30→22:26)
[2020-05-28] MEDS: Acetaminophen 325 MG Tab PO PRN (17:47)
--- NOTE | 2020-05-28 19:59 | PCM.SN.2 ---
- Free Text/Narrative Note: PTs blood pressures continue to be lower 99 SBP. Has had massive diuresis yesterday in the presence of urosepsis. Will decrease lasix completely at this time and continue to monitor. Lactic is normal. No fevers.
[2020-05-28] MEDS: DULoxetine 30 MG Cap PO SCH (20:33)
[2020-05-28] MEDS: Warfarin 2.5 MG Tab PO SCH (20:33)
[2020-05-28] MEDS: atorvaSTATin 10 MG Tab PO SCH (20:34)
[2020-05-28] MEDS: Montelukast 10 MG Tab PO SCH (20:35)
[2020-05-28] MEDS: Nystatin Susp 100,000 Unit/ML 5 ML UD Cup PO SCH (21:31)
[2020-05-28] MEDS: Sodium Chloride 0.9% 10 ML Syringe FLUSH PRN ×4 (22:27→23:12)
[2020-05-29] MEDS: Magnesium Oxide 400 MG Tab PO SCH (07:32)
[2020-05-29] MEDS: Metoprolol Succinate 25 MG Tab.ER PO SCH (07:32)
[2020-05-29] MEDS: Nystatin Susp 100,000 Unit/ML 5 ML UD Cup PO SCH ×2 (07:32→12:43)
[2020-05-29 07:33] VITALS: BP 130/74; PULSE 74
[2020-05-29] MEDS: Ferrous Sulfate 325 MG Tab PO SCH (07:33)
[2020-05-29] MEDS: Cholecalciferol (Vitamin D3) 25 MCG Tab PO SCH (07:33)
[2020-05-29] MEDS: Beta-Carotene (Vitamin A) w/Vitamin C & E plus Minerals Tab PO SCH (07:33)
[2020-05-29] MEDS: metFORMIN 500 MG Tab PO SCH (07:33)
[2020-05-29] MEDS: Insulin Lispro 100 Units/ML 3 ML Vial SUBCUT SCH ×2 (07:35→11:34)
[2020-05-29] MEDS ORDERED: Furosemide 40 MG/4 ML VIAL IVPUSH SCH (08:00)
[2020-05-29] MEDS ORDERED: Potassium Chloride 20 MEQ Tab.ER PO SCH (08:00)
[2020-05-29] MEDS ORDERED: Loperamide 2 MG Tab PO PRN ×2 (09:14→09:16)
--- NOTE | 2020-05-29 10:51 | PCM.DCSUM1 ---
Discharge Summary - Hospital Course HPI Initial Comments: See emergency room note/mention H&P Brief History: See emergency room note/admission H&P Diagnosis: Stroke: No Modified Lambert Scale: No Symptoms at All Modified Lambert Scale Score: 0 - Discharge Data Discharge Date: 05/29/20 Discharge Disposition: DC/Tfer W/I Hosp To Swing Condition: Fair - Referral to Home Health Primary Care Physician: Pinky Montoya PA-C - Discharge Diagnosis/Problem(s) (1) UTI (urinary tract infection) SNOMED Code(s): 49309584 ICD Code: N39.0 - URINARY TRACT INFECTION, SITE NOT SPECIFIED Status: Acute Priority: High Current Visit: Yes Onset Date: ~05/24/20 Problem Details: Secondary to improved symptoms IV vancomycin was discontinued by [facility]'s provider on 05/28. Secondary to history of sepsis IV antibiotic Rocephin will need to be continued with patient to be transferred to swing bed in our facility. She is also needing further physical therapy and Occupational Therapy secondary to significant weakness during the upcoming swing bed care. Note urosepsis confirmed on 05/27/2020 from previous positive blood cultures x2 on 04/26/2020. Urosepsis initially suspected, however note gram-positive cocci rather than gram-negative rods were noted in the blood cultures on 05/25. Verbal report from our laboratory on 05/26 indicated that her blood cultures probably actually contain gram-negative rods with today's urine culture and sensitivity showing adequate control with both Rocephin and Cipro. Chest x-ray on 05/27/2020 today shows progressive CHF with questionable left lower lobe atelectasis versus infiltrates. Chest x-ray, portable, on 05/24/2020 and 05/26/2020 showed somewhat poor inspiratory film, although possible mild bilateral basilar pneumonia. Persistent fever, however significantly improved and normal WBCs since 05/26. Patient's Cipro initially at 400 mg IV every 12 hours, although this was changed to 200 mg IV every 12 hours on 05/25 secondary to her renal insufficiency. The patient was given a 2 g IV dose of Rocephin early in the morning on 05/25 with subsequent increase of her Rocephin to 1 g IV every 12 hours starting that evening. Vancomycin IV was also initiated on 05/25 with pharmacy consultation for proper dosing and routine blood work. Trough vancomycin level on 05/26 showed adequate therapy with repeat level repeated on 05/28. Secondary to persistent refractory fever continued triple antibiotic therapy as above until final blood culture and sensitivity results were obtained on 05/27. IV Cipro will be discontinued in order to avoid C. difficile colitis with continuation of IV vancomycin and IV Rocephin per sepsis protocol on 05/27. Thomas catheter was placed on 05/25 for accurate I's and O's secondary to her sepsis, previous CHF, and urinary incontinence. Low threshold for hospital transfer. Lactic acid levels x 4 were normal during this hospitalization. Qualifiers: Urinary tract infection type: acute cystitis Hematuria presence: without hematuria Qualified Code(s): N30.00 - Acute cystitis without hematuria (2) Sepsis SNOMED Code(s): 47353997 ICD Code: A41.9 - SEPSIS, UNSPECIFIED ORGANISM Status: Acute Priority: High Current Visit: Yes Onset Date: ~05/24/20 Problem Details: As above. Patient remains afebrile and will be transferred to swing bed. Qualifiers: Sepsis type: Escherichia coli Sepsis acute organ dysfunction status: without acute organ dysfunction Qualified Code(s): A41.51 - Sepsis due to Escherichia coli [E. coli] (3) Anemia SNOMED Code(s): 214160660 ICD Code: D64.9 - ANEMIA, UNSPECIFIED Status: Acute Priority: Medium Current Visit: Yes Problem Details: Hemoglobin normal on 05/29. Hgb improved throughout course of this hospitalization as below. No signs of bleeding at this time. Progressive previous anemia with hemoglobin of 10.0 on 05/26 in comparison to 10.5 on 05/25 with returned anemia on 05/26 likely secondary to rehydration effect with initial hemoglobin of 12.0 on admission. Iron studies on 05/26 indicate persistent iron deficiency with her iron sulfate to be increased to twice daily basis. Note concomitant magnesium oxide therapy. No evidence of acute GI bleed. IV Pepcid and IV Protonix was initiated on 05/25 as GI prophylaxis secondary to her current sepsis and Coumadin/Lovenox therapy, although this will be changed to oral therapy and swing bed. Vitamin B12 level adequate on 05/26/1930. Qualifiers: Anemia type: iron deficiency Iron deficiency anemia type: inadequate dietary iron intake Qualified Code(s): D50.8 - Other iron deficiency anemias (4) Gilbert's syndrome SNOMED Code(s): 36714017 ICD Code: E80.4 - GILBERT SYNDROME Status: Chronic Priority: Medium Current Visit: Yes Onset Date: 11/02/16 Problem Details: Hyperbilirubinemia significantly improved since admission with known history of probable Gilbert's syndrome with direct/indirect bili evaluation repeated on 05/26/2020. No direct indication of hemolysis despite anemia as above. (5) Hyponatremia SNOMED Code(s): 09750706 ICD Code: E87.1 - HYPO-OSMOLALITY AND HYPONATREMIA Status: Acute Priority: Medium Current Visit: Yes Problem Details: Sodium normalized during this hospitalization. IV fluids held during later phases of hospitalization. Lasix was discontinued by local provider on 05/28 as she has had some low blood pressure throughout the morning no SOB and clear lung ware on exam. Hyponatremia slowly improving with previous somewhat progressive hyponatremia likely secondary to CHF and some fluid overload during this hospitalization. IV Lasix initiated on 05/26. IV fluids have been given with patient given a 1 L IV bolus of lactated Ringer's secondary to her sepsis and mildly decreased blood pressures on 05/25. Otherwise continued IV normal saline at 100 mls per hour with this discontinued on 05/26. (6) Weakness SNOMED Code(s): 93187549 ICD Code: R53.1 - WEAKNESS Status: Acute Priority: High Current Visit: Yes Problem Details: Severe generalized weakness secondary to her current infection with additional morbid obesity and very slow improvement in her mobility, etc. PT and OT have been ordered for the swing bed care. (7) CHF (congestive heart failure) SNOMED Code(s): 19024829 ICD Code: I50.9 - HEART FAILURE, UNSPECIFIED Status: Chronic Priority: Medium Current Visit: Yes Problem Details: No chest pain or anginal type symptoms. IV Lasix therapy decreased on 05/28 as above. Negative work-up for acute AK. Note previous moderate to severe cardiomegaly by x-rays in this facility. Consider echocardiogram on an outpatient basis. Qualifiers: Heart failure type: unspecified Heart failure chronicity: chronic Qualified Code(s): I50.9 - Heart failure, unspecified (8) COPD (chronic obstructive pulmonary disease) SNOMED Code(s): 96957163 ICD Code: J44.9 - CHRONIC OBSTRUCTIVE PULMONARY DISEASE, UNSPECIFIED Status: Chronic Priority: Medium Current Visit: Yes Problem Details: COPD by chest x-ray with no current therapy. No recent history of bronchitic type symptoms. Initiated incentive spirometry on 05/25. No direct indication of pneumonia with chest x-ray results as above, however note triple antibiotic therapy at this time. Patient has been compliant with her CPAP secondary to her sleep apnea. Qualifiers: COPD type: emphysema Emphysema type: panlobular Qualified Code(s): J43.1 - Panlobular emphysema (9) DVT (deep venous thrombosis) SNOMED Code(s): 096700007 ICD Code: I82.409 - ACUTE EMBOLISM AND THOMBOS UNSP DEEP VN UNSP LOWER EXTREMITY Status: Chronic Priority: Medium Current Visit: Yes Problem Details: INR finally therapeutic on 05/27 with subtherapeutic findings on 05/26. Additional dose of subcutaneous Lovenox with additional dose of oral Coumadin as a load on 05/26. Patient has been noncompliant with her Coumadin for the last 3- 4 days secondary to current illness with previous history of medication noncompliance in the past. No clinical evidence of DVT or PE. High-dose Lovenox was initiated as a bridge starting on 05/25 with additional loading dose of her Coumadin on that day. No further Lovenox needed at this time. Close follow-up of her INRs during swing bed care. Qualifiers: DVT location: lower extremity Affected thrombotic vein of extremity: unspecified vein of extremity Chronicity: unspecified Laterality: unspecified laterality Qualified Code(s): I82.409 - Acute embolism and thrombosis of unspecified deep veins of unspecified lower extremity (10) Hypomagnesemia SNOMED Code(s): 906472672 ICD Code: E83.42 - HYPOMAGNESEMIA Status: Chronic Priority: Medium Current Visit: Yes Problem Details: Magnesium normal on 05/29/2020. Continue to observe closely during swing bed care. Note history of medication noncompliance as above. Magnesium level significantly decreased on 05/26, which may be a partial etiology for her new atrial fibrillation. IV magnesium sulfate given on 05/26 with additional increase of her magnesium sulfate to 400 mg p.o. twice daily on that day. Magnesium level normal on 05/27 with spontaneous resolution of previous atrial fibrillation with magnesium supplementation as above. (11) Osteoarthritis SNOMED Code(s): 991919766 ICD Code: M19.90 - UNSPECIFIED OSTEOARTHRITIS, UNSPECIFIED SITE Status: ronic Priority: Medium Current Visit: Yes Problem Details: No significant arthralgias, etc. since patient has been afebrile. Mild persistent nonspecific generalized arthralgias secondary to her fever on 05/26 with complete resolution of symptoms on 05/27. Her arthritis is otherwise stable by history with nonspecific neck pain without meningeal signs on 05/25. Known hyperuricemia but no known gout attacks in the past. Note previous history of chronic narcotic use and pain clinic management. She does use a cane at home, however is immobile at this time secondary to her obesity and current illness. PT and OT have been ordered as above. Qualifiers: Osteoarthritis location: multiple joints Osteoarthritis type: primary Qualified Code(s): M89.49 - Other hypertrophic osteoarthropathy, multiple sites (12) Mixed anxiety depressive disorder SNOMED Code(s): 091917190 ICD Code: F41.8 - OTHER SPECIFIED ANXIETY DISORDERS Status: Chronic Priority: Medium Current Visit: Yes Problem Details: Improved anxiety and depression on 05/27 with previous mild to moderately poor control emotional status based on clinical exam during early portions of this hospitalization. Per history from the paramedics extremely poor living conditions, including feces on the beavers, etc. Note that she does have increased stressors secondary to taking care of her at home, who is on a respirator. Note previous chronic narcotic and Ultram use/addiction as above. Care management consultation has been ordered. representative phlebotomy services consultation based on their evaluation. Adult Protective Services has been contacted. Note that the patient previously took care of her debilitated , who is now . representative phlebotomy services and our care clinician have been in contact with family in [place], [place] with patient and her family in agreement to have the patient relocate to that area after her swing bed care. (13) Hypoalbuminemia SNOMED Code(s): 584596573 ICD Code: E88.09 - OTH DISORDERS OF PLASMA-PROTEIN METABOLISM, NEC Status: Acute Priority: Medium Current Visit: Yes Onset Date: 05/24/20 Problem Details: Observe for now. Note current obesity. (14) Renal insufficiency SNOMED Code(s): 053092380, 824479962 ICD Code: N28.9 - DISORDER OF KIDNEY AND URETER, UNSPECIFIED Status: Chronic Priority: Medium Current Visit: Yes Problem Details: Small increase of patient's creatinine to 1.5 on 05/28 with Lasix therapy decreased to 40mg IV qd on that day. Change to oral Lasix therapy in her swing bed care. Known diabetic nephropathy. Renal function otherwise relatively stable during this hospitalization with IV Lasix initiated on 05/26 with caution. (15) Diabetes mellitus SNOMED Code(s): 31635796 ICD Code: E11.9 - TYPE 2 DIABETES MELLITUS WITHOUT COMPLICATIONS Status: Acute Current Visit: Yes Problem Details: Blood sugars with good control. BS 120-140 will continue with previous therapies. Glycosylated hemoglobin on 05/26 was 6.2%. Humalog subcu sliding scale secondary to current sepsis during this hospitalization, although this will not be continued during swing bed care. Her diet is under better control during hospitalization with weight loss in moderation strongly advisable. Low calorie diet to be continued in swing bed. Qualifiers: Diabetes mellitus type: type 2 Diabetes mellitus group home insulin use: without medical van driver use Diabetes mellitus complication status: with kidney complications Diabetes mellitus complication detail: with chronic kidney disease Chronic kidney disease stage: stage 3 (moderate) Chronic kidney disease stage 3 subtype: stage 3a (GFR 45-59) Qualified Code(s): E11.22 - Type 2 diabetes mellitus with diabetic chronic kidney disease; N18.31 - Chronic kidney disease, stage 3a (16) Atrial fibrillation SNOMED Code(s): 28128057 ICD Code: I48.91 - UNSPECIFIED ATRIAL FIBRILLATION Status: Acute Priority: High Current Visit: Yes Problem Details: Patient continues to be in normal sinus rhythm after correction of her hypomagnesemia as above. Continue current Coumadin therapy secondary to her previous history of DVT. Qualifiers: Atrial fibrillation type: paroxysmal Qualified Code(s): I48.0 - Paroxysmal atrial fibrillation (17) Sleep apnea SNOMED Code(s): 18094229 ICD Code: G47.30 - SLEEP APNEA, UNSPECIFIED Status: Chronic Priority: Medium Current Visit: Yes Problem Details: Continue CPAP. Weight loss strongly advisable. Qualifiers: Sleep apnea type: obstructive Qualified Code(s): G47.33 - Obstructive sleep apnea (adult) (pediatric) (18) First degree AV block SNOMED Code(s): 571833143 ICD Code: I44.0 - ATRIOVENTRICULAR BLOCK, FIRST DEGREE Status: Acute Priority: Medium Current Visit: Yes Onset Date: 05/27/20 Problem Details: Observe for now. (19) Incomplete right bundle branch block SNOMED Code(s): 776487413 ICD Code: I45.10 - UNSPECIFIED RIGHT BUNDLE-BRANCH BLOCK Status: Acute Priority: Medium Current Visit: Yes Onset Date: 05/27/20 Problem Details: Observe for now (20) PVCs (premature ventricular contractions) SNOMED Code(s): 72351581 ICD Code: I49.3 - VENTRICULAR PREMATURE DEPOLARIZATION Status: Chronic Priority: Medium Current Visit: Yes Onset Date: 05/27/20 Problem Details: Observe for now - Patient Summary/Data Operative Procedure(s) Performed: None Complications: Atrial fibrillation secondary to hypomagnesemia as above Consults: Consultations 05/24/20 13:54 Consult to Case Management/Oracle Business Analyst [CONS] Routine 05/24/20 13:55 Consult to Physical Therapy [PT Evaluation and Treatment] [CONS] Routine 05/24/20 13:56 Consult to Occupational Therapy [OT Evaluation and Treatment] [CONS] Routine 05/24/20 17:54 Consult to Dietary [Consult to Sock Lining Examiner] [CONS] Routine Labs Pending at D/C: Final report of venous Doppler studies of the lower extremities from 05/26/2020 Recommended Follow-up Testing/Procedures: As per swing bed orders Planned Operative Procedure(s) after DC: None - Patient Instructions Diet: Fluid Restriction Diet, Other: Heart healthy, 1500-calorie ADA, diverticulosis-pured Fluid Restriction: 2000 mL Activity: As Tolerated (And directed by PT and OT. Strict fall precautions) Driving: Do Not Drive Showering/Bathing: May Shower (With assist) Notify Provider of: Fever, Increased Pain, Nausea and/or Vomiting Other/Special Instructions: Patient transferred to swing bed - Discharge Plan *PRESCRIPTION DRUG MONITORING PROGRAM REVIEWED*: Not Applicable *COPY OF PRESCRIPTION DRUG MONITORING REPORT IN PATIENT BHAVNA: Not Applicable Home Medications: Home Meds Warfarin Sodium [Jantoven] 5 mg PO MO@199911/02/16 [History] Magnesium Oxide 400 mg PO DAILY #30 tab 07/13/17 [Rx] Acetaminophen 1,000 mg PO Q12HR 02/09/18 [History] Cholecalciferol (Vitamin D3) [Vitamin D3] 2 tab PO DAILY 02/09/18 [History] Cyclobenzaprine [Flexeril] 1 tab PO TID PRN 02/09/18 [History] DULoxetine [Cymbalta] 30 mg PO BEDTIME 02/09/18 [History] Furosemide 40 mg PO DAILY 02/09/18 [History] Iron 45 mg PO DAILY 02/09/18 [History] Metoprolol Succinate [Toprol XL] 25 mg PO DAILY 02/09/18 [History] Multivit-Min/Iron/Folic/Lutein [Centrum Silver Women Tablet] 1 tab PO DAILY 02/09/18 [History] atorvaSTATin [Lipitor] 20 mg PO BEDTIME 02/09/18 [History] Biotin 10,000 mcg PO DAILY 05/24/20 [History] Montelukast [Singulair] 10 mg PO BEDTIME 05/24/20 [History] Potassium Chloride 20 meq PO DAILY 05/24/20 [History] Warfarin [Coumadin] 2.5 mg PO SUTUWETHFRSA@2000 05/24/20 [History] metFORMIN HCl [Metformin HCl ER] 500 mg PO DAILY 05/24/20 [History] Oxygen Therapy Mode: CPAP (At bedtime and with naps) Forms: ED Department Discharge Referrals: Pinky Montoya PA-C [Primary Care Provider] - - Discharge Summary/Plan Comment DC Time >30 min.: Yes (Coordination of care ) Discharge Summary/Plan Comment: As above. Extensive precautions were given to the patient, who is in agreement with the treatment plan. Transfer to swing bed as above. - General Info Date of Service: 05/29/20 Admission Dx/Problem (Free Text: 1. Complicated UTI 2. Generalized weakness Functional Status: Reports: Pain Controlled, Tolerating Diet, Ambulating (With difficulty with assist with current PT and OT), Incentive Spirometry. Denies: Urinating, New Symptoms Numeric/FACES Score: 0 - Review of Systems General: Reports: Weakness (Moderate to severe improving very slowly). Denies: Fever, Fatigue, Malaise, Chills, Night Sweats, Appetite HEENT: Reports: Glasses, Sore Throat (Mild oral candidiasis diagnosed on 05/28). Denies: Dysphasia, Ear Pain, Eye Pain, Headaches, Post Nasal Drip, Sinus Congestion, Rhinitis Pulmonary: Reports: Cough (Occasional). Denies: Shortness of Breath, Pleuritic Chest Pain, Sputum, Hemoptysis Cardiovascular: Reports: No Symptoms. Denies: Chest Pain, Palpitations, Dyspnea on Exertion, Orthopnea, PND, Edema, Lightheadedness Gastrointestinal: Reports: No Symptoms. Denies: Abdominal Pain, Constipation, Decreased Appetite, Diarrhea, Difficulty Swallowing, Flatus, Hematochezia, Melena, Nausea, Vomiting Genitourinary: Reports: Incontinence, Other (Thomas catheter in place). Denies: Dysuria, Frequency, Burning, Urgency, Hematuria, Retention, Flank Pain Musculoskeletal: Reports: No Symptoms. Denies: Neck Pain, Shoulder Pain, Arm Pain, Back Pain, Leg Pain Skin: Reports: Bruising (Minimal with no petechiae), Rash (Stable venous stasis dermatitis). Denies: Diaphoresis Neurological: Reports: Difficulty Walking (As above), Weakness (As above). Denies: Confusion, Dizziness, Headache, Numbness Psychiatric: Reports: Depression (Mild), Anxiety (Mild). Denies: Confusion, Agitation, Cravings, Hallucinations - Patient Data Vitals - Most Recent: Last Vital Signs Temp 36.3 C 05/29/20 07:30 Pulse 74 05/29/20 07:32 Resp 20 05/29/20 07:30 BP 130/74 05/29/20 07:32 Pulse Ox 95 05/29/20 07:30 Vital Signs - 24 hr 05/28/20 05/28/20 05/28/20 12:00 16:00 20:00 Temperature [ 36.9 C 36.3 C Oral] Temperature [ 36.2 C Temporal] Pulse, Peripheral Pulse, 75 86 86 Peripheral [ Right Pulse Oximetry] Respiratory 18 19 14 Rate Blood Pressure Blood Pressure [Right Lower Arm] Blood Pressure 81/61 L 99/76 125/73 [Right Upper Arm] O2 Sat by Pulse 95 100 96 Oximetry 05/29/20 05/29/20 05/29/20 00:00 04:00 07:30 Temperature [ 36.3 C 36.4 C 36.3 C Oral] Temperature [ Temporal] Pulse, Peripheral Pulse, 99 78 84 Peripheral [ Right Pulse Oximetry] Respiratory 14 14 20 Rate Blood Pressure Blood Pressure 108/68 95/57 L [Right Lower Arm] Blood Pressure 130/77 [Right Upper Arm] O2 Sat by Pulse 99 98 95 Oximetry 05/29/20 07:32 Temperature [ Oral] Temperature [ Temporal] Pulse, 74 Peripheral Pulse, Peripheral [ Right Pulse Oximetry] Respiratory Rate Blood Pressure 130/74 Blood Pressure [Right Lower Arm] Blood Pressure [Right Upper Arm] O2 Sat by Pulse Oximetry Weight - Most Recent: 147.871 kg I&O - Last 24 hours: Intake & Output 05/28/20 05/29/20 05/29/20 22:59 06:59 14:59 Intake Total 640 245 Output Total 1800 Balance 640 -1555 Imaging Impressions - Last 24 hrs: quality assurance monitor body discontinued on 05/28/2020 with normal sinus rhythm in the 80s to 90s at that time with no significant arrhythmia Chest x-ray, portable, on shows somewhat poor inspiration with moderate to severe cardiomegaly with somewhat increased CHF in comparison to 05/26/2020. No pneumothorax. Mild left lower lobe atelectasis versus pleural effusion with pulmonary infiltrates difficult to assess secondary to her CHF. CTA of the chest using PE protocol on 06/26/2020 showed no evidence of PE with were preliminary verbal report as below. Telephone consultation on 06/26/2020 at 12:29 PM with the radiology department at [facility]. Preliminary verbal report of CTA of the chest was negative for PE with somewhat suboptimal findings secondary to motion artifacts, etc. Incidental finding of possible perihilar, right greater than left CHF and/or beginning pneumonia. Preliminary verbal report from vanessa Moe tech on 06/26/20. Venous Doppler results of lower extremities negative for DVT. Final report is still pending. EKG Date: 05/27/20 Time: 07:33 Rhythm: Other (Normal sinus rhythm with PVC noted) Rate (Beats/Min): 80 [place]: Normal (Extended left) P-Wave: Enlarged (Moderate diffuse biphasic) QRS: RBBB (0.10 seconds representing an incomplete right bundle branch block) ST-T: Other (T wave inversion in leads V1 and III) QT: Normal [place]/PQ Interval: 0.21 seconds representing a first-degree AV block with extreme poor R wave progression in the anterior leads Comparison: NA - No Prior EKG (No recent EKG for comparison) EKG Interpretation Comments: 1. No acute ischemic changes 2. PVC 3. First-degree AV block 4. Incomplete right bundle branch block 5. Left atrial enlargement Lab Results - Last 24 hrs: Laboratory Results - last 24 hr 05/28/20 05/28/2021 Range/Units 06:41 10:40 11:11 WBC (4.0-10.2) K/uL RBC (3.77-5.09) M/uL Hgb (11.7-15.5) g/dL Hct (34.0-46.0) % MCV (84.0-98.0) fL MCH (28.2-33.3) pg MCHC (31.7-36.0) g/dL RDW (11.2-14.1) % Plt Count (150-350) K/uL Neut % (Auto) (45.0-80.0) % Lymph % (Auto) (10.0-50.0) % [place] % (Auto) (2.0-14.0) % Eos % (Auto) (0.0-5.0) % Baso % (Auto) (0.0-2.0) % Neut # (Auto) (1.40-7.00) K/uL Lymph # (Auto) (0.50-3.50) K/uL [place] # (Auto) (0.00-1.00) K/uL Eos # (Auto) (0.00-0.50) K/uL Baso # (Auto) (0.00-0.20) K/uL PT (9.5-12.0) SEC INR APTT (24.5-32.8) SEC Sodium (136-145) mmol/L Potassium (3.5-5.1) mmol/L Chloride (98-107) mmol/L Carbon Dioxide (21.0-32.0) mmol/L BUN (7-18) mg/dL Creatinine (0.51-1.17) mg/dL Est Cr Clr Drug Dosing mL/min Estimated GFR (MDRD) mL/min Glucose (70-99) mg/dL POC Glucose 158 H (65-110) mg/dl Lactic Acid 1.9 (0.4-2.0) mmol/L Calcium (8.5-10.1) mg/dL Magnesium 1.7 L (1.8-2.4) mg/dL 05/28/20 05/28/20 05/29/20 Range/Units 17:01 21:34 07:34 WBC (4.0-10.2) K/uL RBC (3.77-5.09) M/uL Hgb (11.7-15.5) g/dL Hct (34.0-46.0) % MCV (84.0-98.0) fL MCH (28.2-33.3) pg MCHC (31.7-36.0) g/dL RDW (11.2-14.1) % Plt Count (150-350) K/uL Neut % (Auto) (45.0-80.0) % Lymph % (Auto) (10.0-50.0) % [place] % (Auto) (2.0-14.0) % Eos % (Auto) (0.0-5.0) % Baso % (Auto) (0.0-2.0) % Neut # (Auto) (1.40-7.00) K/uL Lymph # (Auto) (0.50-3.50) K/uL [place] # (Auto) (0.00-1.00) K/uL Eos # (Auto) (0.00-0.50) K/uL Baso # (Auto) (0.00-0.20) K/uL PT (9.5-12.0) SEC INR APTT (24.5-32.8) SEC Sodium (136-145) mmol/L Potassium (3.5-5.1) mmol/L Chloride (98-107) mmol/L Carbon Dioxide (21.0-32.0) mmol/L BUN (7-18) mg/dL Creatinine (0.51-1.17) mg/dL Est Cr Clr Drug Dosing mL/min Estimated GFR (MDRD) mL/min Glucose (70-99) mg/dL POC Glucose 126 H 137 H 136 H (65-110) mg/dl Lactic Acid (0.4-2.0) mmol/L Calcium (8.5-10.1) mg/dL Magnesium (1.8-2.4) mg/dL 05/29/20 05/29/20 05/29/20 Range/Units 07:35 07:35 07:35 WBC 8.6 (4.0-10.2) K/uL RBC 3.83 (3.77-5.09) M/uL Hgb 11.8 (11.7-15.5) g/dL Hct 36.4 (34.0-46.0) % MCV 95.0 (84.0-98.0) fL MCH 30.8 (28.2-33.3) pg MCHC 32.4 (31.7-36.0) g/dL RDW 14.9 H (11.2-14.1) % Plt Count 315 D (150-350) K/uL Neut % (Auto) 56.2 (45.0-80.0) % Lymph % (Auto) 30.2 (10.0-50.0) % [place] % (Auto) 10.8 (2.0-14.0) % Eos % (Auto) 2.2 (0.0-5.0) % Baso % (Auto) 0.6 (0.0-2.0) % Neut # (Auto) 4.83 (1.40-7.00) K/uL Lymph # (Auto) 2.60 (0.50-3.50) K/uL [place] # (Auto) 0.93 (0.00-1.00) K/uL Eos # (Auto) 0.19 (0.00-0.50) K/uL Baso # (Auto) 0.05 (0.00-0.20) K/uL PT 34.0 H (9.5-12.0) SEC INR 3.5 APTT 41.0 H (24.5-32.8) SEC Sodium 137 (136-145) mmol/L Potassium 4.4 (3.5-5.1) mmol/L Chloride 98 (98-107) mmol/L Carbon Dioxide 29.1 (21.0-32.0) mmol/L BUN 26 H (7-18) mg/dL Creatinine 1.35 H (0.51-1.17) mg/dL Est Cr Clr Drug Dosing 39.88 mL/min Estimated GFR (MDRD) 40 mL/min Glucose 133 H (70-99) mg/dL POC Glucose (65-110) mg/dl Lactic Acid (0.4-2.0) mmol/L Calcium 10.6 H (8.5-10.1) mg/dL Magnesium 2.0 (1.8-2.4) mg/dL 05/29/20 Range/Units 07:35 WBC (4.0-10.2) K/uL RBC (3.77-5.09) M/uL Hgb (11.7-15.5) g/dL Hct (34.0-46.0) % MCV (84.0-98.0) fL MCH (28.2-33.3) pg MCHC (31.7-36.0) g/dL RDW (11.2-14.1) % Plt Count (150-350) K/uL Neut % (Auto) (45.0-80.0) % Lymph % (Auto) (10.0-50.0) % [place] % (Auto) (2.0-14.0) % Eos % (Auto) (0.0-5.0) % Baso % (Auto) (0.0-2.0) % Neut # (Auto) (1.40-7.00) K/uL Lymph # (Auto) (0.50-3.50) K/uL [place] # (Auto) (0.00-1.00) K/uL Eos # (Auto) (0.00-0.50) K/uL Baso # (Auto) (0.00-0.20) K/uL PT (9.5-12.0) SEC INR APTT (24.5-32.8) SEC Sodium (136-145) mmol/L Potassium (3.5-5.1) mmol/L Chloride (98-107) mmol/L Carbon Dioxide (21.0-32.0) mmol/L BUN (7-18) mg/dL Creatinine (0.51-1.17) mg/dL Est Cr Clr Drug Dosing mL/min Estimated GFR (MDRD) mL/min Glucose (70-99) mg/dL POC Glucose (65-110) mg/dl Lactic Acid 2.4 H (0.4-2.0) mmol/L Calcium (8.5-10.1) mg/dL Magnesium (1.8-2.4) mg/dL Laboratory Tests 05/24/20 05/24/20 05/24/20 Range/Units 12:35 12:41 12:41 WBC 15.4 H (4.0-10.2) K/uL RBC 3.89 (3.77-5.09) M/uL Hgb 12.0 (11.7-15.5) g/dL Hct 37.2 (34.0-46.0) % MCV 95.6 D (84.0-98.0) fL MCH 30.8 (28.2-33.3) pg MCHC 32.3 (31.7-36.0) g/dL RDW 14.9 H (11.2-14.1) % Plt Count 178 (150-350) K/uL Neut % (Auto) 82.0 H (45.0-80.0) % Lymph % (Auto) 10.0 (10.0-50.0) % [place] % (Auto) 7.8 (2.0-14.0) % Eos % (Auto) 0.0 (0.0-5.0) % Baso % (Auto) 0.2 (0.0-2.0) % Neut # (Auto) 12.65 H (1.40-7.00) K/uL Lymph # (Auto) 1.54 (0.50-3.50) K/uL [place] # (Auto) 1.21 H (0.00-1.00) K/uL Eos # (Auto) 0.00 (0.00-0.50) K/uL Baso # (Auto) 0.03 (0.00-0.20) K/uL PT (9.5-12.0) SEC INR APTT (24.5-32.8) SEC D-Dimer, Quantitative (0-400) ng/mL Sodium 134 L (136-145) mmol/L Potassium 3.6 (3.5-5.1) mmol/L Chloride 95 L (98-107) mmol/L Carbon Dioxide 24.3 (21.0-32.0) mmol/L BUN 18 (7-18) mg/dL Creatinine 1.40 H (0.51-1.17) mg/dL Est Cr Clr Drug Dosing TNP Estimated GFR (MDRD) 38 mL/min Glucose 160 H (70-99) mg/dL POC Glucose (65-110) mg/dl Hemoglobin A1c (4.3-5.7) % Lactic Acid (0.4-2.0) mmol/L Uric Acid (2.6-7.2) mg/dL Calcium 9.5 (8.5-10.1) mg/dL Magnesium (1.8-2.4) mg/dL Iron (50-175) ug/dL TIBC (250-450) ug/dL % Saturation Ferritin (8-388) ng/mL Total Bilirubin 3.2 H (0.2-1.0) mg/dL Direct Bilirubin (0.0-0.2) mg/dL Indirect Bilirubin AST 37 (15-37) U/L ALT 29 (12-78) U/L Alkaline Phosphatase 72 (46-116) IU/L Troponin I (0.000-0.056) ng/mL NT-Pro-B Natriuret Pep (0-125) pg/mL Total Protein 7.4 (6.4-8.2) g/dL Albumin 3.2 L (3.4-5.0) g/dL Vitamin B12 (193-986) pg/mL Specimen Type Urine Color Urine Appearance Urine pH (5.0-9.0) Ur Specific [place] (1.005-1.030) Urine Protein (NEGATIVE) mg/dL Urine Glucose (UA) (NEGATIVE) mg/dL Urine Ketones (NEGATIVE) mg/dL Urine Occult Blood (NEGATIVE) Urine Nitrite (NEGATIVE) Urine Bilirubin (NEGATIVE) Urine Urobilinogen (0.2-1.0) E.U./dL Ur Leukocyte Esterase (NEGATIVE) Urine RBC /HPF Urine WBC /HPF Ur Epithelial Cells /LPF Urine Bacteria (NONE TO FEW) /HPF Urine Mucus (NEGATIVE) /LPF Urinalysis Comment Vancomycin Trough (10-20) ug/mL SARS-CoV-2 RNA (DOMENICA) Negative (NEGATIVE) 05/24/20 05/24/20 05/24/20 Range/Units 12:59 13:12 13:12 WBC (4.0-10.2) K/uL RBC (3.77-5.09) M/uL Hgb (11.7-15.5) g/dL Hct (34.0-46.0) % MCV (84.0-98.0) fL MCH (28.2-33.3) pg MCHC (31.7-36.0) g/dL RDW (11.2-14.1) % Plt Count (150-350) K/uL Neut % (Auto) (45.0-80.0) % Lymph % (Auto) (10.0-50.0) % [place] % (Auto) (2.0-14.0) % Eos % (Auto) (0.0-5.0) % Baso % (Auto) (0.0-2.0) % Neut # (Auto) (1.40-7.00) K/uL Lymph # (Auto) (0.50-3.50) K/uL [place] # (Auto) (0.00-1.00) K/uL Eos # (Auto) (0.00-0.50) K/uL Baso # (Auto) (0.00-0.20) K/uL PT 13.2 H D (9.5-12.0) SEC INR 1.3 APTT (24.5-32.8) SEC D-Dimer, Quantitative (0-400) ng/mL Sodium (136-145) mmol/L Potassium (3.5-5.1) mmol/L Chloride (98-107) mmol/L Carbon Dioxide (21.0-32.0) mmol/L BUN (7-18) mg/dL Creatinine (0.51-1.17) mg/dL Est Cr Clr Drug Dosing Estimated GFR (MDRD) mL/min Glucose (70-99) mg/dL POC Glucose (65-110) mg/dl Hemoglobin A1c (4.3-5.7) % Lactic Acid 1.5 (0.4-2.0) mmol/L Uric Acid (2.6-7.2) mg/dL Calcium (8.5-10.1) mg/dL Magnesium (1.8-2.4) mg/dL Iron (50-175) ug/dL TIBC (250-450) ug/dL % Saturation Ferritin (8-388) ng/mL Total Bilirubin (0.2-1.0) mg/dL Direct Bilirubin (0.0-0.2) mg/dL Indirect Bilirubin AST (15-37) U/L ALT (12-78) U/L Alkaline Phosphatase (46-116) IU/L Troponin I (0.000-0.056) ng/mL NT-Pro-B Natriuret Pep (0-125) pg/mL Total Protein (6.4-8.2) g/dL Albumin (3.4-5.0) g/dL Vitamin B12 (193-986) pg/mL Specimen Type Urinvoid Urine Color [place] Urine Appearance Cloudy Urine pH 5.5 (5.0-9.0) Ur Specific [place] >= 1.030 (1.005-1.030) Urine Protein >=300 H (NEGATIVE) mg/dL Urine Glucose (UA) Negative (NEGATIVE) mg/dL Urine Ketones Negative (NEGATIVE) mg/dL Urine Occult Blood Moderate H (NEGATIVE) Urine Nitrite Positive H (NEGATIVE) Urine Bilirubin Small H (NEGATIVE) Urine Urobilinogen 0.2 (0.2-1.0) E.U./dL Ur Leukocyte Esterase Small H (NEGATIVE) Urine RBC 10-20 H /HPF Urine WBC >100 H /HPF Ur Epithelial Cells Moderate H /LPF Urine Bacteria Many H (NONE TO FEW) /HPF Urine Mucus Few H (NEGATIVE) /LPF Urinalysis Comment Vancomycin Trough (10-20) ug/mL SARS-CoV-2 RNA (DOMENICA) (NEGATIVE) 05/24/20 05/25/20 05/25/20 Range/Units 17:51 07:32 07:32 WBC 11.5 H (4.0-10.2) K/uL RBC 3.41 L (3.77-5.09) M/uL Hgb 10.5 L D (11.7-15.5) g/dL Hct 33.2 L (34.0-46.0) % MCV 97.4 (84.0-98.0) fL MCH 30.8 (28.2-33.3) pg MCHC 31.6 L (31.7-36.0) g/dL RDW 14.9 H (11.2-14.1) % Plt Count 154 (150-350) K/uL Neut % (Auto) 78.7 (45.0-80.0) % Lymph % (Auto) 12.8 (10.0-50.0) % [place] % (Auto) 8.2 (2.0-14.0) % Eos % (Auto) 0.1 (0.0-5.0) % Baso % (Auto) 0.2 (0.0-2.0) % Neut # (Auto) 9.04 H (1.40-7.00) K/uL Lymph # (Auto) 1.47 (0.50-3.50) K/uL [place] # (Auto) 0.94 (0.00-1.00) K/uL Eos # (Auto) 0.01 (0.00-0.50) K/uL Baso # (Auto) 0.02 (0.00-0.20) K/uL PT (9.5-12.0) SEC INR APTT (24.5-32.8) SEC D-Dimer, Quantitative (0-400) ng/mL Sodium 136 (136-145) mmol/L Potassium 3.6 (3.5-5.1) mmol/L Chloride 100 (98-107) mmol/L Carbon Dioxide 26.9 (21.0-32.0) mmol/L BUN 16 (7-18) mg/dL Creatinine 1.33 H (0.51-1.17) mg/dL Est Cr Clr Drug Dosing 40.48 Estimated GFR (MDRD) 41 mL/min Glucose 137 H (70-99) mg/dL POC Glucose (65-110) mg/dl Hemoglobin A1c (4.3-5.7) % Lactic Acid 0.7 (0.4-2.0) mmol/L Uric Acid (2.6-7.2) mg/dL Calcium 9.3 (8.5-10.1) mg/dL Magnesium (1.8-2.4) mg/dL Iron (50-175) ug/dL TIBC (250-450) ug/dL % Saturation Ferritin (8-388) ng/mL Total Bilirubin 2.3 H (0.2-1.0) mg/dL Direct Bilirubin (0.0-0.2) mg/dL Indirect Bilirubin AST 30 (15-37) U/L ALT 27 (12-78) U/L Alkaline Phosphatase 63 (46-116) IU/L Troponin I (0.000-0.056) ng/mL NT-Pro-B Natriuret Pep (0-125) pg/mL Total Protein 6.5 (6.4-8.2) g/dL Albumin 2.5 L (3.4-5.0) g/dL Vitamin B12 (193-986) pg/mL Specimen Type Urine Color Urine Appearance Urine pH (5.0-9.0) Ur Specific [place] (1.005-1.030) Urine Protein (NEGATIVE) mg/dL Urine Glucose (UA) (NEGATIVE) mg/dL Urine Ketones (NEGATIVE) mg/dL Urine Occult Blood (NEGATIVE) Urine Nitrite (NEGATIVE) Urine Bilirubin (NEGATIVE) Urine Urobilinogen (0.2-1.0) E.U./dL Ur Leukocyte Esterase (NEGATIVE) Urine RBC /HPF Urine WBC /HPF Ur Epithelial Cells /LPF Urine Bacteria (NONE TO FEW) /HPF Urine Mucus (NEGATIVE) /LPF Urinalysis Comment Vancomycin Trough (10-20) ug/mL SARS-CoV-2 RNA (DOMENICA) (NEGATIVE) 05/25/20 05/25/20 05/25/20 Range/Units 07:32 17:10 20:01 WBC (4.0-10.2) K/uL RBC (3.77-5.09) M/uL Hgb (11.7-15.5) g/dL Hct (34.0-46.0) % MCV (84.0-98.0) fL MCH (28.2-33.3) pg MCHC (31.7-36.0) g/dL RDW (11.2-14.1) % Plt Count (150-350) K/uL Neut % (Auto) (45.0-80.0) % Lymph % (Auto) (10.0-50.0) % [place] % (Auto) (2.0-14.0) % Eos % (Auto) (0.0-5.0) % Baso % (Auto) (0.0-2.0) % Neut # (Auto) (1.40-7.00) K/uL Lymph # (Auto) (0.50-3.50) K/uL [place] # (Auto) (0.00-1.00) K/uL Eos # (Auto) (0.00-0.50) K/uL Baso # (Auto) (0.00-0.20) K/uL PT 12.6 H (9.5-12.0) SEC INR 1.3 APTT (24.5-32.8) SEC D-Dimer, Quantitative (0-400) ng/mL Sodium (136-145) mmol/L Potassium (3.5-5.1) mmol/L Chloride (98-107) mmol/L Carbon Dioxide (21.0-32.0) mmol/L BUN (7-18) mg/dL Creatinine (0.51-1.17) mg/dL Est Cr Clr Drug Dosing Estimated GFR (MDRD) mL/min Glucose (70-99) mg/dL POC Glucose 157 H 130 H (65-110) mg/dl Hemoglobin A1c (4.3-5.7) % Lactic Acid (0.4-2.0) mmol/L Uric Acid (2.6-7.2) mg/dL Calcium (8.5-10.1) mg/dL Magnesium (1.8-2.4) mg/dL Iron (50-175) ug/dL TIBC (250-450) ug/dL % Saturation Ferritin (8-388) ng/mL Total Bilirubin (0.2-1.0) mg/dL Direct Bilirubin (0.0-0.2) mg/dL Indirect Bilirubin AST (15-37) U/L ALT (12-78) U/L Alkaline Phosphatase (46-116) IU/L Troponin I (0.000-0.056) ng/mL NT-Pro-B Natriuret Pep (0-125) pg/mL Total Protein (6.4-8.2) g/dL Albumin (3.4-5.0) g/dL Vitamin B12 (193-986) pg/mL Specimen Type Urine Color Urine Appearance Urine pH (5.0-9.0) Ur Specific [place] (1.005-1.030) Urine Protein (NEGATIVE) mg/dL Urine Glucose (UA) (NEGATIVE) mg/dL Urine Ketones (NEGATIVE) mg/dL Urine Occult Blood (NEGATIVE) Urine Nitrite (NEGATIVE) Urine Bilirubin (NEGATIVE) Urine Urobilinogen (0.2-1.0) E.U./dL Ur Leukocyte Esterase (NEGATIVE) Urine RBC /HPF Urine WBC /HPF Ur Epithelial Cells /LPF Urine Bacteria (NONE TO FEW) /HPF Urine Mucus (NEGATIVE) /LPF Urinalysis Comment Vancomycin Trough (10-20) ug/mL SARS-CoV-2 RNA (DOMENICA) (NEGATIVE) 05/26/20 05/26/20 05/26/20 Range/Units 07:03 09:45 09:45 WBC 7.9 (4.0-10.2) K/uL RBC 3.25 L (3.77-5.09) M/uL Hgb 10.0 L (11.7-15.5) g/dL Hct 31.2 L (34.0-46.0) % MCV 96.0 (84.0-98.0) fL MCH 30.8 (28.2-33.3) pg MCHC 32.1 (31.7-36.0) g/dL RDW 14.9 H (11.2-14.1) % Plt Count 147 L (150-350) K/uL Neut % (Auto) 64.9 (45.0-80.0) % Lymph % (Auto) 21.2 (10.0-50.0) % [place] % (Auto) 12.4 (2.0-14.0) % Eos % (Auto) 0.9 (0.0-5.0) % Baso % (Auto) 0.6 (0.0-2.0) % Neut # (Auto) 5.13 (1.40-7.00) K/uL Lymph # (Auto) 1.68 (0.50-3.50) K/uL [place] # (Auto) 0.98 (0.00-1.00) K/uL Eos # (Auto) 0.07 (0.00-0.50) K/uL Baso # (Auto) 0.05 (0.00-0.20) K/uL PT 14.5 H (9.5-12.0) SEC INR 1.5 APTT 36.7 H (24.5-32.8) SEC D-Dimer, Quantitative (0-400) ng/mL Sodium (136-145) mmol/L Potassium (3.5-5.1) mmol/L Chloride (98-107) mmol/L Carbon Dioxide (21.0-32.0) mmol/L BUN (7-18) mg/dL Creatinine (0.51-1.17) mg/dL Est Cr Clr Drug Dosing Estimated GFR (MDRD) mL/min Glucose (70-99) mg/dL POC Glucose 109 (65-110) mg/dl Hemoglobin A1c (4.3-5.7) % Lactic Acid (0.4-2.0) mmol/L Uric Acid (2.6-7.2) mg/dL Calcium (8.5-10.1) mg/dL Magnesium (1.8-2.4) mg/dL Iron (50-175) ug/dL TIBC (250-450) ug/dL % Saturation Ferritin (8-388) ng/mL Total Bilirubin (0.2-1.0) mg/dL Direct Bilirubin (0.0-0.2) mg/dL Indirect Bilirubin AST (15-37) U/L ALT (12-78) U/L Alkaline Phosphatase (46-116) IU/L Troponin I (0.000-0.056) ng/mL NT-Pro-B Natriuret Pep (0-125) pg/mL Total Protein (6.4-8.2) g/dL Albumin (3.4-5.0) g/dL Vitamin B12 (193-986) pg/mL Specimen Type Urine Color Urine Appearance Urine pH (5.0-9.0) Ur Specific [place] (1.005-1.030) Urine Protein (NEGATIVE) mg/dL Urine Glucose (UA) (NEGATIVE) mg/dL Urine Ketones (NEGATIVE) mg/dL Urine Occult Blood (NEGATIVE) Urine Nitrite (NEGATIVE) Urine Bilirubin (NEGATIVE) Urine Urobilinogen (0.2-1.0) E.U./dL Ur Leukocyte Esterase (NEGATIVE) Urine RBC /HPF Urine WBC /HPF Ur Epithelial Cells /LPF Urine Bacteria (NONE TO FEW) /HPF Urine Mucus (NEGATIVE) /LPF Urinalysis Comment Vancomycin Trough (10-20) ug/mL SARS-CoV-2 RNA (DOMENICA) (NEGATIVE) 05/26/20 05/26/20 05/26/20 Range/Units 09:45 09:45 09:45 WBC (4.0-10.2) K/uL RBC (3.77-5.09) M/uL Hgb (11.7-15.5) g/dL Hct (34.0-46.0) % MCV (84.0-98.0) fL MCH (28.2-33.3) pg MCHC (31.7-36.0) g/dL RDW (11.2-14.1) % Plt Count (150-350) K/uL Neut % (Auto) (45.0-80.0) % Lymph % (Auto) (10.0-50.0) % [place] % (Auto) (2.0-14.0) % Eos % (Auto) (0.0-5.0) % Baso % (Auto) (0.0-2.0) % Neut # (Auto) (1.40-7.00) K/uL Lymph # (Auto) (0.50-3.50) K/uL [place] # (Auto) (0.00-1.00) K/uL Eos # (Auto) (0.00-0.50) K/uL Baso # (Auto) (0.00-0.20) K/uL PT (9.5-12.0) SEC INR APTT (24.5-32.8) SEC D-Dimer, Quantitative (0-400) ng/mL Sodium 133 L (136-145) mmol/L Potassium 3.6 (3.5-5.1) mmol/L Chloride 99 (98-107) mmol/L Carbon Dioxide 22.5 (21.0-32.0) mmol/L BUN 20 H (7-18) mg/dL Creatinine 1.46 H (0.51-1.17) mg/dL Est Cr Clr Drug Dosing 36.87 Estimated GFR (MDRD) 37 mL/min Glucose 148 H (70-99) mg/dL POC Glucose (65-110) mg/dl Hemoglobin A1c (4.3-5.7) % Lactic Acid 1.1 (0.4-2.0) mmol/L Uric Acid 7.0 (2.6-7.2) mg/dL Calcium 9.2 (8.5-10.1) mg/dL Magnesium 1.5 L (1.8-2.4) mg/dL Iron 12 L (50-175) ug/dL TIBC 185 L (250-450) ug/dL % Saturation [id number] Ferritin 279 (8-388) ng/mL Total Bilirubin 1.1 H (0.2-1.0) mg/dL Direct Bilirubin 0.4 H (0.0-0.2) mg/dL Indirect Bilirubin 0.7 AST 61 H (15-37) U/L ALT 43 (12-78) U/L Alkaline Phosphatase 75 (46-116) IU/L Troponin I 0.033 (0.000-0.056) ng/mL NT-Pro-B Natriuret Pep 5471 H (0-125) pg/mL Total Protein 6.3 L (6.4-8.2) g/dL Albumin 2.3 L (3.4-5.0) g/dL Vitamin B12 1754 H (193-986) pg/mL Specimen Type Urine Color Urine Appearance Urine pH (5.0-9.0) Ur Specific [place] (1.005-1.030) Urine Protein (NEGATIVE) mg/dL Urine Glucose (UA) (NEGATIVE) mg/dL Urine Ketones (NEGATIVE) mg/dL Urine Occult Blood (NEGATIVE) Urine Nitrite (NEGATIVE) Urine Bilirubin (NEGATIVE) Urine Urobilinogen (0.2-1.0) E.U./dL Ur Leukocyte Esterase (NEGATIVE) Urine RBC /HPF Urine WBC /HPF Ur Epithelial Cells /LPF Urine Bacteria (NONE TO FEW) /HPF Urine Mucus (NEGATIVE) /LPF Urinalysis Comment Vancomycin Trough 10.9 (10-20) ug/mL SARS-CoV-2 RNA (DOMENICA) (NEGATIVE) 05/26/20 05/26/20 05/26/20 Range/Units 09:45 11:40 16:53 WBC (4.0-10.2) K/uL RBC (3.77-5.09) M/uL Hgb (11.7-15.5) g/dL Hct (34.0-46.0) % MCV (84.0-98.0) fL MCH (28.2-33.3) pg MCHC (31.7-36.0) g/dL RDW (11.2-14.1) % Plt Count (150-350) K/uL Neut % (Auto) (45.0-80.0) % Lymph % (Auto) (10.0-50.0) % [place] % (Auto) (2.0-14.0) % Eos % (Auto) (0.0-5.0) % Baso % (Auto) (0.0-2.0) % Neut # (Auto) (1.40-7.00) K/uL Lymph # (Auto) (0.50-3.50) K/uL [place] # (Auto) (0.00-1.00) K/uL Eos # (Auto) (0.00-0.50) K/uL Baso # (Auto) (0.00-0.20) K/uL PT (9.5-12.0) SEC INR APTT (24.5-32.8) SEC D-Dimer, Quantitative (0-400) ng/mL Sodium (136-145) mmol/L Potassium (3.5-5.1) mmol/L Chloride (98-107) mmol/L Carbon Dioxide (21.0-32.0) mmol/L BUN (7-18) mg/dL Creatinine (0.51-1.17) mg/dL Est Cr Clr Drug Dosing Estimated GFR (MDRD) mL/min Glucose (70-99) mg/dL POC Glucose 129 H 87 (65-110) mg/dl Hemoglobin A1c 6.2 H (4.3-5.7) % Lactic Acid (0.4-2.0) mmol/L Uric Acid (2.6-7.2) mg/dL Calcium (8.5-10.1) mg/dL Magnesium (1.8-2.4) mg/dL Iron (50-175) ug/dL TIBC (250-450) ug/dL % Saturation Ferritin (8-388) ng/mL Total Bilirubin (0.2-1.0) mg/dL Direct Bilirubin (0.0-0.2) mg/dL Indirect Bilirubin AST (15-37) U/L ALT (12-78) U/L Alkaline Phosphatase (46-116) IU/L Troponin I (0.000-0.056) ng/mL NT-Pro-B Natriuret Pep (0-125) pg/mL Total Protein (6.4-8.2) g/dL Albumin (3.4-5.0) g/dL Vitamin B12 (193-986) pg/mL Specimen Type Urine Color Urine Appearance Urine pH (5.0-9.0) Ur Specific [place] (1.005-1.030) Urine Protein (NEGATIVE) mg/dL Urine Glucose (UA) (NEGATIVE) mg/dL Urine Ketones (NEGATIVE) mg/dL Urine Occult Blood (NEGATIVE) Urine Nitrite (NEGATIVE) Urine Bilirubin (NEGATIVE) Urine Urobilinogen (0.2-1.0) E.U./dL Ur Leukocyte Esterase (NEGATIVE) Urine RBC /HPF Urine WBC /HPF Ur Epithelial Cells /LPF Urine Bacteria (NONE TO FEW) /HPF Urine Mucus (NEGATIVE) /LPF Urinalysis Comment Vancomycin Trough (10-20) ug/mL SARS-CoV-2 RNA (DOMENICA) (NEGATIVE) 05/26/20 05/27/20 05/27/20 Range/Units 19:56 07:14 07:14 WBC 9.7 (4.0-10.2) K/uL RBC 3.22 L (3.77-5.09) M/uL Hgb 9.9 L (11.7-15.5) g/dL Hct 30.5 L (34.0-46.0) % MCV 94.7 (84.0-98.0) fL MCH 30.7 (28.2-33.3) pg MCHC 32.5 (31.7-36.0) g/dL RDW 14.7 H (11.2-14.1) % Plt Count 179 (150-350) K/uL Neut % (Auto) 73.2 (45.0-80.0) % Lymph % (Auto) 15.8 (10.0-50.0) % [place] % (Auto) 10.3 (2.0-14.0) % Eos % (Auto) 0.5 (0.0-5.0) % Baso % (Auto) 0.2 (0.0-2.0) % Neut # (Auto) 7.11 H (1.40-7.00) K/uL Lymph # (Auto) 1.53 (0.50-3.50) K/uL [place] # (Auto) 1.00 (0.00-1.00) K/uL Eos # (Auto) 0.05 (0.00-0.50) K/uL Baso # (Auto) 0.02 (0.00-0.20) K/uL PT (9.5-12.0) SEC INR APTT (24.5-32.8) SEC D-Dimer, Quantitative (0-400) ng/mL Sodium 135 L (136-145) mmol/L Potassium 3.6 (3.5-5.1) mmol/L Chloride 97 L (98-107) mmol/L Carbon Dioxide 30.6 (21.0-32.0) mmol/L BUN 18 (7-18) mg/dL Creatinine 1.49 H (0.51-1.17) mg/dL Est Cr Clr Drug Dosing 36.13 Estimated GFR (MDRD) 36 mL/min Glucose 151 H (70-99) mg/dL POC Glucose 113 H (65-110) mg/dl Hemoglobin A1c (4.3-5.7) % Lactic Acid (0.4-2.0) mmol/L Uric Acid (2.6-7.2) mg/dL Calcium 9.1 (8.5-10.1) mg/dL Magnesium 1.9 (1.8-2.4) mg/dL Iron (50-175) ug/dL TIBC (250-450) ug/dL % Saturation Ferritin (8-388) ng/mL Total Bilirubin (0.2-1.0) mg/dL Direct Bilirubin (0.0-0.2) mg/dL Indirect Bilirubin AST (15-37) U/L ALT (12-78) U/L Alkaline Phosphatase (46-116) IU/L Troponin I 0.014 (0.000-0.056) ng/mL NT-Pro-B Natriuret Pep 9187 H (0-125) pg/mL Total Protein (6.4-8.2) g/dL Albumin (3.4-5.0) g/dL Vitamin B12 (193-986) pg/mL Specimen Type Urine Color Urine Appearance Urine pH (5.0-9.0) Ur Specific [place] (1.005-1.030) Urine Protein (NEGATIVE) mg/dL Urine Glucose (UA) (NEGATIVE) mg/dL Urine Ketones (NEGATIVE) mg/dL Urine Occult Blood (NEGATIVE) Urine Nitrite (NEGATIVE) Urine Bilirubin (NEGATIVE) Urine Urobilinogen (0.2-1.0) E.U./dL Ur Leukocyte Esterase (NEGATIVE) Urine RBC /HPF Urine WBC /HPF Ur Epithelial Cells /LPF Urine Bacteria (NONE TO FEW) /HPF Urine Mucus (NEGATIVE) /LPF Urinalysis Comment Vancomycin Trough (10-20) ug/mL SARS-CoV-2 RNA (DOMENICA) (NEGATIVE) 05/27/20 05/27/2021 Range/Units 07:14 07:17 07:17 WBC (4.0-10.2) K/uL RBC (3.77-5.09) M/uL Hgb (11.7-15.5) g/dL Hct (34.0-46.0) % MCV (84.0-98.0) fL MCH (28.2-33.3) pg MCHC (31.7-36.0) g/dL RDW (11.2-14.1) % Plt Count (150-350) K/uL Neut % (Auto) (45.0-80.0) % Lymph % (Auto) (10.0-50.0) % [place] % (Auto) (2.0-14.0) % Eos % (Auto) (0.0-5.0) % Baso % (Auto) (0.0-2.0) % Neut # (Auto) (1.40-7.00) K/uL Lymph # (Auto) (0.50-3.50) K/uL [place] # (Auto) (0.00-1.00) K/uL Eos # (Auto) (0.00-0.50) K/uL Baso # (Auto) (0.00-0.20) K/uL PT 20.0 H D (9.5-12.0) SEC INR 2.0 APTT (24.5-32.8) SEC D-Dimer, Quantitative 1600 H (0-400) ng/mL Sodium (136-145) mmol/L Potassium (3.5-5.1) mmol/L Chloride (98-107) mmol/L Carbon Dioxide (21.0-32.0) mmol/L BUN (7-18) mg/dL Creatinine (0.51-1.17) mg/dL Est Cr Clr Drug Dosing Estimated GFR (MDRD) mL/min Glucose (70-99) mg/dL POC Glucose 138 H (65-110) mg/dl Hemoglobin A1c (4.3-5.7) % Lactic Acid (0.4-2.0) mmol/L Uric Acid (2.6-7.2) mg/dL Calcium (8.5-10.1) mg/dL Magnesium (1.8-2.4) mg/dL Iron (50-175) ug/dL TIBC (250-450) ug/dL % Saturation Ferritin (8-388) ng/mL Total Bilirubin (0.2-1.0) mg/dL Direct Bilirubin (0.0-0.2) mg/dL Indirect Bilirubin AST (15-37) U/L ALT (12-78) U/L Alkaline Phosphatase (46-116) IU/L Troponin I (0.000-0.056) ng/mL NT-Pro-B Natriuret Pep (0-125) pg/mL Total Protein (6.4-8.2) g/dL Albumin (3.4-5.0) g/dL Vitamin B12 (193-986) pg/mL Specimen Type Urine Color Urine Appearance Urine pH (5.0-9.0) Ur Specific [place] (1.005-1.030) Urine Protein (NEGATIVE) mg/dL Urine Glucose (UA) (NEGATIVE) mg/dL Urine Ketones (NEGATIVE) mg/dL Urine Occult Blood (NEGATIVE) Urine Nitrite (NEGATIVE) Urine Bilirubin (NEGATIVE) Urine Urobilinogen (0.2-1.0) E.U./dL Ur Leukocyte Esterase (NEGATIVE) Urine RBC /HPF Urine WBC /HPF Ur Epithelial Cells /LPF Urine Bacteria (NONE TO FEW) /HPF Urine Mucus (NEGATIVE) /LPF Urinalysis Comment Vancomycin Trough (10-20) ug/mL SARS-CoV-2 RNA (DOMENICA) (NEGATIVE) 05/27/20 05/27/20 05/27/20 Range/Units 11:14 17:16 20:52 WBC (4.0-10.2) K/uL RBC (3.77-5.09) M/uL Hgb (11.7-15.5) g/dL Hct (34.0-46.0) % MCV (84.0-98.0) fL MCH (28.2-33.3) pg MCHC (31.7-36.0) g/dL RDW (11.2-14.1) % Plt Count (150-350) K/uL Neut % (Auto) (45.0-80.0) % Lymph % (Auto) (10.0-50.0) % [place] % (Auto) (2.0-14.0) % Eos % (Auto) (0.0-5.0) % Baso % (Auto) (0.0-2.0) % Neut # (Auto) (1.40-7.00) K/uL Lymph # (Auto) (0.50-3.50) K/uL [place] # (Auto) (0.00-1.00) K/uL Eos # (Auto) (0.00-0.50) K/uL Baso # (Auto) (0.00-0.20) K/uL PT (9.5-12.0) SEC INR APTT (24.5-32.8) SEC D-Dimer, Quantitative (0-400) ng/mL Sodium (136-145) mmol/L Potassium (3.5-5.1) mmol/L Chloride (98-107) mmol/L Carbon Dioxide (21.0-32.0) mmol/L BUN (7-18) mg/dL Creatinine (0.51-1.17) mg/dL Est Cr Clr Drug Dosing Estimated GFR (MDRD) mL/min Glucose (70-99) mg/dL POC Glucose 143 H 120 H 114 H (65-110) mg/dl Hemoglobin A1c (4.3-5.7) % Lactic Acid (0.4-2.0) mmol/L Uric Acid (2.6-7.2) mg/dL Calcium (8.5-10.1) mg/dL Magnesium (1.8-2.4) mg/dL Iron (50-175) ug/dL TIBC (250-450) ug/dL % Saturation Ferritin (8-388) ng/mL Total Bilirubin (0.2-1.0) mg/dL Direct Bilirubin (0.0-0.2) mg/dL Indirect Bilirubin AST (15-37) U/L ALT (12-78) U/L Alkaline Phosphatase (46-116) IU/L Troponin I (0.000-0.056) ng/mL NT-Pro-B Natriuret Pep (0-125) pg/mL Total Protein (6.4-8.2) g/dL Albumin (3.4-5.0) g/dL Vitamin B12 (193-986) pg/mL Specimen Type Urine Color Urine Appearance Urine pH (5.0-9.0) Ur Specific [place] (1.005-1.030) Urine Protein (NEGATIVE) mg/dL Urine Glucose (UA) (NEGATIVE) mg/dL Urine Ketones (NEGATIVE) mg/dL Urine Occult Blood (NEGATIVE) Urine Nitrite (NEGATIVE) Urine Bilirubin (NEGATIVE) Urine Urobilinogen (0.2-1.0) E.U./dL Ur Leukocyte Esterase (NEGATIVE) Urine RBC /HPF Urine WBC /HPF Ur Epithelial Cells /LPF Urine Bacteria (NONE TO FEW) /HPF Urine Mucus (NEGATIVE) /LPF Urinalysis Comment Vancomycin Trough (10-20) ug/mL SARS-CoV-2 RNA (DOMENICA) (NEGATIVE) 05/28/20 05/28/20 05/28/20 Range/Units 06:41 06:41 06:46 WBC 8.3 (4.0-10.2) K/uL RBC 3.58 L (3.77-5.09) M/uL Hgb 10.9 L (11.7-15.5) g/dL Hct 33.9 L (34.0-46.0) % MCV 94.7 (84.0-98.0) fL MCH 30.4 (28.2-33.3) pg MCHC 32.2 (31.7-36.0) g/dL RDW 15.0 H (11.2-14.1) % Plt Count 230 (150-350) K/uL Neut % (Auto) 54.1 (45.0-80.0) % Lymph % (Auto) 29.2 (10.0-50.0) % [place] % (Auto) 13.7 (2.0-14.0) % Eos % (Auto) 2.5 (0.0-5.0) % Baso % (Auto) 0.5 (0.0-2.0) % Neut # (Auto) 4.47 (1.40-7.00) K/uL Lymph # (Auto) 2.41 (0.50-3.50) K/uL [place] # (Auto) 1.13 H (0.00-1.00) K/uL Eos # (Auto) 0.21 (0.00-0.50) K/uL Baso # (Auto) 0.04 (0.00-0.20) K/uL PT (9.5-12.0) SEC INR APTT (24.5-32.8) SEC D-Dimer, Quantitative (0-400) ng/mL Sodium 138 (136-145) mmol/L Potassium 3.9 (3.5-5.1) mmol/L Chloride 97 L (98-107) mmol/L Carbon Dioxide 33.6 H (21.0-32.0) mmol/L BUN 22 H (7-18) mg/dL Creatinine 1.50 H (0.51-1.17) mg/dL Est Cr Clr Drug Dosing 35.89 Estimated GFR (MDRD) 35 mL/min Glucose 118 H (70-99) mg/dL POC Glucose (65-110) mg/dl Hemoglobin A1c (4.3-5.7) % Lactic Acid (0.4-2.0) mmol/L Uric Acid (2.6-7.2) mg/dL Calcium 10.2 H (8.5-10.1) mg/dL Magnesium 1.7 L (1.8-2.4) mg/dL Iron (50-175) ug/dL TIBC (250-450) ug/dL % Saturation Ferritin (8-388) ng/mL Total Bilirubin 0.8 (0.2-1.0) mg/dL Direct Bilirubin (0.0-0.2) mg/dL Indirect Bilirubin AST 65 H (15-37) U/L ALT 57 (12-78) U/L Alkaline Phosphatase 103 (46-116) IU/L Troponin I 0.000 (0.000-0.056) ng/mL NT-Pro-B Natriuret Pep 5271 H (0-125) pg/mL Total Protein 7.5 (6.4-8.2) g/dL Albumin 2.5 L (3.4-5.0) g/dL Vitamin B12 (193-986) pg/mL Specimen Type Urine Color Urine Appearance Urine pH (5.0-9.0) Ur Specific [place] (1.005-1.030) Urine Protein (NEGATIVE) mg/dL Urine Glucose (UA) (NEGATIVE) mg/dL Urine Ketones (NEGATIVE) mg/dL Urine Occult Blood (NEGATIVE) Urine Nitrite (NEGATIVE) Urine Bilirubin (NEGATIVE) Urine Urobilinogen (0.2-1.0) E.U./dL Ur Leukocyte Esterase (NEGATIVE) Urine RBC /HPF Urine WBC /HPF Ur Epithelial Cells /LPF Urine Bacteria (NONE TO FEW) /HPF Urine Mucus (NEGATIVE) /LPF Urinalysis Comment Vancomycin Trough (10-20) ug/mL SARS-CoV-2 RNA (DOMENICA) (NEGATIVE) 05/28/20 05/28/20 05/28/20 Range/Units 06:46 07:47 10:40 WBC (4.0-10.2) K/uL RBC (3.77-5.09) M/uL Hgb (11.7-15.5) g/dL Hct (34.0-46.0) % MCV (84.0-98.0) fL MCH (28.2-33.3) pg MCHC (31.7-36.0) g/dL RDW (11.2-14.1) % Plt Count (150-350) K/uL Neut % (Auto) (45.0-80.0) % Lymph % (Auto) (10.0-50.0) % [place] % (Auto) (2.0-14.0) % Eos % (Auto) (0.0-5.0) % Baso % (Auto) (0.0-2.0) % Neut # (Auto) (1.40-7.00) K/uL Lymph # (Auto) (0.50-3.50) K/uL [place] # (Auto) (0.00-1.00) K/uL Eos # (Auto) (0.00-0.50) K/uL Baso # (Auto) (0.00-0.20) K/uL PT 35.9 H D (9.5-12.0) SEC INR 3.7 APTT (24.5-32.8) SEC D-Dimer, Quantitative (0-400) ng/mL Sodium (136-145) mmol/L Potassium (3.5-5.1) mmol/L Chloride (98-107) mmol/L Carbon Dioxide (21.0-32.0) mmol/L BUN (7-18) mg/dL Creatinine (0.51-1.17) mg/dL Est Cr Clr Drug Dosing Estimated GFR (MDRD) mL/min Glucose (70-99) mg/dL POC Glucose 120 H (65-110) mg/dl Hemoglobin A1c (4.3-5.7) % Lactic Acid 1.9 (0.4-2.0) mmol/L Uric Acid (2.6-7.2) mg/dL Calcium (8.5-10.1) mg/dL Magnesium (1.8-2.4) mg/dL Iron (50-175) ug/dL TIBC (250-450) ug/dL % Saturation Ferritin (8-388) ng/mL Total Bilirubin (0.2-1.0) mg/dL Direct Bilirubin (0.0-0.2) mg/dL Indirect Bilirubin AST (15-37) U/L ALT (12-78) U/L Alkaline Phosphatase (46-116) IU/L Troponin I (0.000-0.056) ng/mL NT-Pro-B Natriuret Pep (0-125) pg/mL Total Protein (6.4-8.2) g/dL Albumin (3.4-5.0) g/dL Vitamin B12 (193-986) pg/mL Specimen Type Urine Color Urine Appearance Urine pH (5.0-9.0) Ur Specific [place] (1.005-1.030) Urine Protein (NEGATIVE) mg/dL Urine Glucose (UA) (NEGATIVE) mg/dL Urine Ketones (NEGATIVE) mg/dL Urine Occult Blood (NEGATIVE) Urine Nitrite (NEGATIVE) Urine Bilirubin (NEGATIVE) Urine Urobilinogen (0.2-1.0) E.U./dL Ur Leukocyte Esterase (NEGATIVE) Urine RBC /HPF Urine WBC /HPF Ur Epithelial Cells /LPF Urine Bacteria (NONE TO FEW) /HPF Urine Mucus (NEGATIVE) /LPF Urinalysis Comment Vancomycin Trough (10-20) ug/mL SARS-CoV-2 RNA (DOMENICA) (NEGATIVE) 05/28/20 05/28/20 05/28/20 Range/Units 11:11 17:01 21:34 WBC (4.0-10.2) K/uL RBC (3.77-5.09) M/uL Hgb (11.7-15.5) g/dL Hct (34.0-46.0) % MCV (84.0-98.0) fL MCH (28.2-33.3) pg MCHC (31.7-36.0) g/dL RDW (11.2-14.1) % Plt Count (150-350) K/uL Neut % (Auto) (45.0-80.0) % Lymph % (Auto) (10.0-50.0) % [place] % (Auto) (2.0-14.0) % Eos % (Auto) (0.0-5.0) % Baso % (Auto) (0.0-2.0) % Neut # (Auto) (1.40-7.00) K/uL Lymph # (Auto) (0.50-3.50) K/uL [place] # (Auto) (0.00-1.00) K/uL Eos # (Auto) (0.00-0.50) K/uL Baso # (Auto) (0.00-0.20) K/uL PT (9.5-12.0) SEC INR APTT (24.5-32.8) SEC D-Dimer, Quantitative (0-400) ng/mL Sodium (136-145) mmol/L Potassium (3.5-5.1) mmol/L Chloride (98-107) mmol/L Carbon Dioxide (21.0-32.0) mmol/L BUN (7-18) mg/dL Creatinine (0.51-1.17) mg/dL Est Cr Clr Drug Dosing Estimated GFR (MDRD) mL/min Glucose (70-99) mg/dL POC Glucose 158 H 126 H 137 H (65-110) mg/dl Hemoglobin A1c (4.3-5.7) % Lactic Acid (0.4-2.0) mmol/L Uric Acid (2.6-7.2) mg/dL Calcium (8.5-10.1) mg/dL Magnesium (1.8-2.4) mg/dL Iron (50-175) ug/dL TIBC (250-450) ug/dL % Saturation Ferritin (8-388) ng/mL Total Bilirubin (0.2-1.0) mg/dL Direct Bilirubin (0.0-0.2) mg/dL Indirect Bilirubin AST (15-37) U/L ALT (12-78) U/L Alkaline Phosphatase (46-116) IU/L Troponin I (0.000-0.056) ng/mL NT-Pro-B Natriuret Pep (0-125) pg/mL Total Protein (6.4-8.2) g/dL Albumin (3.4-5.0) g/dL Vitamin B12 (193-986) pg/mL Specimen Type Urine Color Urine Appearance Urine pH (5.0-9.0) Ur Specific [place] (1.005-1.030) Urine Protein (NEGATIVE) mg/dL Urine Glucose (UA) (NEGATIVE) mg/dL Urine Ketones (NEGATIVE) mg/dL Urine Occult Blood (NEGATIVE) Urine Nitrite (NEGATIVE) Urine Bilirubin (NEGATIVE) Urine Urobilinogen (0.2-1.0) E.U./dL Ur Leukocyte Esterase (NEGATIVE) Urine RBC /HPF Urine WBC /HPF Ur Epithelial Cells /LPF Urine Bacteria (NONE TO FEW) /HPF Urine Mucus (NEGATIVE) /LPF Urinalysis Comment Vancomycin Trough (10-20) ug/mL SARS-CoV-2 RNA (DOMENICA) (NEGATIVE) 05/29/20 05/29/20 05/29/20 Range/Units 07:34 07:35 07:35 WBC 8.6 (4.0-10.2) K/uL RBC 3.83 (3.77-5.09) M/uL Hgb 11.8 (11.7-15.5) g/dL Hct 36.4 (34.0-46.0) % MCV 95.0 (84.0-98.0) fL MCH 30.8 (28.2-33.3) pg MCHC 32.4 (31.7-36.0) g/dL RDW 14.9 H (11.2-14.1) % Plt Count 315 D (150-350) K/uL Neut % (Auto) 56.2 (45.0-80.0) % Lymph % (Auto) 30.2 (10.0-50.0) % [place] % (Auto) 10.8 (2.0-14.0) % Eos % (Auto) 2.2 (0.0-5.0) % Baso % (Auto) 0.6 (0.0-2.0) % Neut # (Auto) 4.83 (1.40-7.00) K/uL Lymph # (Auto) 2.60 (0.50-3.50) K/uL [place] # (Auto) 0.93 (0.00-1.00) K/uL Eos # (Auto) 0.19 (0.00-0.50) K/uL Baso # (Auto) 0.05 (0.00-0.20) K/uL PT 34.0 H (9.5-12.0) SEC INR 3.5 APTT 41.0 H (24.5-32.8) SEC D-Dimer, Quantitative (0-400) ng/mL Sodium (136-145) mmol/L Potassium (3.5-5.1) mmol/L Chloride (98-107) mmol/L Carbon Dioxide (21.0-32.0) mmol/L BUN (7-18) mg/dL Creatinine (0.51-1.17) mg/dL Est Cr Clr Drug Dosing Estimated GFR (MDRD) mL/min Glucose (70-99) mg/dL POC Glucose 136 H (65-110) mg/dl Hemoglobin A1c (4.3-5.7) % Lactic Acid (0.4-2.0) mmol/L Uric Acid (2.6-7.2) mg/dL Calcium (8.5-10.1) mg/dL Magnesium (1.8-2.4) mg/dL Iron (50-175) ug/dL TIBC (250-450) ug/dL % Saturation Ferritin (8-388) ng/mL Total Bilirubin (0.2-1.0) mg/dL Direct Bilirubin (0.0-0.2) mg/dL Indirect Bilirubin AST (15-37) U/L ALT (12-78) U/L Alkaline Phosphatase (46-116) IU/L Troponin I (0.000-0.056) ng/mL NT-Pro-B Natriuret Pep (0-125) pg/mL Total Protein (6.4-8.2) g/dL Albumin (3.4-5.0) g/dL Vitamin B12 (193-986) pg/mL Specimen Type Urine Color Urine Appearance Urine pH (5.0-9.0) Ur Specific [place] (1.005-1.030) Urine Protein (NEGATIVE) mg/dL Urine Glucose (UA) (NEGATIVE) mg/dL Urine Ketones (NEGATIVE) mg/dL Urine Occult Blood (NEGATIVE) Urine Nitrite (NEGATIVE) Urine Bilirubin (NEGATIVE) Urine Urobilinogen (0.2-1.0) E.U./dL Ur Leukocyte Esterase (NEGATIVE) Urine RBC /HPF Urine WBC /HPF Ur Epithelial Cells /LPF Urine Bacteria (NONE TO FEW) /HPF Urine Mucus (NEGATIVE) /LPF Urinalysis Comment Vancomycin Trough (10-20) ug/mL SARS-CoV-2 RNA (DOMENICA) (NEGATIVE) 05/29/20 05/29/20 Range/Units 07:35 07:35 WBC (4.0-10.2) K/uL RBC (3.77-5.09) M/uL Hgb (11.7-15.5) g/dL Hct (34.0-46.0) % MCV (84.0-98.0) fL MCH (28.2-33.3) pg MCHC (31.7-36.0) g/dL RDW (11.2-14.1) % Plt Count (150-350) K/uL Neut % (Auto) (45.0-80.0) % Lymph % (Auto) (10.0-50.0) % [place] % (Auto) (2.0-14.0) % Eos % (Auto) (0.0-5.0) % Baso % (Auto) (0.0-2.0) % Neut # (Auto) (1.40-7.00) K/uL Lymph # (Auto) (0.50-3.50) K/uL [place] # (Auto) (0.00-1.00) K/uL Eos # (Auto) (0.00-0.50) K/uL Baso # (Auto) (0.00-0.20) K/uL PT (9.5-12.0) SEC INR APTT (24.5-32.8) SEC D-Dimer, Quantitative (0-400) ng/mL Sodium 137 (136-145) mmol/L Potassium 4.4 (3.5-5.1) mmol/L Chloride 98 (98-107) mmol/L Carbon Dioxide 29.1 (21.0-32.0) mmol/L BUN 26 H (7-18) mg/dL Creatinine 1.35 H (0.51-1.17) mg/dL Est Cr Clr Drug Dosing 39.88 Estimated GFR (MDRD) 40 mL/min Glucose 133 H (70-99) mg/dL POC Glucose (65-110) mg/dl Hemoglobin A1c (4.3-5.7) % Lactic Acid 2.4 H (0.4-2.0) mmol/L Uric Acid (2.6-7.2) mg/dL Calcium 10.6 H (8.5-10.1) mg/dL Magnesium 2.0 (1.8-2.4) mg/dL Iron (50-175) ug/dL TIBC (250-450) ug/dL % Saturation Ferritin (8-388) ng/mL Total Bilirubin (0.2-1.0) mg/dL Direct Bilirubin (0.0-0.2) mg/dL Indirect Bilirubin AST (15-37) U/L ALT (12-78) U/L Alkaline Phosphatase (46-116) IU/L Troponin I (0.000-0.056) ng/mL NT-Pro-B Natriuret Pep (0-125) pg/mL Total Protein (6.4-8.2) g/dL Albumin (3.4-5.0) g/dL Vitamin B12 (193-986) pg/mL Specimen Type Urine Color Urine Appearance Urine pH (5.0-9.0) Ur Specific [place] (1.005-1.030) Urine Protein (NEGATIVE) mg/dL Urine Glucose (UA) (NEGATIVE) mg/dL Urine Ketones (NEGATIVE) mg/dL Urine Occult Blood (NEGATIVE) Urine Nitrite (NEGATIVE) Urine Bilirubin (NEGATIVE) Urine Urobilinogen (0.2-1.0) E.U./dL Ur Leukocyte Esterase (NEGATIVE) Urine RBC /HPF Urine WBC /HPF Ur Epithelial Cells /LPF Urine Bacteria (NONE TO FEW) /HPF Urine Mucus (NEGATIVE) /LPF Urinalysis Comment Vancomycin Trough (10-20) ug/mL SARS-CoV-2 RNA (DOMENICA) (NEGATIVE) [facility] Results - Last 24 hrs: Microbiology 05/24/20 17:51 Aerobic Blood Culture - Preliminary Blood - Venous NO GROWTH AFTER 4 DAYS Anaerobic Blood Culture - Preliminary NO GROWTH AFTER 4 DAYS Microbiology 05/24/20 17:51 Blood - Venous Aerobic Blood Culture - Preliminary NO GROWTH AFTER 4 DAYS 05/24/20 17:51 Blood - Venous Anaerobic Blood Culture - Preliminary NO GROWTH AFTER 4 DAYS 05/24/20 12:46 Blood Aerobic Blood Culture - Final Escherichia Coli 05/24/20 12:46 Blood Anaerobic Blood Culture - Final Escherichia Coli 05/24/20 12:41 Blood Aerobic Blood Culture - Final Escherichia Coli 05/24/20 12:41 Blood Anaerobic Blood Culture - Final Escherichia Coli 05/24/20 12:59 Urine, Catheterized Urine Culture - Final Escherichia Coli 05/26/20 04:00 Stool / Feces Stool Occult Blood (CAITLIN) - Final NEGATIVE OCCULT BLOOD REFERENCE RANGE: NEGATIVE Med Orders - Current: Current Medications Acetaminophen (Acetaminophen 325 Mg Tab) 650 mg PO Q4H PRN PRN Reason: Pain (Mild 1-3)/fever Last Admin: 05/28/20 17:47 Dose: 650 mg Documented by: Atorvastatin Calcium (Atorvastatin 10 Mg Tab) 20 mg PO BEDTIME [facility] Last Admin: 05/28/20 20:34 Dose: 20 mg Documented by: Cholecalciferol (Cholecalciferol (Vitamin D3) 25 Mcg Tab) 50 mcg PO DAILY [facility] Last Admin: 05/29/20 07:33 Dose: 50 mcg Documented by: Cyclobenzaprine HCl (Cyclobenzaprine 10 Mg Tab) 5 mg PO TID PRN PRN Reason: Spasms Last Admin: 05/24/20 22:42 Dose: 5 mg Documented by: Dextrose/Water (50% Dextrose In Water 50 Ml Syringe) 50 ml IV ASDIRECTED PRN PRN Reason: Hypoglycemia Duloxetine HCl (Duloxetine 30 Mg Cap) 30 mg PO BEDTIME [facility] Last Admin: 05/28/20 20:33 Dose: 30 mg Documented by: Famotidine (Famotidine 20 Mg/2 Ml Sdv) 20 mg IVPUSH Q12H [facility] Last Admin: 05/28/20 22:26 Dose: 20 mg Documented by: Ferrous Sulfate (Ferrous Sulfate 325 Mg Tab) 325 mg PO BIDMEALS [facility] Last Admin: 05/29/20 07:33 Dose: 325 mg Documented by: Glucagon (Glucagon,Human Recombinant 1 Mg Vial) 1 mg IM ASDIRECTED PRN PRN Reason: Hypoglycemia Ceftriaxone Sodium 1 gm/ (Sodium Chloride) 100 mls @ 200 mls/hr IV Q12H [facility] Last Admin: 05/28/20 22:37 Dose: 200 mls/hr Documented by: Insulin Human Lispro (Insulin Lispro 100 Units/Ml 3 Ml Vial) 0 unit SUBCUT QIDACANDBED [facility]; Protocol Last Admin: 05/29/20 07:35 Dose: Not Given Documented by: Loperamide HCl (Loperamide 2 Mg Tab) 4 mg PO Q6H PRN PRN Reason: loose stools Last Admin: 05/29/20 09:43 Dose: 4 mg Documented by: Loperamide HCl (Loperamide 2 Mg Tab) 2 mg PO Q6H PRN PRN Reason: loose stools Magnesium Oxide (Magnesium Oxide 400 Mg Tab) 400 mg PO BID [facility] Last Admin: 05/29/20 07:32 Dose: 400 mg Documented by: Metformin HCl (Metformin 500 Mg Tab) 500 mg PO DAILY [facility] Last Admin: 05/29/20 07:33 Dose: 500 mg Documented by: Metoprolol Succinate (Metoprolol Succinate 25 Mg Tab.Er) 25 mg PO DAILY [facility] Last Admin: 05/29/20 07:32 Dose: 25 mg Documented by: Montelukast Sodium (Montelukast 10 Mg Tab) 10 mg PO BEDTIME [facility] Last Admin: 05/28/20 20:35 Dose: 10 mg Documented by: Multivitamins/Minerals (Beta-Carotene (Vitamin A) W/Vitamin C & E Plus Minerals Tab) 1 tab PO DAILY [facility] Last Admin: 05/29/20 07:33 Dose: 1 tab Documented by: Nystatin (Nystatin Susp 100,000 Unit/Ml 5 Ml Ud Cup) 5 ml PO QID [facility] Last Admin: 05/29/20 07:32 Dose: 5 ml Documented by: Ondansetron HCl (Ondansetron 4 Mg Tab.Dis) 4 mg PO Q4H PRN PRN Reason: Nausea/Vomiting Last Admin: 05/25/20 11:01 Dose: 4 mg Documented by: Pantoprazole Sodium (Pantoprazole 40 Mg Vial) 40 mg IVPUSH Q12H [facility] Last Admin: 05/28/20 22:34 Dose: 40 mg Documented by: Sodium Chloride (Sodium Chloride 0.9% 10 Ml Syringe) 10 ml FLUSH ASDIRECTED PRN PRN Reason: Keep Vein Open Last Admin: 05/28/20 23:12 Dose: 10 ml Documented by: Temazepam (Temazepam 15 Mg Cap) 15 mg PO BEDTIME PRN PRN Reason: Insomnia Last Admin: 05/26/20 00:20 Dose: 15 mg Documented by: Warfarin Sodium (Warfarin 2.5 Mg Tab) 2.5 mg PO SUTUWETHFRSA@1999 [facility] Last Admin: 05/28/20 20:33 Dose: 2.5 mg Documented by: Warfarin Sodium (Warfarin 5 Mg Tab) 5 mg PO MO@1999 [facility] Last Admin: 05/25/20 20:02 Dose: 5 mg Documented by: Discontinued Medications Enoxaparin Sodium (Enoxaparin 100 Mg/1 Ml Syringe) 100 mg SUBCUT ONETIME ONE Stop: 05/25/20 08:49 Last Admin: 05/25/20 10:01 Dose: 100 mg Documented by: Enoxaparin Sodium (Enoxaparin 100 Mg/1 Ml Syringe) 100 mg SUBCUT ONETIME ONE Stop: 05/26/20 12:01 Last Admin: 05/26/20 11:48 Dose: 100 mg Documented by: Ferrous Sulfate (Ferrous Sulfate 325 Mg Tab) 325 mg PO DAILY [facility] Last Admin: 05/26/20 08:21 Dose: 325 mg Documented by: Furosemide (Furosemide 40 Mg Tab) 40 mg PO DAILY [facility] Last Admin: 05/26/20 08:21 Dose: 40 mg Documented by: Furosemide (Furosemide 40 Mg/4 Ml Vial) 40 mg IVPUSH Q8H [facility] Last Admin: 05/28/20 04:07 Dose: 40 mg Documented by: Furosemide (Furosemide 40 Mg/4 Ml Vial) 40 mg IVPUSH DAILY [facility] Ceftriaxone Sodium 1 gm/ (Sodium Chloride) 100 mls @ 200 mls/hr IV ONETIME ONE Stop: 05/24/20 13:35 Last Admin: 05/24/20 13:25 Dose: 200 mls/hr Documented by: Sodium Chloride (Normal Saline) 1,000 mls @ 100 mls/hr IV ASDIRECTED [facility] Last Admin: 05/26/20 03:13 Dose: 100 mls/hr Documented by: Ceftriaxone Sodium 1 gm/ (Sodium Chloride) 100 mls @ 200 mls/hr IV Q24H [facility] Last Admin: 05/25/20 10:01 Dose: Not Given Documented by: Ciprofloxacin/Dextrose 400 mg/ (Premix) 200 mls @ 200 mls/hr IV Q12HR [facility] Ciprofloxacin/Dextrose 400 mg/ (Premix) 200 mls @ 200 mls/hr IV BID@06,18 [facility] Last Admin: 05/25/20 05:23 Dose: 200 mls/hr Documented by: Lactated Ringer's (Ringers, Lactated) 1,000 mls @ 999 mls/hr IV .BOLUS ONE Stop: 05/25/20 09:39 Last Admin: 05/25/20 09:54 Dose: 999 mls/hr Documented by: Ceftriaxone Sodium 2 gm/ (Sodium Chloride) 100 mls @ 200 mls/hr IV ONETIME ONE Stop: 05/25/20 09:13 Last Admin: 05/25/20 09:55 Dose: 200 mls/hr Documented by: Ciprofloxacin/Dextrose 200 mg/ (Premix) 100 mls @ 100 mls/hr IV Q12H [facility] Last Admin: 05/27/20 05:25 Dose: 100 mls/hr Documented by: Vancomycin HCl 2 gm/ Sodium (Chloride) 500 mls @ 200 mls/hr IV ONETIME ONE Stop: 05/25/20 14:29 Last Admin: 05/25/20 12:31 Dose: 200 mls/hr Documented by: Magnesium Sulfate (Magnesium Sulfate In Water 4 Gm/100 Ml) 4 gm in 100 mls @ 25 mls/hr IV ONETIME ONE Stop: 05/26/20 14:49 Last Admin: 05/26/20 11:45 Dose: 25 mls/hr Documented by: Vancomycin HCl 2 gm/ Dextrose/ (Water) 500 mls @ 200 mls/hr IV Q24H [facility] Vancomycin HCl 2 gm/ Sodium (Chloride) 500 mls @ 200 mls/hr IV Q24H [facility] Last Admin: 05/26/20 11:48 Dose: 200 mls/hr Documented by: Vancomycin HCl 2 gm/ Premix 400 mls @ 200 mls/hr IV Q24H [facility] Last Admin: 05/27/20 12:14 Dose: 200 mls/hr Documented by: Iopamidol (Iopamidol 755 Mg/Ml 100 Ml Bottle) 100 ml IVPUSH ONETIME ONE Stop: 05/27/20 11:20 Last Admin: 05/27/20 15:09 Dose: 100 ml Documented by: Ketorolac Tromethamine (Ketorolac 30 Mg/Ml Sdv) 30 mg IVPUSH ONETIME ONE Stop: 05/25/20 13:01 Last Admin: 05/25/20 14:16 Dose: 30 mg Documented by: Lorazepam (Lorazepam 2 Mg/Ml Sdv) 1 mg IVPUSH ONETIME ONE Stop: 05/27/20 14:35 Last Admin: 05/27/20 14:53 Dose: 1 mg Documented by: Magnesium Oxide (Magnesium Oxide 400 Mg Tab) 400 mg PO DAILY [facility] Last Admin: 05/26/20 08:20 Dose: 400 mg Documented by: Non-Formulary Medication (Biotin [Biotin]) 10,000 mcg PO DAILY [facility] Potassium Chloride (Potassium Chloride 20 Meq Tab.Er) 20 meq PO DAILY [facility] Last Admin: 05/26/20 08:20 Dose: 20 meq Documented by: Potassium Chloride (Potassium Chloride 20 Meq Tab.Er) 20 meq PO TID [facility] Last Admin: 05/28/20 12:23 Dose: 20 meq Documented by: Potassium Chloride (Potassium Chloride 20 Meq Tab.Er) 20 meq PO DAILY [facility] Warfarin Sodium (Warfarin 2.5 Mg Tab) 2.5 mg PO ONETIME ONE Stop: 05/25/20 09:23 Last Admin: 05/25/20 10:03 Dose: 2.5 mg Documented by: Warfarin Sodium (Warfarin 2.5 Mg Tab) 2.5 mg PO ONETIME ONE Stop: 05/26/20 12:01 Last Admin: 05/26/20 11:49 Dose: 2.5 mg Documented by: - Exam Quality Assessment: Reports: Supplemental Oxygen (CPAP as before at bedtime and with naps), Urine Catheter (To be discontinued upon transfer), DVT Prophylaxis (Coumadin). Denies: Central Line/PICC, Skin Breakdown, Restraints General: Reports: Alert, Oriented, Cooperative, No Acute Distress HEENT: Reports: Pupils Equal, Pupils Reactive, EOMI, Mucous Membr. Moist/Candor, Scleral Icterus, Other (Patient is wearing glasses. No vertigo or nystagmus. Mild oral ulcers secondary to [place]. No dentition or dentures.) Neck: Reports: Supple, Trachea Midline, No JVD, No Thyromegaly, +2 Carotid Pulse wo Bruit. Denies: Lymphadenopathy Lungs: Reports: Clear to Auscultation, Normal Respiratory Effort. Denies: Rhonchi, Rub, Wheezing Cardiovascular: Reports: Regular Rate, Regular Rhythm, No Murmurs. Denies: Gallops, Rubs GI/Abdominal Exam: Normal Bowel Sounds, Soft, Non-Tender, No Organomegaly, No Distention, No Abnormal Bruit, No Mass, Pelvis Stable, Other (Morbidly obese). No: Guarding (Female) Exam: Deferred Rectal (Female) Exam: Deferred Back Exam: Reports: Full Range of Motion, Other (Mild kyphoscoliosis). Denies: CVA Tenderness (L), CVA Tenderness (R), Muscle Spasm, Vertebral Tenderness Extremities: Normal Inspection, Normal Range of Motion, Non-Tender, No Pedal Edema, Normal Capillary Refill. No: Henny's Sign Skin: Reports: Warm, Dry, Intact, Rash (Stable venous stasis dermatitis), Ecchymosis (Occasional) Neurological: Reports: No New Focal Deficit, Other (No clinical orthostasis. Slowly improved weakness as above) Psy/Mental Status: Reports: Alert, Anxious (Mild), Depressed (Mild). Denies: Agitated, Hallucinations, Withdrawal Symptoms
[2020-05-29] MEDS: Famotidine 20 MG/2 ML SDV IVPUSH SCH (11:33)
[2020-05-29] MEDS: Pantoprazole 40 MG Vial IVPUSH SCH (11:33)
[2020-05-29] MEDS: cefTRIAXone 1 GM in Sodium Chloride 0.9% 100 ML IV SCH (11:34)
[2020-05-29] MEDS: Sodium Chloride 0.9% 10 ML Syringe FLUSH PRN (11:34)
== END 2020-05-29 15:00 | disposition swing bed (61) | DRG 872 ==
LOC: LL.ED 12:31 → LL.MS 13:30 → UNDODISIN 05-29 13:55
PROVIDERS: ADMIT Family Medicine; ATTEND Family Medicine
DX: A41.51 Sepsis due to Escherichia coli [E. coli] (principal); N30.00 Acute cystitis without hematuria; E87.1 Hypo-osmolality and hyponatremia; I13.0 Hypertensive heart and chronic kidney disease with heart failure and stage 1 through stage 4 chronic kidney disease, or unspecified chronic kidney disease; I82.409 Acute embolism and thrombosis of unspecified deep veins of unspecified lower extremity; B37.0 Candidal stomatitis; E80.4 Gilbert syndrome; I50.9 Heart failure, unspecified; E83.42 Hypomagnesemia; F41.8 Other specified anxiety disorders; E11.22 Type 2 diabetes mellitus with diabetic chronic kidney disease; N18.31 Chronic kidney disease, stage 3a; Z79.4 Long term (current) use of insulin; Z20.822 Contact with and (suspected) exposure to COVID-19; D63.1 Anemia in chronic kidney disease; D50.8 Other iron deficiency anemias; J43.1 Panlobular emphysema; M89.49 Other hypertrophic osteoarthropathy, multiple sites; I48.0 Paroxysmal atrial fibrillation; G47.33 Obstructive sleep apnea (adult) (pediatric); I44.0 Atrioventricular block, first degree; I45.10 Unspecified right bundle-branch block; I49.3 Ventricular premature depolarization; E78.5 Hyperlipidemia, unspecified; Z79.1 Long term (current) use of non-steroidal anti-inflammatories (NSAID); Z86.73 Personal history of transient ischemic attack (TIA), and cerebral infarction without residual deficits; G89.4 Chronic pain syndrome; K59.09 Other constipation; Z86.711 Personal history of pulmonary embolism; Z79.01 Long term (current) use of anticoagulants; Z90.49 Acquired absence of other specified parts of digestive tract; Z98.890 Other specified postprocedural states; Z90.710 Acquired absence of both cervix and uterus; Z90.722 Acquired absence of ovaries, bilateral; Z87.442 Personal history of urinary calculi; Z85.42 Personal history of malignant neoplasm of other parts of uterus; Z85.43 Personal history of malignant neoplasm of ovary; Z95.828 Presence of other vascular implants and grafts
CPT/HCPCS: 36415; 51702; 71045; 71275; 80048; 80053; 80202; 81001; 82247; 82248; 82272; 82607; 82728; 82962; 83036; 83540; 83550; 83605; 83735; 83880; 84484; 84550; 85025; 85379; 85610; 85730; 87040; 87077; 87086; 87088; 87186; 93005; 93970; 96374; 97110-GO; 97110-GP; 97162-GP; 97165-GO; 97530-GO; 97530-GP; 99285-25; A9270-GY; C9113; J0696; J0744; J1650; J1815-GY; J1885; J1940; J2060; J3370; J3475; J3490; J7030; J7040; J7120; Q9967; U0002

== ENCOUNTER 2020-05-29 11:59 | Inpatient (IN) | payer MEDICAID ==
[2020-05-29] MEDS ORDERED: Cyclobenzaprine 10 MG Tab PO PRN (15:14)
[2020-05-29] MEDS ORDERED: Ondansetron 4 MG Tab.DIS PO PRN (15:14)
[2020-05-29] MEDS: Nystatin Susp 100,000 Unit/ML 5 ML UD Cup PO SCH ×2 (17:02→19:42)
[2020-05-29] MEDS: Ferrous Sulfate 325 MG Tab PO SCH (17:03)
[2020-05-29] MEDS: Magnesium Oxide 400 MG Tab PO SCH (17:03)
[2020-05-29] MEDS: DULoxetine 30 MG Cap PO SCH (19:40)
[2020-05-29] MEDS: Montelukast 10 MG Tab PO SCH (19:41)
[2020-05-29] MEDS: Warfarin 2.5 MG Tab PO SCH (19:41)
[2020-05-29] MEDS: atorvaSTATin 10 MG Tab PO SCH (19:41)
[2020-05-29] MEDS ORDERED: cefTRIAXone 1 GM in Sodium Chloride 0.9% 100 ML IV SCH (22:00)
[2020-05-30] MEDS: cefTRIAXone 1 GM in Sodium Chloride 0.9% 100 ML IV SCH (09:44)
[2020-05-30] MEDS: Omeprazole 20 MG Cap.CR PO SCH (09:46)
[2020-05-30] MEDS: Cholecalciferol (Vitamin D3) 25 MCG Tab PO SCH (09:46)
[2020-05-30] MEDS: Furosemide 40 MG Tab PO SCH (09:47)
[2020-05-30] MEDS: Potassium Chloride 20 MEQ Tab.ER PO SCH (09:47)
[2020-05-30] MEDS: Ferrous Sulfate 325 MG Tab PO SCH ×2 (09:47→17:23)
[2020-05-30] MEDS: Metoprolol Succinate 25 MG Tab.ER PO SCH (09:48)
[2020-05-30] MEDS: Magnesium Oxide 400 MG Tab PO SCH ×2 (09:50→17:23)
[2020-05-30] MEDS: Beta-Carotene (Vitamin A) w/Vitamin C & E plus Minerals Tab PO SCH (09:50)
[2020-05-30] MEDS: Nystatin Susp 100,000 Unit/ML 5 ML UD Cup PO SCH ×5 (09:51→19:29)
[2020-05-30] MEDS: metFORMIN 500 MG Tab PO SCH (09:51)
[2020-05-30] MEDS: Loperamide 2 MG Tab PO PRN (11:21)
[2020-05-30] MEDS: Warfarin 2.5 MG Tab PO SCH (19:29)
[2020-05-30] MEDS: DULoxetine 30 MG Cap PO SCH (19:30)
[2020-05-30] MEDS: atorvaSTATin 10 MG Tab PO SCH (19:30)
[2020-05-30] MEDS: Montelukast 10 MG Tab PO SCH (19:30)
[2020-05-30] MEDS ORDERED: Calcium Carbonate 750 MG Tab.Chew PO PRN (21:44)
[2020-05-30] MEDS: Acetaminophen 325 MG Tab PO PRN (21:59)
[2020-05-31] MEDS: Cholecalciferol (Vitamin D3) 25 MCG Tab PO SCH (08:07)
[2020-05-31] MEDS: Magnesium Oxide 400 MG Tab PO SCH ×2 (08:07→17:12)
[2020-05-31] MEDS: Potassium Chloride 20 MEQ Tab.ER PO SCH (08:07)
[2020-05-31] MEDS: Furosemide 40 MG Tab PO SCH (08:08)
[2020-05-31] MEDS: Ferrous Sulfate 325 MG Tab PO SCH ×2 (08:08→17:12)
[2020-05-31] MEDS: metFORMIN 500 MG Tab PO SCH (08:08)
[2020-05-31] MEDS: Omeprazole 20 MG Cap.CR PO SCH (08:08)
[2020-05-31] MEDS: Beta-Carotene (Vitamin A) w/Vitamin C & E plus Minerals Tab PO SCH (08:08)
[2020-05-31] MEDS: Metoprolol Succinate 25 MG Tab.ER PO SCH (08:18)
[2020-05-31] MEDS: Nystatin Susp 100,000 Unit/ML 5 ML UD Cup PO SCH ×4 (08:22→19:06)
[2020-05-31] MEDS: cefTRIAXone 1 GM in Sodium Chloride 0.9% 100 ML IV SCH (10:40)
[2020-05-31] MEDS: Sodium Chloride 0.9% 10 ML Syringe FLUSH PRN (10:40)
[2020-05-31] MEDS: Montelukast 10 MG Tab PO SCH (19:06)
[2020-05-31] MEDS: Warfarin 2.5 MG Tab PO SCH (19:07)
[2020-05-31] MEDS: DULoxetine 30 MG Cap PO SCH (19:07)
[2020-05-31] MEDS: atorvaSTATin 10 MG Tab PO SCH (19:07)
[2020-05-31] MEDS: Acetaminophen 325 MG Tab PO PRN (22:32)
[2020-06-01] MEDS: metFORMIN 500 MG Tab PO SCH (07:45)
[2020-06-01] MEDS: Omeprazole 20 MG Cap.CR PO SCH (07:45)
[2020-06-01] MEDS: Magnesium Oxide 400 MG Tab PO SCH ×2 (07:45→17:58)
[2020-06-01] MEDS: Beta-Carotene (Vitamin A) w/Vitamin C & E plus Minerals Tab PO SCH (07:45)
[2020-06-01] MEDS: Cholecalciferol (Vitamin D3) 25 MCG Tab PO SCH (07:46)
[2020-06-01] MEDS: Metoprolol Succinate 25 MG Tab.ER PO SCH (07:47)
[2020-06-01] MEDS: Potassium Chloride 20 MEQ Tab.ER PO SCH (07:47)
[2020-06-01] MEDS: Furosemide 40 MG Tab PO SCH (07:47)
[2020-06-01] MEDS: Ferrous Sulfate 325 MG Tab PO SCH ×2 (07:47→17:58)
[2020-06-01] MEDS: Nystatin Susp 100,000 Unit/ML 5 ML UD Cup PO SCH ×4 (07:48→18:59)
[2020-06-01] MEDS: cefTRIAXone 1 GM in Sodium Chloride 0.9% 100 ML IV SCH (09:53)
[2020-06-01] MEDS: DULoxetine 30 MG Cap PO SCH (18:59)
[2020-06-01] MEDS: Warfarin 5 MG Tab PO SCH (18:59)
[2020-06-01] MEDS: atorvaSTATin 10 MG Tab PO SCH (18:59)
[2020-06-01] MEDS: Montelukast 10 MG Tab PO SCH (18:59)
[2020-06-02] MEDS: Ferrous Sulfate 325 MG Tab PO SCH ×2 (08:26→17:22)
[2020-06-02] MEDS: Nystatin Susp 100,000 Unit/ML 5 ML UD Cup PO SCH ×4 (08:26→20:24)
[2020-06-02] MEDS: metFORMIN 500 MG Tab PO SCH (08:26)
[2020-06-02] MEDS: Beta-Carotene (Vitamin A) w/Vitamin C & E plus Minerals Tab PO SCH (08:26)
[2020-06-02] MEDS: Omeprazole 20 MG Cap.CR PO SCH (08:26)
[2020-06-02] MEDS: Potassium Chloride 20 MEQ Tab.ER PO SCH (08:26)
[2020-06-02] MEDS: Furosemide 40 MG Tab PO SCH (08:26)
[2020-06-02] MEDS: Cholecalciferol (Vitamin D3) 25 MCG Tab PO SCH (08:26)
[2020-06-02] MEDS: Magnesium Oxide 400 MG Tab PO SCH ×2 (08:26→17:22)
[2020-06-02] MEDS: Metoprolol Succinate 25 MG Tab.ER PO SCH (08:27)
[2020-06-02] MEDS: cefTRIAXone 1 GM in Sodium Chloride 0.9% 100 ML IV SCH (10:30)
[2020-06-02] MEDS: atorvaSTATin 10 MG Tab PO SCH (20:25)
[2020-06-02] MEDS: Montelukast 10 MG Tab PO SCH (20:25)
[2020-06-02] MEDS: Warfarin 2.5 MG Tab PO SCH (20:25)
[2020-06-02] MEDS: DULoxetine 30 MG Cap PO SCH (20:25)
[2020-06-02] MEDS: Sodium Chloride 0.9% 10 ML Syringe FLUSH PRN (20:27)
[2020-06-03] MEDS: Cholecalciferol (Vitamin D3) 25 MCG Tab PO SCH (08:33)
[2020-06-03] MEDS: Nystatin Susp 100,000 Unit/ML 5 ML UD Cup PO SCH ×4 (08:33→20:03)
[2020-06-03] MEDS: Magnesium Oxide 400 MG Tab PO SCH ×2 (08:33→17:28)
[2020-06-03] MEDS: Potassium Chloride 20 MEQ Tab.ER PO SCH (08:33)
[2020-06-03] MEDS: Ferrous Sulfate 325 MG Tab PO SCH ×2 (08:33→17:28)
[2020-06-03] MEDS: Beta-Carotene (Vitamin A) w/Vitamin C & E plus Minerals Tab PO SCH (08:34)
[2020-06-03] MEDS: metFORMIN 500 MG Tab PO SCH (08:34)
[2020-06-03] MEDS: Omeprazole 20 MG Cap.CR PO SCH (08:34)
[2020-06-03] MEDS: Metoprolol Succinate 25 MG Tab.ER PO SCH (08:34)
[2020-06-03] MEDS: Furosemide 40 MG Tab PO SCH (08:34)
[2020-06-03] MEDS: cefTRIAXone 1 GM in Sodium Chloride 0.9% 100 ML IV SCH (11:30)
[2020-06-03] MEDS: Sodium Chloride 0.9% 10 ML Syringe FLUSH PRN ×2 (11:30→11:33)
--- NOTE | 2020-06-03 14:33 | PCM.SN.2 ---
- Free Text/Narrative Note: Laboratory Results - last 24 hr 06/03/20 06/03/20 06/03/20 Range/Units 07:16 07:16 07:16 WBC 8.7 (4.0-10.2) K/uL RBC 3.62 L (3.77-5.09) M/uL Hgb 11.2 L (11.7-15.5) g/dL Hct 35.1 (34.0-46.0) % MCV 97.0 (84.0-98.0) fL MCH 30.9 (28.2-33.3) pg MCHC 31.9 (31.7-36.0) g/dL RDW 15.0 H (11.2-14.1) % Plt Count 435 H (150-350) K/uL Neut % (Auto) 52.6 (45.0-80.0) % Lymph % (Auto) 35.9 (10.0-50.0) % [place] % (Auto) 8.5 (2.0-14.0) % Eos % (Auto) 2.4 (0.0-5.0) % Baso % (Auto) 0.6 (0.0-2.0) % Neut # (Auto) 4.58 (1.40-7.00) K/uL Lymph # (Auto) 3.13 (0.50-3.50) K/uL [place] # (Auto) 0.74 (0.00-1.00) K/uL Eos # (Auto) 0.21 (0.00-0.50) K/uL Baso # (Auto) 0.05 (0.00-0.20) K/uL PT 22.4 H (9.5-12.0) SEC INR 2.3 Sodium 140 (136-145) mmol/L Potassium 3.9 (3.5-5.1) mmol/L Chloride 102 (98-107) mmol/L Carbon Dioxide 29.4 (21.0-32.0) mmol/L BUN 24 H (7-18) mg/dL Creatinine 1.30 H (0.51-1.17) mg/dL Est Cr Clr Drug Dosing 41.41 mL/min Estimated GFR (MDRD) 42 mL/min Glucose 111 H (70-99) mg/dL Calcium 9.8 (8.5-10.1) mg/dL Total Bilirubin 0.7 (0.2-1.0) mg/dL AST 24 (15-37) U/L ALT 33 (12-78) U/L Alkaline Phosphatase 91 (46-116) IU/L Troponin I 0.003 (0.000-0.056) ng/mL NT-Pro-B Natriuret Pep 509 H (0-125) pg/mL Total Protein 7.2 (6.4-8.2) g/dL Albumin 3.0 L (3.4-5.0) g/dL Note the patient was transferred from inpatient/acute care in this facility to swing bed for further IV Rocephin therapy as treatment for her recent sepsis. INR is therapeutic. Rocephin is scheduled to be completed on 06/04 with INR to be conducted on 06/06. Further medication adjustment depending on her clinical course. Stable anemia, renal insufficiency, and mild thrombocytosis. PT and OT are in effect. Otherwise stable vital signs, clinical exam by history, etc. with the patient still afebrile. Blood work, etc. should be repeated prior to discharge.
[2020-06-03] MEDS: atorvaSTATin 10 MG Tab PO SCH (20:03)
[2020-06-03] MEDS: Montelukast 10 MG Tab PO SCH (20:03)
[2020-06-03] MEDS: DULoxetine 30 MG Cap PO SCH (20:03)
[2020-06-03] MEDS: Warfarin 2.5 MG Tab PO SCH (20:04)
[2020-06-04] MEDS: Ferrous Sulfate 325 MG Tab PO SCH ×2 (07:20→17:01)
[2020-06-04] MEDS: Potassium Chloride 20 MEQ Tab.ER PO SCH (07:20)
[2020-06-04] MEDS: Omeprazole 20 MG Cap.CR PO SCH (07:20)
[2020-06-04] MEDS: metFORMIN 500 MG Tab PO SCH (07:20)
[2020-06-04] MEDS: Beta-Carotene (Vitamin A) w/Vitamin C & E plus Minerals Tab PO SCH (07:21)
[2020-06-04] MEDS: Furosemide 40 MG Tab PO SCH (07:21)
[2020-06-04] MEDS: Cholecalciferol (Vitamin D3) 25 MCG Tab PO SCH (07:21)
[2020-06-04] MEDS: Nystatin Susp 100,000 Unit/ML 5 ML UD Cup PO SCH ×4 (07:21→19:32)
[2020-06-04] MEDS: Magnesium Oxide 400 MG Tab PO SCH ×2 (07:21→17:00)
[2020-06-04] MEDS: Metoprolol Succinate 25 MG Tab.ER PO SCH (07:21)
[2020-06-04] MEDS: Sodium Chloride 0.9% 10 ML Syringe FLUSH PRN ×2 (10:05→10:34)
[2020-06-04] MEDS: cefTRIAXone 1 GM in Sodium Chloride 0.9% 100 ML IV SCH (10:05)
[2020-06-04] MEDS: DULoxetine 30 MG Cap PO SCH (19:32)
[2020-06-04] MEDS: atorvaSTATin 10 MG Tab PO SCH (19:32)
[2020-06-04] MEDS: Warfarin 2.5 MG Tab PO SCH (19:32)
[2020-06-04] MEDS: Montelukast 10 MG Tab PO SCH (19:33)
[2020-06-05] MEDS: Magnesium Oxide 400 MG Tab PO SCH ×2 (10:48→18:01)
[2020-06-05] MEDS: Potassium Chloride 20 MEQ Tab.ER PO SCH (10:48)
[2020-06-05] MEDS: Furosemide 40 MG Tab PO SCH (10:48)
[2020-06-05] MEDS: Omeprazole 20 MG Cap.CR PO SCH (10:51)
[2020-06-05] MEDS: Beta-Carotene (Vitamin A) w/Vitamin C & E plus Minerals Tab PO SCH (10:51)
[2020-06-05] MEDS: metFORMIN 500 MG Tab PO SCH (10:51)
[2020-06-05] MEDS: Ferrous Sulfate 325 MG Tab PO SCH ×2 (10:51→18:01)
[2020-06-05] MEDS: Metoprolol Succinate 25 MG Tab.ER PO SCH (10:51)
[2020-06-05] MEDS: Cholecalciferol (Vitamin D3) 25 MCG Tab PO SCH (10:51)
[2020-06-05] MEDS: Nystatin Susp 100,000 Unit/ML 5 ML UD Cup PO SCH ×4 (10:52→20:17)
[2020-06-05] MEDS: DULoxetine 30 MG Cap PO SCH (20:15)
[2020-06-05] MEDS: Warfarin 2.5 MG Tab PO SCH (20:16)
[2020-06-05] MEDS: atorvaSTATin 10 MG Tab PO SCH (20:16)
[2020-06-05] MEDS: Montelukast 10 MG Tab PO SCH (20:16)
[2020-06-06] MEDS: Magnesium Oxide 400 MG Tab PO SCH ×2 (12:05→17:32)
[2020-06-06] MEDS: Omeprazole 20 MG Cap.CR PO SCH (12:05)
[2020-06-06] MEDS: Potassium Chloride 20 MEQ Tab.ER PO SCH (12:05)
[2020-06-06] MEDS: Furosemide 40 MG Tab PO SCH (12:05)
[2020-06-06] MEDS: Ferrous Sulfate 325 MG Tab PO SCH ×2 (12:05→17:32)
[2020-06-06] MEDS: Beta-Carotene (Vitamin A) w/Vitamin C & E plus Minerals Tab PO SCH (12:06)
[2020-06-06] MEDS: metFORMIN 500 MG Tab PO SCH (12:06)
[2020-06-06] MEDS: Cholecalciferol (Vitamin D3) 25 MCG Tab PO SCH (12:06)
[2020-06-06] MEDS: Loperamide 2 MG Tab PO PRN ×2 (12:06→17:32)
[2020-06-06] MEDS: Metoprolol Succinate 25 MG Tab.ER PO SCH (12:07)
[2020-06-06] MEDS: Nystatin Susp 100,000 Unit/ML 5 ML UD Cup PO SCH ×4 (12:07→19:35)
[2020-06-06] MEDS: Warfarin 2.5 MG Tab PO SCH (19:34)
[2020-06-06] MEDS: DULoxetine 30 MG Cap PO SCH (19:35)
[2020-06-06] MEDS: Montelukast 10 MG Tab PO SCH (19:35)
[2020-06-06] MEDS: atorvaSTATin 10 MG Tab PO SCH (19:35)
[2020-06-06] MEDS: Temazepam 15 MG Cap PO PRN (23:52)
[2020-06-07] MEDS: Furosemide 40 MG Tab PO SCH (11:35)
[2020-06-07] MEDS: Nystatin Susp 100,000 Unit/ML 5 ML UD Cup PO SCH ×4 (11:35→19:17)
[2020-06-07] MEDS: Potassium Chloride 20 MEQ Tab.ER PO SCH (11:35)
[2020-06-07] MEDS: Omeprazole 20 MG Cap.CR PO SCH (11:35)
[2020-06-07] MEDS: Metoprolol Succinate 25 MG Tab.ER PO SCH (11:36)
[2020-06-07] MEDS: Beta-Carotene (Vitamin A) w/Vitamin C & E plus Minerals Tab PO SCH (11:36)
[2020-06-07] MEDS: metFORMIN 500 MG Tab PO SCH (11:36)
[2020-06-07] MEDS: Cholecalciferol (Vitamin D3) 25 MCG Tab PO SCH (11:36)
[2020-06-07] MEDS: Loperamide 2 MG Tab PO PRN (11:37)
[2020-06-07] MEDS: Ferrous Sulfate 325 MG Tab PO SCH ×2 (11:40→17:03)
[2020-06-07] MEDS: Magnesium Oxide 400 MG Tab PO SCH ×2 (11:40→17:03)
[2020-06-07] MEDS: atorvaSTATin 10 MG Tab PO SCH (19:16)
[2020-06-07] MEDS: DULoxetine 30 MG Cap PO SCH (19:16)
[2020-06-07] MEDS: Warfarin 2.5 MG Tab PO SCH (19:16)
[2020-06-07] MEDS: Montelukast 10 MG Tab PO SCH (19:16)
[2020-06-08] MEDS: Furosemide 40 MG Tab PO SCH (08:03)
[2020-06-08] MEDS: metFORMIN 500 MG Tab PO SCH (08:03)
[2020-06-08] MEDS: Potassium Chloride 20 MEQ Tab.ER PO SCH (08:03)
[2020-06-08] MEDS: Ferrous Sulfate 325 MG Tab PO SCH ×2 (08:03→17:28)
[2020-06-08] MEDS: Omeprazole 20 MG Cap.CR PO SCH (08:03)
[2020-06-08] MEDS: Cholecalciferol (Vitamin D3) 25 MCG Tab PO SCH (08:04)
[2020-06-08] MEDS: Nystatin Susp 100,000 Unit/ML 5 ML UD Cup PO SCH ×4 (08:04→19:33)
[2020-06-08] MEDS: Magnesium Oxide 400 MG Tab PO SCH ×2 (08:04→17:28)
[2020-06-08] MEDS: Beta-Carotene (Vitamin A) w/Vitamin C & E plus Minerals Tab PO SCH (08:04)
[2020-06-08] MEDS: Metoprolol Succinate 25 MG Tab.ER PO SCH (08:07)
[2020-06-08] MEDS: DULoxetine 30 MG Cap PO SCH (19:32)
[2020-06-08] MEDS: atorvaSTATin 10 MG Tab PO SCH (19:33)
[2020-06-08] MEDS: Montelukast 10 MG Tab PO SCH (19:33)
[2020-06-08] MEDS: Warfarin 5 MG Tab PO SCH (19:33)
[2020-06-09] MEDS: Omeprazole 20 MG Cap.CR PO SCH (08:31)
[2020-06-09] MEDS: Ferrous Sulfate 325 MG Tab PO SCH ×2 (08:31→16:37)
[2020-06-09] MEDS: Beta-Carotene (Vitamin A) w/Vitamin C & E plus Minerals Tab PO SCH (08:31)
[2020-06-09] MEDS: Metoprolol Succinate 25 MG Tab.ER PO SCH (08:31)
[2020-06-09] MEDS: Cholecalciferol (Vitamin D3) 25 MCG Tab PO SCH (08:34)
[2020-06-09] MEDS: Furosemide 40 MG Tab PO SCH (08:35)
[2020-06-09] MEDS: metFORMIN 500 MG Tab PO SCH (08:35)
[2020-06-09] MEDS: Potassium Chloride 20 MEQ Tab.ER PO SCH (08:35)
[2020-06-09] MEDS: Magnesium Oxide 400 MG Tab PO SCH ×2 (08:35→18:14)
[2020-06-09] MEDS: Nystatin Susp 100,000 Unit/ML 5 ML UD Cup PO SCH ×4 (08:36→20:33)
[2020-06-09] MEDS: Warfarin 2.5 MG Tab PO SCH (20:33)
[2020-06-09] MEDS: Montelukast 10 MG Tab PO SCH (20:33)
[2020-06-09] MEDS: atorvaSTATin 10 MG Tab PO SCH (20:33)
[2020-06-09] MEDS: DULoxetine 30 MG Cap PO SCH (20:34)
[2020-06-10] MEDS: Temazepam 15 MG Cap PO PRN (01:37)
[2020-06-10] MEDS: Cholecalciferol (Vitamin D3) 25 MCG Tab PO SCH (08:05)
[2020-06-10] MEDS: Beta-Carotene (Vitamin A) w/Vitamin C & E plus Minerals Tab PO SCH (08:05)
[2020-06-10] MEDS: Nystatin Susp 100,000 Unit/ML 5 ML UD Cup PO SCH ×2 (08:05→12:47)
[2020-06-10] MEDS: Omeprazole 20 MG Cap.CR PO SCH (08:05)
[2020-06-10] MEDS: Ferrous Sulfate 325 MG Tab PO SCH (08:06)
[2020-06-10] MEDS: Potassium Chloride 20 MEQ Tab.ER PO SCH (08:06)
[2020-06-10] MEDS: Metoprolol Succinate 25 MG Tab.ER PO SCH (08:07)
[2020-06-10] MEDS: metFORMIN 500 MG Tab PO SCH (08:07)
[2020-06-10] MEDS: Furosemide 40 MG Tab PO SCH (08:07)
[2020-06-10] MEDS: Magnesium Oxide 400 MG Tab PO SCH (08:07)
[2020-06-10 08:12] VITALS: BP 138/73; PULSE 85
--- NOTE | 2020-06-10 13:25 | PCM.DCSUM1 ---
Discharge Summary - Hospital Course Free Text/Narrative:: Pt. was admitted to Swing Bed following acute admission for extended treatment of urosepsis with urine and blood positive for E. coli. Pt. was hospitalized acutely from 05-24-2020 until 05-29-2020. She was initially started on rocephin, cipro and also was covered for MRSA with vancomycin pending cultures. Pt. was then transitioned to rocephin IV which was continued during swing bed stay. Lactic acid max was 2.4 on 05.29. This was not trended, however patient has been afebrile since 05/27/2020. 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 She also has an IVC filter. Pt. INR this AM was subtheraputic at 1.9. Pt. did have an increase in creatinine at the beginning of her course. Kidney function has since improved. White count his normal. Pt. was followed by PT and OT. She states that she is ambulating better, but still complains of some shortness of breath on exertion. Plan is for patient to transition to [facility] assisted living facility. Pt. did have a repeat UA which showed trace leukocytes and many epithelials. This was likely contamin ation, as patient is not experiencing any dysuria, hematuria, or other signs/symptoms of UTI. Diagnosis: Stroke: No - Discharge Data Discharge Date: 06/10/20 Discharge Disposition: Home, Self-Care 01 Condition: Good - Referral to Home Health Primary Care Physician: Pinky Montoya PA-C - Discharge Diagnosis/Problem(s) (1) Sepsis SNOMED Code(s): 07732281 ICD Code: A41.9 - SEPSIS, UNSPECIFIED ORGANISM Status: Acute Priority: High Current Visit: No Onset Date: ~05/24/20 Problem Details: As above. Patient remains afebrile and will be transferred to swing bed. Qualifiers: (2) UTI (urinary tract infection) SNOMED Code(s): 17404158 ICD Code: N39.0 - URINARY TRACT INFECTION, SITE NOT SPECIFIED Status: Acute Priority: High Current Visit: No Onset Date: ~05/24/20 Problem Details: Secondary to improved symptoms IV vancomycin was discontinued by [facility]'s provider on 05/28. Secondary to history of sepsis IV antibiotic Rocephin will need to be continued with patient to be transferred to swing bed in our facility. She is also needing further physical therapy and Occupational Therapy secondary to significant weakness during the upcoming swing bed care. Note urosepsis confirmed on 05/27/2020 from previous positive blood cultures x2 on 04/26/2020. Urosepsis initially suspected, however note gram-positive cocci rather than gram-negative rods were noted in the blood cultures on 05/25. Verbal report from our laboratory on 05/26 indicated that her blood cultures probably actually contain gram-negative rods with today's urine culture and sensitivity showing adequate control with both Rocephin and Cipro. Chest x-ray on 05/27/2020 today shows progressive CHF with questionable left lower lobe atelectasis versus infiltrates. Chest x-ray, portable, on 05/24/2020 and 05/26/2020 showed somewhat poor inspiratory film, although possible mild bilateral basilar pneumonia. Persistent fever, however significantly improved and normal WBCs since 05/26. Patient's Cipro initially at 400 mg IV every 12 hours, although this was changed to 200 mg IV every 12 hours on 05/25 secondary to her renal insufficiency. The patient was given a 2 g IV dose of Rocephin early in the morning on 05/25 with subsequent increase of her Rocephin to 1 g IV every 12 hours starting that evening. Vancomycin IV was also initiated on 05/25 with pharmacy consultation for proper dosing and routine blood work. Trough vancomycin level on 05/26 showed adequate therapy with repeat level repeated on 05/28. Secondary to persistent refractory fever continued triple antibiotic therapy as above until final blood culture and sensitivity results were obtained on 05/27. IV Cipro will be discontinued in order to avoid C. difficile colitis with continuation of IV vancomycin and IV Rocephin per sepsis protocol on 05/27. Thomas catheter was placed on 05/25 for accurate I's and O's secondary to her sepsis, previous CHF, and urinary incontinence. Low threshold for hospital transfer. Lactic acid levels x 4 were normal during this hospitalization. Qualifiers: (3) Weakness SNOMED Code(s): 13034250 ICD Code: R53.1 - WEAKNESS Status: Acute Priority: High Current Visit: No Problem Details: Severe generalized weakness secondary to her current in fection with additional morbid obesity and very slow improvement in her mobility, etc. PT and OT have been ordered for the swing bed care. - Patient Summary/Data Consults: Consultations 05/29/20 15:14 Consult to Case Management/Bearing Ring Assembler [CONS] Routine Consult to Dietary [Consult to Ornament Stapler] [CONS] Routine Consult to Occupational Therapy [OT Evaluation and Treatment] [CONS] Routine Consult to Physical Therapy [PT Evaluation and Treatment] [CONS] Routine - Discharge Plan Prescriptions/Med Rec: Ferrous Sulfate 325 mg PO BIDMEALS 30 Days #60 tablet Potassium Chloride [Klor-Con M20] 20 meq PO DAILY 30 Days #30 tab.er Furosemide [Lasix] 40 mg PO DAILY #30 tablet Home Medications: Home Meds Warfarin Sodium [Jantoven] 5 mg PO MO@199911/02/16 [History] Magnesium Oxide 400 mg PO DAILY #30 tab 07/13/17 [Rx] Acetaminophen 1,000 mg PO Q12HR 02/09/18 [History] Cholecalciferol (Vitamin D3) [Vitamin D3] 2 tab PO DAILY 02/09/18 [History] Cyclobenzaprine [Flexeril] 1 tab PO TID PRN 02/09/18 [History] DULoxetine [Cymbalta] 30 mg PO BEDTIME 02/09/18 [History] Furosemide 40 mg PO DAILY 02/09/18 [History] Metoprolol Succinate [Toprol XL] 25 mg PO DAILY 02/09/18 [History] Multivit-Min/Iron/Folic/Lutein [Centrum Silver Women Tablet] 1 tab PO DAILY 02/09/18 [History] atorvaSTATin [Lipitor] 20 mg PO BEDTIME 02/09/18 [History] Biotin 10,000 mcg PO DAILY 05/24/20 [History] Montelukast [Singulair] 10 mg PO BEDTIME 05/24/20 [History] Potassium Chloride 20 meq PO DAILY 05/24/20 [History] metFORMIN HCl [Metformin HCl ER] 500 mg PO DAILY 05/24/20 [History] Ferrous Sulfate 325 mg PO BIDMEALS 30 Days #60 tablet 06/10/20 [Rx] Furosemide [Lasix] 40 mg PO DAILY #30 tablet 06/10/20 [Rx] Potassium Chloride [Klor-Con M20] 20 meq PO DAILY 30 Days #30 tab.er 06/10/20 [Rx] - Discharge Summary/Plan Comment DC Time >30 min.: Yes Discharge Summary/Plan Comment: Pt. will be discharged. Coumadin was increased to 5mg on Monday and , and 2.5mg on the remainder of the days. This will be followed by [facility]. Ferrous sulfate was continued for anemia. The low dose iron supplement she was taking was discontinued. Continue lasix 40mg daily as well as potassium chloride 20meq daily. Recheck labs in clinic in 10-14 days. Asymptomatic bacturia was not treated. Pt. was advised to contact the hospital or PCP should she develop any urinary discomfort, fever, abdominal pain, or other worrisome signs or symptoms. Outpatient PT and OT was ordered due to significant deconditioning. - General Info Functional Status: Reports: Pain Controlled, Tolerating Diet, Ambulating, Urinating - Review of Systems General: Reports: No Symptoms HEENT: Reports: No Symptoms Pulmonary: Reports: No Symptoms Cardiovascular: Reports: No Symptoms Gastrointestinal: Reports: No Symptoms Genitourinary: Reports: No Symptoms Musculoskeletal: Reports: No Symptoms Skin: Reports: No Symptoms Neurological: Reports: No Symptoms Psychiatric: Reports: No Symptoms - Patient Data Vitals - Most Recent: Last Vital Signs Temp 36.1 C 06/10/20 08:00 Pulse 85 06/10/20 08:07 Resp 16 06/10/20 08:00 BP 138/73 06/10/20 08:07 Pulse Ox 100 06/10/20 08:00 Weight - Most Recent: 143.789 kg I&O - Last 24 hours: Intake & Output 06/09/20 06/10/20 06/10/20 22:59 06:59 14:59 Intake Total 420 720 Balance 420 720 Lab Results - Last 24 hrs: Laboratory Results - last 24 hr 06/10/20 06/10/20 06/10/20 Range/Units 06:45 06:45 06:45 WBC 6.7 (4.0-10.2) K/uL RBC 3.49 L (3.77-5.09) M/uL Hgb 10.8 L (11.7-15.5) g/dL Hct 34.3 (34.0-46.0) % MCV 98.3 H (84.0-98.0) fL MCH 30.9 (28.2-33.3) pg MCHC 31.5 L (31.7-36.0) g/dL RDW 15.0 H (11.2-14.1) % Plt Count 359 H D (150-350) K/uL Neut % (Auto) 43.0 L (45.0-80.0) % Lymph % (Auto) 45.8 (10.0-50.0) % [place] % (Auto) 7.8 (2.0-14.0) % Eos % (Auto) 2.0 (0.0-5.0) % Baso % (Auto) 1.4 (0.0-2.0) % Neut # (Auto) 2.87 (1.40-7.00) K/uL Lymph # (Auto) 3.05 (0.50-3.50) K/uL [place] # (Auto) 0.52 (0.00-1.00) K/uL Eos # (Auto) 0.13 (0.00-0.50) K/uL Baso # (Auto) 0.09 (0.00-0.20) K/uL PT 18.8 H (9.5-12.0) SEC INR 1.9 Sodium 141 (136-145) mmol/L Potassium 3.4 L (3.5-5.1) mmol/L Chloride 102 (98-107) mmol/L Carbon Dioxide 30.6 (21.0-32.0) mmol/L BUN 15 (7-18) mg/dL Creatinine 1.11 (0.51-1.17) mg/dL Est Cr Clr Drug Dosing 48.50 mL/min Estimated GFR (MDRD) 50 mL/min Glucose 102 H (70-99) mg/dL POC Glucose Calcium 9.1 (8.5-10.1) mg/dL Total Bilirubin 1.0 (0.2-1.0) mg/dL AST 20 (15-37) U/L ALT 28 (12-78) U/L Alkaline Phosphatase 91 (46-116) IU/L Troponin I 0.006 (0.000-0.056) ng/mL NT-Pro-B Natriuret Pep 501 H (0-125) pg/mL Total Protein 6.9 (6.4-8.2) g/dL Albumin 3.1 L (3.4-5.0) g/dL 06/10/20 06/10/20 Range/Units 12:17 12:19 WBC (4.0-10.2) K/uL RBC (3.77-5.09) M/uL Hgb (11.7-15.5) g/dL Hct (34.0-46.0) % MCV (84.0-98.0) fL MCH (28.2-33.3) pg MCHC (31.7-36.0) g/dL RDW (11.2-14.1) % Plt Count (150-350) K/uL Neut % (Auto) (45.0-80.0) % Lymph % (Auto) (10.0-50.0) % [place] % (Auto) (2.0-14.0) % Eos % (Auto) (0.0-5.0) % Baso % (Auto) (0.0-2.0) % Neut # (Auto) (1.40-7.00) K/uL Lymph # (Auto) (0.50-3.50) K/uL [place] # (Auto) (0.00-1.00) K/uL Eos # (Auto) (0.00-0.50) K/uL Baso # (Auto) (0.00-0.20) K/uL PT (9.5-12.0) SEC INR Sodium (136-145) mmol/L Potassium (3.5-5.1) mmol/L Chloride (98-107) mmol/L Carbon Dioxide (21.0-32.0) mmol/L BUN (7-18) mg/dL Creatinine (0.51-1.17) mg/dL Est Cr Clr Drug Dosing mL/min Estimated GFR (MDRD) mL/min Glucose (70-99) mg/dL POC Glucose Cancelled Cancelled Calcium (8.5-10.1) mg/dL Total Bilirubin (0.2-1.0) mg/dL AST (15-37) U/L ALT (12-78) U/L Alkaline Phosphatase (46-116) IU/L Troponin I (0.000-0.056) ng/mL NT-Pro-B Natriuret Pep (0-125) pg/mL Total Protein (6.4-8.2) g/dL Albumin (3.4-5.0) g/dL [place] Results - Last 24 hrs: Microbiology 06/08/20 13:05 Urine Culture - Preliminary Urine, Bladder Gram Positive Cocci Med Orders - Current: Current Medications Acetaminophen (Acetaminophen 325 Mg Tab) 650 mg PO Q4H PRN PRN Reason: Pain (Mild 1-3)/fever Last Admin: 05/31/20 22:32 Dose: 650 mg Documented by: Atorvastatin Calcium (Atorvastatin 10 Mg Tab) 20 mg PO BEDTIME [facility] Last Admin: 06/09/20 20:33 Dose: 20 mg Documented by: Calcium Carbonate/Glycine (Calcium Carbonate 750 Mg Tab.Chew) 750 mg PO Q2HR PRN PRN Reason: Indigestion Last Admin: 05/30/20 21:59 Dose: 750 mg Documented by: Cholecalciferol (Cholecalciferol (Vitamin D3) 25 Mcg Tab) 50 mcg PO DAILY [facility] Last Admin: 06/10/20 08:05 Dose: 50 mcg Documented by: Cyclobenzaprine HCl (Cyclobenzaprine 10 Mg Tab) 5 mg PO TID PRN PRN Reason: Spasms Duloxetine HCl (Duloxetine 30 Mg Cap) 30 mg PO BEDTIME [facility] Last Admin: 06/09/20 20:34 Dose: 30 mg Documented by: Ferrous Sulfate (Ferrous Sulfate 325 Mg Tab) 325 mg PO BIDMEALS [facility] Last Admin: 06/10/20 08:06 Dose: 325 mg Documented by: Furosemide (Furosemide 40 Mg Tab) 40 mg PO DAILY [facility] Last Admin: 06/10/20 08:07 Dose: 40 mg Documented by: Loperamide HCl (Loperamide 2 Mg Tab) 2 mg PO Q6H PRN PRN Reason: loose stools Last Admin: 06/07/20 11:37 Dose: 2 mg Documented by: Magnesium Oxide (Magnesium Oxide 400 Mg Tab) 400 mg PO BID [facility] Last Admin: 06/10/20 08:07 Dose: 400 mg Documented by: Metformin HCl (Metformin 500 Mg Tab) 500 mg PO DAILY [facility] Last Admin: 06/10/20 08:07 Dose: 500 mg Documented by: Metoprolol Succinate (Metoprolol Succinate 25 Mg Tab.Er) 25 mg PO DAILY [facility] Last Admin: 06/10/20 08:07 Dose: 25 mg Documented by: Montelukast Sodium (Montelukast 10 Mg Tab) 10 mg PO BEDTIME [facility] Last Admin: 06/09/20 20:33 Dose: 10 mg Documented by: Multivitamins/Minerals (Beta-Carotene (Vitamin A) W/Vitamin C & E Plus Minerals Tab) 1 tab PO DAILY [facility] Last Admin: 06/10/20 08:05 Dose: 1 tab Documented by: Nystatin (Nystatin Susp 100,000 Unit/Ml 5 Ml Ud Cup) 5 ml PO QID [facility] Last Admin: 06/10/20 12:47 Dose: 5 ml Documented by: Omeprazole (Omeprazole 20 Mg Cap.Cr) 20 mg PO ACBREAKFAST [facility] Last Admin: 06/10/20 08:05 Dose: 20 mg Documented by: Ondansetron HCl (Ondansetron 4 Mg Tab.Dis) 4 mg PO Q4H PRN PRN Reason: Nausea/Vomiting Potassium Chloride (Potassium Chloride 20 Meq Tab.Er) 20 meq PO DAILY [facility] Last Admin: 06/10/20 08:06 Dose: 20 meq Documented by: Sodium Chloride (Sodium Chloride 0.9% 10 Ml Syringe) 10 ml FLUSH ASDIRECTED PRN PRN Reason: Keep Vein Open Last Admin: 06/04/20 10:34 Dose: 10 ml Documented by: Temazepam (Temazepam 15 Mg Cap) 15 mg PO BEDTIME PRN PRN Reason: Insomnia Last Admin: 06/10/20 01:37 Dose: 15 mg Documented by: Warfarin Sodium (Warfarin 2.5 Mg Tab) 2.5 mg PO SUTUWETHFRSA@1999 [facility] Last Admin: 06/09/20 20:33 Dose: 2.5 mg Documented by: Warfarin Sodium (Warfarin 5 Mg Tab) 5 mg PO MO@1999 [facility] Last Admin: 06/08/20 19:33 Dose: 5 mg Documented by: Discontinued Medications Ceftriaxone Sodium 1 gm/ (Sodium Chloride) 100 mls @ 200 mls/hr IV Q12H [facility] Ceftriaxone Sodium 1 gm/ (Sodium Chloride) 100 mls @ 200 mls/hr IV Q24H [facility] Stop: 06/04/20 10:01 Last Admin: 06/04/20 10:05 Dose: 200 mls/hr Documented by: - Exam General: Reports: Alert, Oriented Neck: Reports: Supple Lungs: Reports: Clear to Auscultation, Normal Respiratory Effort Cardiovascular: Reports: Regular Rate, Regular Rhythm GI/Abdominal Exam: Soft, Non-Tender, No Mass Skin: Reports: Warm, Dry, Intact Neurological: Reports: No New Focal Deficit Psy/Mental Status: Reports: Alert, Normal Affect, Normal Mood
== END 2020-06-10 13:25 | disposition home or self-care (01) | DRG 872 ==
LOC: UNDOADMIN 12:09 → LL.MS 12:09
PROVIDERS: ADMIT Family Medicine; ATTEND Family Medicine
DX: A41.51 Sepsis due to Escherichia coli [E. coli] (principal); N39.0 Urinary tract infection, site not specified; E87.1 Hypo-osmolality and hyponatremia; I50.9 Heart failure, unspecified; R32 Unspecified urinary incontinence; R53.1 Weakness; E66.01 Morbid (severe) obesity due to excess calories; Z79.01 Long term (current) use of anticoagulants; Z79.899 Other long term (current) drug therapy; D50.8 Other iron deficiency anemias; E80.4 Gilbert syndrome; J43.1 Panlobular emphysema; Z86.718 Personal history of other venous thrombosis and embolism; E83.42 Hypomagnesemia; M19.90 Unspecified osteoarthritis, unspecified site; E11.22 Type 2 diabetes mellitus with diabetic chronic kidney disease; N18.31 Chronic kidney disease, stage 3a; I48.0 Paroxysmal atrial fibrillation; G47.33 Obstructive sleep apnea (adult) (pediatric); I44.0 Atrioventricular block, first degree; I45.10 Unspecified right bundle-branch block; I49.3 Ventricular premature depolarization; Z79.84 Long term (current) use of oral hypoglycemic drugs
CPT/HCPCS: 36415; 36416; 80053; 81001; 82962; 83880; 84484; 85025; 85610; 87086; 87088; 97110-GO; 97110-GP; 97161-GP; 97530-GO; 97530-GP; 97535-GO; A9270-GY; J0696

== ENCOUNTER 2021-10-18 20:44 | Emergency (ER) | payer MEDICAID ==
[2021-10-18 20:55] VITALS: BP 112/67; PULSE 96
[2021-10-18 21:46] LABS: ANION GAP 11.2 meq/L (7-15)
== END 2021-10-18 22:11 | disposition home or self-care (01) ==
LOC: LL.ED 20:44
DX: R31.9 Hematuria, unspecified (principal); J44.9 Chronic obstructive pulmonary disease, unspecified; E11.9 Type 2 diabetes mellitus without complications; E66.9 Obesity, unspecified; Z68.43 Body mass index [BMI] 50.0-59.9, adult; Z86.73 Personal history of transient ischemic attack (TIA), and cerebral infarction without residual deficits; Z88.8 Allergy status to other drugs, medicaments and biological substances; Z79.899 Other long term (current) drug therapy; Z79.01 Long term (current) use of anticoagulants
CPT/HCPCS: 36415; 80053; 81001; 85025; 85610; 87086; 99283; 99284

== ENCOUNTER 2023-01-10 11:20 | Emergency (ER) | payer MEDICAID ==
[2023-01-10 11:25] VITALS: BP 143/76; PULSE 93
[2023-01-10 12:28] LABS: CORONAVIRUS COVID-19 NAA NEGATIVE (NEGATIVE); INFLUENZA A NAA NEGATIVE (NEGATIVE); INFLUENZA B NAA NEGATIVE (NEGATIVE); RESPIRATORY SYNCYTIAL VIR NAA NEGATIVE (NEGATIVE)
== END 2023-01-10 13:40 | disposition home or self-care (01) ==
LOC: LL.ED 11:20
DX: J04.0 Acute laryngitis (principal); J44.9 Chronic obstructive pulmonary disease, unspecified; I50.9 Heart failure, unspecified; E66.9 Obesity, unspecified; E11.9 Type 2 diabetes mellitus without complications; Z86.73 Personal history of transient ischemic attack (TIA), and cerebral infarction without residual deficits; Z88.6 Allergy status to analgesic agent; Z79.01 Long term (current) use of anticoagulants; Z20.822 Contact with and (suspected) exposure to COVID-19; Z79.899 Other long term (current) drug therapy
CPT/HCPCS: 0241U; 87081; 87430; 99283; 99284

== ENCOUNTER 2023-01-16 14:29 | Emergency (ER) | payer MEDICAID ==
[2023-01-16 15:35] LABS: BASOPHILS ABSOLUTE AUTO 0.05 K/uL (0.00-0.20); BASOPHILS PERCENT AUTO 0.8 % (0.0-2.0); EOSINOPHILS ABSOLUTE AUTO 0.22 K/uL (0.00-0.50); EOSINOPHILS PERCENT AUTO 3.4 % (0.0-5.0); HEMATOCRIT 41.5 % (34.0-46.0); HEMOGLOBIN 13.3 g/dL (11.7-15.5); LYMPHOCYTES ABSOLUTE AUTO 2.55 K/uL (0.50-3.50); LYMPHOCYTES PERCENT AUTO 39.8 % (10.0-50.0); MEAN CORPUSCULAR HEMOGLOBIN 32.6 pg (28.2-33.3); MEAN CORPUSCULAR VOLUME 101.7 fL (84.0-98.0); MONOCYTES ABSOLUTE AUTO 0.38 K/uL (0.00-1.00); MONOCYTES PERCENT AUTO 5.9 % (2.0-14.0); NEUTROPHILS PERCENT AUTO 50.1 % (45.0-80.0); PLATELET COUNT,PLT 251 K/uL (150-350); RED BLOOD CELL COUNT 4.08 M/uL (3.77-5.09); RED CELL DISTRIBUTION WIDTH 13.6 % (11.2-14.1); WHITE BLOOD CELL COUNT,WBC 6.4 K/uL (4.0-10.2)
[2023-01-16 15:55] LABS: ALBUMIN 3.7 g/dL (3.4-5.0); BILIRUBIN TOTAL 1.5 mg/dL (0.2-1.0); CALCIUM 10.2 mg/dL (8.5-10.1); CREATININE 1.08 mg/dL (0.51-1.17); EST CRCL DRUG DOSING (CG) 47.98 mL/min; POTASSIUM,K 4.3 mmol/L (3.5-5.1); PROTEIN TOTAL,TP 7.5 g/dL (6.4-8.2)
[2023-01-16 15:56] LABS: INR 1.2 (0.9-1.1); PROTHROMBIN TIME 11.4 SEC (9.0-11.1)
[2023-01-16 16:12] LABS: APPEARANCE,URINE CLOUDY; BILIRUBIN,URINE LARGE (NEGATIVE); COLOR,URINE RED; GLUCOSE,URINE 100 mg/dL (NEGATIVE); KETONES,URINE 40 mg/dL (NEGATIVE); NITRITE,URINE NEGATIVE (NEGATIVE); OCCULT BLOOD,URINE LARGE (NEGATIVE); PH,URINE 5.5 (5.0-9.0); PROTEIN,URINE >=300 mg/dL (NEGATIVE)
[2023-01-16 16:27] LABS: LEUKOCYTE ESTERASE,URINE SMALL (NEGATIVE)
[2023-01-16 16:28] LABS: BACTERIA,URINE RARE /HPF (NONE TO FEW); EPITHELIAL CELLS,URINE NOT SEEN /LPF; RBC,URINE PACKED /HPF
[2023-01-16 22:28] VITALS: BP 113/60; PULSE 70
== END 2023-01-16 22:10 ==
LOC: LL.ED 14:29
DX: R31.9 Hematuria, unspecified (principal); J44.9 Chronic obstructive pulmonary disease, unspecified; I50.9 Heart failure, unspecified; E11.9 Type 2 diabetes mellitus without complications; E66.9 Obesity, unspecified; Z86.73 Personal history of transient ischemic attack (TIA), and cerebral infarction without residual deficits; Z90.710 Acquired absence of both cervix and uterus; Z88.6 Allergy status to analgesic agent; Z79.01 Long term (current) use of anticoagulants; Z79.899 Other long term (current) drug therapy; Z68.43 Body mass index [BMI] 50.0-59.9, adult
CPT/HCPCS: 36415; 80053; 81001; 85025; 85610; 87086; 87088; 87186; 99284

== ENCOUNTER 2024-06-05 21:33 | Inpatient (IN) | payer MEDICAID ==
[2024-06-05 22:04] LABS: BASOPHILS ABSOLUTE AUTO 0.03 K/uL (0.00-0.20); BASOPHILS PERCENT AUTO 0.4 % (0.0-2.0); EOSINOPHILS ABSOLUTE AUTO 0.25 K/uL (0.00-0.50); EOSINOPHILS PERCENT AUTO 3.7 % (0.0-5.0); HEMATOCRIT 41.9 % (34.0-46.0); HEMOGLOBIN 14.1 g/dL (11.7-15.5); IMMATURE GRAN ABSOLUTE AUTO 0.01 10^3/uL (0.00-0.04); IMMATURE GRAN PERCENT AUTO 0.1 % (0.0-0.4); LYMPHOCYTES ABSOLUTE AUTO 1.22 K/uL (0.50-3.50); LYMPHOCYTES PERCENT AUTO 18.2 % (10.0-50.0); MEAN CORPUSCULAR HEMOGLOBIN 33.5 pg (28.2-33.3); MEAN CORPUSCULAR HGB CONC 33.7 g/dL (31.7-36.0); MEAN CORPUSCULAR VOLUME 99.5 fL (84.0-98.0); MONOCYTES ABSOLUTE AUTO 0.36 K/uL (0.00-1.00); MONOCYTES PERCENT AUTO 5.4 % (2.0-14.0); NEUTROPHILS ABSOLUTE AUTO 4.85 K/uL (1.40-7.00); NEUTROPHILS PERCENT AUTO 72.2 % (45.0-80.0); PLATELET COUNT,PLT 165 K/uL (150-350); RED BLOOD CELL COUNT 4.21 M/uL (3.77-5.09); RED CELL DISTRIBUTION WIDTH 13.8 % (11.2-14.1); WHITE BLOOD CELL COUNT,WBC 6.7 K/uL (4.0-10.2)
[2024-06-05 22:24] LABS: LACTIC ACID 0.9 mmol/L (0.4-2.0)
[2024-06-05 22:26] LABS: ALBUMIN 3.6 g/dL (3.4-5.0); BILIRUBIN TOTAL 1.7 mg/dL (0.2-1.0); CALCIUM 10.3 mg/dL (8.5-10.1); CREATININE 1.2 mg/dL (0.51-1.17); EST CRCL DRUG DOSING (CG) 44.34 mL/min; POTASSIUM,K 4.2 mmol/L (3.5-5.1); PROTEIN TOTAL,TP 7.7 g/dL (6.4-8.2)
[2024-06-05] MEDS: Sodium Chloride 0.9% 500 ML IV SCH (22:53)
[2024-06-05] MEDS: methylPREDNISolone Sodium Succinate 40 MG/1 ML SDV IVPUSH ONE (23:35)
[2024-06-05] MEDS ORDERED: Bisacodyl 5 MG Tab PO PRN (23:50)
[2024-06-05] MEDS ORDERED: Ondansetron 4 MG Tab.DIS PO PRN (23:50)
[2024-06-05] MEDS ORDERED: hydrOXYzine Pamoate 25 MG Cap PO PRN (23:55)
[2024-06-05] MEDS ORDERED: Loperamide 2 MG Tab PO PRN (23:55)
[2024-06-06 00:04] LABS: CORONAVIRUS COVID-19 NAA NEGATIVE (NEGATIVE); INFLUENZA A NAA NEGATIVE (NEGATIVE); INFLUENZA B NAA NEGATIVE (NEGATIVE); RESPIRATORY SYNCYTIAL VIR NAA POSITIVE (NEGATIVE)
[2024-06-06] MEDS: Albuterol/Ipratropium 3.0-0.5 MG/3 ML Neb Soln NEB PRN (00:41)
[2024-06-06] MEDS: guaiFENesin 600 MG Tab.ER PO SCH (00:41)
[2024-06-06] MEDS: hydrOXYzine Pamoate 25 MG Cap PO PRN (01:01)
[2024-06-06] MEDS: Melatonin 3 MG Tab PO PRN (01:01)
[2024-06-06] MEDS: Acetaminophen 325 MG Tab PO PRN (01:02)
[2024-06-06 07:33] LABS: BASOPHILS ABSOLUTE AUTO 0.01 K/uL (0.00-0.20); BASOPHILS PERCENT AUTO 0.1 % (0.0-2.0); HEMATOCRIT 40.7 % (34.0-46.0); HEMOGLOBIN 13.4 g/dL (11.7-15.5); IMMATURE GRAN ABSOLUTE AUTO 0.03 10^3/uL (0.00-0.04); IMMATURE GRAN PERCENT AUTO 0.4 % (0.0-0.4); LYMPHOCYTES ABSOLUTE AUTO 1.17 K/uL (0.50-3.50); LYMPHOCYTES PERCENT AUTO 16.7 % (10.0-50.0); MEAN CORPUSCULAR HGB CONC 32.9 g/dL (31.7-36.0); MEAN CORPUSCULAR VOLUME 100.2 fL (84.0-98.0); MONOCYTES PERCENT AUTO 1.4 % (2.0-14.0); NEUTROPHILS ABSOLUTE AUTO 5.68 K/uL (1.40-7.00); NEUTROPHILS PERCENT AUTO 81.4 % (45.0-80.0); PLATELET COUNT,PLT 166 K/uL (150-350); RED BLOOD CELL COUNT 4.06 M/uL (3.77-5.09); RED CELL DISTRIBUTION WIDTH 13.8 % (11.2-14.1)
[2024-06-06] MEDS ORDERED: LIRAGLUTIDE 0.6 MG/0.1 ML SQ SCH (08:00)
[2024-06-06 08:11] LABS: ALBUMIN 3.4 g/dL (3.4-5.0); ANION GAP 5.7 meq/L (7-15); BILIRUBIN TOTAL 1.4 mg/dL (0.2-1.0); CALCIUM 9.8 mg/dL (8.5-10.1); CARBON DIOXIDE,CO2 31.3 mmol/L (21.0-32.0); CREATININE 1.23 mg/dL (0.51-1.17); EST CRCL DRUG DOSING (CG) 43.26 mL/min; MAGNESIUM 1.8 mg/dL (1.8-2.4); POTASSIUM,K 3.8 mmol/L (3.5-5.1); PROTEIN TOTAL,TP 7.2 g/dL (6.4-8.2)
[2024-06-06] MEDS: Potassium Chloride 10 MEQ Tab.ER PO SCH (08:40)
[2024-06-06] MEDS: Losartan 25 MG Tab PO SCH (08:40)
[2024-06-06] MEDS: Allopurinol 100 MG Tab PO SCH (08:40)
[2024-06-06] MEDS: Ferrous Sulfate 325 MG Tab PO SCH (08:43)
[2024-06-06] MEDS: Pregabalin 75 MG Cap PO SCH (08:43)
[2024-06-06] MEDS: Apixaban 5 MG Tab PO SCH (08:43)
[2024-06-06] MEDS: Furosemide 40 MG Tab PO SCH (08:44)
[2024-06-06] MEDS: Metoprolol Succinate 25 MG Tab.ER PO SCH (08:44)
[2024-06-06] MEDS: Benzonatate 100 MG Cap PO SCH (08:45)
[2024-06-06] MEDS: Acetaminophen 500 MG Tab PO SCH (08:50)
[2024-06-06] MEDS: Sodium Chloride 0.9% 10 ML Syringe FLUSH PRN (10:18)
[2024-06-06] MEDS: methylPREDNISolone Sodium Succinate 40 MG/1 ML SDV IVPUSH SCH (10:19)
[2024-06-06] MEDS: Oxybutynin 5 MG Tab PO SCH (14:22)
[2024-06-06] MEDS: methylPREDNISolone Sodium Succinate 125 MG/2 ML SDV IVPUSH ONE (19:32)
[2024-06-06] MEDS: DULoxetine 30 MG Cap ONE (19:50)
[2024-06-06] MEDS: atorvaSTATin 20 MG Tab PO SCH (19:51)
[2024-06-06] MEDS: Montelukast 10 MG Tab PO SCH (19:51)
[2024-06-06] MEDS: Cholecalciferol (Vitamin D3) 25 MCG Tab PO SCH (19:51)
[2024-06-06] MEDS: DULoxetine 30 MG Cap PO SCH (19:52)
[2024-06-06] MEDS: traMADol 50 MG Tab PO SCH (19:52)
[2024-06-06] MEDS: Albuterol/Ipratropium 3.0-0.5 MG/3 ML Neb Soln NEB SCH (19:58)
[2024-06-06] MEDS: DULoxetine 20 MG Cap PO ONE (21:01)
[2024-06-07] MEDS: methylPREDNISolone Sodium Succinate 40 MG/1 ML SDV IVPUSH SCH (08:23)
[2024-06-07] MEDS: methylPREDNISolone Sodium Succinate 125 MG/2 ML SDV IVPUSH SCH (08:56)
[2024-06-07 09:02] VITALS: BP 147/95
[2024-06-07 11:35] VITALS: PULSE 72
[2024-06-07] MEDS ORDERED: DULoxetine 30 MG Cap PO SCH (20:00)
[2024-06-10] MEDS ORDERED: Alendronate 70 MG Tab PO SCH (08:00)
== END 2024-06-07 11:05 | disposition home or self-care (01) | DRG 189 ==
LOC: LL.ED 21:33 → LL.MS 23:30
PROVIDERS: ADMIT Physician Assistant; ATTEND Physician Assistant
DX: J96.01 Acute respiratory failure with hypoxia (principal); B97.4 Respiratory syncytial virus as the cause of diseases classified elsewhere; I50.9 Heart failure, unspecified; E11.9 Type 2 diabetes mellitus without complications; I11.0 Hypertensive heart disease with heart failure; F41.9 Anxiety disorder, unspecified; F32.A Depression, unspecified; M81.0 Age-related osteoporosis without current pathological fracture; M10.9 Gout, unspecified; H54.7 Unspecified visual loss; J44.9 Chronic obstructive pulmonary disease, unspecified; K59.09 Other constipation; M19.90 Unspecified osteoarthritis, unspecified site; I44.0 Atrioventricular block, first degree; D50.9 Iron deficiency anemia, unspecified; E87.6 Hypokalemia; Z88.8 Allergy status to other drugs, medicaments and biological substances; Z79.899 Other long term (current) drug therapy; Z79.52 Long term (current) use of systemic steroids; Z79.01 Long term (current) use of anticoagulants; Z79.2 Long term (current) use of antibiotics; Z86.711 Personal history of pulmonary embolism; Z90.710 Acquired absence of both cervix and uterus; Z98.890 Other specified postprocedural states; Z90.722 Acquired absence of ovaries, bilateral; Z90.79 Acquired absence of other genital organ(s)
CPT/HCPCS: 0241U; 36415; 71045; 80053; 83605; 83735; 83880; 84484; 85025; 93005; 93010; 94640; 96361; 96374; 97161-GP; 99223; 99233; 99239; 99285-25; A9270-GY; J2919; J7040; Q0177

== ENCOUNTER 2024-09-02 14:42 | Emergency (ER) | payer MEDICAID ==
[2024-09-02] MEDS ORDERED: Sodium Chloride 0.9% 10 ML Syringe FLUSH PRN (15:06)
[2024-09-02 15:15] LABS: BASOPHILS ABSOLUTE AUTO 0.02 K/uL (0.00-0.20); BASOPHILS PERCENT AUTO 0.2 % (0.0-2.0); EOSINOPHILS ABSOLUTE AUTO 0.03 K/uL (0.00-0.50); EOSINOPHILS PERCENT AUTO 0.2 % (0.0-5.0); IMMATURE GRAN ABSOLUTE AUTO 0.02 10^3/uL (0.00-0.04); IMMATURE GRAN PERCENT AUTO 0.2 % (0.0-0.4); LYMPHOCYTES ABSOLUTE AUTO 2.63 K/uL (0.50-3.50); LYMPHOCYTES PERCENT AUTO 21.3 % (10.0-50.0); MONOCYTES ABSOLUTE AUTO 0.98 K/uL (0.00-1.00); MONOCYTES PERCENT AUTO 7.9 % (2.0-14.0); NEUTROPHILS ABSOLUTE AUTO 8.67 K/uL (1.40-7.00); NEUTROPHILS PERCENT AUTO 70.2 % (45.0-80.0); PLATELET COUNT,PLT 178 K/uL (150-350); RED BLOOD CELL COUNT 3.31 M/uL (3.77-5.09); RED CELL DISTRIBUTION WIDTH 14.5 % (11.2-14.1); WHITE BLOOD CELL COUNT,WBC 12.4 K/uL (4.0-10.2)
[2024-09-02] MEDS: Lactated Ringers 500 ML IV ONE (15:15)
[2024-09-02 15:44] LABS: ALANINE AMINOTRANSFERASE,ALT 25.0 U/L (12-78); ASPARTATE AMNIOTRANSFERASE,AST 23.0 U/L (15-37); BILIRUBIN TOTAL 2.0 mg/dL (0.2-1.0); BLOOD UREA NITROGEN,BUN 15.0 mg/dL (7-18); CARBON DIOXIDE,CO2 31.0 mmol/L (21.0-32.0); CHLORIDE,CL 98.0 mmol/L (98-107); CREATININE 1.33 mg/dL (0.51-1.17); EST CRCL DRUG DOSING (CG) 38.45 mL/min; GLUCOSE RANDOM 121.0 mg/dL (70-99); PRO B-TYPE NATRIUR PEPT,BNPPRO 1452.0 pg/mL (0-125); PROTEIN TOTAL,TP 6.4 g/dL (6.4-8.2); SODIUM,NA 133.0 mmol/L (136-145)
[2024-09-02 15:45] LABS: ESTIMATED GFR 45.0 mL/min (>=60)
[2024-09-02 15:49] LABS: POTASSIUM,K 3.0 mmol/L (3.5-5.1)
[2024-09-02 15:51] LABS: INR 1.3 (0.9-1.1)
[2024-09-02] MEDS: Iopamidol 612 MG/ML 100 ML Bottle IVPUSH STA (16:37)
[2024-09-02 16:45] VITALS: PULSE 75
[2024-09-02] MEDS: Potassium Bicarbonate/Cit Ac 20 MEQ Effervescent Tab PO ONE ×2 (17:02→18:00)
[2024-09-02 19:30] VITALS: BP 105/66
== END 2024-09-02 19:00 | disposition home or self-care (01) ==
LOC: LL.ED 14:42
DX: A08.4 Viral intestinal infection, unspecified (principal); E87.6 Hypokalemia; E11.9 Type 2 diabetes mellitus without complications; Z90.49 Acquired absence of other specified parts of digestive tract; Z90.710 Acquired absence of both cervix and uterus; Z88.0 Allergy status to penicillin; Z79.01 Long term (current) use of anticoagulants; Z79.899 Other long term (current) drug therapy
CPT/HCPCS: 36415; 74177; 80053; 83735; 83880; 84132; 85025; 85610; 87426; 99285; A9270; J7120; Q9967; 99284